=== PATIENT | male | born 1945 | race Caucasian/White ===

== ENCOUNTER 2016-04-16 10:46 | Inpatient (IN) | payer MEDICARE, MEDICAID ==
[2016-04-16] MEDS ORDERED: IPRATROPIUM/ALBUTEROL 0.5-2.5 MG/3 ML AMPUL NEB ONE (11:20)
[2016-04-16] MEDS ORDERED: METHYLPREDNISOLONE INJ 125 MG/2 ML SDV IV ONE (11:20)
[2016-04-16 12:01] LABS: VENOUS BLOOD BASE EXCESS 2.3 mmol/L; VENOUS BLOOD HCO3 30.1 mmol/L (20-32); VENOUS BLOOD PCO2 59.3 mmHg (35-63); VENOUS BLOOD PH 7.32 (7.30-7.42)
[2016-04-16 12:10] LABS: PROTHROMBIN TIME 14.5 SEC (11.4-15.4)
[2016-04-16 12:51] LABS: ABSOLUTE BASOPHILS # (AUTO) 0.1 10^3/uL (0.0-0.2); ABSOLUTE MONOCYTES (AUTO) 0.7 10^3/uL (0.1-1.4); BASOPHILS % (AUTO) 0.9 % (0-2); EOSINOPHILS % (AUTO) 0.2 % (0-6); HEMATOCRIT 46.3 % (37.9-51.0); HEMOGLOBIN 15.4 g/dL (13.5-17.0); HGB HCT DIFFERENCE -0.1; LYMPHOCYTES % (AUTO) 9.9 % (13-45); MEAN CORPUSCULAR HEMOGLOBIN 29.3 pg (27.0-33.4); MEAN CORPUSCULAR HGB CONC 33.3 g/dL (32.0-36.0); MEAN CORPUSCULAR VOLUME 88 fl (80-97); MONOCYTES % (AUTO) 7.3 % (3-13); RED BLOOD COUNT 5.25 10^6/uL (4.35-5.55); RED CELL DISTRIBUTION WIDTH 14.2 % (11.5-14.0); SEGMENTED NEUTROPHILS % (AUTO) 81.7 % (42-78); WHITE BLOOD COUNT 9.8 10^3/uL (4.0-10.5)
[2016-04-16 13:11] LABS: ALANINE AMINOTRANSFERASE 35 U/L (21-72); ALBUMIN 3.7 g/dL (3.5-5.0); ALKALINE PHOSPHATASE 169 U/L (38-126); ANION GAP 16 (5-19); ASPARTATE AMINO TRANSFERASE 23 U/L (17-59); BILIRUBIN,TOTAL 1.1 mg/dL (0.2-1.3); BLOOD UREA NITROGEN 29 mg/dL (7-20); CALCIUM 9.3 mg/dL (8.4-10.2); CARBON DIOXIDE 27 mmol/L (22-30); CHLORIDE 104 mmol/L (98-107); GLUCOSE 112 mg/dL (75-110); POTASSIUM 4.5 mmol/L (3.6-5.0); TOTAL PROTEIN 6.9 g/dL (6.3-8.2)
--- NOTE | 2016-04-16 13:16 | EKG REPORT ---
SEVERITY:- ABNORMAL ECG - AFIB/FLUT AND V-PACED COMPLEXES : Confirmed by: Jeannie Carter 16-Apr-2016 13:15:27
[2016-04-16 13:25] LABS: CREATINE KINASE MB 1.93 ng/mL (<4.55); TROPONIN I 0.066 ng/mL
[2016-04-16] MEDS ORDERED: FUROSEMIDE INJ/PF 40 MG/4 ML SDV IV ONE (14:08)
--- NOTE | 2016-04-16 14:12 | ER Document Report ---
ED Respiratory Problem - General Chief Complaint: Breathing Difficulty Stated Complaint: DIFFICULTY BREATHING Mode of Arrival: Ambulatory Information source: Patient Notes: 71-year-old male presents to the emergency department complaining of progressively worsening cough and shortness of breath over the last 3 days. Patient reports history of COPD, CHF, HTN, CVA, high cholesterol, pacemaker. Reports productive cough with whitish sputum and dyspnea worse with exertion. Denies fever, n/v, chest pain, or hemoptysis. TRAVEL OUTSIDE OF THE [place] IN LAST 30 DAYS: No - HPI Patient complains to provider of: CHF, COPD, Cough, Short of breath Duration: Worse/persistent Severity: Moderate Context: Hx CHF, Hx COPD, Smoker Short of Breath: Moderate Cough: Productive Sputum amount: Small Sputum color: White Sputum consistency: Thin At home treatment: Bronchodilators Similar symptoms previously: Yes Recently seen / treated by doctor: No - Related Data Allergies/Adverse Reactions: No Known Allergies Allergy (Verified 01/08/15 07:35) Home Medications: Current Home Medications Albuterol Sulfate [Proair HFA] 2 puff IH Q3HP PRN 04/16/16 [History] Albuterol Sulfate [Ventolin 0.042% Neb 1.25 mg/3 mL Ampul] 1.25 mg IH RTQ4 04/16 [History] Albuterol Sulfate [Ventolin 0.083% Neb 2.5 mg/3 mL Ampul] 2.5 mg IH RTQ3HP PRN 04/16/16 [History] Atorvastatin Calcium [Lipitor 20 mg Tablet] 20 mg PO DAILY 04/16/16 [History] Lisinopril 10 mg PO DAILY 04/16/16 [History] Past Medical History - General Information source: Patient, Relative, Emergency Med Personnel - Social History Smoking Status: Current Every Day Smoker Frequency of alcohol use: None Drug Abuse: None Lives with: Family Family History: CAD - Past Medical History Cardiac Medical History: Reports: Hx Coronary Artery Disease, Hx Heart Attack - x1, Hx Hypercholesterolemia, Hx Hypertension, Hx Heart Murmur Pulmonary Medical History: Reports: Hx COPD, Hx Pneumonia Denies: Hx Tuberculosis Musculoskeltal Medical History: Reports Hx Arthritis Psychiatric Medical History: Reports: Hx Depression Past Surgical History: Reports: Hx Cardiac Surgery - cabg x2, Hx Coronary Artery Bypass Graft, Hx Orthopedic Surgery - neck fusion, right and left hand surgery, Hx Pacemaker - Immunizations Hx Diphtheria, Pertussis, Tetanus Vaccination: Yes Review of Systems - Review of Systems Constitutional: No symptoms reported EENT: No symptoms reported Cardiovascular: No symptoms reported Respiratory: See HPI Gastrointestinal: No symptoms reported Genitourinary: No symptoms reported Male Genitourinary: No symptoms reported Musculoskeletal: No symptoms reported Skin: No symptoms reported Hematologic/Lymphatic: No symptoms reported Neurological/Psychological: No symptoms reported -: Yes All other systems reviewed and negative Physical Exam - Vital signs Vitals: Temp Pulse Resp BP Pulse Ox 97.4 F 71 24 H 187/97 H 99 04/16/16 10:50 04/16/16 10:50 04/16/16 10:50 04/16/16 10:50 04/16/16 10:50 Interpretation: Normal - General General appearance: Alert In distress: Mild - HEENT Head: Normocephalic, Atraumatic Eyes: Normal Pupils: PERRL - Respiratory Respiratory status: No respiratory distress, Labored - mild Chest status: Nontender Breath sounds: Productive cough, Rhonchi - Scattered bilaterally, Wheezing - Mild expiratory Chest palpation: Normal - Cardiovascular Rhythm: Regular Heart sounds: Normal auscultation Murmur: No Pulses: Normal: Radial Normal capillary refill: Yes - Abdominal Inspection: Normal Distension: No distension Bowel sounds: Normal Tenderness: Nontender Organomegaly: No organomegaly - Back Back: Normal, Nontender - Extremities General upper extremity: Normal inspection, Nontender, Normal color, Normal ROM , Normal temperature General lower extremity: Normal inspection, Nontender, Normal color, Normal ROM , Normal temperature, Normal weight bearing. No: Panfilo's sign - Neurological Neuro grossly intact: Yes Cognition: Normal Orientation: AAOx4 [place] Coma Scale Eye Opening: Spontaneous [place] Coma Scale Verbal: Oriented [place] Coma Scale Motor: Obeys Commands [place] Coma Scale Total: 15 Speech: Normal Motor strength normal: LUE, RUE, LLE, RLE Sensory: Normal - Psychological Associated symptoms: Normal affect, Normal mood - Skin Skin Temperature: Warm Skin Moisture: Dry Skin Color: Normal Course - Re-evaluation Re-evalutation: 04/16/16 14:15 Patient hemodynamically stable, in no distress, afebrile. Patient dyspnea significantly improved after single DuoNeb and intravenous Solu-Medrol and he states feels much better. Physical exam, labs, and chest x-ray findings suggest COPD/CHF exacerbation. Patient presentation and findings with hospitalist Yumiko Benjamin SOLUTION ADVISOR who agrees to assume care, evaluated in the emergency department, and admit to inpatient telemetry unit. Complain discussed with patient who verbalized understanding and agrees with plan. ED physician Dr. Sánhcez was consulted during ED evaluation and treatment. - Vital Signs Vital signs: Temp Pulse Resp BP Pulse Ox 97.5 F 71 14 173/89 H 97 04/16/16 15:01 04/16/16 10:50 04/16/16 15:01 04/16/16 15:01 04/16/16 15:01 - Laboratory Result Diagrams: 04/16/16 12:25 04/16/16 12:25 Laboratory results interpreted by me: 04/16/16 04/16/16 04/16/16 12:25 12:25 12:25 RDW 14.2 H Seg Neutrophils % 81.7 H Lymphocytes % 9.9 L Sodium 147.0 H BUN 29 H Glucose 112 H Alkaline Phosphatase 169 H NT-Pro-B Natriuret Pep 66457 H - Diagnostic Test Radiology reviewed: Image reviewed, Reports reviewed - EKG Interpretation by Me Rate: Normal Rhythm: A.Fib, A.Flutter, Other - ventricular paced When compared to previous EKG there are: Changes noted Discharge - Discharge Clinical Impression: SOB (shortness of breath) Condition: Stable Disposition: ADMITTED INPATIENT Admitting Provider: Joe Walter Admitted: Telemetry
[2016-04-16] MEDS ORDERED: ACETAMINOPHEN 325 MG TABLET PO PRN (14:40)
[2016-04-16] MEDS ORDERED: MAGNESIUM HYDROXIDE SUSP 30 ML UDCUP PO PRN (14:40)
[2016-04-16] MEDS ORDERED: IPRATROPIUM/ALBUTEROL 0.5-2.5 MG/3 ML AMPUL NEB PRN (15:22)
[2016-04-16 15:26] LABS: PROTHROMBIN TIME 14.2 SEC (11.4-15.4)
[2016-04-16] MEDS ORDERED: METOPROLOL TARTRATE PF/INJ 5 MG/5 ML SDV IV ONE (15:30)
[2016-04-16 16:08] LABS: APPEARANCE,URINE SLIGHTLY-CLOUDY; BILIRUBIN,URINE NEGATIVE (NEGATIVE); GLUCOSE, URINE NEGATIVE (NEGATIVE); KETONES,URINE NEGATIVE (NEGATIVE); LEUKOCYTE ESTERASE,URINE NEGATIVE (NEGATIVE); NITRITE,URINE NEGATIVE (NEGATIVE); PROTEIN,URINE 100 mg/dL (NEGATIVE); URINE SPECIFIC GRAVITY 1.016
[2016-04-16] MEDS: LANSOPRAZOLE 30 MG TAB.RAP.DR PO SCH (16:10)
--- NOTE | 2016-04-16 16:43 | PDOC H&P ---
History of Present Illness Admission Date/PCP: 04/16/16 14:40 KAREN LAU PA-C Patient complains of: Shortness of breath History of Present Illness: TORSTEN MANZO JR is a 71 year old male who presents to [facility]'s ED this morning complaining of increasing shortness of breath and dyspnea over the last 2 days. He has a history of chronic systolic heart failure with an EF of 30% on last echocardiogram and COPD and continues to smoke a pack per day of cigarettes. He does not wear home oxygen. He describes a productive cough over the last 2 days of white sputum. He denies any fevers, chills or recent upper respiratory infection. He states he has had to sleep sitting up in a chair for the last 2 nights. He denies any chest pain. He denies any swelling of his ankles or weight gain that he is aware of. He states he does not follow any special diet or weigh himself normally. He has a history of two vessel CABG with AVR in 2014 and permanent pacemaker during the same hospitalization. He does not follow with a electrical and instrument technician and he has not had his pacemaker interrogated since it was put in. He denies any knowledge of arrhythmias. His ecg shows atrial flutter. He has been given IV Lasix and nebulizer treatment since coming into the ED and reports breathing is much easier. Past Medical History Cardiac Medical History: Reports: Congestive Heart Failure, Coronary Artery Disease, Myocardial Infarction - x1, Hyperlipidema, Hypertension, Heart Murmur Pulmonary Medical History: Reports: Chronic Obstructive Pulmonary Disease (COPD) , Pneumonia Denies: Tuberculosis EENT Medical History: Reports: None Neurological Medical History: Reports: Ischemic CVA - with no residual Endocrine Medical History: Reports: None Renal/ Medical History: Reports: None Malignancy Medical History: Reports: None Musculoskeltal Medical History: Reports: Arthritis Skin Medical History: Reports: None Psychiatric Medical History: Reports: Depression Traumatic Medical History: Reports: None Hematology: Reports: None Infectious Medical History: Reports: None Past Surgical History Past Surgical History: Reports: Coronary Artery Bypass Graft, Orthopedic Surgery - neck fusion, right and left hand surgery, Pacemaker Social History Information Source: Patient Lives with: Spouse/Significant other Smoking Status: Current Every Day Smoker Cigarettes Packs Per Day: 1 Number of Years Smokin Frequency of Alcohol Use: Occasional Hx Recreational Drug Use: No Hx Prescription Drug Abuse: No - Advance Directive Resuscitation Status: Full Code - He does not have a formal MPOA, no living family lives with significant other Susan Barksdale and she knows his wishes Family History Family History: CAD, COPD, Hypertension Parental Family History Reviewed: Yes Children Family History Reviewed: NA Sibling(s) Family History Reviewed.: Yes Medication/Allergy Home Medications: Albuterol Sulfate [Proair HFA] 2 puff IH Q3HP PRN 04/16/16 Albuterol Sulfate [Ventolin 0.042% Neb 1.25 mg/3 mL Ampul] 1.25 mg IH RTQ4 04/16 Albuterol Sulfate [Ventolin 0.083% Neb 2.5 mg/3 mL Ampul] 2.5 mg IH RTQ3HP PRN 04/16/16 Atorvastatin Calcium [Lipitor 20 mg Tablet] 20 mg PO DAILY 04/16/16 Lisinopril 10 mg PO DAILY 04/16/16 Allergies/Adverse Reactions: No Known Allergies Allergy (Verified 01/08/15 07:35) Review of Systems Constitutional: ABSENT: chills, fever(s), headache(s), weight gain, weight loss Eyes: ABSENT: visual disturbances Ears: ABSENT: hearing changes Cardiovascular: PRESENT: dyspnea on exertion - productive white phlegm, orthropnea. ABSENT: chest pain, edema, palpitations Respiratory: PRESENT: cough, dyspnea Gastrointestinal: ABSENT: abdominal pain, constipation, diarrhea, hematemesis, hematochezia, nausea, vomiting Genitourinary: ABSENT: dysuria, hematuria Musculoskeletal: ABSENT: joint swelling Integumentary: ABSENT: rash, wounds Neurological: ABSENT: abnormal gait, abnormal speech, confusion, dizziness, focal weakness, syncope Psychiatric: ABSENT: anxiety, depression, homidical ideation, suicidal ideation Endocrine: ABSENT: cold intolerance, heat intolerance, polydipsia, polyuria Hematologic/Lymphatic: ABSENT: easy bleeding, easy bruising Physical Exam Vital Signs: Temp Pulse Resp BP Pulse Ox 97.5 F 71 14 173/89 H 97 04/16/16 15:01 04/16/16 10:50 04/16/16 15:01 04/16/16 15:01 04/16/16 15:01 General appearance: PRESENT: no acute distress, cooperative, disheveled, thin, well-developed Head exam: PRESENT: atraumatic, normocephalic Eye exam: PRESENT: conjunctiva pink, EOMI, PERRLA. ABSENT: scleral icterus Ear exam: PRESENT: normal external ear exam Mouth exam: PRESENT: moist, neck supple, tongue midline Teeth exam: PRESENT: edentulous Neck exam: PRESENT: JVD. ABSENT: carotid bruit, lymphadenopathy, thyromegaly Respiratory exam: PRESENT: crackles, symmetrical, wheezes Cardiovascular exam: PRESENT: irregular rhythm, +S1, +S2 Pulses: PRESENT: normal carotid pulses, normal radial pulses Vascular exam: PRESENT: normal capillary refill GI/Abdominal exam: PRESENT: normal bowel sounds, soft. ABSENT: distended, guarding, mass, organolmegaly, rebound, tenderness Rectal exam: PRESENT: deferred Extremities exam: PRESENT: full ROM. ABSENT: calf tenderness, clubbing, pedal edema Neurological exam: PRESENT: alert, awake, oriented to person, oriented to place , oriented to time, oriented to situation, CN II-XII grossly intact. ABSENT: motor sensory deficit Psychiatric exam: PRESENT: appropriate affect, normal mood. ABSENT: homicidal ideation, suicidal ideation Skin exam: PRESENT: dry, intact, warm. ABSENT: cyanosis, rash Results Impressions: Chest X-Ray 04/16/16 10:53 IMPRESSION: Probably chronic changes along the right lateral and posterior costophrenic sulcus and right lung base Superimposed pulmonary vascular prominence and few Demetrice lines worrisome for fluid overload or congestive failure Old sternotomy with aortic valve replacement and CABG Assessment & Plan - Diagnosis (1) Acute exacerbation of CHF (congestive heart failure) Qualifiers: Congestive heart failure type: systolic Qualified Code(s): I50.23 - Acute on chronic systolic (congestive) heart failure Is this a current diagnosis for this admission?: YesPlan: Diurese. Improve blood pressure control. Consult cardiology for new onset of atrial flutter (2) Atrial flutter Qualifiers: Atrial flutter type: typical Qualified Code(s): I48.3 - Typical atrial flutter Is this a current diagnosis for this admission?: YesPlan: No prior documentation of history of atrial flutter. Will place on therapeutic lovenox. Consult cardiology (3) COPD exacerbation Is this a current diagnosis for this admission?: YesPlan: Nebulizer treatments and IV steroid (4) Coronary artery disease Qualifiers: Coronary Disease-Associated Artery/Lesion type: [place] artery [place] vs. transplanted heart: [place] heart Associated angina: without angina Qualified Code(s): I25.10 - Atherosclerotic heart disease of [place] coronary artery without angina pectoris Is this a current diagnosis for this admission?: YesPlan: Patient on statin. No aspirin therapy (5) Hypertensive urgency Is this a current diagnosis for this admission?: YesPlan: Patient given Lopressor 5 mg IV x 1.Placed on po metoprolol and increased dose of lisinopril to 20 mg (6) Tobacco abuse Is this a current diagnosis for this admission?: YesPlan: Patient with a 50 pack year history of tobacco use. He states he has been cutting back - Time Time Spent: 50 to 70 Minutes Critical Time spent with patient: 35 or more minutes Smoking Cessation Education: 3 to 10 minutes Medications reviewed and adjusted accordingly: Yes Anticipated discharge: Home with Homehealth
[2016-04-16] MEDS ORDERED: INFLUENZA ADLT QUAD (36MOS+) 2016-17 VAC 0.5 ML SYR IM PRN (18:20)
[2016-04-16] MEDS: IPRATROPIUM/ALBUTEROL 0.5-2.5 MG/3 ML AMPUL NEB SCH (21:13)
[2016-04-16] MEDS ORDERED: HEPARIN SOD (PORCINE) 5,000 UNIT/ML 1 ML SYRINGE SUBCUT SCH (22:00)
[2016-04-16] MEDS: METOPROLOL TARTRATE 50 MG TABLET PO SCH (22:45)
[2016-04-16] MEDS: METHYLPREDNISOLONE INJ 125 MG/2 ML SDV IV SCH (22:46)
[2016-04-16] MEDS: ENOXAPARIN SODIUM INJ 80 MG/0.8 ML DISP.SYRIN SUBCUT SCH (22:46)
[2016-04-17 04:20] LABS: HEMATOCRIT 49.7 % (37.9-51.0); HEMOGLOBIN 16.4 g/dL (13.5-17.0); HGB HCT DIFFERENCE -0.5; MEAN CORPUSCULAR HEMOGLOBIN 29.1 pg (27.0-33.4); MEAN CORPUSCULAR HGB CONC 32.9 g/dL (32.0-36.0); MEAN CORPUSCULAR VOLUME 89 fl (80-97); RED BLOOD COUNT 5.62 10^6/uL (4.35-5.55); RED CELL DISTRIBUTION WIDTH 14.7 % (11.5-14.0); WHITE BLOOD COUNT 6.7 10^3/uL (4.0-10.5)
[2016-04-17 04:28] LABS: CHOLESTEROL 151.94 mg/dL (0-200); Direct HDL 41 mg/dL (>40); MAGNESIUM 2.1 mg/dL (1.6-2.3); TRIGLYCERIDES 66 mg/dL (<150)
[2016-04-17 04:35] LABS: TROPONIN I 0.069 ng/mL
[2016-04-17 04:39] LABS: DIRECT LDL 100 mg/dL (<100)
[2016-04-17 04:41] LABS: FREE T3 2.06 pg/mL (2.77-5.27)
[2016-04-17 04:55] LABS: THYROID STIMULATING HORMONE 1.78 uIU/mL (0.47-4.68)
[2016-04-17] MEDS: METHYLPREDNISOLONE INJ 125 MG/2 ML SDV IV SCH ×3 (05:20→21:55)
[2016-04-17] MEDS: LANSOPRAZOLE 30 MG TAB.RAP.DR PO SCH ×2 (05:20→16:07)
[2016-04-17] MEDS: IPRATROPIUM/ALBUTEROL 0.5-2.5 MG/3 ML AMPUL NEB SCH ×3 (08:31→19:58)
[2016-04-17] MEDS: NICOTINE 21 MG/24 HR PATCH.TD24 TD SCH (09:31)
[2016-04-17] MEDS: ENOXAPARIN SODIUM INJ 80 MG/0.8 ML DISP.SYRIN SUBCUT SCH ×2 (09:32→21:55)
[2016-04-17] MEDS: ASPIRIN 81 MG TABLET, ENT COATED PO SCH (09:32)
[2016-04-17] MEDS: METOPROLOL TARTRATE 50 MG TABLET PO SCH ×2 (09:32→21:52)
[2016-04-17] MEDS: DOCUSATE SODIUM 100 MG CAPSULE PO SCH (09:32)
[2016-04-17] MEDS ORDERED: LISINOPRIL 10 MG TABLET PO SCH ×2 (10:00)
[2016-04-17 10:04] LABS: ANION GAP 14 (5-19); BLOOD UREA NITROGEN 45 mg/dL (7-20); CALCIUM 9.2 mg/dL (8.4-10.2); CARBON DIOXIDE 27 mmol/L (22-30); CHLORIDE 103 mmol/L (98-107); CREATININE RESULT 1.36 mg/dL (0.52-1.25); GLUCOSE 259 mg/dL (75-110); POTASSIUM 4.4 mmol/L (3.6-5.0); SODIUM 144.2 mmol/L (137-145)
[2016-04-17] MEDS ORDERED: FUROSEMIDE INJ/PF 20 MG/2 ML SDV IV ONE (12:01)
[2016-04-17 12:20] LABS: APPEARANCE,URINE SLIGHTLY-CLOUDY; BILIRUBIN,URINE NEGATIVE (NEGATIVE); GLUCOSE, URINE 50 mg/dL (NEGATIVE); KETONES,URINE NEGATIVE (NEGATIVE); LEUKOCYTE ESTERASE,URINE NEGATIVE (NEGATIVE); NITRITE,URINE NEGATIVE (NEGATIVE); PROTEIN,URINE 100 mg/dL (NEGATIVE); URINE SPECIFIC GRAVITY 1.026
--- NOTE | 2016-04-17 14:23 | PDOC PROGRESS REPORT ---
Subjective Progress Note for:: 04/17/16 Subjective:: Patient seen on morning rounds. He is sitting on the side of the bed eating his breakfast. He states his breathing is improved from yesterday. He denies any chest pain or palpitations. He does have a productive cough raising thick white sputum. He denies any abdominal pain, diarrhea or vomiting. He denies any myalgias or back pain. Physical Exam Vital Signs: Temp Pulse Resp BP Pulse Ox 97.6 F 62 24 H 133/68 H 96 04/17/16 12:13 04/17/16 13:59 04/17/16 12:13 04/17/16 12:13 04/17/16 12:13 Intake & Output 04/16/16 04/17/16 04/18/16 06:59 06:59 06:59 Intake Total 54 600 Output Total 100 Balance 54 500 Weight 57.8 kg General appearance: PRESENT: no acute distress, thin, well-developed, well- nourished Head exam: PRESENT: atraumatic, normocephalic Eye exam: PRESENT: conjunctiva pink, EOMI, PERRLA. ABSENT: scleral icterus Ear exam: PRESENT: normal external ear exam Mouth exam: PRESENT: moist, tongue midline Neck exam: ABSENT: carotid bruit, JVD, lymphadenopathy, thyromegaly Respiratory exam: PRESENT: crackles, decreased breath sounds - bilateral bases, symmetrical, unlabored Cardiovascular exam: PRESENT: irregular rhythm, +S1, +S2, systolic murmur - 2/6 Pulses: PRESENT: normal carotid pulses, normal radial pulses Vascular exam: PRESENT: normal capillary refill GI/Abdominal exam: PRESENT: normal bowel sounds, soft. ABSENT: distended, guarding, mass, organolmegaly, rebound, tenderness Rectal exam: PRESENT: deferred Extremities exam: PRESENT: full ROM. ABSENT: calf tenderness, clubbing, pedal edema Musculoskeletal exam: PRESENT: ambulatory Neurological exam: PRESENT: alert, oriented to person, oriented to place, oriented to time, CN II-XII grossly intact, normal gait Psychiatric exam: PRESENT: appropriate affect, normal mood. ABSENT: homicidal ideation, suicidal ideation Skin exam: PRESENT: dry, intact, warm. ABSENT: cyanosis, rash Results Laboratory Results: 04/17/16 03:34 04/17/16 09:25 04/16/16 04/17/16 04/17/16 15:14 03:34 03:34 WBC 6.7 RBC 5.62 H Hgb 16.4 Hct 49.7 MCV 89 MCH 29.1 MCHC 32.9 RDW 14.7 H Plt Count 226 Sodium Potassium Chloride Carbon Dioxide Anion Gap BUN Creatinine Est GFR ( Amer) Est GFR (Non-Af Amer) Glucose Calcium Magnesium 2.1 Triglycerides 66 Cholesterol 151.94 LDL Cholesterol Direct 100 VLDL Cholesterol 13.0 HDL Cholesterol 41 TSH Free T4 Free T3 pg/mL Urine Color YELLOW Urine Appearance SLIGHTLY-CLOUDY Urine pH 5.0 Ur Specific [place] 1.016 Urine Protein 100 H Urine Glucose (UA) NEGATIVE Urine Ketones NEGATIVE Urine Blood NEGATIVE Urine Nitrite NEGATIVE Ur Leukocyte Esterase NEGATIVE Urine WBC (Auto) 1 Urine RBC (Auto) 1 04/17/16 04/17/16 04/17/16 03:34 09:25 11:55 WBC RBC Hgb Hct MCV MCH MCHC RDW Plt Count Sodium 144.2 Potassium 4.4 Chloride 103 Carbon Dioxide 27 Anion Gap 14 BUN 45 H Creatinine 1.36 H Est GFR ( Amer) > 60 Est GFR (Non-Af Amer) 51 L Glucose 259 H Calcium 9.2 Magnesium Triglycerides Cholesterol LDL Cholesterol Direct VLDL Cholesterol HDL Cholesterol TSH 1.78 Free T4 1.33 Free T3 pg/mL 2.06 L Urine Color YELLOW Urine Appearance SLIGHTLY-CLOUDY Urine pH 5.0 Ur Specific [place] 1.026 Urine Protein 100 H Urine Glucose (UA) 50 H Urine Ketones NEGATIVE Urine Blood NEGATIVE Urine Nitrite NEGATIVE Ur Leukocyte Esterase NEGATIVE Urine WBC (Auto) 1 Urine RBC (Auto) 1 04/16/16 04/16/16 04/17/16 15:07 20:54 03:34 Troponin I 0.077 0.078 0.069 NT-Pro-B Natriuret Pep 78168 H Impressions: Chest X-Ray 04/16/16 10:53 IMPRESSION: Probably chronic changes along the right lateral and posterior costophrenic sulcus and right lung base Superimposed pulmonary vascular prominence and few Demetrice lines worrisome for fluid overload or congestive failure Old sternotomy with aortic valve replacement and CABG Assessment & Plan - Diagnosis (1) Acute exacerbation of CHF (congestive heart failure) Qualifiers: Congestive heart failure type: systolic Qualified Code(s): I50.23 - Acute on chronic systolic (congestive) heart failure Is this a current diagnosis for this admission?: YesPlan: Diverae. Improve blood pressure control.Lovenox bridge, start warfarin. Consult cardiology for new onset of atrial flutter (2) Atrial flutter Qualifiers: Atrial flutter type: typical Qualified Code(s): I48.3 - Typical atrial flutter Is this a current diagnosis for this admission?: YesPlan: No prior documentation of history of atrial flutter. Will place on therapeutic lovenox for bridge start warfarin. Consult cardiology, will eventually need ablation (3) COPD exacerbation Is this a current diagnosis for this admission?: YesPlan: Nebulizer treatments and IV steroid. Coughing up yellow sputum today, will place on broad spectrum antibiotic therapy (4) Coronary artery disease Qualifiers: Coronary Disease-Associated Artery/Lesion type: [place] artery [place] vs. transplanted heart: [place] heart Associated angina: without angina Qualified Code(s): I25.10 - Atherosclerotic heart disease of [place] coronary artery without angina pectoris Is this a current diagnosis for this admission?: YesPlan: Patient on statin. No aspirin therapy (5) Hypertensive urgency Is this a current diagnosis for this admission?: YesPlan: Patient given Lopressor 5 mg IV x 1.Placed on po metoprolol and increased dose of lisinopril to 20 mg bid (6) Tobacco abuse Is this a current diagnosis for this admission?: YesPlan: Patient with a 50 pack year history of tobacco use. He states he has been cutting back - Time Time Spent with patient: 25-34 minutes Critical Time spent with patient: 25-34 minutes Smoking Cessation Education: 3 to 10 minutes Medications reviewed and adjusted accordingly: Yes
[2016-04-17] MEDS ORDERED: LEVOFLOXACIN 500 MG/D5W RTU 500 MG/100 ML RTUPB IV ONE (14:30)
--- NOTE | 2016-04-17 15:58 | CONSULTATION REPORT E ---
Consultation Report NAME: TORSTEN MANZO : 1945 AGE: 71Y DATE: 04/17/2016 304 B TO: ALICE CURTIS M.D. FROM: Requesting Physician REASON FOR CONSULTATION: Shortness of breath and heart failure. HISTORY OF PRESENT ILLNESS: The patient is a 71-year male with known history of coronary artery disease, history of non-ST elevation OK in 2000, status post coronary artery bypass graft surgery with saphenous vein graft to the distal right coronary artery, a saphenous vein graft to the ramus intermedius, and history of pericardial tissue aortic valve replacement for severe aortic stenosis, history of permanent pacemaker, biventricular resynchronization pacemaker for complete heart block with decreased LV ejection fraction. Also, patient with known history of COPD but continues to smoke. He states since the past 2-3 days, he has been having progressively increasing shortness of breath with wheezing and cough productive of yellowish sputum. He also has been having intermittent wheezing without any palpitations and no leg edema and no chest pain. He has been having PND and orthopnea. Since his coronary artery bypass graft surgery and the aortic valve replacement and pacemaker placement has not seen a mill beam fitter. He has missed several appointments with me in the office. He has not had his pacemaker checked in a long time. He denies any fever, chills, or rigors. He denies any palpitations or syncope. There is no leg edema. PAST MEDICAL HISTORY: Positive for hypertension. He also has a history of non-ST elevation OK in 2010 at which time he had a cardiac catheterization which showed significant 2-vessel disease and aortic stenosis. The patient had a saphenous vein graft to the distal right coronary artery and a saphenous vein graft to the ramus intermedius and also had a pericardial tissue valve replacement of his stenosed aortic valve. He also at that time had complete heart block and had a biventricular resynchronization permanent pacemaker placed with an atrial lead and a lead in the left coronary sinus system to pace the left ventricle and also a lead in the right ventricle. His EKG shows atrial flutter and the patient states he has not had atrial flutter in the past. He has a history of COPD. He continues to smoke. He has recent symptoms suggestive of acute exacerbation of COPD. He has history of TIA. He has had a history of CVA in the past but has fully recovered. He has a history of depression. He also has a history of arthritis. The patient has no history of chronic kidney disease but his renal function is mildly reduced now most likely due to his heart failure and dehydration and sepsis due to the patient's acute exacerbation of COPD. PAST SURGICAL HISTORY: Positive for history of coronary artery bypass graft surgery, permanent pacemaker placement, and aortic valve replacement with pericardial tissue valve. He has also had right and left hand surgery and also he has neck fusion done due to cervical spine arthritis. SOCIAL HISTORY: The patient continues to smoke. There is no history of ETOH abuse. The patient is a FULL CODE. He states that, Susan, his significant other living with him is his surrogate healthcare decision maker. REVIEW OF SYSTEMS: CONSTITUTIONAL: Denies any fever, chills, or rigors. Complains of generalized fatigue and weakness. Denies any headache or dizziness. There is no head injury. HEENT: Eyes: No history of amblyopia or diplopia, no history of amaurosis fugax. Mouth: No history of altered taste sensation, no ulcers in the mouth, no bleeding from the gums. Ears: No history of loss, no history of tinnitus, no history of vertigo, no history of recurrent ear infection. Nose: No history of hay fever, no history of nosebleeds, no history of nasal polyps. Throat: There is no odynophagia or dysphagia. No history of recurrent sore throats. SKIN: No history of pruritus. No history of psoriasis. No history of skin cancer. No history of yellowish discoloration of the skin. NECK: No swelling in the neck and no goiter. LUNGS: History of COPD. At present, there is acute exacerbation of COPD along with congestive heart failure. He has no history of sleep apnea. No history of pulmonary embolism. No history of hemoptysis. No history of pleuritic chest pain. CARDIAC: History of coronary artery disease. History of coronary artery bypass graft surgery as mentioned, about 2 vein grafts each, one to the distal RCA and to the ramus intermedius. History of tissue pericardial valve replacement for severe aortic stenosis. He also had cardiomyopathy with the last ejection fraction in 2014 showing LV ejection fraction of 30%. He has no syncope. The patient admitted with [id number] systolic heart failure. The patient has no palpitations or syncope. There is no leg edema. There is PND and orthopnea present. ENDOCRINE: No history of diabetes mellitus. No history of thyroid disease. No history of heat or cold intolerance. No history of polydipsia or polyuria. RENAL: There is no history of chronic kidney disease but at present, his GFR is reduced to 51, most likely acute renal insufficiency secondary to congestive heart failure and acute exacerbation of COPD possibly with sepsis. No history of hematuria, pyuria, or dysuria. MUSCULOSKELETAL: History of arthritis present. No history of collagen vascular disease. GASTROINTESTINAL: No history of GERD. No history of peptic ulcer disease. No history of GI bleed. No history of fatty food intolerance. No altered bowel movements. CENTRAL NERVOUS SYSTEM: Past history of CVA from which he has fully recovered. No history of sleep apnea. No history of headaches, migraines, or seizures. PSYCHIATRIC: History of depression at present. No history of suicidal ideation. VASCULAR: No history of calf or buttock claudication. He has history of peripheral arterial disease although he has no symptoms of claudication because he does not walk much. In 2000, an angiogram performed showed that there was 100% occlusion in the right common iliac with 80% occlusion of the left common iliac. There is no history of DVT. HEMATOLOGICAL: No history of bleeding diathesis. No history of clotting disorders. The rest of the review of systems is positive for atrial and biventricular leads for cardiac resynchronization therapy. He has not had his pacemaker checked for a long time. He also has peripheral arterial disease and it is not known if he followed up with vascular as he was supposed to. For metabolic, he has a history of hyperlipidemia. No history of gout. PHYSICAL EXAMINATION: GENERAL: The patient appears to be chronically ill and frail and appears to be ill nourished. VITAL SIGNS: He is afebrile with a temperature of 97.6 degrees Fahrenheit, pulse is 59 beats per minute, blood pressure 133/68, respirations are 24 per minute, 02 saturations are 96% on 2 L nasal cannula. HEENT: Head is atraumatic, normocephalic. Eyes: Pupils are equal, round, regular and reactive to light and accommodation. Extraocular movements are normal. There is no conjunctival pallor. There is no scleral icterus. Ears: Tympanic membranes are intact. External auditory canals are clear. Nose: There is no deviated nasal septum. There is no inflammation of the nasal mucous membranes. Mouth: Mucous membranes of the mouth are moist. Tongue is moist. There are no ulcers. There is no bleeding from the gums. Throat: There is no redness of the oropharynx. There are no exudates. SKIN: There are no skin rashes. There is no petechia or ecchymosis. There are no skin lesions. NECK: Supple. There is mild JVD present. Carotids are equal. There is no bruit. There is no goiter. There is lymphadenopathy. Trachea is central. LUNGS: Show diminished air entry, prolonged expiration with scattered rhonchi and a few wheezing. There is also a few bibasilar rales of CHF. HEART: S1, S2 are heard. S1 is of variable intensity. There is no S3 gallop. There is no S4 gallop. There is a systolic murmur in the left sternal border and apex. There is no rub. ABDOMEN: Soft, nontender. There is no hepatosplenomegaly. Bowel sounds are well heard. EXTREMITIES: Femorals are diminished. There are no femoral bruits. Leg pulses are difficult to palpate. There is no pedal edema. There is no pedal edema. There is no DVT or cellulitis. There is no calf tenderness. CENTRAL NERVOUS SYSTEM: The patient is conscious, awake, and alert, oriented x3 with no focal deficits. PSYCHIATRIC: The patient does not appear to be agitated or depressed. His judgment and insight are intact. His affect is normal. DIAGNOSTICS: The patient's chest x-ray shows mild congestive heart failure. He has a pacemaker lead in the right atrium, the right ventricle, and in the coronary sinus. There are no infiltrates suggestive of pneumonia. The patient's EKG shows atrial flutter with ventricular paced rhythm. EKG strips were typical type I flutter. The patient's white count is 6900, hemoglobin 16.4, hematocrit 49.7, platelet count is 226,000. The patient's sodium is 147, potassium 4.5, chloride 104, CO2 is 27. The patient's BUN is 29, creatinine is 1.10, GFR is greater than 60. The patient's liver function tests were normal with an increased alk phos of 169. His calcium was 9.3 yesterday. His NT-proBNP is 12,400. The patient's troponin I is 0.066, 0.077, and 0.078. The patient's triglycerides are 66, total cholesterol is 151.94, LDL is 100, HDL is 41. The patient's TSH is 2.23. The patient's troponin I today has been 0.069 and his NT-proBNP is 17,500. His TSH is normal at 1.78. The patient's sodium is 144.2, potassium 4.4, chloride 103, CO2 is 27. The patient's BUN is 45, creatinine is 1.36. GFR is reduced at 51 mL. His glucose is 259. ALLERGIES: No known allergies. MEDICATIONS: 1. Acetaminophen 650 mg p.o. q.4 hours p.r.n. 2. Aspirin 81 mg p.o. daily. 3. Atorvastatin 20 mg p.o. at bedtime. 4. Colace 100 mg p.o. daily. 5. He is on enoxaparin, that is Lovenox *------* mg subcutaneous q.12 hours. 6. He is to get the flu vaccine 0.5 mL on the day of discharge. 7. He is on Lasix 40 mg IV push times 1 and 40 mg IV daily. 8. He is on ipratropium/albuterol nebulizer 3 mL nebulizer treatment q.3 hours p.r.n. and 3 mL nebulizer treatment q.6 hours while awake. 9. He is on Prevacid 30 mg p.o. b.i.d. 10. He is on lisinopril 20 mg p.o. daily. 11. He is on magnesium hydroxide 30 mL p.o. at bedtime p.r.n. 12. He is on methylprednisolone 60 mg IV q.8 hours. 13. He is on metoprolol 5 mg IV times 1 and 50 mg p.o. q.12 hours. 14. He is on Nicoderm patch 21 mg/24 hours once daily to the skin. 15. He is on spironolactone 25 mg p.o. daily. 16. He is also on Coumadin at 5 mg p.o. at bedtime. 17. He is on metoprolol 50 mg p.o. q.12 hours. IMPRESSION: 1. Shortness of breath, PND, orthopnea secondary to acute exacerbation of COPD and nrqis-gq-aoxsieu systolic and diastolic heart failure. 2. Syzdd-up-drplqaz systolic heart failure and diastolic heart failure. 3. COPD acute exacerbation. 4. Atrial flutter, ? onset, ? duration. 5. CAD, history of non-ST elevation OK, history of coronary artery bypass graft surgery x2. 6. Aortic valve replacement with a tissue pericardial valve. 7. History of biventricular permanent pacemaker placement with a lead in the RA, the RV, and in the left coronary sinus. His pacemaker has not been checked for a long time. 8. Tobacco abuse. 9. Depression. 10. Arthritis. 11. Acute renal failure. 12. Peripheral vascular disease. RECOMMENDATIONS: Would continue the patient on respiratory treatments. Would recommend adding an antibiotic for possible acute bronchitis. Continue lisinopril. Continue metoprolol and continue aspirin. Continue atorvastatin. Note, 45 minutes spent on the patient with more than 50% of the time spent in direct patient care and also review of his medications, adjustments made to his medications. This was discussed with the patient and with the hospitalist taking care of the patient. We will discuss with them regarding starting of the antibiotics. Hopefully with the infection being currently controlled and acute exacerbation of COPD resolved and with the atrial flutter, continue the patient on full dose Lovenox subcutaneously until PT/INR is therapeutic with Coumadin. The patient later will be *------* hospital after a stress test here for possible ablate of the permanent pacemaker to an AICD and also recommend that the patient have an outpatient Lexiscan Cardiolite stress once the COPD goes back to baseline. Will follow with you. Thanking you. DICTATING PHYSICIAN: ALICE CURTIS M.D. [id number] PHY#: [id number] ID: [id number] JOB#: [id number] ACCT: [id number] cc:ALICE CURTSI M.D. >
[2016-04-17] MEDS ORDERED: ZOLPIDEM TARTRATE 5 MG TABLET PO PRN (19:49)
[2016-04-17] MEDS: LISINOPRIL 10 MG TABLET PO SCH (21:53)
[2016-04-17] MEDS: FUROSEMIDE INJ/PF 40 MG/4 ML SDV IV SCH (21:55)
[2016-04-17] MEDS ORDERED: ATORVASTATIN CALCIUM 20 MG TABLET PO SCH (22:00)
[2016-04-17] MEDS ORDERED: WARFARIN SODIUM 5 MG TABLET PO SCH (22:00)
[2016-04-18 04:53] LABS: PROTHROMBIN TIME 14.4 SEC (11.4-15.4)
[2016-04-18 05:09] LABS: ANION GAP 13 (5-19); BLOOD UREA NITROGEN 54 mg/dL (7-20); CALCIUM 9.3 mg/dL (8.4-10.2); CARBON DIOXIDE 30 mmol/L (22-30); CHLORIDE 100 mmol/L (98-107); GLUCOSE 165 mg/dL (75-110); SODIUM 142.8 mmol/L (137-145)
[2016-04-18] MEDS: LANSOPRAZOLE 30 MG TAB.RAP.DR PO SCH (05:11)
[2016-04-18] MEDS: METHYLPREDNISOLONE INJ 125 MG/2 ML SDV IV SCH (05:11)
[2016-04-18 05:24] LABS: HEMATOCRIT 40.4 % (37.9-51.0); HGB HCT DIFFERENCE -0.2; MEAN CORPUSCULAR HEMOGLOBIN 29.2 pg (27.0-33.4); MEAN CORPUSCULAR HGB CONC 33.1 g/dL (32.0-36.0); MEAN CORPUSCULAR VOLUME 88 fl (80-97); RED BLOOD COUNT 4.58 10^6/uL (4.35-5.55); RED CELL DISTRIBUTION WIDTH 14.3 % (11.5-14.0)
[2016-04-18 05:28] LABS: BASOPHILS % (MANUAL) 0 % (0-2); EOSINOPHILS % (MANUAL) 0 % (0-6); LYMPHOCYTES % (MANUAL) 5 % (13-45); TOTAL CELLS COUNTED 100
[2016-04-18 05:29] LABS: ANISOCYTOSIS SLIGHT; BURR CELLS SLIGHT; OVALOCYTES SLIGHT; POIKILOCYTOSIS SLIGHT; TOXIC GRANULATION SLIGHT; TOXIC VACUOLATION PRESENT
[2016-04-18 05:31] LABS: HEMOGLOBIN 13.4 g/dL (13.5-17.0); WHITE BLOOD COUNT 18.5 10^3/uL (4.0-10.5)
[2016-04-18 08:31] VITALS: BP 144/67
[2016-04-18] MEDS: IPRATROPIUM/ALBUTEROL 0.5-2.5 MG/3 ML AMPUL NEB SCH (08:36)
[2016-04-18] MEDS: LISINOPRIL 10 MG TABLET PO SCH (09:43)
[2016-04-18] MEDS: ASPIRIN 81 MG TABLET, ENT COATED PO SCH (09:44)
[2016-04-18] MEDS: METOPROLOL TARTRATE 50 MG TABLET PO SCH (09:44)
[2016-04-18] MEDS: ENOXAPARIN SODIUM INJ 80 MG/0.8 ML DISP.SYRIN SUBCUT SCH (09:44)
[2016-04-18] MEDS: FUROSEMIDE INJ/PF 40 MG/4 ML SDV IV SCH (09:46)
[2016-04-18] MEDS: NICOTINE 21 MG/24 HR PATCH.TD24 TD SCH (09:46)
[2016-04-18] MEDS: DOCUSATE SODIUM 100 MG CAPSULE PO SCH (09:46)
[2016-04-18] MEDS ORDERED: SPIRONOLACTONE 25 MG TABLET PO SCH (10:00)
[2016-04-18] MEDS ORDERED: LEVOFLOXACIN 250 MG/D5W RTU 250 MG/50 ML RTUPB IV SCH (10:00)
[2016-04-18] MEDS ORDERED: FUROSEMIDE INJ/PF 40 MG/4 ML SDV IV SCH (10:00)
--- NOTE | 2016-04-18 10:50 | PDOC DISCHARGE SUMMARY ---
General - Admit/Disc Date/PCP Admission Date/Primary Care Provider: 04/16/16 14:40 KAREN LAU PA-C Discharge Date: 04/18/16 - Against Medical Advice - Discharge Diagnosis (1) Acute exacerbation of CHF (congestive heart failure) Is this a current diagnosis for this admission?: Yes (2) Atrial flutter Is this a current diagnosis for this admission?: Yes (3) COPD exacerbation Is this a current diagnosis for this admission?: Yes (4) Coronary artery disease Is this a current diagnosis for this admission?: Yes (5) Hypertensive urgency Is this a current diagnosis for this admission?: Yes (6) Tobacco abuse Is this a current diagnosis for this admission?: Yes - Additional Information Resuscitation Status: Full Code Discharge Activity: Activity As Tolerated, Balance Activity w/Rest, Energy Conservation, Weigh Daily Home Medications: Albuterol Sulfate [Proair HFA] 2 puff IH Q3HP PRN 04/16/16 Albuterol Sulfate [Ventolin 0.042% Neb 1.25 mg/3 mL Ampul] 1.25 mg IH RTQ4 04/16 Albuterol Sulfate [Ventolin 0.083% Neb 2.5 mg/3 mL Ampul] 2.5 mg IH RTQ3HP PRN 04/16/16 Atorvastatin Calcium [Lipitor 20 mg Tablet] 20 mg PO DAILY 04/16/16 Lisinopril 10 mg PO DAILY 04/16/16 History of Present Illness Patient complains of: Shortness of breath and dyspnea History of Present Illness: TORSTEN MANZO JR is a 71 year old male who presents to [facility]'s ED this morning complaining of increasing shortness of breath and dyspnea over the last 2 days. He has a history of chronic systolic heart failure with an EF of 30% on last echocardiogram and COPD and continues to smoke a pack per day of cigarettes. He does not wear home oxygen. He describes a productive cough over the last 2 days of white sputum. He denies any fevers, chills or recent upper respiratory infection. He states he has had to sleep sitting up in a chair for the last 2 nights. He denies any chest pain. He denies any swelling of his ankles or weight gain that he is aware of. He states he does not follow any special diet or weigh himself normally. He has a history of two vessel CABG with AVR in 2013 and permanent pacemaker during the same hospitalization. 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 He denies any knowledge of arrhythmias. His ecg shows atrial flutter. He has been given IV Lasix and nebulizer treatment since coming into the ED and reports breathing is much easier. Hospital Course Hospital Course: Patient was admitted to the [facility] on telemetry. He was diuresed. He was given IV broad spectrum antibiotics and nebulizer treatments. He was placed on a beta adele and had his veronica inhibitor increased for blood pressure control. He was found to be in atrial flutter. He was started on therapeutic dose of lovenox and Coumadin. Dr Yanes saw the patient in consult for cardiology. He made adjustments in his medications and feels patient will need to be sent for EPS and ablation once he has been therapeutic on Coumadin for a period of time. The patient has not been compliant with medical therapy in the past according to his significant other. He has never routine for cardiology follow up after his CABG/AVR and permanent pacemaker insertion. This morning he became beligerent with the nursing staff about going home. I talked to him and advised him it would not be in his good interest if he left the hospital today. Despite our attempts the patient maria de jesus AMA forms and left. Physical Exam Vital Signs: Temp Pulse Resp BP Pulse Ox 97.5 F 65 16 144/67 H 97 04/18/16 08:26 04/18/16 08:36 04/18/16 08:36 04/18/16 08:26 04/18/16 08:26 Intake & Output 04/17/16 04/18/16 04/19/16 06:59 06:59 06:59 Intake Total 54 2183 Output Total 900 Balance 54 1283 Weight 57.8 kg 58 kg General appearance: PRESENT: no acute distress, disheveled, hard of hearing, thin, well-developed Head exam: PRESENT: atraumatic, normocephalic Eye exam: PRESENT: conjunctiva pink, EOMI, PERRLA. ABSENT: scleral icterus Ear exam: PRESENT: bleeding Mouth exam: PRESENT: moist, tongue midline Teeth exam: PRESENT: edentulous Neck exam: ABSENT: carotid bruit, JVD, lymphadenopathy, thyromegaly Respiratory exam: PRESENT: crackles, decreased breath sounds - bilaterally, symmetrical, wheezes Cardiovascular exam: PRESENT: RRR. ABSENT: diastolic murmur, rubs, systolic murmur Pulses: PRESENT: normal dorsalis pedis pul Vascular exam: PRESENT: normal capillary refill GI/Abdominal exam: PRESENT: normal bowel sounds, soft. ABSENT: distended, guarding, mass, organolmegaly, rebound, tenderness Rectal exam: PRESENT: deferred Extremities exam: PRESENT: full ROM. ABSENT: calf tenderness, clubbing, pedal edema Neurological exam: PRESENT: alert, awake, oriented to person, oriented to place , oriented to time, oriented to situation, CN II-XII grossly intact. ABSENT: motor sensory deficit Psychiatric exam: PRESENT: anxious Skin exam: PRESENT: dry, intact, warm. ABSENT: cyanosis, rash Results Laboratory Results: 04/18/16 04:15 04/18/16 04:15 04/17/16 04/17/16 04/18/16 11:55 14:40 04:15 WBC RBC Hgb Hct MCV MCH MCHC RDW Plt Count Seg Neutrophils % Lymphocytes % Monocytes % Eosinophils % Basophils % Absolute Neutrophils Absolute Lymphocytes Absolute Monocytes Absolute Eosinophils Absolute Basophils Sodium 142.8 Potassium 4.0 Chloride 100 Carbon Dioxide 30 Anion Gap 13 BUN 54 H Creatinine 1.50 H Est GFR ( Amer) 56 L Est GFR (Non-Af Amer) 46 L Glucose 165 H Calcium 9.3 Magnesium 2.0 Urine Color YELLOW Urine Appearance SLIGHTLY-CLOUDY Urine pH 5.0 Ur Specific [place] 1.026 Urine Protein 100 H Urine Glucose (UA) 50 H Urine Ketones NEGATIVE Urine Blood NEGATIVE Urine Nitrite NEGATIVE Ur Leukocyte Esterase NEGATIVE Urine WBC (Auto) 1 Urine RBC (Auto) 1 Stool Occult Blood NEGATIVE 04/18/16 04:15 WBC 18.5 H D RBC 4.58 Hgb 13.4 L D Hct 40.4 MCV 88 MCH 29.2 MCHC 33.1 RDW 14.3 H Plt Count 222 Seg Neutrophils % Not Reportable Lymphocytes % Not Reportable Monocytes % Not Reportable Eosinophils % Not Reportable Basophils % Not Reportable Absolute Neutrophils Not Reportable Absolute Lymphocytes Not Reportable Absolute Monocytes Not Reportable Absolute Eosinophils Not Reportable Absolute Basophils Not Reportable Sodium Potassium Chloride Carbon Dioxide Anion Gap BUN Creatinine Est GFR ( Amer) Est GFR (Non-Af Amer) Glucose Calcium Magnesium Urine Color Urine Appearance Urine pH Ur Specific [place] Urine Protein Urine Glucose (UA) Urine Ketones Urine Blood Urine Nitrite Ur Leukocyte Esterase Urine WBC (Auto) Urine RBC (Auto) Stool Occult Blood 04/16/16 15:14 Clean Catch Midstream Urine Culture - Final NO GROWTH 2 DAYS 04/16/16 04/16/16 04/17/16 15:07 20:54 03:34 Troponin I 0.077 0.078 0.069 NT-Pro-B Natriuret Pep 75176 H Impressions: Chest X-Ray 04/16/16 10:53 IMPRESSION: Probably chronic changes along the right lateral and posterior costophrenic sulcus and right lung base Superimposed pulmonary vascular prominence and few Demetrice lines worrisome for fluid overload or congestive failure Old sternotomy with aortic valve replacement and CABG Qualifiers PATEINT BEING DISCHARGED WITH ANY OF THE FOLLOWING DIAGNOSIS?: Heart Failure HF Pt being discharged on ACEI for LVEF less than 40%?: Yes HF Pt being discharged on ARBS for LVEF less than 40%?: Yes HF Pt with Afib discharged with Warfarin?: No Reason(s) for not prescribing Warfarin:: Drug declined by patient HF Pt discharged on evidence-based Beta Adele?: No Reason(s) for not prescribing evidence-based Beta Adele:: Drug declined by patient Plan Discharge Plan: Patient left the hospital against medical advice Time Spent: Less than 30 Minutes
[2016-04-18] MEDS ORDERED: WARFARIN SODIUM 5 MG TABLET PO SCH (22:00)
== END 2016-04-18 10:27 | disposition left against medical advice (07) | DRG 292 ==
LOC: ER 10:46 → UNDOADMIN 14:35 → EH 14:35 → 3N 17:56
PROVIDERS: ADMIT Emergency Medicine; ATTEND Emergency Medicine
DX: I11.0 Hypertensive heart disease with heart failure (principal); I48.92 Unspecified atrial flutter; J44.1 Chronic obstructive pulmonary disease with (acute) exacerbation; N17.9 Acute kidney failure, unspecified; I16.0 Hypertensive urgency; I50.23 Acute on chronic systolic (congestive) heart failure; I25.10 Atherosclerotic heart disease of native coronary artery without angina pectoris; F17.210 Nicotine dependence, cigarettes, uncomplicated; I25.2 Old myocardial infarction; Z86.73 Personal history of transient ischemic attack (TIA), and cerebral infarction without residual deficits; Z95.0 Presence of cardiac pacemaker; Z95.1 Presence of aortocoronary bypass graft; Z95.4 Presence of other heart-valve replacement; Z79.01 Long term (current) use of anticoagulants; Z79.82 Long term (current) use of aspirin
CPT/HCPCS: 36415; 71020; 80048; 80053; 80061; 81001; 82272; 82553; 82803; 82962; 83605; 83735; 83880; 84439; 84443; 84481; 84484; 85025; 85027; 85610; 87040; 87086; 93005; 93010; 94640; 96374; 96375; 99285; J1650; J1940; J1956; J2930; J3490; J7620

== ENCOUNTER 2016-06-12 08:43 | Emergency (ER) | payer MEDICARE, MEDICAID ==
[2016-06-12] MEDS ORDERED: IPRATROPIUM/ALBUTEROL 0.5-2.5 MG/3 ML AMPUL NEB ONE (10:23)
[2016-06-12] MEDS ORDERED: METHYLPREDNISOLONE INJ 125 MG/2 ML SDV IV ONE (10:24)
--- NOTE | 2016-06-12 10:29 | ER Document Report ---
ED Respiratory Problem - General Time seen by provider: 10:15 Mode of Arrival: Ambulatory Information source: Patient TRAVEL OUTSIDE OF THE [place] IN LAST 30 DAYS: No - HPI Patient complains to provider of: COPD, Short of breath Onset: Other - see HPI note Context: Hx CHF, Hx COPD, Smoker Associated symptoms: Cough, Difficulty breathing, Wheezing <CINDY DE SANTIAGO - Last Filed: 06/12/16 10:46> <DAVID COLLINS - Last Filed: 06/12/16 17:49> - General Chief Complaint: Shortness Of Breath Stated Complaint: DIFFICULTY BREATHING Notes: Patient is a 71-year-old male presenting to the emergency department for difficulty breathing. Patient states he had done a difficult time breathing and getting enough air. Patient has nebulizer treatments and inhalers at home and states that he has been using them a lot. Patient is 97% on 2 L of oxygen; patient is not on oxygen at home. On 04/16/16 patient was admitted to the hospital for CHF and A. fib; patient declined Coumadin and left AMA 2 days after. Patient has history of COPD, heart murmur, A. fib, hypertension, hypercholesterolemia, TIA, CHF, pacemaker, CAD, heavy cigarette/tobacco use, [place] x1, and bypass surgery. Patient has no known allergies. (CINDY DE SANTIAGO) This 71-year-old male patient comes emergency room complaining of shortness of breath for the past 2 days. He reports it is getting worse. He reports he feels better on oxygen by EMS, he does not have oxygen at home. He does have albuterol nebulizer and inhaler medication at home. He continues to smoke one pack per day. He has chronic systolic congestive heart failure with an ejection fraction of about 30%. He also has hypertension which appears to not be well-controlled. He was admitted here on 04/16/2016 with acute on chronic congestive heart failure and 2 days later left AMA. On that visit he was found to be an atrial flutter, since he has a pacemaker that was probably not a new finding, but he did refuse anticoagulation. When he was going to be discharged AMA, the plan was to discharge him on losartan, but he pulled off his monitors and walked out of the hospital for the hospitalist could get back to him to give him the prescriptions. (DAVID COLLINS ) - Related Data Allergies/Adverse Reactions: No Known Allergies Allergy (Verified 01/08/15 07:35) Past Medical History - General Information source: Patient - Social History Smoking Status: Current Every Day Smoker Cigarette use (# per day): Yes - 1/2 ppd Chew tobacco use (# tins/day): No Frequency of alcohol use: Social Drug Abuse: None Family History: CAD, COPD, Hypertension - Past Medical History Cardiac Medical History: Reports: Hx Congestive Heart Failure, Hx Coronary Artery Disease, Hx Heart Attack - x1, Hx Hypercholesterolemia, Hx Hypertension, Hx Heart Murmur Pulmonary Medical History: Reports: Hx COPD, Hx Pneumonia Musculoskeltal Medical History: Reports Hx Arthritis Psychiatric Medical History: Reports: Hx Depression Past Surgical History: Reports: Hx Cardiac Surgery - cabg x2, Hx Coronary Artery Bypass Graft, Hx Orthopedic Surgery - neck fusion, right and left hand surgery, Hx Pacemaker - Immunizations Hx Diphtheria, Pertussis, Tetanus Vaccination: Yes <CINDY DE SANTIAGO - Last Filed: 06/12/16 10:46> Review of Systems - Review of Systems Constitutional: No symptoms reported EENT: No symptoms reported Cardiovascular: No symptoms reported Respiratory: See HPI, Cough, Short of breath, Wheezing Gastrointestinal: No symptoms reported Genitourinary: No symptoms reported Male Genitourinary: No symptoms reported Musculoskeletal: No symptoms reported Skin: No symptoms reported Hematologic/Lymphatic: No symptoms reported Neurological/Psychological: No symptoms reported -: Yes All other systems reviewed and negative <CINDY DE SANTIAGO - Last Filed: 06/12/16 10:46> Physical Exam - Vital signs Interpretation: Hypertensive - 199/106 at time of exam, Tachypneic, Other - 97% O2 saturation on 2L O2 - General General appearance: Appears well, Alert, Other - strong tobacco odor In distress: Mild - HEENT Head: Normocephalic, Atraumatic Eyes: Normal Pupils: PERRL Mucous membranes: Dry - Respiratory Respiratory status: Tachypnea Chest status: Nontender Breath sounds: Wheezing - faintly, Other - distant breath sounds Chest palpation: Normal - Cardiovascular Rhythm: Regular Heart sounds: Normal auscultation Murmur: Yes - Abdominal Inspection: Normal Distension: No distension Bowel sounds: Normal Tenderness: Nontender Organomegaly: No organomegaly - Back Back: Normal, Nontender - Extremities General upper extremity: Normal inspection, Normal ROM, Normal strength General lower extremity: Normal inspection, Normal ROM, Normal strength. No: Edema - Neurological Neuro grossly intact: Yes Cognition: Normal Orientation: AAOx4 Germaine Coma Scale Eye Opening: Spontaneous Herrick Coma Scale Verbal: Oriented Herrick Coma Scale Motor: Obeys Commands Germaine Coma Scale Total: 15 Speech: Normal - Psychological Associated symptoms: Normal affect, Normal mood - Skin Skin Temperature: Warm Skin Moisture: Dry <CINDY DE SANTIAGO - Last Filed: 06/12/16 10:46> <DENNISDAVID - Last Filed: 06/12/16 17:49> - Vital signs Vitals: Resp Pulse Ox 35 H 99 06/12/16 08:54 06/12/16 08:54 Course - Laboratory Result Diagrams: 06/12/16 09:00 06/12/16 09:00 <MARGARITA DE SANTIAGOINE - Last Filed: 06/12/16 10:46> - Laboratory Result Diagrams: 06/12/16 09:00 06/12/16 09:00 - Diagnostic Test Radiology reviewed: Image reviewed, Reports reviewed - Chest x-ray shows pulmonary vascular congestion with the chronic right pleural effusion. This pulmonary vessel congestion is somewhat improved compared to his previous chest x-ray when he was admitted and left AMA in early April of this year. - EKG Interpretation by Me EKG shows normal: Benton, Intervals, QRS Complexes, ST-T Waves Rate: Normal - 60 Rhythm: A.Flutter, Other - Ventricular paced rhythm <DENNISDAVID Allen - Last Filed: 06/12/16 17:49> - Re-evaluation Re-evalutation: 06/12/16 14:30 The patient refused to allow the nurse to give him Lasix. When I discussed that with him he stated because it would make him Pedialyte and he does not want to. Him that he appears to be having congestive heart failure again is the primary cause of his shortness of breath. He refuses admission to the hospital when it is offered to him. He is more concerned about smoking. He states all he needs his albuterol and oxygen. I told him that he will not be discharged from the emergency room with oxygen for a problem that should be treated with medication. He would have to see his primary care if he wanted to be managed appropriately. He was also informed that he will be asked to sign an AMA form releasing us of responsibility and liability for any deterioration in his health related to his decision to leave the hospital. 06/12/16 15:18 The patient has been complaining that no one gives him refills and he can't afford to go back and see a doctor, he can afford to buy his medicine. He is quite upset when I mentioned the money spindle cigarettes would easily by his medication. I discussed this case with the hospitalist who did his discharge most recently, and she tells me that she was planning to put him on losartan so he will get a prescription for losartan along with his AMA papers, unless he leaves before I can complete these tasks. The nurse just told me several times the patient is threatening to leave and giving ultimatums about leaving if we don't hurry up and accommodate him. His blood pressure did come down to about 180 systolic after the initial hydralazine dose, it is now back up over 200 so he will be given additional hydralazine prior to being discharged (DAVID COLLINS) - Vital Signs Vital signs: Temp Pulse Resp BP Pulse Ox 98.2 F 35 H 138/114 H 94 06/12/16 09:00 06/12/16 15:29 06/12/16 15:29 06/12/16 15:29 - Laboratory Laboratory results interpreted by me: 06/12/16 06/12/16 06/12/16 09:00 09:00 09:00 MCHC 31.9 L RDW 16.0 H Sodium 145.1 H Carbon Dioxide 34 H BUN 21 H Alkaline Phosphatase 129 H Creatine Kinase 43 L NT-Pro-B Natriuret Pep 5400 H Urine Protein Urine Ketones Urine Bilirubin Urine Urobilinogen 06/12/16 10:30 MCHC RDW Sodium Carbon Dioxide BUN Alkaline Phosphatase Creatine Kinase NT-Pro-B Natriuret Pep Urine Protein 100 H Urine Ketones TRACE H Urine Bilirubin SMALL H Urine Urobilinogen 2.0 H Critical Care Note - Critical Care Note Total time excluding time spent on procedures (mins): 40 <DAVID COLLINS - Last Filed: 06/12/16 17:49> Discharge <CINDY DE SANTIAGO - Last Filed: 06/12/16 10:46> <DAVID COLLINS - Last Filed: 06/12/16 17:49> - Discharge Clinical Impression: Uncontrolled hypertension, Pleural effusion, right, Tobacco abuse Dyspnea Qualifiers: Dyspnea type: unspecified Qualified Code(s): R06.00 - Dyspnea, unspecified Congestive heart failure Qualifiers: Congestive heart failure type: systolic Congestive heart failure chronicity: acute on chronic Qualified Code(s): I50.23 - Acute on chronic systolic ( congestive) heart failure Atrial flutter Qualifiers: Atrial flutter type: unspecified Qualified Code(s): I48.92 - Unspecified atrial flutter Condition: Stable Disposition: AGAINST MEDICAL ADVICE Additional Instructions: Shortness of breath is mostly due to the fluid buildup in your lungs along with your COPD. You have refused to take diuretic medication. You have refused to stop smoking. You have refused to be admitted to the hospital to medically manage your current problems. You were asked to sign a form stating that you are leaving AGAINST MEDICAL ADVICE, releasing us from responsibility and liability for any deterioration in your health. You have indicated that you have medication for your nebulizer and you have inhalers at home. You will be given a prescription for losartan, that is the medication the hospitalist wanted to put you on before you walked out of the hospital in April. You should get that prescription filled and start taking it today. You should follow-up with your primary care provider today or tomorrow to discuss your outpatient treatment options. RETURN TO THE EMERGENCY ROOM IF ANY NEW OR WORSENING SYMPTOMS. Prescriptions: Losartan Potassium 50 mg PO DAILY #30 tablet Scribe Attestation: 06/12/16 15:23 I personally performed the services described in the documentation, reviewed and edited the documentation which was dictated to the scribe in my presence, and it accurately records my words and actions. (DAVID COLLINS) Scribe Documentation - Scribe Written by Rosana:: Cindy De Santiago 06/12/16 10:45 acting as scribe for :: Dennis <CINDY DE SANTIAGO - Last Filed: 06/12/16 10:46>
[2016-06-12 10:40] LABS: ABSOLUTE BASOPHILS # (AUTO) 0.1 10^3/uL (0.0-0.2); ABSOLUTE EOSINOPHILS # (AUTO) 0.2 10^3/uL (0.0-0.6); ABSOLUTE MONOCYTES (AUTO) 0.6 10^3/uL (0.1-1.4); ABSOLUTE NEUT (AUTO) 5.4 10^3/uL (1.7-8.2); BASOPHILS % (AUTO) 1.3 % (0-2); EOSINOPHILS % (AUTO) 2.8 % (0-6); HEMATOCRIT 44.5 % (37.9-51.0); HEMOGLOBIN 14.2 g/dL (13.5-17.0); HGB HCT DIFFERENCE -1.9; LYMPHOCYTES % (AUTO) 13.5 % (13-45); MEAN CORPUSCULAR HEMOGLOBIN 28.5 pg (27.0-33.4); MEAN CORPUSCULAR HGB CONC 31.9 g/dL (32.0-36.0); MEAN CORPUSCULAR VOLUME 89 fl (80-97); MONOCYTES % (AUTO) 7.9 % (3-13); RED BLOOD COUNT 4.99 10^6/uL (4.35-5.55); SEGMENTED NEUTROPHILS % (AUTO) 74.5 % (42-78); WHITE BLOOD COUNT 7.3 10^3/uL (4.0-10.5)
[2016-06-12 10:45] LABS: PROTHROMBIN TIME 13.2 SEC (11.4-15.4)
[2016-06-12 10:56] LABS: ALANINE AMINOTRANSFERASE 21 U/L (21-72); ALBUMIN 3.8 g/dL (3.5-5.0); ALKALINE PHOSPHATASE 129 U/L (38-126); ANION GAP 8 (5-19); ASPARTATE AMINO TRANSFERASE 36 U/L (17-59); BILIRUBIN,TOTAL 0.9 mg/dL (0.2-1.3); BLOOD UREA NITROGEN 21 mg/dL (7-20); CALCIUM 9.4 mg/dL (8.4-10.2); CARBON DIOXIDE 34 mmol/L (22-30); CHLORIDE 103 mmol/L (98-107); CREATINE KINASE 43 U/L (55-170); CREATININE RESULT 1.12 mg/dL (0.52-1.25); GLUCOSE 98 mg/dL (75-110); MAGNESIUM 2.1 mg/dL (1.6-2.3); POTASSIUM 4.1 mmol/L (3.6-5.0); SODIUM 145.1 mmol/L (137-145)
[2016-06-12 11:07] LABS: CREATINE KINASE MB 2.42 ng/mL (<4.55); TROPONIN I 0.031 ng/mL
[2016-06-12 11:09] LABS: APPEARANCE,URINE SLIGHTLY-CLOUDY; BILIRUBIN,URINE SMALL (NEGATIVE); GLUCOSE, URINE NEGATIVE (NEGATIVE); KETONES,URINE TRACE mg/dL (NEGATIVE); LEUKOCYTE ESTERASE,URINE NEGATIVE (NEGATIVE); NITRITE,URINE NEGATIVE (NEGATIVE); PROTEIN,URINE 100 mg/dL (NEGATIVE); URINE SPECIFIC GRAVITY 1.032
[2016-06-12] MEDS ORDERED: ALBUTEROL SULFATE 0.083% NEB 2.5 MG/3 ML AMPUL NEB ONE (11:27)
[2016-06-12] MEDS ORDERED: HYDRALAZINE HCL INJ/PF 20 MG/1 ML SDV IV ONE ×2 (11:29→14:49)
[2016-06-12] MEDS ORDERED: FUROSEMIDE INJ/PF 40 MG/4 ML SDV IV ONE (12:24)
[2016-06-12 15:31] VITALS: BP 138/114
--- NOTE | 2016-06-12 20:34 | EKG REPORT ---
SEVERITY:- ABNORMAL ECG - AFIB/FLUTTER AND VENTRICULAR-PACED RHYTHM : Confirmed by: Milton Wang MD 12-Jun-2016 20:33:21
== END 2016-06-12 15:34 | disposition left against medical advice (07) ==
LOC: ER 08:43
DX: I48.92 Unspecified atrial flutter (principal); I50.23 Acute on chronic systolic (congestive) heart failure; R06.00 Dyspnea, unspecified; I11.0 Hypertensive heart disease with heart failure; J90 Pleural effusion, not elsewhere classified; F17.210 Nicotine dependence, cigarettes, uncomplicated; E78.00 Pure hypercholesterolemia, unspecified; J44.9 Chronic obstructive pulmonary disease, unspecified; I25.2 Old myocardial infarction; Z95.1 Presence of aortocoronary bypass graft; Z98.1 Arthrodesis status; Z95.0 Presence of cardiac pacemaker
CPT/HCPCS: 93005; 96376; 94640 ×2; 99291; 96374; 96375; 36415; 87040; 82553; 82550; 83735; 85025; 85610; 87077; 80053; 81001; 84484; 83880; 71010; 93010; J0360; J2930; A9270 ×2; J7620

== ENCOUNTER 2016-06-29 09:45 | Inpatient (IN) | payer MEDICARE, MEDICAID ==
[2016-06-29] MEDS ORDERED: HYDRALAZINE HCL INJ/PF 20 MG/1 ML SDV IV ONE (10:33)
[2016-06-29] MEDS ORDERED: IPRATROPIUM/ALBUTEROL 0.5-2.5 MG/3 ML AMPUL NEB ONE ×2 (10:33→13:29)
--- NOTE | 2016-06-29 10:36 | ER Document Report ---
ED General - General Chief Complaint: Shortness Of Breath Stated Complaint: SHORTNESS OF BREATH Mode of Arrival: Medic Information source: Patient, [facility] Records Notes: This is a 71-year-old male who is poorly compliant with medications and medical treatment who has multiple medical medical problems to include COPD, A. fib, hypertension, hyperlipidemia, CHF, and coronary artery disease who presents for evaluation of worsening shortness of breath. Of note, he was seen on June 12 for similar symptoms however he left AMA from the emergency department. Also he was admitted to this facility on April 16 for CHF and atrial fibrillation and again the left AMA prior to completion of his treatment. Patient continues to smoke. He has declined anticoagulation in the past. He states that his shortness of breath became worse this morning. He is out of his nebulizer medication at home. In route from EMS he received 1 neb treatment as well as Solu-Medrol IV. Patient denies any chest pain or palpitations. No recent fevers or chills. TRAVEL OUTSIDE OF THE [place] IN LAST 30 DAYS: No - Related Data Allergies/Adverse Reactions: No Known Allergies Allergy (Verified 01/08/15 07:35) Past Medical History - General Information source: Patient - Social History Smoking Status: Current Every Day Smoker Family History: CAD, COPD, Hypertension - Past Medical History Cardiac Medical History: Reports: Hx Congestive Heart Failure, Hx Coronary Artery Disease, Hx Heart Attack - x1, Hx Hypercholesterolemia, Hx Hypertension, Hx Heart Murmur Pulmonary Medical History: Reports: Hx COPD, Hx Pneumonia Denies: Hx Tuberculosis Musculoskeltal Medical History: Reports Hx Arthritis Psychiatric Medical History: Reports: Hx Depression Past Surgical History: Reports: Hx Cardiac Surgery - cabg x2, Hx Coronary Artery Bypass Graft, Hx Orthopedic Surgery - neck fusion, right and left hand surgery, Hx Pacemaker - Immunizations Hx Diphtheria, Pertussis, Tetanus Vaccination: Yes Review of Systems - Review of Systems Notes: REVIEW OF SYSTEMS: CONSTITUTIONAL : Denies fever, chills, or sweats. Denies recent illness. EENT: Denies eye, ear, throat, or mouth pain or symptoms. Denies nasal or sinus congestion. CARDIOVASCULAR: Denies chest pain. RESPIRATORY: As per history of present illness GASTROINTESTINAL: Denies abdominal pain. Denies nausea, vomiting, or diarrhea. GENITOURINARY: Denies difficulty urinating, painful urination, burning, frequency, or blood in urine. MUSCULOSKELETAL: Denies neck or back pain or joint pain or swelling. SKIN: Denies rash or skin lesions. HEMATOLOGIC : Denies easy bruising or bleeding. LYMPHATIC: Denies swollen, enlarged glands. NEUROLOGICAL: Denies altered mental status or loss of consciousness. Denies headache. PSYCHIATRIC: No complaints ALL OTHER SYSTEMS REVIEWED AND NEGATIVE. Physical Exam - Vital signs Vitals: Temp Resp 98.1 F 36 H 06/29/16 09:56 06/29/16 09:56 - Notes Notes: PHYSICAL EXAMINATION: GENERAL: Thin elderly male who appears older than stated age. Pleasant and conversant with conversational dyspnea and somewhat ill-appearing. HEAD: Atraumatic, normocephalic. EYES: Pupils equal round and reactive to light, extraocular movements intact, sclera anicteric, conjunctiva are normal. ENT: nares patent, oropharynx clear without exudates. Moist mucous membranes. NECK: Normal range of motion, supple without lymphadenopathy LUNGS: Scattered expiratory respiratory which wheezes bilaterally. Decreased breath sounds with crackles in the bilateral bases. Mild respiratory distress and conversational dyspnea HEART: Regular rate and rhythm without murmurs ABDOMEN: Soft, nontender, normoactive bowel sounds. No guarding, no rebound. No masses appreciated. EXTREMITIES: Normal range of motion, no pitting or edema. No cyanosis. NEUROLOGICAL: Cranial nerves grossly intact.Motor strength +5/5 bilateral upper and lower extremities. No sensory deficits appreciated. PSYCH: Normal mood, somewhat anxious affect. SKIN: Warm, Dry, normal turgor, no rashes or lesions noted. Course - Re-evaluation Re-evalutation: Patient was reevaluated after initial DuoNeb and noted to have increased work of breathing and increased accessory muscle use. At this point BiPAP was initiated. Patient tolerated BiPAP well and tachypnea improved. Given history of A. fib/ flutter will treat with therapeutic Lovenox, although clinically I suspect a mixed picture of CHF and COPD exacerbation.. Patient has also been given IV Lasix and Levaquin in the ER. Discussed with livestock feeder Dr. Carter who also reviewed the EKG and will consult. Patient to be admitted to the hospitalist service Dr. King to the [facility]. His questions were answered and he is comfortable with this plan. - Vital Signs Vital signs: Temp Pulse Resp BP Pulse Ox 98.1 F 21 H 163/81 H 95 03/18/17 09:56 06/29/16 14:01 06/29/16 14:00 06/29/16 14:01 - Laboratory Result Diagrams: 06/29/16 12:29 06/29/16 11:02 Laboratory results interpreted by me: 06/29/16 06/29/16 06/29/16 11:02 11:02 11:30 RDW Seg Neuts % (Manual) Lymphocytes % (Manual) Monocytes % (Manual) Abs Neuts (Manual) Abs Lymphs (Manual) Abs Monocytes (Manual) ABG pO2 77.4 L ABG HCO3 26.6 H ABG Total CO2 27.8 H BUN 22 H Glucose 115 H Alkaline Phosphatase 162 H NT-Pro-B Natriuret Pep 9460 H 06/29/16 12:29 RDW 16.6 H Seg Neuts % (Manual) 96 H Lymphocytes % (Manual) 3 L Monocytes % (Manual) 0 L Abs Neuts (Manual) 10.0 H Abs Lymphs (Manual) 0.3 L Abs Monocytes (Manual) 0.0 L ABG pO2 ABG HCO3 ABG Total CO2 BUN Glucose Alkaline Phosphatase NT-Pro-B Natriuret Pep - Diagnostic Test Radiology reviewed: Reports reviewed - EKG Interpretation by Me Additional EKG results interpreted by me: 06/29/16 14:17 ventricular paced complexes with underlying aflutter Critical Care Note - Critical Care Note Total time excluding time spent on procedures (mins): 60 - minutes of critical care time spent in direct contact evaluating and reevaluating the patient, treating symptoms, reviewing labs and studies and speaking with family and consultants excluding any procedures Discharge - Discharge Clinical Impression: Malignant hypertension CHF (congestive heart failure) Qualifiers: Congestive heart failure type: unspecified congestive heart failure type Congestive heart failure chronicity: acute on chronic Qualified Code(s): I50.9 - Heart failure, unspecified COPD (chronic obstructive pulmonary disease) Qualifiers: COPD type: unspecified COPD Qualified Code(s): J44.9 - Chronic obstructive pulmonary disease, unspecified Atrial flutter Qualifiers: Atrial flutter type: unspecified Qualified Code(s): I48.92 - Unspecified atrial flutter Condition: Fair Disposition: ADMITTED INPATIENT Admitting Provider: Hospitalist - Dr. King Unit Admitted: [facility]
[2016-06-29] MEDS ORDERED: FUROSEMIDE INJ/PF 40 MG/4 ML SDV IV ONE (11:26)
[2016-06-29 11:37] LABS: ALANINE AMINOTRANSFERASE 25 U/L (21-72); ALBUMIN 4.1 g/dL (3.5-5.0); ALKALINE PHOSPHATASE 162 U/L (38-126); ANION GAP 17 (5-19); ASPARTATE AMINO TRANSFERASE 39 U/L (17-59); BILIRUBIN,TOTAL 1.3 mg/dL (0.2-1.3); BLOOD UREA NITROGEN 22 mg/dL (7-20); CALCIUM 9.6 mg/dL (8.4-10.2); CARBON DIOXIDE 26 mmol/L (22-30); CHLORIDE 101 mmol/L (98-107); CREATINE KINASE 57 U/L (55-170); CREATININE RESULT 0.95 mg/dL (0.52-1.25); GLUCOSE 115 mg/dL (75-110); POTASSIUM 4.4 mmol/L (3.6-5.0); SODIUM 144.2 mmol/L (137-145); TOTAL PROTEIN 7.8 g/dL (6.3-8.2)
[2016-06-29 11:49] LABS: ARTERIAL BLOOD BASE EXCESS 2.6 mmol/L
[2016-06-29 11:51] LABS: CREATINE KINASE MB 3.58 ng/mL (<4.55)
[2016-06-29 11:55] LABS: TROPONIN I 0.034 ng/mL
[2016-06-29] MEDS ORDERED: LEVOFLOXACIN 750 MG/D5W RTU 150 ML IV ONE (12:07)
[2016-06-29] MEDS ORDERED: ENOXAPARIN SODIUM INJ 60 MG/0.6 ML DISP.SYRIN SUBCUT SCH (12:15)
[2016-06-29 12:49] LABS: HEMATOCRIT 47.6 % (37.9-51.0); HEMOGLOBIN 15.5 g/dL (13.5-17.0); HGB HCT DIFFERENCE -1.1; MEAN CORPUSCULAR HGB CONC 32.5 g/dL (32.0-36.0); MEAN CORPUSCULAR VOLUME 89 fl (80-97); RED BLOOD COUNT 5.34 10^6/uL (4.35-5.55); RED CELL DISTRIBUTION WIDTH 16.6 % (11.5-14.0); WHITE BLOOD COUNT 10.4 10^3/uL (4.0-10.5)
[2016-06-29 13:01] LABS: PROTHROMBIN TIME 13.9 SEC (11.4-15.4)
[2016-06-29 13:02] LABS: PARTIAL THROMBOPLASTIN TIME 28.1 SEC (23.5-35.8)
[2016-06-29 13:05] LABS: BASOPHILS % (MANUAL) 1 % (0-2); EOSINOPHILS % (MANUAL) 0 % (0-6); LYMPHOCYTES % (MANUAL) 3 % (13-45); TOTAL CELLS COUNTED 100
[2016-06-29] MEDS ORDERED: LORAZEPAM INJ 2 MG/1 ML VIAL IV ONE (13:05)
[2016-06-29 13:06] LABS: ANISOCYTOSIS SLIGHT; OVALOCYTES SLIGHT; PLATELET CLUMPS PRESENT; POIKILOCYTOSIS SLIGHT
[2016-06-29] MEDS ORDERED: MAGNESIUM HYDROXIDE SUSP 30 ML UDCUP PO PRN (14:35)
[2016-06-29] MEDS ORDERED: MAG HYDROX/AL HYDROX/SIMETH SUSP 30 ML UDCUP PO PRN (14:35)
[2016-06-29] MEDS ORDERED: ACETAMINOPHEN 325 MG TABLET PO PRN (14:35)
[2016-06-29] MEDS ORDERED: ONDANSETRON HCL INJ/PF 4 MG/2 ML SDV IV PRN (14:35)
[2016-06-29] MEDS ORDERED: LEVALBUTEROL HCL NEB 1.25 MG/3 ML AMPUL NEB PRN (14:54)
[2016-06-29] MEDS ORDERED: LORAZEPAM INJ 2 MG/1 ML VIAL IV PRN (14:55)
[2016-06-29] MEDS ORDERED: NITROGLYCERIN 2% OINTMENT 1 GM PACKET ONE (15:26)
[2016-06-29] MEDS ORDERED: ASPIRIN 325 MG TABLET, ENT COATED PO ONE (15:45)
[2016-06-29] MEDS ORDERED: THIAMINE HCL 100 MG TABLET PO ONE (15:45)
[2016-06-29] MEDS ORDERED: NITROGLYCERIN 2% OINTMENT 1 GM PACKET TP ONE (15:45)
[2016-06-29] MEDS ORDERED: DIAZEPAM 5 MG TABLET PO ONE (15:45)
--- NOTE | 2016-06-29 16:10 | EKG REPORT ---
SEVERITY:- ABNORMAL ECG - AFIB/FLUT AND V-PACED COMPLEXES NONSPECIFIC INTRAVENTRICULAR CONDUCTION DELAY NONSPECIFIC ST DEPRESSION, ANTERIOR LEADS : Confirmed by: Tammy Garay MD 29-Jun-2016 16:08:55
--- NOTE | 2016-06-29 16:22 | PDOC H&P ---
History of Present Illness Admission Date/PCP: 06/29/16 13:48 KAREN LAU PA-C History of Present Illness: TORSTEN MANZO JR is a 71 year old male known history of myocardial infarction status post CABG and pacemaker placement, CVA, broken neck status post fusion, COPD, a flutter, TIA, chronic systolic congestive heart failure, medical noncompliance who presents to the emergency department with shortness of breath. He was admitted here on 04/16/2016 with acute on chronic congestive heart failure and 2 days later left AMA. Patient also presented to the emergency department here on 06/12/2016 and also left AGAINST MEDICAL ADVICE at that time. Patient reports that he's been short of breath since that time. Patient was having difficult breathing on BiPAP, and was taken out for short period time but had worsening of his shortness of breath including tripoding and now moving air. Patient was referred to the hospitalist service for combined COPD/CHF exacerbation. Past Medical History Cardiac Medical History: Reports: Congestive Heart Failure, Coronary Artery Disease, Myocardial Infarction - x1, Hyperlipidema, Hypertension, Heart Murmur Pulmonary Medical History: Reports: Chronic Obstructive Pulmonary Disease (COPD) , Pneumonia Denies: Tuberculosis Musculoskeltal Medical History: Reports: Arthritis Psychiatric Medical History: Reports: Depression Past Surgical History Past Surgical History: Reports: Coronary Artery Bypass Graft, Orthopedic Surgery - neck fusion, right and left hand surgery, Pacemaker Social History Smoking Status: Current Every Day Smoker Frequency of Alcohol Use: Heavy Hx Recreational Drug Use: No Hx Prescription Drug Abuse: No - Advance Directive Resuscitation Status: Full Code Surrogate healthcare decision maker:: Is unable to name 1 Family History Family History: CAD, COPD, Hypertension Parental Family History Reviewed: Yes Children Family History Reviewed: Yes Sibling(s) Family History Reviewed.: Yes Medication/Allergy Home Medications: Albuterol Sulfate [Proair HFA] 2 puff IH Q3 06/29/16 Lisinopril [Prinivil 10 mg Tablet] 10 mg PO DAILY 06/29/16 Losartan Potassium [Cozaar 50 mg Tablet] 50 mg PO DAILY 06/29/16 Allergies/Adverse Reactions: No Known Allergies Allergy (Verified 01/08/15 07:35) Review of Systems ROS unobtainable: Other - Respiratory distress Physical Exam Vital Signs: Temp Pulse Resp BP Pulse Ox 98.1 F 21 H 152/75 H 100 06/29/16 09:56 06/29/16 14:01 06/29/16 14:30 06/29/16 14:30 General appearance: PRESENT: disheveled, severe distress - Acutely ill-appearing , tripoding, mottled, thin, well-developed Head exam: PRESENT: atraumatic, normocephalic Eye exam: PRESENT: conjunctiva pink, EOMI, PERRLA. ABSENT: conjunctival injection, scleral icterus Ear exam: PRESENT: normal external ear exam Mouth exam: PRESENT: moist, tongue midline Neck exam: PRESENT: JVD, lymphadenopathy. ABSENT: thyromegaly, tracheal deviation Respiratory exam: PRESENT: accessory muscle use, decreased breath sounds, prolonged expiratory phas, retraction, symmetrical, tachypnea, other - Severe respiratory distress, tripoding. ABSENT: rales, rhonchi, stridor, unlabored, wheezes Cardiovascular exam: PRESENT: irregular rhythm, RRR, +S1, +S2. ABSENT: diastolic murmur, gallop, rubs, systolic murmur Pulses: PRESENT: normal radial pulses Vascular exam: PRESENT: normal capillary refill GI/Abdominal exam: PRESENT: diminished bowel sounds, normal bowel sounds, soft. ABSENT: distended, firm, guarding, mass, Whiting's sign, rebound, rigid, tenderness Rectal exam: PRESENT: deferred Extremities exam: PRESENT: clubbing. ABSENT: calf tenderness, full ROM, pedal edema Neurological exam: PRESENT: alert, awake, oriented to person, oriented to situation, CN II-XII grossly intact. ABSENT: oriented to place, oriented to time, motor sensory deficit Psychiatric exam: PRESENT: anxious, appropriate affect. ABSENT: homicidal ideation, suicidal ideation Skin exam: PRESENT: dry, intact, skin tears, warm. ABSENT: cyanosis, rash Results Impressions: Chest X-Ray 06/29/16 10:34 IMPRESSION: Chronic findings at the right lung base. Upper lobes are hyperlucent from obstructive disease Demetrice lines at the left base worrisome for mild interstitial edema or fluid overload Assessment & Plan - Diagnosis (1) Acute hypoxemic respiratory failure Is this a current diagnosis for this admission?: YesPlan: Patient currently on BiPAP and when taken off was in extremis. Will replace patient on BiPAP and obtain ABG. His ABG significant feeling worsen, will consider intubation. Patient reports that he would like me to try everything at this point cause he's going to do it right this time. (2) Accelerated hypertension Is this a current diagnosis for this admission?: YesPlan: We'll place patient on topical nitroglycerin, Cozaar, and Coreg. Patient will also be started on IV Lasix. Goal to reduce by 20% in the next 24 hours. (3) Atrial flutter Qualifiers: Atrial flutter type: unspecified Qualified Code(s): I48.92 - Unspecified atrial flutter Is this a current diagnosis for this admission?: YesPlan: Patient is currently in A. fib/flutter. He has a pacemaker. Patient has previously refused Coumadin and other blood thinners. Started on Coreg (4) COPD (chronic obstructive pulmonary disease) Qualifiers: COPD type: COPD with acute exacerbation Qualified Code(s): J44.1 - Chronic obstructive pulmonary disease with (acute) exacerbation Is this a current diagnosis for this admission?: YesPlan: Place patient on insulin Medrol 125 IV every 6 scheduled nebulized treatments. Patient does continue to smoke despite admonitions to stop. (5) AA (alcohol abuse) Is this a current diagnosis for this admission?: YesPlan: Place patient on thiamine, folic acid, and scheduled Valium. He reports he is not drinking will check an alcohol level. Patient has previously reported the sudden but positive for alcohol. (6) Acute exacerbation of CHF (congestive heart failure) Qualifiers: Congestive heart failure type: systolic Qualified Code(s): I50.23 - Acute on chronic systolic (congestive) heart failure Is this a current diagnosis for this admission?: YesPlan: Patient has a last known EF of 30%. We'll place patient on Cozaar, nitroglycerin, Lasix, and Coreg. Patient has been advised to be on Lovenox or Coumadin in the past and has refused. (7) DVT prophylaxis Is this a current diagnosis for this admission?: YesPlan: Heparin (8) Tobacco abuse Is this a current diagnosis for this admission?: YesPlan: We'll give nicotine patch. (9) Pleural effusion Is this a current diagnosis for this admission?: YesPlan: Patient has a right-sided what appears to be loculated pleural effusion that appears beginning on chest x-rays as far back as 09/09/2014. Will obtain an ultrasound of his chest. Unable to do lateral decubitus films. (10) Medical non-compliance Is this a current diagnosis for this admission?: YesPlan: This patient has repeated encounters both in an inpatient setting and as well as to the emergency department where he leaves AGAINST MEDICAL ADVICE and is noncompliant with therapy. Although patient reports at this time that he would like to do this one right and once is to be aggressive for him I fear that patient's history of medical noncompliance will result in a poor outcome. - Time Time Spent: 50 to 70 Minutes Medications reviewed and adjusted accordingly: Yes - Inpatient Certification Based on my medical assessment, after consideration of the patient's comorbidities, presenting symptoms, or acuity I expect that the services needed warrant INPATIENT care.: Yes I certify that my determination is in accordance with my understanding of Medicare's requirements for reasonable and necessary INPATIENT services [42 CFR 412.3e].: Yes Medical Necessity: Need For Continuous Telemetry Monitoring, Need for Nebulizer Therapy and Monitoring of Response, Need for IV Antibiotics Post Hospital Care: D/C [employer] Documentation
[2016-06-29 16:36] LABS: APPEARANCE,URINE CLEAR; BILIRUBIN,URINE NEGATIVE (NEGATIVE); GLUCOSE, URINE NEGATIVE (NEGATIVE); KETONES,URINE NEGATIVE (NEGATIVE); LEUKOCYTE ESTERASE,URINE NEGATIVE (NEGATIVE); NITRITE,URINE NEGATIVE (NEGATIVE); PROTEIN,URINE NEGATIVE (NEGATIVE); URINE SPECIFIC GRAVITY 1.006; UROBILINOGEN,URINE NEGATIVE mg/dL (<2.0)
[2016-06-29 16:40] LABS: URINE BARBITURATES SCREEN NEGATIVE; URINE METHADONE SCREEN NEGATIVE; URINE PHENCYCLIDINE SCREEN NEGATIVE
[2016-06-29 16:47] LABS: URINE OPIATES LOW NEGATIVE
[2016-06-29 17:02] LABS: CREATINE KINASE MB 3.11 ng/mL (<4.55); TROPONIN I 0.036 ng/mL
--- NOTE | 2016-06-29 17:07 | PDOC CONSULTATION ---
Consultation Consult Date: 06/29/16 Attending physician:: NADYA KELLEY Consult reason:: Congestive heart failure History of Present Illness Admission Date/PCP: 06/29/16 14:35 KAREN LAU PA-C Patient complains of: Shortness of breath History of Present Illness: TORSTEN MANZO JR is a 71 year old male known history of myocardial infarction status post CABG and pacemaker placement, CVA, broken neck status post fusion, COPD, a flutter, TIA, chronic systolic congestive heart failure, medical noncompliance who presents to the emergency department with shortness of breath. He was admitted here on 04/16/2016 with acute on chronic congestive heart failure and 2 days later left AMA. Patient also presented to the emergency department here on 06/12/2016 and also left AGAINST MEDICAL ADVICE at that time. Patient reports that he's been short of breath since that time. Patient was having difficult breathing on BiPAP, and was taken out for short period time but had worsening of his shortness of breath including tripoding and now moving air. Patient was referred to the hospitalist service for combined COPD/CHF exacerbation. Patient is a poor historian but basically confirms this history. On repeated questioning he denied any chest pain. Patient denied feeling any palpitations, syncope, near syncope. Patient admits noncompliance to medications. Past Medical History Cardiac Medical History: Reports: Congestive Heart Failure, Coronary Artery Disease, Myocardial Infarction - x1, Hyperlipidema, Hypertension, Heart Murmur Pulmonary Medical History: Reports: Chronic Obstructive Pulmonary Disease (COPD) , Pneumonia Denies: Tuberculosis Musculoskeltal Medical History: Reports: Arthritis Psychiatric Medical History: Reports: Depression Past Surgical History Past Surgical History: Reports: Coronary Artery Bypass Graft, Orthopedic Surgery - neck fusion, right and left hand surgery, Pacemaker - Biventricular pacemaker noted Social History Information Source: Patient Smoking Status: Current Every Day Smoker Frequency of Alcohol Use: Heavy Hx Recreational Drug Use: No Hx Prescription Drug Abuse: No - Advance Directive Resuscitation Status: Full Code Family History Family History: CAD, COPD, Hypertension Parental Family History Reviewed: Yes Children Family History Reviewed: No Sibling(s) Family History Reviewed.: No Medication/Allergy Home Medications: Albuterol Sulfate [Proair HFA] 2 puff IH Q3 06/29/16 Lisinopril [Prinivil 10 mg Tablet] 10 mg PO DAILY 06/29/16 Losartan Potassium [Cozaar 50 mg Tablet] 50 mg PO DAILY 06/29/16 Allergies/Adverse Reactions: No Known Allergies Allergy (Verified 01/08/15 07:35) Review of Systems Review of Systems: Please see history of present illness and past medical history as wall. Constitutional: No fever or chills reported. Head : No recent chronic headaches, recent head injury. Eyes: No recent eye pain, diplopia, redness, discharge, acute visual changes. Ears: No recent chronic ear pain, acute hearing loss, ear discharge. Oral cavity: No recent ulcerations, bleeding, oral cavity discomfort. Neck: No recent acute neck pain reported. Hematologic: No recent easy bruising or bleeding or hematologic malignancy reported. Lymphatic: No recent lymphatic malignancy, chronic lymphadenopathy reported yet Cardiovascular system review: See history of present illness. Respiratory system review: No recent chronic cough, hemoptysis, blood clots in the lungs reported. Marked Shortness of breath on exertion. Currently short of breath at rest. Describes history of intermittent wheezing. Gastrointestinal system review: Negative for any recent acute or chronic abdominal pain, hematemesis, melena, recent change in bowel habits. Genitourinary system review: No recent acute or chronic hematuria, flank pain, UTI etc. reported. Skin system review: Negative for any recent abnormal bruising, no rash, no pruritus reported. Neurologic: Positive prior history of strokes, mini strokes, but no seizure disorder. Psychologic: No history of major psychosis or major depression reported. Musculoskeletal: Minor aches and pains reported. No acute joint swelling reported. Endocrine: No recent polyuria, polydipsia, recent heat or cold intolerance. Physical Exam Vital Signs: Temp Pulse Resp BP Pulse Ox 98.1 F 27 H 146/74 H 98 06/29/16 09:56 06/29/16 16:31 06/29/16 16:31 06/29/16 16:31 Exam: GENERAL: well-nourished and in no acute distress. Alert and oriented 2, not oriented to time. Noted to be intermittently confused. HEAD: Atraumatic, normocephalic. EYES: Pupils equal round and reactive to light, extraocular movements intact, sclera anicteric, conjunctiva are normal. ENT: TMs normal, nares patent, oropharynx clear without exudates. Moist mucous membranes. No oral ulcerations or bleeding gums noted NECK: supple without lymphadenopathy. Trachea is central. No cervical or axillary lymphadenopathy noted. Carotids are 2+, JVD 12 CM LUNGS: Respiration seems mildly labored with respiratory accessory muscle action noted. Bilateral wheezes rales or rhonchi noted. Right basilar crackles noted. Right basal dullness noted on percussion. CHEST: Palpation of the chest wall shows no significant chest wall tenderness. No other significant abnormalities noted. Pacemaker noted on the left side. HEART: [place] [employer] GR[employer]ER, No PSH, 1/6 HELEN aortic area, 1/6 meraz systolic murmur mitral area, no rubs, positive S3 gallops. ABDOMEN: Soft, no significant tenderness appreciated, normoactive bowel sounds. No guarding, no rebound. No rigidity noted . No masses appreciated. EXTREMITIES: Pedal pulses are 1-2+, no calf tenderness noted. No clubbing or cyanosis.1-2+ pedal edema noted. Pedal pulses are diminished. NEUROLOGICAL: Focused neurological exam showed no significant neurologic deficit. Normal speech, no focal weakness appreciated. PSYCH: Normal mood, normal affect. Judgment and insight within normal limits. SKIN: No significant ecchymosis, ulcerations or signs of pruritus noted. MUSCULOSKELETAL EXAM: No significant joint swelling noted. Results Laboratory Results: 06/29/16 16:13 Carbonic Acid Cancelled HCO3/H2CO3 Ratio Cancelled ABG pH Cancelled ABG pCO2 Cancelled ABG pO2 Cancelled ABG HCO3 Cancelled ABG O2 Saturation Cancelled ABG Base Excess Cancelled FiO2 Cancelled 06/29/16 16:13 Creatine Kinase 48 L EKG Comments: Shows typical atrial flutter with underlying ventricular paced beats. Impressions: Chest X-Ray 06/29/16 10:34 IMPRESSION: Chronic findings at the right lung base. Upper lobes are hyperlucent from obstructive disease Demetrice lines at the left base worrisome for mild interstitial edema or fluid overload Status: Image reviewed by [facility] - Chest x-ray showed right pleural effusion, biventricular pacemaker on the left side and evidence of CABG Assessment & Plan - Diagnosis (1) Hypertensive emergency Is this a current diagnosis for this admission?: Yes (2) CHF (congestive heart failure) Qualifiers: Congestive heart failure type: combined Congestive heart failure chronicity: acute on chronic Qualified Code(s): I50.43 - Acute on chronic combined systolic (congestive) and diastolic (congestive) heart failure Is this a current diagnosis for this admission?: Yes (3) Atrial flutter Qualifiers: Atrial flutter type: typical Qualified Code(s): I48.3 - Typical atrial flutter Is this a current diagnosis for this admission?: Yes (4) COPD (chronic obstructive pulmonary disease) Qualifiers: COPD type: COPD with acute exacerbation Qualified Code(s): J44.1 - Chronic obstructive pulmonary disease with (acute) exacerbation Is this a current diagnosis for this admission?: Yes (5) Pleural effusion Is this a current diagnosis for this admission?: Yes (6) Tobacco abuse Is this a current diagnosis for this admission?: Yes (7) AA (alcohol abuse) Is this a current diagnosis for this admission?: Yes (8) Coronary artery disease Qualifiers: Coronary Disease-Associated Artery/Lesion type: unspecified vessel or lesion type [place] vs. transplanted heart: [place] heart Associated angina: without angina Qualified Code(s): I25.10 - Atherosclerotic heart disease of [place] coronary artery without angina pectoris Is this a current diagnosis for this admission?: Yes - Notes Notes: Hypertensive emergency: Patient on presentation had severe hypertension. Will optimize antihypertensive therapy. CHF: Patient noted to have right pleural effusion. Based on records reviewed, patient seems to have acute on chronic systolic plus diastolic heart failure. Continue diuretic therapy. Atrial flutter: Chronic. At this point will recommend rate control. Patient noncompliant therefore may not be a good candidate for chronic anticoagulation but may need to be addressed at a later date. COPD exacerbation: Patient would benefit from tobacco cessation. Continue therapy with bronchodilators and steroids as necessary. Right pleural effusion: Patient seems to have underlying infiltrate. Once more stable and able to lay flat we will obtain a CT chest. Tobacco abuse: Patient advised to quit smoking. Alcohol abuse: Serum alcohol level is less than 10. Need to be observed for any withdrawal. Coronary artery disease: Patient denying any chest pain. Continue beta helena , Fidel/ARB, statins. Also recommend aspirin therapy. - Time Time Spent: 30 to 50 Minutes - CODE STATUS was discussed, patient remains full code. Surrogate decision-maker identified by the patient. Multiple medical problems were addressed.More than 50% of the time spent coordinating care, discussing management plans with involved caregivers. Management plans discussed with involved personnels. Medical decision making was of moderate complexity.
[2016-06-29] MEDS ORDERED: INFLUENZA ADLT QUAD (36MOS+) 2016-17 VAC 0.5 ML SYR IM PRN (17:13)
[2016-06-29 17:40] LABS: ARTERIAL BLOOD BASE EXCESS 5.3 mmol/L; ARTERIAL BLOOD O2 SATURATION 96.9 % (94-98)
[2016-06-29] MEDS ORDERED: FUROSEMIDE INJ/PF 20 MG/2 ML SDV IV SCH (18:00)
[2016-06-29] MEDS: METHYLPREDNISOLONE INJ 125 MG/2 ML SDV IV SCH (18:45)
[2016-06-29] MEDS: IPRATROPIUM/ALBUTEROL 0.5-2.5 MG/3 ML AMPUL NEB SCH (20:21)
[2016-06-29] MEDS: CARVEDILOL 6.25 MG TABLET PO SCH (21:11)
[2016-06-29] MEDS: ATORVASTATIN CALCIUM 40 MG TABLET PO SCH (21:12)
[2016-06-29] MEDS: NITROGLYCERIN 2% OINTMENT 1 GM PACKET TP SCH (21:13)
[2016-06-29] MEDS: LOSARTAN POTASSIUM 25 MG TABLET PO SCH (21:13)
[2016-06-29] MEDS: HEPARIN SOD (PORCINE) 5,000 UNIT/ML 1 ML SYRINGE SUBCUT SCH (21:23)
[2016-06-29] MEDS ORDERED: DIAZEPAM 5 MG TABLET PO SCH (22:00)
[2016-06-29] MEDS ORDERED: METHYLPREDNISOLONE INJ 125 MG/2 ML SDV IV SCH (22:00)
[2016-06-29] MEDS ORDERED: POTASSIUM CHLORIDE 10 MEQ TABLET.SA PO SCH (22:00)
[2016-06-29 23:21] LABS: CREATINE KINASE MB 2.89 ng/mL (<4.55); TROPONIN I 0.041 ng/mL
[2016-06-30] MEDS: METHYLPREDNISOLONE INJ 125 MG/2 ML SDV IV SCH ×4 (00:42→21:06)
[2016-06-30] MEDS: FUROSEMIDE INJ/PF 20 MG/2 ML SDV IV SCH ×5 (00:42→23:08)
[2016-06-30] MEDS: NITROGLYCERIN 2% OINTMENT 1 GM PACKET TP SCH ×4 (02:20→21:05)
[2016-06-30] MEDS: LANSOPRAZOLE 30 MG TAB.RAP.DR PO SCH (05:22)
[2016-06-30 05:23] LABS: ABSOLUTE LYMPHOCYTES (AUTO) 0.3 10^3/uL (0.5-4.7); ABSOLUTE MONOCYTES (AUTO) 0.1 10^3/uL (0.1-1.4); ABSOLUTE NEUT (AUTO) 4.2 10^3/uL (1.7-8.2); BASOPHILS % (AUTO) 0.3 % (0-2); EOSINOPHILS % (AUTO) 0.1 % (0-6); HEMATOCRIT 44.7 % (37.9-51.0); HEMOGLOBIN 14.6 g/dL (13.5-17.0); HGB HCT DIFFERENCE -0.9; LYMPHOCYTES % (AUTO) 7.2 % (13-45); MEAN CORPUSCULAR HEMOGLOBIN 28.7 pg (27.0-33.4); MEAN CORPUSCULAR HGB CONC 32.8 g/dL (32.0-36.0); MEAN CORPUSCULAR VOLUME 88 fl (80-97); MONOCYTES % (AUTO) 1.1 % (3-13); RED BLOOD COUNT 5.11 10^6/uL (4.35-5.55); RED CELL DISTRIBUTION WIDTH 16.4 % (11.5-14.0); SEGMENTED NEUTROPHILS % (AUTO) 91.3 % (42-78); WHITE BLOOD COUNT 4.6 10^3/uL (4.0-10.5)
[2016-06-30] MEDS: HEPARIN SOD (PORCINE) 5,000 UNIT/ML 1 ML SYRINGE SUBCUT SCH ×2 (05:23→15:00)
[2016-06-30 05:38] LABS: ALANINE AMINOTRANSFERASE 30 U/L (21-72); ALBUMIN 3.5 g/dL (3.5-5.0); ALKALINE PHOSPHATASE 124 U/L (38-126); ANION GAP 14 (5-19); ASPARTATE AMINO TRANSFERASE 25 U/L (17-59); BILIRUBIN,TOTAL 0.9 mg/dL (0.2-1.3); BLOOD UREA NITROGEN 30 mg/dL (7-20); CALCIUM 9.3 mg/dL (8.4-10.2); CARBON DIOXIDE 30 mmol/L (22-30); CHLORIDE 98 mmol/L (98-107); CHOLESTEROL 183.05 mg/dL (0-200); CREATINE KINASE 68 U/L (55-170); CREATININE RESULT 1.24 mg/dL (0.52-1.25); Direct HDL 41 mg/dL (>40); GLUCOSE 124 mg/dL (75-110); MAGNESIUM 1.8 mg/dL (1.6-2.3); PARTIAL THROMBOPLASTIN TIME 28.1 SEC (23.5-35.8); POTASSIUM 5.1 mmol/L (3.6-5.0); PROTHROMBIN TIME 13.9 SEC (11.4-15.4); TOTAL PROTEIN 6.4 g/dL (6.3-8.2); TRIGLYCERIDES 75 mg/dL (<150)
[2016-06-30 05:49] LABS: CREATINE KINASE MB 4.13 ng/mL (<4.55); DIRECT LDL 125 mg/dL (<100); TROPONIN I 0.049 ng/mL
[2016-06-30] MEDS: IPRATROPIUM/ALBUTEROL 0.5-2.5 MG/3 ML AMPUL NEB SCH ×3 (08:40→20:23)
[2016-06-30] MEDS ORDERED: ASPIRIN 325 MG TABLET, ENT COATED PO SCH (10:00)
[2016-06-30] MEDS: THIAMINE HCL 100 MG TABLET PO SCH (10:04)
[2016-06-30] MEDS: CARVEDILOL 6.25 MG TABLET PO SCH ×2 (10:05→21:05)
[2016-06-30] MEDS: FOLIC ACID 1 MG TABLET PO SCH (10:05)
[2016-06-30] MEDS: NICOTINE 21 MG/24 HR PATCH.TD24 TD SCH (10:05)
[2016-06-30] MEDS: LOSARTAN POTASSIUM 25 MG TABLET PO SCH ×2 (10:05→21:05)
--- NOTE | 2016-06-30 16:30 | PDOC PROGRESS REPORT ---
Subjective Progress Note for:: 06/30/16 Subjective:: Patient reports that his roommate Alpa has been suicidal lately. He expresses concern about her. Patient reports he is breathing significantly better. Patient denies chest pain, abdominal pain, nausea, vomiting, fevers, chills, diarrhea, constipation, headache, new onset weakness. Physical Exam Vital Signs: Temp Pulse Resp BP Pulse Ox 97.1 F 59 L 22 H 132/72 H 99 06/30/16 04:07 06/30/16 04:07 06/30/16 04:20 06/30/16 04:07 06/30/16 04:20 Pulse Oximeter Continuous Start: 06/29/16 14: 37 Freq: RTQ4 Status: Active Document 06/30/16 04:20 JS (Rec: 06/30/16 05:51 JS [email or web address]) Pulse Oximetry Assessment Oxygen Saturation (92-100) 99 Oxygen Delivery Method Bi-pap Fraction of Inspired Oxygen (FIO2) 30 Equipment Usage Equipment in Use Continuous SpO2 Machine # 13 Intake & Output 06/29/16 06/30/16 07/01/16 06:59 06:59 06:59 Intake Total 210 Output Total 1300 Balance -1090 Weight 59.4 kg Exam: General: Awake alert and oriented x3, mild respiratory distress HEENT: AT/NC, PERRL, EOMI, oropharynx is moist, pink, no scleral icterus, no conjunctival injection Neck: +JVD, trachea midline Chest: Absent breath sounds on right lower lobe, prolonged expiratory phase, mild tachypnea, coarse bilaterally CV: Regular rate and rhythm, normal S1 and S2, no murmur, rub, or gallop Abdomen: Soft, nontender to palpation, nondistended, active bowel sounds; no rebound, rigidity, or guarding Extremities: No cyanosis, +clubbing, 1+edema Neuro: Cranial nerves II through XII are grossly intact without focal deficits; awake alert and oriented x3 Psych: Unusual mood and affect Results Laboratory Results: 06/30/16 04:54 06/30/16 04:54 06/29/16 06/29/16 06/29/16 16:13 16:13 17:17 WBC RBC Hgb Hct MCV MCH MCHC RDW Plt Count Seg Neutrophils % Lymphocytes % Monocytes % Eosinophils % Basophils % Absolute Neutrophils Absolute Lymphocytes Absolute Monocytes Absolute Eosinophils Absolute Basophils Carbonic Acid Cancelled 1.39 H HCO3/H2CO3 Ratio Cancelled 21:1 ABG pH Cancelled 7.44 ABG pCO2 Cancelled 46.1 H ABG pO2 Cancelled 88.0 ABG HCO3 Cancelled 30.4 H ABG O2 Saturation Cancelled 96.9 ABG Base Excess Cancelled 5.3 FiO2 Cancelled 30% Sodium Potassium Chloride Carbon Dioxide Anion Gap BUN Creatinine Est GFR ( Amer) Est GFR (Non-Af Amer) Glucose Calcium Magnesium Total Bilirubin AST ALT Alkaline Phosphatase Total Protein Albumin Triglycerides Cholesterol LDL Cholesterol Direct VLDL Cholesterol HDL Cholesterol TSH 1.39 06/30/16 06/30/16 04:54 04:54 WBC 4.6 RBC 5.11 Hgb 14.6 Hct 44.7 MCV 88 MCH 28.7 MCHC 32.8 RDW 16.4 H Plt Count 213 Seg Neutrophils % 91.3 H Lymphocytes % 7.2 L Monocytes % 1.1 L Eosinophils % 0.1 Basophils % 0.3 Absolute Neutrophils 4.2 Absolute Lymphocytes 0.3 L Absolute Monocytes 0.1 Absolute Eosinophils 0.0 Absolute Basophils 0.0 Carbonic Acid HCO3/H2CO3 Ratio ABG pH ABG pCO2 ABG pO2 ABG HCO3 ABG O2 Saturation ABG Base Excess FiO2 Sodium 142.0 Potassium 5.1 H Chloride 98 Carbon Dioxide 30 Anion Gap 14 BUN 30 H Creatinine 1.24 Est GFR ( Amer) > 60 Est GFR (Non-Af Amer) 57 L Glucose 124 H Calcium 9.3 Magnesium 1.8 Total Bilirubin 0.9 AST 25 ALT 30 Alkaline Phosphatase 124 Total Protein 6.4 Albumin 3.5 Triglycerides 75 Cholesterol 183.05 LDL Cholesterol Direct 125 H VLDL Cholesterol 15.0 HDL Cholesterol 41 TSH 06/29/16 06/29/16 06/29/16 16:13 16:13 22:20 Creatine Kinase 48 L 36 L CK-MB (CK-2) 3.11 Troponin I 0.036 06/29/16 06/30/16 06/30/16 22:20 04:54 04:54 Creatine Kinase 68 CK-MB (CK-2) 2.89 4.13 Troponin I 0.041 0.049 Impressions: Chest Ultrasound 06/29/16 00:00 IMPRESSION: Bilateral pleural effusions. Chest X-Ray 06/29/16 10:34 IMPRESSION: Chronic findings at the right lung base. Upper lobes are hyperlucent from obstructive disease Demetrice lines at the left base worrisome for mild interstitial edema or fluid overload Assessment & Plan - Diagnosis (1) Acute exacerbation of CHF (congestive heart failure) Qualifiers: Congestive heart failure type: systolic Qualified Code(s): I50.23 - Acute on chronic systolic (congestive) heart failure Is this a current diagnosis for this admission?: YesPlan: Patient has a last known EF of 30%. We'll place patient on Cozaar, nitroglycerin, Lasix, and Coreg. Patient has been advised to be on Lovenox or Coumadin in the past and has refused. (2) Acute hypoxemic respiratory failure Is this a current diagnosis for this admission?: YesPlan: Continue oxygen to maintain saturation greater than 90%. BiPAP as needed. (3) Accelerated hypertension Is this a current diagnosis for this admission?: YesPlan: Improved. Currently on Coreg, Cozaar, Lasix, Aldactone, and will use hydralazine when necessary (4) Atrial flutter Qualifiers: Atrial flutter type: typical Qualified Code(s): I48.3 - Typical atrial flutter Is this a current diagnosis for this admission?: YesPlan: Patient is currently in A. fib/flutter. He has a pacemaker. Patient has previously refused Coumadin and other blood thinners. Started on Coreg. Is unsure if he would like to take anticoagulation at this time. (5) COPD (chronic obstructive pulmonary disease) Qualifiers: COPD type: COPD with acute exacerbation Qualified Code(s): J44.1 - Chronic obstructive pulmonary disease with (acute) exacerbation Is this a current diagnosis for this admission?: YesPlan: Decrease Solu-Medrol 60 IV every 6 scheduled nebulized treatments. Patient does continue to smoke despite admonitions to stop. Patient has been advised to stop smoking (6) AA (alcohol abuse) Is this a current diagnosis for this admission?: YesPlan: Place patient on thiamine, folic acid. He reports he is not drinking will and has negative alcohol. Patient has previously reported the same but positive for alcohol. (7) DVT prophylaxis Is this a current diagnosis for this admission?: Yes (8) Tobacco abuse Is this a current diagnosis for this admission?: YesPlan: We'll give nicotine patch. (9) Pleural effusion Is this a current diagnosis for this admission?: YesPlan: Patient has a right-sided what appears to be loculated pleural effusion that appears beginning on chest x-rays as far back as 09/09/2014. Will check chest x-ray in the morning for documentation of improvement of effusion. Feel this is likely chronic secondary to his underlying congestive heart failure. (10) Medical non-compliance Is this a current diagnosis for this admission?: Yes - Time Time Spent with patient: 25-34 minutes Medications reviewed and adjusted accordingly: Yes
--- NOTE | 2016-06-30 17:26 | PDOC PROGRESS REPORT ---
Subjective Progress Note for:: 06/30/16 Subjective:: Patient seems to be doing better with gradual improvement. Pt is denying any chest arm or neck discomfort. Patient denying any PND, orthopnea. Patient denied any sustained palpitations, dizziness, syncope, near syncope. Patient denying any fever chills. Patient denying any other significant discomfort. Patient is maintaining atrial flutter with ventricular paced rhythm. Patient claims to be significantly improved since yesterday. He wants to be noncompliant with medications. Review of systems: Rest review of systems negative. Medications: Medications have been reviewed. Physical Exam Vital Signs: Temp Pulse Resp BP Pulse Ox 97.1 F 60 16 132/72 H 98 06/30/16 04:07 06/30/16 14:17 06/30/16 14:17 06/30/16 04:07 06/30/16 16:00 Pulse Oximeter Continuous Start: 06/29/16 14: 37 Freq: RTQ4 Status: Active Document 06/30/16 16:00 [facility] (Rec: 06/30/16 16:35 [facility] [email or web address]) Pulse Oximetry Assessment Oxygen Saturation (92-100) 98 Oxygen Flow Rate (L/min) 2 Oxygen Delivery Method Nasal Cannula Equipment Usage Equipment in Use Continuous SpO2 Machine # 13 Intake & Output 06/29/16 06/30/16 07/01/16 06:59 06:59 06:59 Intake Total 210 24 Output Total 1300 Balance -1090 24 Weight 59.4 kg Exam: GENERAL: well-nourished and in no acute distress. Alert and oriented x3 HEAD: Atraumatic, normocephalic. EYES: Pupils equal round and reactive to light, extraocular movements intact, sclera anicteric, conjunctiva are normal. ENT: TMs normal, nares patent, oropharynx clear without exudates. Moist mucous membranes. No oral ulcerations or bleeding gums noted NECK: supple without lymphadenopathy. Trachea is central. No cervical or axillary lymphadenopathy noted. Carotids are 2+, JVD 8 CM LUNGS: Respiration seems nonlabored, no significant accessory muscle action noted. Breath sounds clear to auscultation bilaterally and equal noted. No wheezes rales or rhonchi noted. No significant dullness noted on percussion. CHEST: Palpation of the chest wall shows no significant chest wall tenderness. No other significant abnormalities noted. Left-sided pacemaker noted. Right basal dullness noted. HEART: [place] [employer], No PSH, 1/6 HELEN aortic area, 1/6 meraz systolic murmur mitral area, no rubs, no gallops. ABDOMEN: Soft, no significant tenderness appreciated, normoactive bowel sounds. No guarding, no rebound. No rigidity noted . No masses appreciated. EXTREMITIES: Pedal pulses are 1-2+, no calf tenderness noted. No clubbing or cyanosis.1+ pedal edema noted NEUROLOGICAL: Focused neurological exam showed no significant neurologic deficit. Normal speech, no focal weakness appreciated. PSYCH: Normal mood, normal affect. Judgment and insight within normal limits. SKIN: No significant ecchymosis, rash, ulcerations or signs of pruritus noted. MUSCULOSKELETAL EXAM: No significant joint swelling noted. Results Laboratory Results: 06/30/16 04:54 06/30/16 04:54 06/29/16 06/29/16 06/30/16 16:13 17:17 04:54 WBC 4.6 RBC 5.11 Hgb 14.6 Hct 44.7 MCV 88 MCH 28.7 MCHC 32.8 RDW 16.4 H Plt Count 213 Seg Neutrophils % 91.3 H Lymphocytes % 7.2 L Monocytes % 1.1 L Eosinophils % 0.1 Basophils % 0.3 Absolute Neutrophils 4.2 Absolute Lymphocytes 0.3 L Absolute Monocytes 0.1 Absolute Eosinophils 0.0 Absolute Basophils 0.0 Carbonic Acid 1.39 H HCO3/H2CO3 Ratio 21:1 ABG pH 7.44 ABG pCO2 46.1 H ABG pO2 88.0 ABG HCO3 30.4 H ABG O2 Saturation 96.9 ABG Base Excess 5.3 FiO2 30% Sodium Potassium Chloride Carbon Dioxide Anion Gap BUN Creatinine Est GFR ( Amer) Est GFR (Non-Af Amer) Glucose Calcium Magnesium Total Bilirubin AST ALT Alkaline Phosphatase Total Protein Albumin Triglycerides Cholesterol LDL Cholesterol Direct VLDL Cholesterol HDL Cholesterol TSH 1.39 06/30/16 04:54 WBC RBC Hgb Hct MCV MCH MCHC RDW Plt Count Seg Neutrophils % Lymphocytes % Monocytes % Eosinophils % Basophils % Absolute Neutrophils Absolute Lymphocytes Absolute Monocytes Absolute Eosinophils Absolute Basophils Carbonic Acid HCO3/H2CO3 Ratio ABG pH ABG pCO2 ABG pO2 ABG HCO3 ABG O2 Saturation ABG Base Excess FiO2 Sodium 142.0 Potassium 5.1 H Chloride 98 Carbon Dioxide 30 Anion Gap 14 BUN 30 H Creatinine 1.24 Est GFR ( Amer) > 60 Est GFR (Non-Af Amer) 57 L Glucose 124 H Calcium 9.3 Magnesium 1.8 Total Bilirubin 0.9 AST 25 ALT 30 Alkaline Phosphatase 124 Total Protein 6.4 Albumin 3.5 Triglycerides 75 Cholesterol 183.05 LDL Cholesterol Direct 125 H VLDL Cholesterol 15.0 HDL Cholesterol 41 TSH 06/29/16 06/29/16 06/29/16 16:13 16:13 22:20 Creatine Kinase 48 L 36 L CK-MB (CK-2) 3.11 Troponin I 0.036 06/29/16 06/30/16 06/30/16 22:20 04:54 04:54 Creatine Kinase 68 CK-MB (CK-2) 2.89 4.13 Troponin I 0.041 0.049 Impressions: Chest Ultrasound 06/29/16 00:00 IMPRESSION: Bilateral pleural effusions. Chest X-Ray 06/30/16 00:00 IMPRESSION: No significant interval change. Findings as noted above Assessment & Plan - Diagnosis (1) Hypertensive emergency Is this a current diagnosis for this admission?: Yes (2) CHF (congestive heart failure) Qualifiers: Congestive heart failure type: combined Congestive heart failure chronicity: acute on chronic Qualified Code(s): I50.43 - Acute on chronic combined systolic (congestive) and diastolic (congestive) heart failure Is this a current diagnosis for this admission?: Yes (3) Atrial flutter Qualifiers: Atrial flutter type: typical Qualified Code(s): I48.3 - Typical atrial flutter Is this a current diagnosis for this admission?: Yes (4) COPD (chronic obstructive pulmonary disease) Qualifiers: COPD type: COPD with acute exacerbation Qualified Code(s): J44.1 - Chronic obstructive pulmonary disease with (acute) exacerbation Is this a current diagnosis for this admission?: Yes (5) Pleural effusion Is this a current diagnosis for this admission?: Yes (6) Tobacco abuse Is this a current diagnosis for this admission?: Yes (7) AA (alcohol abuse) Is this a current diagnosis for this admission?: Yes (8) Coronary artery disease Qualifiers: Coronary Disease-Associated Artery/Lesion type: unspecified vessel or lesion type [place] vs. transplanted heart: [place] heart Associated angina: without angina Qualified Code(s): I25.10 - Atherosclerotic heart disease of [place] coronary artery without angina pectoris Is this a current diagnosis for this admission?: Yes - Notes Notes: Hypertensive emergency: Blood pressure now under better control. Was most likely related to noncompliance. Congestive heart failure: Acute on chronic LV systolic plus diastolic dysfunction precipitated by severe hypertension and volume overload. Currently improved. Atrial flutter: Hope to be chronic. Patient would be a good candidate for ablation therapy but he does need to demonstrate compliance. Have gone ahead and started patient on ELIQUIS 5 mg by mouth twice a day. Patient will benefit from close follow-up to ensure compliance. COPD: Patient advised to quit smoking. Pleural effusion: Most likely related to CHF. Need close follow-up. History of alcohol abuse: Alcohol level is nondetectable. Needs to be followed closely for any withdrawal. Coronary artery disease: Cardiac enzymes are negative. Patient to report any chest pain. Patient seems to be a satisfactory regimen. - Time Time with patient: Greater than 35 minutes - Multiple medication changes were performed.CODE STATUS was discussed, patient remains full code. Surrogate decision-maker unchanged. Multiple medical problems were addressed.More than 50 % of the time spent coordinating care, discussing management plans with involved caregivers. Management plans discussed with involved personnels. Medical decision making was of moderate complexity. Medications reviewed and adjusted accordingly: Yes
[2016-06-30] MEDS: APIXABAN 5 MG TABLET PO SCH (21:04)
[2016-06-30] MEDS: ATORVASTATIN CALCIUM 40 MG TABLET PO SCH (21:05)
[2016-07-01] MEDS: NITROGLYCERIN 2% OINTMENT 1 GM PACKET TP SCH ×2 (03:29→09:11)
[2016-07-01] MEDS: METHYLPREDNISOLONE INJ 125 MG/2 ML SDV IV SCH ×2 (03:32→09:11)
[2016-07-01] MEDS: FUROSEMIDE INJ/PF 20 MG/2 ML SDV IV SCH (05:17)
[2016-07-01] MEDS: LANSOPRAZOLE 30 MG TAB.RAP.DR PO SCH (05:18)
[2016-07-01 06:13] LABS: HEMATOCRIT 41.6 % (37.9-51.0); HEMOGLOBIN 13.4 g/dL (13.5-17.0); HGB HCT DIFFERENCE -1.4; MEAN CORPUSCULAR HGB CONC 32.1 g/dL (32.0-36.0); MEAN CORPUSCULAR VOLUME 87 fl (80-97); RED BLOOD COUNT 4.79 10^6/uL (4.35-5.55); RED CELL DISTRIBUTION WIDTH 16.2 % (11.5-14.0)
[2016-07-01 06:17] LABS: ANION GAP 14 (5-19); BLOOD UREA NITROGEN 57 mg/dL (7-20); CALCIUM 9.2 mg/dL (8.4-10.2); CARBON DIOXIDE 34 mmol/L (22-30); CHLORIDE 93 mmol/L (98-107); CREATININE RESULT 1.75 mg/dL (0.52-1.25); GLUCOSE 140 mg/dL (75-110); MAGNESIUM 1.9 mg/dL (1.6-2.3); POTASSIUM 4.8 mmol/L (3.6-5.0); SODIUM 140.6 mmol/L (137-145)
[2016-07-01 06:48] LABS: BAND NEUTROPHILS % (MANUAL) 4 % (3-5); BASOPHILS % (MANUAL) 0 % (0-2); EOSINOPHILS % (MANUAL) 0 % (0-6); LYMPHOCYTES % (MANUAL) 1 % (13-45); TOTAL CELLS COUNTED 100
[2016-07-01 06:50] LABS: ANISOCYTOSIS 1+; HYPOCHROMASIA SLIGHT; OVALOCYTES SLIGHT; POIKILOCYTOSIS SLIGHT; POLYCHROMASIA SLIGHT
[2016-07-01 06:56] LABS: WHITE BLOOD COUNT 14.7 10^3/uL (4.0-10.5)
[2016-07-01] MEDS: IPRATROPIUM/ALBUTEROL 0.5-2.5 MG/3 ML AMPUL NEB SCH ×2 (08:43→13:19)
[2016-07-01] MEDS: NICOTINE 21 MG/24 HR PATCH.TD24 TD SCH (09:12)
[2016-07-01] MEDS: CARVEDILOL 6.25 MG TABLET PO SCH (09:12)
[2016-07-01] MEDS: FOLIC ACID 1 MG TABLET PO SCH (09:12)
[2016-07-01] MEDS: LOSARTAN POTASSIUM 25 MG TABLET PO SCH (09:12)
[2016-07-01] MEDS: APIXABAN 5 MG TABLET PO SCH (09:13)
[2016-07-01] MEDS: THIAMINE HCL 100 MG TABLET PO SCH (09:13)
[2016-07-01] MEDS ORDERED: NORMAL SALINE 1000 ML 500 ML IV PRN (09:30)
[2016-07-01] MEDS ORDERED: FUROSEMIDE 40 MG TABLET PO SCH (10:00)
[2016-07-01] MEDS ORDERED: ASPIRIN 81 MG TABLET, ENT COATED PO SCH (10:00)
[2016-07-01 12:04] VITALS: BP 145/72
--- NOTE | 2016-07-01 14:12 | PDOC DISCHARGE SUMMARY ---
General - Admit/Disc Date/PCP Admission Date/Primary Care Provider: 06/29/16 14:35 KAREN LAU PA-C Discharge Date: 07/01/16 - AMA - Discharge Diagnosis (1) Left against medical advice Is this a current diagnosis for this admission?: Yes (2) Acute exacerbation of CHF (congestive heart failure) Is this a current diagnosis for this admission?: Yes (3) Acute hypoxemic respiratory failure Is this a current diagnosis for this admission?: Yes (4) Accelerated hypertension Is this a current diagnosis for this admission?: Yes (5) Atrial flutter Is this a current diagnosis for this admission?: Yes (6) COPD (chronic obstructive pulmonary disease) Is this a current diagnosis for this admission?: Yes (7) AA (alcohol abuse) Is this a current diagnosis for this admission?: Yes (8) Tobacco abuse Is this a current diagnosis for this admission?: Yes (9) Pleural effusion Is this a current diagnosis for this admission?: Yes (10) Medical non-compliance Is this a current diagnosis for this admission?: Yes - Additional Information Resuscitation Status: Full Code Discharge Activity: Activity As Tolerated, Balance Activity w/Rest, Weigh Daily Home Medications: Albuterol Sulfate [Proair HFA] 2 puff IH Q3 06/29/16 Lisinopril [Prinivil 10 mg Tablet] 10 mg PO DAILY 06/29/16 Losartan Potassium [Cozaar 50 mg Tablet] 50 mg PO DAILY 06/29/16 History of Present Illness History of Present Illness: TORSTEN MANZO JR is a 71 year old male known history of myocardial infarction status post CABG and pacemaker placement, CVA, broken neck status post fusion, COPD, a flutter, TIA, chronic systolic congestive heart failure, medical noncompliance who presents to the emergency department with shortness of breath. He was admitted here on 04/16/2016 with acute on chronic congestive heart failure and 2 days later left AMA. Patient also presented to the emergency department here on 06/12/2016 and also left AGAINST MEDICAL ADVICE at that time. Patient reports that he's been short of breath since that time. Patient was having difficult breathing on BiPAP, and was taken out for short period time but had worsening of his shortness of breath including tripoding and now moving air. Patient was referred to the hospitalist service for combined COPD/CHF exacerbation. Hospital Course Hospital Course: Patient was initially kept on BiPAP and easily transitioned off of this. He still required some intermittent use. Patient was aggressively diuresed with great improvement. He was started on IV antibiotics for his pneumonia and steroids for his COPD exacerbation. Today patient reported that he didn't like the way that he's been treated for the last several days and has decided to leave despite our admonitions. Patient is awake alert and oriented 3 and is able to tell me the implications of leaving. Patient has left AGAINST MEDICAL ADVICE on his last 3 hospital encounters including emergency department and admissions. Patient left without formal physical exam and without medications. Physical Exam Vital Signs: Temp Pulse Resp BP Pulse Ox 97.3 F 61 29 H 145/72 H 97 07/01/16 11:27 07/01/16 11:27 07/01/16 11:29 07/01/16 11:27 07/01/16 11:29 Pulse Oximeter Continuous Start: 06/29/16 14: 37 Freq: RTQ4 Status: Cancelled Document 07/01/16 11:29 [facility] (Rec: 07/01/16 11:30 [facility] [email or web address]) Pulse Oximetry Assessment Oxygen Saturation (92-100) 97 Oxygen Delivery Method Bi-pap Fraction of Inspired Oxygen (FIO2) 30 Equipment Usage Equipment in Use Continuous SpO2 Machine # 13 Intake & Output 06/30/16 07/01/16 07/02/16 06:59 06:59 06:59 Intake Total 210 1207 459 Output Total 1300 1300 600 Balance -1090 -93 -141 Weight 59.4 kg 59.7 kg Results Laboratory Results: 07/01/16 05:26 07/01/16 05:26 07/01/16 07/01/16 05:26 05:26 WBC 14.7 H D RBC 4.79 Hgb 13.4 L Hct 41.6 MCV 87 MCH 28.0 MCHC 32.1 RDW 16.2 H Plt Count 240 Seg Neutrophils % Not Reportable Lymphocytes % Not Reportable Monocytes % Not Reportable Eosinophils % Not Reportable Basophils % Not Reportable Absolute Neutrophils Not Reportable Absolute Lymphocytes Not Reportable Absolute Monocytes Not Reportable Absolute Eosinophils Not Reportable Absolute Basophils Not Reportable Sodium 140.6 Potassium 4.8 Chloride 93 L Carbon Dioxide 34 H Anion Gap 14 BUN 57 H Creatinine 1.75 H Est GFR ( Amer) 46 L Est GFR (Non-Af Amer) 38 L Glucose 140 H Calcium 9.2 Magnesium 1.9 06/29/16 06/29/16 06/29/16 16:13 16:13 22:20 Creatine Kinase 48 L 36 L CK-MB (CK-2) 3.11 Troponin I 0.036 NT-Pro-B Natriuret Pep 06/29/16 06/30/16 06/30/16 22:20 04:54 04:54 Creatine Kinase 68 CK-MB (CK-2) 2.89 4.13 Troponin I 0.041 0.049 NT-Pro-B Natriuret Pep 07/01/16 05:26 Creatine Kinase CK-MB (CK-2) Troponin I NT-Pro-B Natriuret Pep 4830 H Impressions: Chest Ultrasound 06/29/16 00:00 IMPRESSION: Bilateral pleural effusions. Chest X-Ray 07/01/16 06:00 IMPRESSION: Stable appearance. Continued pleural and parenchymal change right lung base. Qualifiers PATEINT BEING DISCHARGED WITH ANY OF THE FOLLOWING DIAGNOSIS?: Heart Failure HF Pt being discharged on ARBS for LVEF less than 40%?: No Reason(s) for not prescribing ARBS:: Drug declined by patient - AMA HF Pt with Afib discharged with Warfarin?: No Reason(s) for not prescribing Warfarin:: Drug declined by patient - ama HF Pt discharged on evidence-based Beta Adele?: No Reason(s) for not prescribing evidence-based Beta Adele:: Drug declined by patient - ama Plan Time Spent: Less than 30 Minutes
--- NOTE | 2016-07-01 16:27 | XCELERA REPORT ---
[address] [address] Transthoracic Echocardiogram Report Name: TORSTEN MANZO JR Age: 71 yrs Gender: Male : 1945 Patient Status: Inpatient Patient Location: [id number]\S\328\S\A Study Date: 07/01/2016 10:20 AM Height: 68 in Weight: 140 lb BSA: 1.8 m2 Procedure: A complete two-dimensional transthoracic echocardiogram was performed (2D, M-mode, spectral and color flow Doppler). The study was technically adequate with some images being suboptimal in quality. Reason For Study: chf Ordering Physician: NADYA KELLEY Performed By: Tara Meza Interpretation Summary The Ejection Fraction estimate is 35-40% Left ventricular systolic function is moderately reduced. There is mild concentric left ventricular hypertrophy. The left ventricle is grossly normal size. There is moderate global hypokinesis of the left ventricle. Regional wall motion abnormalities cannot be excluded due to limited visualization. The right ventricular systolic function is normal. The right atrium is normal in size The left atrium is mildly dilated. There is a mild amount of mitral regurgitation There is no mitral valve stenosis. No aortic regurgitation is present. There is no aortic valve stenosis There is a trace to mild amount of tricuspid regurgitation There is mild pulmonary hypertension by echo Right ventricular systolic pressure is estimated to be elevated at 30- 40mmHg. Minimal pericardial effusion. MMode/2D Measurements \T\ Calculations RVDd: 2.5 cm LVIDd: 4.0 cmFS: 12.5 % Ao root diam: 3.6 cm IVSd: 1.3 cm LVIDs: 3.5 cmEDV(Teich): 70.6 ml LVPWd: 1.3 cmESV(Teich): 51.3 ml Ao root area: 10.2 cm2 EF(Teich): 27.3 % LA dimension: 4.1 cm LVOT diam: 2.2 cm LVOT area: 3.9 cm2 Doppler Measurements \T\ Calculations MV E max mikal: MV P1/2t max mikal: Ao V2 max: LV V1 max P.9 cm/sec 99.5 cm/sec 151.4 cm/sec 8.0 mmHg MV A max mikal: MV P1/2t: 48.4 msec Ao max PG: LV V1 max: 61.3 cm/sec MVA(P1/2t): 4.5 cm2 9.2 mmHg 141.2 cm/sec MV E/A: 1.6 MV dec slope: ANDREW(V,D): 3.7 cm2 602.3 cm/sec2 PA V2 max: TR max mikal: 69.2 cm/sec 270.5 cm/sec PA max PG: TR max P.3 mmHg 1.9 mmHg Left Ventricle The left ventricle is grossly normal size. There is mild concentric left ventricular hypertrophy. Left ventricular systolic function is moderately reduced. The Ejection Fraction estimate is 35-40%. Doppler measurements suggest pseudonormalized left ventricular relaxation, which is associated with grade II/IV or mild to moderate diastolic dysfunction. There is moderate global hypokinesis of the left ventricle. Regional wall motion abnormalities cannot be excluded due to limited visualization. Right Ventricle The right ventricle is grossly normal size. There is normal right ventricular wall thickness. The right ventricular systolic function is normal. Atria The right atrium is normal in size. The left atrium is mildly dilated. Interarterial septum not well visualized and not well dopplered. Cannot comment on ASD/PFO presence. Mitral Valve The mitral valve is grossly normal. There is no mitral valve stenosis. There is a mild amount of mitral regurgitation. Aortic Valve The aortic valve is not well visualized secondary to technical limitations. There is no aortic valve stenosis. No aortic regurgitation is present. Tricuspid Valve The tricuspid valve is not well visualized secondary to technical limitations. There is no tricuspid stenosis. There is a trace to mild amount of tricuspid regurgitation. There is mild pulmonary hypertension by echo. Right ventricular systolic pressure is estimated to be elevated at 30-40mmHg. Pulmonic Valve The pulmonic valve is not well visualized. Great Vessels The aortic root is not well visualized but is probably normal size. The inferior vena cava appeared normal and decreased > 50% with respiration (RAP 5-10 mmHg). Effusions Minimal pericardial effusion. Incidental Findings Pacemaker wire noted. : NADYA KELLEY > Jeannie Carter
--- NOTE | 2016-07-01 19:33 | PDOC PROGRESS REPORT ---
Subjective Progress Note for:: 07/01/16 Subjective:: Patient was seen prior to signing out. Patient seems to be doing better with significant improvement. Pt is denying any chest arm or neck discomfort. Patient denying any PND, orthopnea. Patient denied any sustained palpitations, dizziness, syncope, near syncope. Patient denying any fever chills. Patient denying any other significant discomfort. Patient is maintaining atrial flutter with ventricular paced rhythm. Patient tolerated ELIQUIS without any bleeding problems Review of systems: Rest review of systems negative. Medications: Medications have been reviewed. Physical Exam Vital Signs: Temp Pulse Resp BP Pulse Ox 97.3 F 61 29 H 145/72 H 97 07/01/16 11:27 07/01/16 11:27 07/01/16 11:29 07/01/16 11:27 07/01/16 11:29 Pulse Oximeter Continuous Start: 06/29/16 14: 37 Freq: RTQ4 Status: Cancelled Document 07/01/16 11:29 [facility] (Rec: 07/01/16 11:30 [facility] [email or web address]) Pulse Oximetry Assessment Oxygen Saturation (92-100) 97 Oxygen Delivery Method Bi-pap Fraction of Inspired Oxygen (FIO2) 30 Equipment Usage Equipment in Use Continuous SpO2 Machine # 13 Intake & Output 06/30/16 07/01/16 07/02/16 06:59 06:59 06:59 Intake Total 210 1207 459 Output Total 1300 1300 600 Balance -1090 -93 -141 Weight 59.4 kg 59.7 kg Exam: GENERAL: well-nourished and in no acute distress. Alert and oriented x3 HEAD: Atraumatic, normocephalic. EYES: Pupils equal round and reactive to light, extraocular movements intact, sclera anicteric, conjunctiva are normal. ENT: TMs normal, nares patent, oropharynx clear without exudates. Moist mucous membranes. No oral ulcerations or bleeding gums noted NECK: supple without lymphadenopathy. Trachea is central. No cervical or axillary lymphadenopathy noted. Carotids are 2+, JVD WNL LUNGS: Respiration seems nonlabored, no significant accessory muscle action noted. Bibasal fine crackles are noted. Mild tenderness noted right base CHEST: Palpation of the chest wall shows no significant chest wall tenderness. No other significant abnormalities noted. Pacemaker defibrillator noted left side chest. 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 ABDOMEN: Soft, no significant tenderness appreciated, normoactive bowel sounds. No guarding, no rebound. No rigidity noted . No masses appreciated. EXTREMITIES: Pedal pulses are 1-2+, no calf tenderness noted. No clubbing or cyanosis.trace to 1+ pedal edema noted NEUROLOGICAL: Focused neurological exam showed no significant neurologic deficit. Normal speech, no focal weakness appreciated. PSYCH: Normal mood, normal affect. Judgment and insight within normal limits. SKIN: No significant ecchymosis, rash, ulcerations or signs of pruritus noted. MUSCULOSKELETAL EXAM: No significant joint swelling noted. Results Laboratory Results: 07/01/16 05:26 07/01/16 05:26 07/01/16 07/01/16 05:26 05:26 WBC 14.7 H D RBC 4.79 Hgb 13.4 L Hct 41.6 MCV 87 MCH 28.0 MCHC 32.1 RDW 16.2 H Plt Count 240 Seg Neutrophils % Not Reportable Lymphocytes % Not Reportable Monocytes % Not Reportable Eosinophils % Not Reportable Basophils % Not Reportable Absolute Neutrophils Not Reportable Absolute Lymphocytes Not Reportable Absolute Monocytes Not Reportable Absolute Eosinophils Not Reportable Absolute Basophils Not Reportable Sodium 140.6 Potassium 4.8 Chloride 93 L Carbon Dioxide 34 H Anion Gap 14 BUN 57 H Creatinine 1.75 H Est GFR ( Amer) 46 L Est GFR (Non-Af Amer) 38 L Glucose 140 H Calcium 9.2 Magnesium 1.9 06/29/16 06/29/16 06/29/16 16:13 16:13 22:20 Creatine Kinase 48 L 36 L CK-MB (CK-2) 3.11 Troponin I 0.036 NT-Pro-B Natriuret Pep 06/29/16 06/30/16 06/30/16 22:20 04:54 04:54 Creatine Kinase 68 CK-MB (CK-2) 2.89 4.13 Troponin I 0.041 0.049 NT-Pro-B Natriuret Pep 07/01/16 05:26 Creatine Kinase CK-MB (CK-2) Troponin I NT-Pro-B Natriuret Pep 4830 H Impressions: Chest Ultrasound 06/29/16 00:00 IMPRESSION: Bilateral pleural effusions. Chest X-Ray 07/01/16 06:00 IMPRESSION: Stable appearance. Continued pleural and parenchymal change right lung base. Assessment & Plan - Diagnosis (1) Hypertensive emergency Is this a current diagnosis for this admission?: Yes (2) CHF (congestive heart failure) Qualifiers: Congestive heart failure type: combined Congestive heart failure chronicity: acute on chronic Qualified Code(s): I50.43 - Acute on chronic combined systolic (congestive) and diastolic (congestive) heart failure Is this a current diagnosis for this admission?: Yes (3) Atrial flutter Qualifiers: Atrial flutter type: typical Qualified Code(s): I48.3 - Typical atrial flutter Is this a current diagnosis for this admission?: Yes (4) COPD (chronic obstructive pulmonary disease) Qualifiers: COPD type: COPD with acute exacerbation Qualified Code(s): J44.1 - Chronic obstructive pulmonary disease with (acute) exacerbation Is this a current diagnosis for this admission?: Yes (5) Pleural effusion Is this a current diagnosis for this admission?: Yes (6) Tobacco abuse Is this a current diagnosis for this admission?: Yes (7) AA (alcohol abuse) Is this a current diagnosis for this admission?: Yes (8) Coronary artery disease Qualifiers: Coronary Disease-Associated Artery/Lesion type: unspecified vessel or lesion type [place] vs. transplanted heart: [place] heart Associated angina: without angina Qualified Code(s): I25.10 - Atherosclerotic heart disease of [place] coronary artery without angina pectoris Is this a current diagnosis for this admission?: Yes - Notes Notes: Hypertensive emergency: Resolved. Blood pressure under normal range. Patient advised to compliance with medications. Patient offered follow-up with me. CHF: This seems compensated on clinical exam. Continue baseline diuretic therapy. Patient should be educated in CHF pathway. This should include salt and fluid restriction, daily weighing, adjustment of diuretic therapy based on weight gain et cetera. Patient to be educated that if there is gain of more than 2 pounds in a day or more than 5 pounds in a week, this indicates fluid retention and patient may need to adjust the diuretic therapy. Symptoms associated with CHF exacerbation to be discussed with the patient. This could include rapid weight gain, abdominal bloating, increased shortness of breath, fatigue, tiredness, cardiac arrhythmias et cetera. 2-D echo results discussed. It showed LV systolic plus diastolic dysfunction. Atrial flutter: Increased risk of stroke discussed with the patient. Also discussed increased bleeding risk with therapy but patient also informed that overall benefit to be gained by chronic anticoagulation. Rate is well controlled. COPD: Currently stable. Patient advised to quit smoking. Pleural effusion: Clinically seems improved. Lungs noted to be clear today. Alcohol abuse: Patient advised to stay quits with the drinking. Coronary artery disease: symptomatically stable. Cardiac enzymes has been negative. EKG shows paced rhythm. - Time Time with patient: Greater than 35 minutes - CODE STATUS was discussed, patient remains full code. Surrogate decision-maker unchanged. Multiple medical problems were addressed.More than 50% of the time spent coordinating care, discussing management plans with involved caregivers. Management plans discussed with involved personnels. Medical decision making was of moderate to severe complexity. Medications reviewed and adjusted accordingly: Yes
== END 2016-07-01 14:26 | disposition left against medical advice (07) | DRG 291 ==
LOC: ER 09:45 → UNDOADMIN 13:48 → EH 13:48 → 3S 17:30
PROVIDERS: ADMIT Family Medicine; ATTEND Family Medicine
DX: I11.0 Hypertensive heart disease with heart failure (principal); J96.01 Acute respiratory failure with hypoxia; I48.92 Unspecified atrial flutter; J44.1 Chronic obstructive pulmonary disease with (acute) exacerbation; I16.1 Hypertensive emergency; J90 Pleural effusion, not elsewhere classified; I50.23 Acute on chronic systolic (congestive) heart failure; I48.2 Chronic atrial fibrillation; F10.10 Alcohol abuse, uncomplicated; E78.5 Hyperlipidemia, unspecified; F17.210 Nicotine dependence, cigarettes, uncomplicated; Y90.9 Presence of alcohol in blood, level not specified; I25.2 Old myocardial infarction; Z91.19 Patient's noncompliance with other medical treatment and regimen; Z95.1 Presence of aortocoronary bypass graft; Z95.0 Presence of cardiac pacemaker; Z53.21 Procedure and treatment not carried out due to patient leaving prior to being seen by health care provider
CPT/HCPCS: 36415; 36600; 71010; 71020; 76604; 80048; 80053; 80061; 80076; 80307; 81001; 82550; 82553; 82803; 83036; 83735; 83880; 84443; 84484; 85025; 85610; 85730; 87040; 93005; 93010; 93306; 94640; 94660; 94762; 96365; 96375; 99291; J0360; J1644; J1940; J1956; J2060; J2930; J3490; J7030; J7620

== ENCOUNTER 2016-07-16 11:49 | Emergency (ER) | payer MEDICARE, MEDICAID ==
[2016-07-16] MEDS ORDERED: LABETALOL HCL INJ 20 MG/4 ML DISP.SYRIN IV ONE (12:55)
[2016-07-16 13:00] LABS: ABSOLUTE BASOPHILS # (AUTO) 0.1 10^3/uL (0.0-0.2); ABSOLUTE EOSINOPHILS # (AUTO) 0.1 10^3/uL (0.0-0.6); ABSOLUTE LYMPHOCYTES (AUTO) 0.9 10^3/uL (0.5-4.7); ABSOLUTE MONOCYTES (AUTO) 0.5 10^3/uL (0.1-1.4); ABSOLUTE NEUT (AUTO) 7.7 10^3/uL (1.7-8.2); BASOPHILS % (AUTO) 0.8 % (0-2); EOSINOPHILS % (AUTO) 1.5 % (0-6); HEMOGLOBIN 13.6 g/dL (13.5-17.0); HGB HCT DIFFERENCE -1.2; LYMPHOCYTES % (AUTO) 9.8 % (13-45); MEAN CORPUSCULAR HEMOGLOBIN 28.1 pg (27.0-33.4); MEAN CORPUSCULAR HGB CONC 32.3 g/dL (32.0-36.0); MEAN CORPUSCULAR VOLUME 87 fl (80-97); MONOCYTES % (AUTO) 5.8 % (3-13); RED BLOOD COUNT 4.82 10^6/uL (4.35-5.55); RED CELL DISTRIBUTION WIDTH 15.9 % (11.5-14.0); SEGMENTED NEUTROPHILS % (AUTO) 82.1 % (42-78); WHITE BLOOD COUNT 9.4 10^3/uL (4.0-10.5)
[2016-07-16] MEDS ORDERED: METHYLPREDNISOLONE INJ 125 MG/2 ML SDV IV ONE (13:12)
[2016-07-16 13:13] LABS: ARTERIAL BLOOD BASE EXCESS 6.8 mmol/L; ARTERIAL BLOOD O2 SATURATION 96.1 % (94-98)
[2016-07-16] MEDS ORDERED: ALBUTEROL SULFATE 0.083% NEB 2.5 MG/3 ML AMPUL NEB ONE (13:13)
--- NOTE | 2016-07-16 13:13 | EKG REPORT ---
SEVERITY:- ABNORMAL ECG - ATRIA FLUTTER AND VENTRICULAR-PACED RHYTHM : Confirmed by: Tammy Garay MD 16-Jul-2016 13:12:02
[2016-07-16] MEDS ORDERED: IPRATROPIUM BROMIDE 0.02% NEB 0.5 MG/2.5 ML AMPUL NEB PRN (13:14)
[2016-07-16 13:15] LABS: ALANINE AMINOTRANSFERASE 26 U/L (21-72); ALBUMIN 3.4 g/dL (3.5-5.0); ALKALINE PHOSPHATASE 147 U/L (38-126); ANION GAP 15 (5-19); ASPARTATE AMINO TRANSFERASE 32 U/L (17-59); BILIRUBIN,DIRECT 0.5 mg/dL (0.0-0.4); BILIRUBIN,TOTAL 0.8 mg/dL (0.2-1.3); BLOOD UREA NITROGEN 15 mg/dL (7-20); CALCIUM 9.1 mg/dL (8.4-10.2); CARBON DIOXIDE 27 mmol/L (22-30); CHLORIDE 102 mmol/L (98-107); GLUCOSE 103 mg/dL (75-110); POTASSIUM 4.2 mmol/L (3.6-5.0); SODIUM 144.4 mmol/L (137-145); TOTAL PROTEIN 6.4 g/dL (6.3-8.2)
[2016-07-16 13:16] LABS: ALCOHOL < 10 mg/dL (NONE DETECTED)
[2016-07-16 13:26] LABS: CREATINE KINASE MB 3.11 ng/mL (<4.55); TROPONIN I 0.025 ng/mL
--- NOTE | 2016-07-16 13:33 | ER Document Report ---
ED Respiratory Problem - General Mode of Arrival: Medic Information source: Patient, [facility] Records TRAVEL OUTSIDE OF THE [place] IN LAST 30 DAYS: No - HPI Patient complains to provider of: Short of breath Duration: Continuous Context: Hx CHF, Hx COPD, Smoker - Quit 3 days ago Associated symptoms: Difficulty breathing <PASHA CUNHASSICA - Last Filed: 07/16/16 13:11> <ALYSEFARIDA - Last Filed: 07/16/16 21:27> - General Chief Complaint: Shortness Of Breath Stated Complaint: SHORTNESS OF BREATH Notes: Patient is a 71-year-old male presenting to the emergency department via EMS concerned of difficulty breathing. When asked how long this has been going on, patient states "too damn long". Patient states that he does not use oxygen at home. Patient has a history of COPD, hypertension, CHF, heart attack. Patient is noncompliant with his medications and will not make follow-up appointments with his primary care physician because he cannot afford to go. Patient is very frustrated that we will not put refills on his medications. (NICOLETTE CUNHA) - Related Data Allergies/Adverse Reactions: No Known Allergies Allergy (Verified 01/08/15 07:35) Past Medical History - General Information source: Patient, [facility] Records - Social History Smoking Status: Former Smoker - States that he quit 3 days ago Frequency of alcohol use: None - Quit drinking 3 years ago Family History: Reviewed & Not Pertinent, CAD, COPD, Hypertension - Past Medical History Cardiac Medical History: Reports: Hx Congestive Heart Failure, Hx Coronary Artery Disease, Hx Heart Attack - x1, Hx Hypercholesterolemia, Hx Hypertension, Hx Heart Murmur Pulmonary Medical History: Reports: Hx COPD, Hx Pneumonia Denies: Hx Tuberculosis Musculoskeltal Medical History: Reports Hx Arthritis Psychiatric Medical History: Reports: Hx Depression Past Surgical History: Reports: Hx Cardiac Surgery - cabg x2, Hx Coronary Artery Bypass Graft, Hx Orthopedic Surgery - neck fusion, right and left hand surgery, Hx Pacemaker - Biventricular pacemaker noted - Immunizations Hx Diphtheria, Pertussis, Tetanus Vaccination: Yes <NICOLETTE CUNHA - Last Filed: 07/16/16 13:11> Review of Systems - Review of Systems Constitutional: No symptoms reported EENT: No symptoms reported Cardiovascular: No symptoms reported Respiratory: See HPI, Short of breath Gastrointestinal: No symptoms reported Genitourinary: No symptoms reported Male Genitourinary: No symptoms reported Musculoskeletal: No symptoms reported Skin: No symptoms reported Hematologic/Lymphatic: No symptoms reported Neurological/Psychological: No symptoms reported <NICOLETTE CUNHA - Last Filed: 07/16/16 13:11> Physical Exam - General General appearance: Appears well, Alert - HEENT Head: Normocephalic, Atraumatic Eyes: Normal Pupils: PERRL - Respiratory Respiratory status: No respiratory distress Chest status: Nontender Breath sounds: Rhonchi Chest palpation: Normal - Cardiovascular Rhythm: Regular Heart sounds: Normal auscultation Murmur: No - Abdominal Inspection: Normal Distension: No distension Bowel sounds: Normal Tenderness: Nontender Organomegaly: No organomegaly - Back Back: Normal, Nontender - Extremities General upper extremity: Normal inspection, Nontender General lower extremity: Normal inspection, Nontender - Neurological Neuro grossly intact: Yes Cognition: Normal Orientation: AAOx4 [place] Coma Scale Eye Opening: Spontaneous [place] Coma Scale Verbal: Oriented [place] Coma Scale Motor: Obeys Commands [place] Coma Scale Total: 15 Speech: Other - Slurred - Psychological Associated symptoms: Normal affect, Agitated - Skin Skin Temperature: Warm Skin Moisture: Dry Skin Color: Normal <NICOLETTE CUNHA - Last Filed: 07/16/16 13:11> Course - Laboratory Result Diagrams: 07/16/16 12:10 07/16/16 12:10 <NICOLETTE CUNHA - Last Filed: 07/16/16 13:11> - Laboratory Result Diagrams: 07/16/16 12:10 07/16/16 12:10 <FARIDA CULLEN - Last Filed: 07/16/16 21:27> - Re-evaluation Re-evalutation: 07/16/16 15:02 I personally performed the services described in the documentation, reviewed and edited the documentation which was dictated to my scribe in my presence, and it accurately records my words and actions. Patient presents emergency department with a chief complaint of difficulty breathing. Patient is a chronic smoker with a history of CHF COPD alcohol abuse CO CABG CVA pacemaker and elevated blood pressure. He is an ongoing smoker the last 2 admissions to the hospital he signed out AGAINST MEDICAL ADVICE. Sclerae angry with us because we only give her a few day supply of his medications with no refills and he cannot follow-up with the family doctor and refuses to see one. On examination his blood pressure is elevated is 98% on 2 L nasal cannula in no acute respiratory distress with bibasilar rhonchi. He has a paced rhythm on EKG chest x-ray shows a stable pleural effusion with no acute exacerbation of findings no white count elevation which 7.42 with PCO2 of 51 PO2 of 81 and a bicarbonate 32 BNP is elevated but no acute congestive heart failure on chest x- ray or peripheral edema did give him a dose of Lasix he is not taking his medication at home because it says it makes him P2 much. Patient does not warrant inpatient admission at this point, but continues to be noncompliant with outpatient follow-up and for this reason his chronic medical conditions will become a problem. Have the case mgr seen and evaluated him to help make arrangements for him to see his primary care physician on a regular basis so he doesn't sometimes have his medications and sometimes go without them. At this point he verbalizes an understanding but refuses bilaterally due to follow- up with the primary care physician. Discussed reasons for ED return sooner and told to stop smoking. (FARIDA CULLEN) - Vital Signs Vital signs: Temp Pulse Resp BP Pulse Ox 98.1 F 25 H 189/89 H 98 07/16/16 11:55 07/16/16 15:01 07/16/16 15:01 07/16/16 14:01 - Laboratory Laboratory results interpreted by me: 07/16/16 07/16/16 07/16/16 12:10 12:10 12:10 RDW 15.9 H Seg Neutrophils % 82.1 H Lymphocytes % 9.8 L Carbonic Acid ABG pCO2 ABG HCO3 ABG Total CO2 Direct Bilirubin 0.5 H Alkaline Phosphatase 147 H NT-Pro-B Natriuret Pep 62217 H Albumin 3.4 L Acetaminophen < 10 L 07/16/16 12:55 RDW Seg Neutrophils % Lymphocytes % Carbonic Acid 1.54 H ABG pCO2 51.0 H ABG HCO3 32.6 H ABG Total CO2 34.2 H Direct Bilirubin Alkaline Phosphatase NT-Pro-B Natriuret Pep Albumin Acetaminophen Discharge <NICOLETTE CUNHA - Last Filed: 07/16/16 13:11> <FARIDA CULLEN - Last Filed: 07/16/16 21:27> - Discharge Clinical Impression: stable pleural effusion, Tobacco abuse, elevated blood pressure COPD (chronic obstructive pulmonary disease) Qualifiers: COPD type: unspecified COPD Qualified Code(s): J44.9 - Chronic obstructive pulmonary disease, unspecified Condition: Stable Disposition: HOME, SELF-CARE Additional Instructions: Chronic Obstructive Lung Disease You have chronic obstructive lung disease (COPD). The symptoms come from emphysema (damage to small airways, with trapping of air in large sacks in the lung) and chronic bronchitis (repeated infection and damage to larger airways). The cause is almost always cigarette smoking, although dust exposure, asthma, and infections contribute. You should avoid fumes, dust, and smoke (especially tobacco smoke). Your condition will flare from time to time. There is no cure, but the symptoms can be treated. Bronchodilators (asthma medicine) are often helpful. Antibiotics help when infection is present. When shortness of breath is severe, we may prescribe cortisone medication. If medicine doesn't help enough, we can arrange for you to have an oxygen tank at home. Notify your doctor at once if sputum becomes thick, foul, or bloody, if you develop a fever or chest pain, or if your shortness of breath worsens. Stop Smoking You should stop smoking. The tar and chemicals in cigarette smoke are harmful. Smoking has been shown to cause: Emphysema and chronic bronchitis Lung cancer Cancer of the mouth, larynx, stomach, and pancreas Heart disease and stroke Stillbirths and miscarriage Premature aging In addition, smoking increases the chances of respiratory infections and ear infections in children of smokers, and increases the risk of cancer in persons exposed to second-hand smoke. Classes are available to help you stop smoking. If you are serious about wanting to quit, we can help arrange this therapy for you, or you can contact the local lung or cancer association. Prescriptions: Prednisone 20 mg PO DAILY #6 tablet Forms: Elevated Blood Pressure Referrals: KAREN LAU PA-C [Primary Care Provider] - Follow up tomorrow (Return for increasing worsening or new symptoms) Scribe Documentation - Scribe Written by Rosana:: Nicolette Cunha 07/16/2016 1449 acting as scribe for :: Dr. Cullen <NICOLETTE CUNHA - Last Filed: 07/16/16 13:11>
[2016-07-16] MEDS ORDERED: FUROSEMIDE 80 MG TABLET PO ONE (15:02)
[2016-07-16 20:27] VITALS: BP 189/89
== END 2016-07-16 15:45 | disposition home or self-care (01) ==
LOC: ER 11:49
DX: J44.9 Chronic obstructive pulmonary disease, unspecified (principal); J90 Pleural effusion, not elsewhere classified; R03.0 Elevated blood-pressure reading, without diagnosis of hypertension; R06.02 Shortness of breath; I10 Essential (primary) hypertension; I50.9 Heart failure, unspecified; I25.2 Old myocardial infarction; Z87.891 Personal history of nicotine dependence; F17.200 Nicotine dependence, unspecified, uncomplicated
CPT/HCPCS: 93005; 94640 ×2; 99285; 96374; 96375; 36415; 82553; 80307 ×2; 82803; 85025; 80053; 84484; 83880; 71010; 93010; A9270 ×2; J3490 ×2; J2930

== ENCOUNTER 2016-07-28 08:05 | Emergency (ER) | payer MEDICARE, MEDICAID ==
[2016-07-28] MEDS ORDERED: HYDRALAZINE HCL INJ/PF 20 MG/1 ML SDV IV ONE (08:24)
[2016-07-28] MEDS ORDERED: METHYLPREDNISOLONE INJ 125 MG/2 ML SDV IV ONE (08:26)
[2016-07-28] MEDS ORDERED: IPRATROPIUM/ALBUTEROL 0.5-2.5 MG/3 ML AMPUL NEB ONE ×2 (08:26→13:41)
--- NOTE | 2016-07-28 08:37 | ER Document Report ---
ED Respiratory Problem - General Mode of Arrival: Medic Information source: Patient, Emergency Med Personnel TRAVEL OUTSIDE OF THE [place] IN LAST 30 DAYS: No - HPI Patient complains to provider of: Short of breath Context: Hx CHF, Hx COPD, Smoker Short of Breath: Severe At home treatment: Inhaled steroids EMS treatments: CPAP Associated symptoms: Short of breath, Wheezing <NICOLETTE CUNHA - Last Filed: 07/28/16 08:31> <DAVID COLLINS - Last Filed: 07/28/16 16:36> <MARYAM MURDOCK - Last Filed: 07/28/16 19:30> - General Chief Complaint: Respiratory Distress Stated Complaint: RESPIRATORY DISTRESS Notes: Patient is a 71-year-old male presenting to the emergency department via EMS concerned of difficulty breathing. Patient had 2 nebulizer treatments at home, and was put on CPAP en route. Patient was also given 1 nitroglycerin en route. Patient is difficult to understand, but states "I think I'm having a heart attack." Patient has been out of his medications for quite some time secondary to not being able to afford them. Patient states that he shares the nebulizer with his "lady friend". Patient has extensive past medical history including CHF, COPD, hypertension, hyperlipidemia, pneumonia, and heart attack. (NICOLETTE CUNHA) This 71-year-old male patient with COPD and chronic A. fib flutter comes emergency room with shortness of breath. He has run out of all of his medications. He states he cannot afford to buy any of his medicines due to the size of his monthly government check. He did do 2 breathing treatments prior to EMS arrival using his "lady friend's" albuterol. He was seen here on 07/16/2016 with similar presentation and never managed to get his medications. He has been here many times, including recent admissions where he would leave either the emergency room or the floor AMA and not wait around to nut picker prescriptions. The patient arrives quite dyspneic and was put on BiPAP. After being on BiPAP for a while and getting breathing treatments, his breathing improved to the point that he was on nasal cannula. Eventually the nasal cannula was taken off and he is able to maintain stain oxygen saturation saturations in the 93-94% with out complaining of being very dyspneic. His blood pressure was also quite high and was medicated for this. The nurses and lab had a very difficult time getting blood from him although they were able to start [address] Sánchez assisted me in getting a femoral stick using the ultrasound to find the vein as the artery could not be palpated. In looking in the right groin there appeared to be a noncompressible vein anterior to the femoral artery , suspicious for blood clot. A venous Doppler of the right lower extremity was ordered. (DAVID COLLINS) - Related Data Allergies/Adverse Reactions: No Known Allergies Allergy (Verified 01/08/15 07:35) Past Medical History - General Information source: Patient, Emergency Med Personnel, [facility] Records - Social History Smoking Status: Current Every Day Smoker Lives with: Alone Family History: Reviewed & Not Pertinent, CAD, COPD, Hypertension - Past Medical History Cardiac Medical History: Reports: Hx Congestive Heart Failure, Hx Coronary Artery Disease, Hx Heart Attack - x1, Hx Hypercholesterolemia, Hx Hypertension, Hx Heart Murmur Pulmonary Medical History: Reports: Hx COPD, Hx Pneumonia Denies: Hx Tuberculosis Musculoskeltal Medical History: Reports Hx Arthritis Psychiatric Medical History: Reports: Hx Depression Past Surgical History: Reports: Hx Cardiac Surgery - cabg x2, Hx Coronary Artery Bypass Graft, Hx Orthopedic Surgery - neck fusion, right and left hand surgery, Hx Pacemaker - Biventricular pacemaker noted - Immunizations Hx Diphtheria, Pertussis, Tetanus Vaccination: Yes <NICOLETTE CUNHA - Last Filed: 07/28/16 08:31> Review of Systems - Review of Systems Constitutional: No symptoms reported EENT: No symptoms reported Cardiovascular: No symptoms reported, Other - "I think I'm having a heart attack " Respiratory: See HPI, Short of breath Gastrointestinal: No symptoms reported Genitourinary: No symptoms reported Male Genitourinary: No symptoms reported Musculoskeletal: No symptoms reported Skin: No symptoms reported Hematologic/Lymphatic: No symptoms reported Neurological/Psychological: No symptoms reported -: Yes All other systems reviewed and negative <NICOLETTE CUNHA - Last Filed: 07/28/16 08:31> Physical Exam - Vital signs Interpretation: Hypertensive - Out of meds - General General appearance: Alert - Cachectic - HEENT Head: Normocephalic, Atraumatic Eyes: Normal Pupils: PERRL - Respiratory Respiratory status: Retractions, Other - Speaking in 2-3 word sentences Breath sounds: Rhonchi, Wheezing - Cardiovascular Rhythm: Regular Heart sounds: Normal auscultation Murmur: No - Abdominal Inspection: Normal Distension: No distension Bowel sounds: Normal Tenderness: Nontender - Back Back: Normal, Nontender - Extremities General upper extremity: Normal inspection, Nontender General lower extremity: Normal inspection, Nontender - Neurological Neuro grossly intact: Yes Cognition: Normal Orientation: AAOx4 Germaine Coma Scale Eye Opening: Spontaneous Germaine Coma Scale Verbal: Oriented Germaine Coma Scale Motor: Obeys Commands Germaine Coma Scale Total: 15 - Psychological Associated symptoms: Normal affect, Normal mood - Skin Skin Temperature: Warm Skin Moisture: Dry Skin Color: Normal <NICOLETTE CUNHA - Last Filed: 07/28/16 08:31> <DAVID COLLINS - Last Filed: 07/28/16 16:36> <MARYAM MURDOCK - Last Filed: 07/28/16 19:30> - Vital signs Vitals: Resp Pulse Ox 37 H 100 07/28/16 08:05 07/28/16 08:05 Course <NICOLETTE CUNHA - Last Filed: 07/28/16 08:31> - Laboratory Result Diagrams: 07/28/16 10:49 07/28/16 13:22 - Diagnostic Test Radiology reviewed: Image reviewed, Reports reviewed - Stable right pleural effusion with dorsal collapse/consolidation of the right lower lobe and right middle lobes. These appear unchanged from previous chest x-rays. - EKG Interpretation by Sd EKG shows normal: [place], Intervals, QRS Complexes, ST-T Waves Rate: Normal - 71 Rhythm: A.Flutter, Other - Ventricular paced rhythm - Transfer of Care Care transferred to following provider: Dr. Murdock <DAVID COLLINS - Last Filed: 07/28/16 16:36> - Laboratory Result Diagrams: 07/28/16 10:49 07/28/16 13:22 <MARYAM MURDOCK - Last Filed: 07/28/16 19:30> - Vital Signs Vital signs: Temp Pulse Resp BP Pulse Ox 97.7 F 59 L 25 H 181/99 H 94 07/28/16 19:02 07/28/16 19:02 07/28/16 19:01 07/28/16 19:01 07/28/16 19:01 - Laboratory Laboratory results interpreted by me: 07/28/16 07/28/16 07/28/16 10:49 10:56 13:22 WBC 13.3 H RDW 16.6 H Plt Count 121 L Seg Neuts % (Manual) 92 H Lymphocytes % (Manual) 5 L Monocytes % (Manual) 1 L Abs Neuts (Manual) 12.2 H ABG pH 7.47 H ABG pO2 77.6 L ABG HCO3 30.7 H ABG Total CO2 32.0 H Carbon Dioxide 33 H BUN 22 H Glucose 118 H Alkaline Phosphatase 151 H Creatine Kinase 31 L Urine Protein 07/28/16 13:42 WBC RDW Plt Count Seg Neuts % (Manual) Lymphocytes % (Manual) Monocytes % (Manual) Abs Neuts (Manual) ABG pH ABG pO2 ABG HCO3 ABG Total CO2 Carbon Dioxide BUN Glucose Alkaline Phosphatase Creatine Kinase Urine Protein 100 H - Transfer of Care Notes: 07/28/16 16:10 Patient is pending. This Doppler of the right lower extremity, and waiting on consultation by the social sciences chair in the emergency room. At this time, discharge home without a way for him to get his medications does not seem like a good idea. (DAVID COLLINS) Discharge <NICOLETTE CUNHA - Last Filed: 07/28/16 08:31> <DAVID COLLINS - Last Filed: 07/28/16 16:36> <MARYAM MURDOCK - Last Filed: 07/28/16 19:30> - Discharge Clinical Impression: Acute exacerbation of chronic obstructive pulmonary disease (COPD), Hypoxemia, Has run out of medications, Dehydration High blood pressure Qualifiers: Hypertension type: essential hypertension Qualified Code(s): I10 - Essential ( primary) hypertension Condition: Stable Disposition: HOME, SELF-CARE Additional Instructions: FOLLOW UP WITH YOUR PRIMARY CARE PROVIDER. RETURN TO E.R IF YOU GET WORSE, ANY TIME. Prescriptions: Albuterol Sulfate [Albuterol Sulfate 2.5mg/3 mL] 1 vial IH Q4 PRN #30 vial PRN Reason: For Wheezing Prednisone [Deltasone 10 mg Tablet] 10 mg PO ASDIR PRN #21 tablet PRN Reason: Scribe Documentation - Scribe Written by Scribe:: Nicolette Cunha 07/28/2016 0831 acting as scribe for :: John <NICOLETTE CUNHA - Last Filed: 07/28/16 08:31>
[2016-07-28 11:03] LABS: HEMATOCRIT 48.3 % (37.9-51.0); HEMOGLOBIN 15.8 g/dL (13.5-17.0); HGB HCT DIFFERENCE -0.9; MEAN CORPUSCULAR HEMOGLOBIN 28.6 pg (27.0-33.4); MEAN CORPUSCULAR HGB CONC 32.6 g/dL (32.0-36.0); MEAN CORPUSCULAR VOLUME 88 fl (80-97); RED BLOOD COUNT 5.51 10^6/uL (4.35-5.55); RED CELL DISTRIBUTION WIDTH 16.6 % (11.5-14.0); WHITE BLOOD COUNT 13.3 10^3/uL (4.0-10.5)
[2016-07-28 11:20] LABS: BASOPHILS % (MANUAL) 0 % (0-2); EOSINOPHILS % (MANUAL) 2 % (0-6); LYMPHOCYTES % (MANUAL) 5 % (13-45); TOTAL CELLS COUNTED 100
[2016-07-28 11:22] LABS: ANISOCYTOSIS 1+; HELMET CELLS SLIGHT; HYPOCHROMASIA SLIGHT; OVALOCYTES SLIGHT; PLATELET CLUMPS PRESENT; POIKILOCYTOSIS SLIGHT
[2016-07-28 11:23] LABS: ARTERIAL BLOOD BASE EXCESS 6.4 mmol/L; ARTERIAL BLOOD O2 SATURATION 96.1 % (94-98)
[2016-07-28] MEDS ORDERED: NORMAL SALINE 1000 ML 1,000 ML IV ONE (13:21)
[2016-07-28 13:50] LABS: ALANINE AMINOTRANSFERASE 36 U/L (21-72); ALBUMIN 3.6 g/dL (3.5-5.0); ALKALINE PHOSPHATASE 151 U/L (38-126); ANION GAP 11 (5-19); ASPARTATE AMINO TRANSFERASE 28 U/L (17-59); BILIRUBIN,DIRECT 0.4 mg/dL (0.0-0.4); BILIRUBIN,TOTAL 0.8 mg/dL (0.2-1.3); BLOOD UREA NITROGEN 22 mg/dL (7-20); CALCIUM 9.4 mg/dL (8.4-10.2); CARBON DIOXIDE 33 mmol/L (22-30); CHLORIDE 101 mmol/L (98-107); CREATINE KINASE 31 U/L (55-170); CREATININE RESULT 0.99 mg/dL (0.52-1.25); GLUCOSE 118 mg/dL (75-110); MAGNESIUM 2.2 mg/dL (1.6-2.3); POTASSIUM 4.4 mmol/L (3.6-5.0); SODIUM 144.9 mmol/L (137-145); TOTAL PROTEIN 6.7 g/dL (6.3-8.2)
[2016-07-28 13:59] LABS: AMORPHOUS SEDIMENT,URINE TRACE /HPF; APPEARANCE,URINE CLOUDY; BILIRUBIN,URINE NEGATIVE (NEGATIVE); GLUCOSE, URINE NEGATIVE (NEGATIVE); KETONES,URINE NEGATIVE (NEGATIVE); LEUKOCYTE ESTERASE,URINE NEGATIVE (NEGATIVE); NITRITE,URINE NEGATIVE (NEGATIVE); PROTEIN,URINE 100 mg/dL (NEGATIVE); URINE SPECIFIC GRAVITY 1.015; UROBILINOGEN,URINE NEGATIVE mg/dL (<2.0)
[2016-07-28 14:03] LABS: CREATINE KINASE MB 2.89 ng/mL (<4.55)
[2016-07-28 14:09] LABS: TROPONIN I 0.043 ng/mL
[2016-07-28] MEDS ORDERED: LOSARTAN POTASSIUM 25 MG TABLET PO ONE ×2 (14:28→20:28)
--- NOTE | 2016-07-28 17:52 | EKG REPORT ---
SEVERITY:- ABNORMAL ECG - AFIB/FLUTTER AND VENTRICULAR-PACED RHYTHM : Confirmed by: Milton Wang MD 28-Jul-2016 17:52:16
[2016-07-28] MEDS ORDERED: LISINOPRIL 10 MG TABLET PO ONE (20:25)
[2016-07-29 00:02] LABS: CREATINE KINASE MB 3.39 ng/mL (<4.55); TROPONIN I 0.04 ng/mL
[2016-07-29] MEDS ORDERED: LOSARTAN POTASSIUM 50 MG TABLET PO ONE (10:52)
[2016-07-29] MEDS ORDERED: PREDNISONE 20 MG TABLET PO ONE (10:53)
[2016-07-29] MEDS ORDERED: IPRATROPIUM/ALBUTEROL 0.5-2.5 MG/3 ML AMPUL NEB ONE (10:53)
[2016-07-29 12:24] VITALS: BP 104/72
== END 2016-07-29 12:25 | disposition home or self-care (01) ==
LOC: ER 08:05
DX: J44.1 Chronic obstructive pulmonary disease with (acute) exacerbation (principal); J90 Pleural effusion, not elsewhere classified; R09.02 Hypoxemia; R06.02 Shortness of breath; E86.0 Dehydration; I48.2 Chronic atrial fibrillation; I48.92 Unspecified atrial flutter; I25.10 Atherosclerotic heart disease of native coronary artery without angina pectoris; I25.2 Old myocardial infarction; I10 Essential (primary) hypertension; F17.200 Nicotine dependence, unspecified, uncomplicated; Z91.14 Patient's other noncompliance with medication regimen; Z59.9 Problem related to housing and economic circumstances, unspecified; Z86.79 Personal history of other diseases of the circulatory system; Z87.01 Personal history of pneumonia (recurrent); Z95.1 Presence of aortocoronary bypass graft; Z95.0 Presence of cardiac pacemaker
CPT/HCPCS: 93005; 94640 ×2; 99285; 96361; 96374; 96375; 36415; 87040; 82553; 82803; 82550; 83735; 85025; 87077; 80053; 81001; 84484; 87186; 93971; 71010; 93010; 36600; 94660; A9270 ×5; J0360; J2930; J7030; J7512; J7620

== ENCOUNTER 2016-08-02 15:03 | Emergency (ER) | payer MEDICARE, MEDICAID ==
[2016-08-02] MEDS ORDERED: IPRATROPIUM/ALBUTEROL 0.5-2.5 MG/3 ML AMPUL NEB ONE ×2 (15:29→15:45)
[2016-08-02] MEDS ORDERED: METHYLPREDNISOLONE INJ 125 MG/2 ML SDV IV ONE (15:36)
--- NOTE | 2016-08-02 15:39 | ER Document Report ---
ED General - General Chief Complaint: Breathing Difficulty Stated Complaint: DIFFICULTY BREATHING Mode of Arrival: Medic Information source: Patient, H Records Notes: This is a 71-year-old male with multiple medical problems to include coronary artery disease status, [place], pacemaker placement, COPD, pneumonia, CHF hypertension and medical noncompliance who presents for evaluation of shortness of breath. He has had multiple visits and admissions and multiple incidents of leaving AGAINST MEDICAL ADVICE. Assuming he was admitted on June 29 of this year in respiratory distress requiring BiPAP but decided to leave AMA on July 01 without his medications. His last visit to the ER with 5 days ago. He states that he did get his prescribed prednisone and has been using his nebulizers but his shortness of breath worsened today. He was noted to be outside smoking upon EMS arrival today. He denies fevers. He has been coughing up thick yellow sputum. He does continue to smoke. TRAVEL OUTSIDE OF THE [place] IN LAST 30 DAYS: No - Related Data Allergies/Adverse Reactions: No Known Allergies Allergy (Verified 01/08/15 07:35) Past Medical History - Social History Smoking Status: Current Every Day Smoker Family History: Reviewed & Not Pertinent, CAD, COPD, Hypertension - Past Medical History Cardiac Medical History: Reports: Hx Congestive Heart Failure, Hx Coronary Artery Disease, Hx Heart Attack - x1, Hx Hypercholesterolemia, Hx Hypertension, Hx Heart Murmur Pulmonary Medical History: Reports: Hx COPD, Hx Pneumonia Denies: Hx Tuberculosis Musculoskeltal Medical History: Reports Hx Arthritis Psychiatric Medical History: Reports: Hx Depression Past Surgical History: Reports: Hx Cardiac Surgery - cabg x2, Hx Coronary Artery Bypass Graft, Hx Orthopedic Surgery - neck fusion, right and left hand surgery, Hx Pacemaker - Biventricular pacemaker noted - Immunizations Hx Diphtheria, Pertussis, Tetanus Vaccination: Yes Review of Systems - Review of Systems Constitutional: No symptoms reported. denies: Chills, Fever EENT: No symptoms reported Cardiovascular: No symptoms reported. denies: Chest pain Respiratory: See HPI, Cough, Short of breath, Sputum Gastrointestinal: No symptoms reported. denies: Abdominal pain, Diarrhea, Vomiting Genitourinary: No symptoms reported Musculoskeletal: No symptoms reported. denies: Leg swelling Skin: No symptoms reported Hematologic/Lymphatic: No symptoms reported Neurological/Psychological: No symptoms reported Physical Exam - Vital signs Vitals: Pulse Ox 100 08/02/16 15:11 - Notes Notes: PHYSICAL EXAMINATION: GENERAL: Chronically ill-appearing elderly male, alert and conversant, no acute distress HEAD: Atraumatic, normocephalic. EYES: Pupils equal round and reactive to light, extraocular movements intact, sclera anicteric, conjunctiva are normal. ENT: nares patent, oropharynx clear without exudates. Moist mucous membranes. NECK: Normal range of motion, supple without lymphadenopathy LUNGS: occassional scattered inspiratory and expiratory wheezes bilaterally with good air movment, no retractions, mild bibasilar crackles HEART: Regular rate and rhythm without murmurs ABDOMEN: Soft, nontender, normoactive bowel sounds. No guarding, no rebound. No masses appreciated. EXTREMITIES: Normal range of motion, no edema, no cyanosis NEUROLOGICAL: Cranial nerves grossly intact. No gross focal motor or sensory deficits appreciated PSYCH: Normal mood, normal affect. SKIN: Warm, Dry, normal turgor, no rashes or lesions noted. Course - Re-evaluation Re-evalutation: 08/02/16 21:33 Patient states he is breathing better. He is noted to have eaten a meal here in the emergency department without difficulty. His troponin, which is frequently borderline, has not changed. He is not having chest pain. At this point patient is noted to be sleeping comfortably in the room tells me that he is finally getting some rest. He is not in respiratory distress and his respiratory status is actually improved. He is appropriate for continued outpatient management at this time. Again discussed smoking cessation and medication compliance. 08/02/16 21:39 Patient will be discharged on prednisone and Levaquin. He is encouraged to stop smoking. He is encouraged to follow up with his primary care physician. We did discuss strict return precautions and he is comfortable with this plan. - Vital Signs Vital signs: Temp Pulse Resp BP Pulse Ox 98.4 F 66 18 187/70 H 96 08/02/16 16:30 08/02/16 15:29 08/02/16 22:01 08/02/16 22:01 08/02/16 22:01 - Laboratory Result Diagrams: 08/02/16 17:13 08/02/16 17:13 Laboratory results interpreted by me: 08/02/16 08/02/16 08/02/16 16:10 17:13 17:13 RDW 16.8 H Seg Neutrophils % 89.0 H Lymphocytes % 7.3 L Carbonic Acid 1.58 H ABG pCO2 52.6 H ABG HCO3 33.6 H ABG Total CO2 35.2 H Carbon Dioxide 32 H BUN 27 H Glucose 220 H Creatine Kinase 25 L NT-Pro-B Natriuret Pep 08/02/16 17:13 RDW Seg Neutrophils % Lymphocytes % Carbonic Acid ABG pCO2 ABG HCO3 ABG Total CO2 Carbon Dioxide BUN Glucose Creatine Kinase NT-Pro-B Natriuret Pep 9880 H - Diagnostic Test Radiology reviewed: Reports reviewed - EKG Interpretation by Me Additional EKG results interpreted by me: 08/02/16 21:44 EKG at 1936 demonstrates A. fib/flutter with ventricular pacer, with PVCs. Discharge - Discharge Clinical Impression: COPD exacerbation, Hypertension, Noncompliance, Tobacco abuse Condition: Stable Disposition: HOME, SELF-CARE Additional Instructions: High Blood Pressure Sometimes, stress or illness causes a temporary elevation of your blood pressure. We suggest that you get your blood pressure measured three more times during the next few days to see if this is more than a temporary abnormality. If your blood pressure is greater than 150/90 on each occasion, you must have treatment. Some simple things you can do to help are: If you have blood pressure medicine but aren't using it regularly, start taking it again. Get some aerobic exercise for at least 20 minutes on a daily basis. (See your doctor before beginning a new exercise program.) Eat a low-fat diet. Lose excess weight. Avoid salty foods and avoid adding salt to any of the foods you eat. Avoid diet pills, decongestants, "energizing" herbs, and other medicines that elevate blood pressure. If left untreated, hypertension greatly enhances your risk for developing heart disease and strokes. Please don't ignore this problem. Chronic Obstructive Lung Disease You have chronic obstructive lung disease (COPD). The symptoms come from emphysema (damage to small airways, with trapping of air in large sacks in the lung) and chronic bronchitis (repeated infection and damage to larger airways). The cause is almost always cigarette smoking, although dust exposure, asthma, and infections contribute. You should avoid fumes, dust, and smoke (especially tobacco smoke). Your condition will flare from time to time. There is no cure, but the symptoms can be treated. Bronchodilators (asthma medicine) are often helpful. Antibiotics help when infection is present. When shortness of breath is severe, we may prescribe cortisone medication. If medicine doesn't help enough, we can arrange for you to have an oxygen tank at home. Notify your doctor at once if sputum becomes thick, foul, or bloody, if you develop a fever or chest pain, or if your shortness of breath worsens. You should stop smoking. Please take your medications as prescribed. Return to the ER for chest pain, increased breathing difficulty, fever, or any worsening symptoms or concerns. Prescriptions: Doxycycline Hyclate 100 mg PO BID #14 capsule Prednisone [Deltasone 20 mg Tablet] 3 tab PO DAILY 5 Days Forms: Elevated Blood Pressure, Smoking Cessation Education
[2016-08-02] MEDS ORDERED: NITROGLYCERIN 2% OINTMENT 1 GM PACKET TP ONE (15:42)
[2016-08-02] MEDS ORDERED: ALBUTEROL SULFATE 0.083% NEB 2.5 MG/3 ML AMPUL NEB ONE (15:45)
[2016-08-02 16:24] LABS: ARTERIAL BLOOD BASE EXCESS 7.6 mmol/L; ARTERIAL BLOOD O2 SATURATION 96.8 % (94-98)
[2016-08-02 17:37] LABS: ABSOLUTE LYMPHOCYTES (AUTO) 0.5 10^3/uL (0.5-4.7); ABSOLUTE MONOCYTES (AUTO) 0.3 10^3/uL (0.1-1.4); ABSOLUTE NEUT (AUTO) 6.5 10^3/uL (1.7-8.2); BASOPHILS % (AUTO) 0.1 % (0-2); HEMOGLOBIN 13.8 g/dL (13.5-17.0); HGB HCT DIFFERENCE -1.6; LYMPHOCYTES % (AUTO) 7.3 % (13-45); MEAN CORPUSCULAR HEMOGLOBIN 28.1 pg (27.0-33.4); MEAN CORPUSCULAR HGB CONC 32.1 g/dL (32.0-36.0); MEAN CORPUSCULAR VOLUME 88 fl (80-97); MONOCYTES % (AUTO) 3.6 % (3-13); RED BLOOD COUNT 4.91 10^6/uL (4.35-5.55); RED CELL DISTRIBUTION WIDTH 16.8 % (11.5-14.0); WHITE BLOOD COUNT 7.3 10^3/uL (4.0-10.5)
[2016-08-02 17:48] LABS: PARTIAL THROMBOPLASTIN TIME 26.4 SEC (23.5-35.8)
[2016-08-02 17:56] LABS: ALANINE AMINOTRANSFERASE 41 U/L (21-72); ALBUMIN 3.7 g/dL (3.5-5.0); ALKALINE PHOSPHATASE 117 U/L (38-126); ANION GAP 13 (5-19); ASPARTATE AMINO TRANSFERASE 25 U/L (17-59); BILIRUBIN,DIRECT 0.4 mg/dL (0.0-0.4); BILIRUBIN,TOTAL 0.8 mg/dL (0.2-1.3); BLOOD UREA NITROGEN 27 mg/dL (7-20); CALCIUM 9.2 mg/dL (8.4-10.2); CARBON DIOXIDE 32 mmol/L (22-30); CHLORIDE 100 mmol/L (98-107); CREATINE KINASE 25 U/L (55-170); CREATININE RESULT 1.04 mg/dL (0.52-1.25); GLUCOSE 220 mg/dL (75-110); POTASSIUM 4.6 mmol/L (3.6-5.0); SODIUM 144.8 mmol/L (137-145); TOTAL PROTEIN 6.6 g/dL (6.3-8.2)
[2016-08-02 18:08] LABS: CREATINE KINASE MB 2.99 ng/mL (<4.55)
[2016-08-02 18:11] LABS: TROPONIN I 0.049 ng/mL
[2016-08-02] MEDS ORDERED: FUROSEMIDE INJ/PF 20 MG/2 ML SDV IV ONE (19:26)
--- NOTE | 2016-08-02 21:53 | EKG REPORT ---
SEVERITY:- ABNORMAL ECG - AFIB/FLUT AND V-PACED COMPLEXES IVCD, CONSIDER ATYPICAL RBBB LEFT VENTRICULAR HYPERTROPHY : Confirmed by: Tammy Garay MD 02-Aug-2016 21:52:50
[2016-08-02 22:04] VITALS: BP 187/70
== END 2016-08-02 22:20 | disposition home or self-care (01) ==
LOC: ER 15:03
DX: J44.1 Chronic obstructive pulmonary disease with (acute) exacerbation (principal); F17.200 Nicotine dependence, unspecified, uncomplicated; I25.10 Atherosclerotic heart disease of native coronary artery without angina pectoris; I10 Essential (primary) hypertension; Z95.0 Presence of cardiac pacemaker; Z95.1 Presence of aortocoronary bypass graft; Z91.19 Patient's noncompliance with other medical treatment and regimen; I25.2 Old myocardial infarction
CPT/HCPCS: 93005; 94640 ×2; 99285; 96374; 96375; 36415; 87040; 82553; 82803; 82550; 85025; 85610; 85730; 87077; 80053; 84484; 83880; 71010; 93010; 36600; A9270 ×3; J1940; J2930; J7620

== ENCOUNTER 2016-08-21 15:18 | Emergency (ER) | payer MEDICARE, MEDICAID ==
--- NOTE | 2016-08-21 15:36 | ER Document Report ---
ED General - General Mode of Arrival: Medic Information source: Patient TRAVEL OUTSIDE OF THE [place] IN LAST 30 DAYS: No - HPI Patient complains to provider of: Shortness of Breath Associated symptoms: Other - see notes above <ALMAS DESOUZA - Last Filed: 08/21/16 16:01> <DAVID COLLINS - Last Filed: 08/21/16 19:15> - General Chief Complaint: Shortness Of Breath Stated Complaint: WEAKNESS Time Seen by Provider: 08/21/16 15:29 Notes: 71 year old male with history of COPD, hyperlipidemia, hypertension, CHF, CAD, and atrial fibrillation flutter presents to the ED via EMS complaining of shortness of breath. Patient was picked up from a walk-in clinic in [place], [place] with congested lung sounds and saturating at 89%. Patient is non-compliant with medication and reports that he is unable to afford his medications due to the size of his monthly government check. Patient was seen here on 07/28/2016 for similar complaints. Patient has been here many times and will often leave the ED AMA without picking up prescriptions. Patient is asking for a meal tray. (ALMAS DESOUZA) - Related Data Allergies/Adverse Reactions: No Known Allergies Allergy (Verified 01/08/15 07:35) Past Medical History - General Information source: Patient - Social History Smoking Status: Current Every Day Smoker Family History: CAD, COPD, Hypertension - Past Medical History Cardiac Medical History: Reports: Hx Congestive Heart Failure, Hx Coronary Artery Disease, Hx Heart Attack - x1, Hx Hypercholesterolemia, Hx Hypertension, Hx Heart Murmur Pulmonary Medical History: Reports: Hx COPD, Hx Pneumonia Denies: Hx Tuberculosis Musculoskeltal Medical History: Reports Hx Arthritis Psychiatric Medical History: Reports: Hx Depression Past Surgical History: Reports: Hx Cardiac Surgery - cabg x2, Hx Coronary Artery Bypass Graft, Hx Orthopedic Surgery - neck fusion, right and left hand surgery, Hx Pacemaker - Biventricular pacemaker noted - Immunizations Hx Diphtheria, Pertussis, Tetanus Vaccination: Yes <ALMAS DESOUZA - Last Filed: 08/21/16 16:01> Review of Systems - Review of Systems Constitutional: No symptoms reported EENT: No symptoms reported Cardiovascular: No symptoms reported Respiratory: See HPI, Short of breath Gastrointestinal: No symptoms reported Genitourinary: No symptoms reported Male Genitourinary: No symptoms reported Musculoskeletal: No symptoms reported Skin: No symptoms reported Hematologic/Lymphatic: No symptoms reported Neurological/Psychological: No symptoms reported -: Yes All other systems reviewed and negative <ALMAS DESOUZA - Last Filed: 08/21/16 16:01> Physical Exam - General General appearance: Alert In distress: None - HEENT Head: Normocephalic, Atraumatic Eyes: Normal Extraocular movements intact: Yes Pupils: PERRL - Respiratory Respiratory status: Tachypnea Breath sounds: Rhonchi, Wheezing. No: Normal - Cardiovascular Rhythm: Regular Heart sounds: Normal auscultation - Abdominal Inspection: Normal Distension: No distension Tenderness: Nontender - Back Back: Normal - Extremities General upper extremity: Normal inspection, Normal ROM General lower extremity: Normal inspection, Normal ROM - Neurological Neuro grossly intact: Yes - Psychological Associated symptoms: Normal affect, Normal mood - Skin Skin Temperature: Warm Skin Moisture: Dry Skin Color: Normal <ALMAS DESOUZA - Last Filed: 08/21/16 16:01> Course <ALMAS DESOUZA - Last Filed: 08/21/16 16:01> - Laboratory Result Diagrams: 08/21/16 16:15 08/21/16 16:15 - Diagnostic Test Radiology reviewed: Image reviewed, Reports reviewed - Persistent loculated right pleural effusion, COPD, no significant change - EKG Interpretation by Nh EKG shows normal: [place], Intervals, QRS Complexes, ST-T Waves Rate: Normal - 62 Rhythm: A.Fib, A.Flutter, Other - Ventricular paced rhythm When compared to previous EKG there are: No significant change <DAVID COLLINS - Last Filed: 08/21/16 19:15> - Re-evaluation Re-evalutation: 08/21/16 19:14 Patient is sleeping. Room air pulse ox is 92%. He will be discharged this time. (DAVID COLLINS) - Vital Signs Vital signs: Temp Pulse Resp BP Pulse Ox 26 H 178/102 H 92 08/21/16 17:01 08/21/16 16:01 08/21/16 18:00 - Laboratory Laboratory results interpreted by me: 08/21/16 08/21/16 16:15 16:15 MCHC 31.8 L RDW 17.0 H Lymphocytes % 9.3 L Basophils % 2.9 H Carbon Dioxide 31 H BUN 22 H Direct Bilirubin 0.6 H Creatine Kinase 31 L Albumin 3.3 L Discharge <ALMAS DESOUZA - Last Filed: 08/21/16 16:01> <DAVID COLLINS - Last Filed: 08/21/16 19:15> - Discharge Clinical Impression: COPD exacerbation, Tobacco abuse, Noncompliance w/medication treatment due to intermit use of medication Condition: Stable Additional Instructions: Add the prednisone as prescribed to your regular medications. Usually nebulizer as needed for wheezing. Follow-up with her doctor this week for recheck if not improving. RETURN TO THE EMERGENCY ROOM IF ANY NEW OR WORSENING SYMPTOMS. Prescriptions: Prednisone [Deltasone 10 mg Tablet] 10 mg PO ASDIR PRN #21 tablet PRN Reason: Scribe Attestation: 08/21/16 19:15 I personally performed the services described in the documentation, reviewed and edited the documentation which was dictated to the scribe in my presence, and it accurately records my words and actions. (DAVID COLLINS) Scribe Documentation - Scribe Written by Rosana:: Rosana Austin, 08/21/2016 1556 acting as scribe for :: John <ALMAS DESOUZA - Last Filed: 08/21/16 16:01>
[2016-08-21] MEDS ORDERED: IPRATROPIUM/ALBUTEROL 0.5-2.5 MG/3 ML AMPUL NEB ONE (15:38)
[2016-08-21 16:24] LABS: ABSOLUTE BASOPHILS # (AUTO) 0.2 10^3/uL (0.0-0.2); ABSOLUTE EOSINOPHILS # (AUTO) 0.3 10^3/uL (0.0-0.6); ABSOLUTE LYMPHOCYTES (AUTO) 0.8 10^3/uL (0.5-4.7); ABSOLUTE MONOCYTES (AUTO) 0.5 10^3/uL (0.1-1.4); ABSOLUTE NEUT (AUTO) 6.4 10^3/uL (1.7-8.2); BASOPHILS % (AUTO) 2.9 % (0-2); EOSINOPHILS % (AUTO) 3.5 % (0-6); HEMATOCRIT 43.4 % (37.9-51.0); HEMOGLOBIN 13.8 g/dL (13.5-17.0); LYMPHOCYTES % (AUTO) 9.3 % (13-45); MEAN CORPUSCULAR HEMOGLOBIN 28.3 pg (27.0-33.4); MEAN CORPUSCULAR HGB CONC 31.8 g/dL (32.0-36.0); MEAN CORPUSCULAR VOLUME 89 fl (80-97); MONOCYTES % (AUTO) 6.3 % (3-13); RED BLOOD COUNT 4.89 10^6/uL (4.35-5.55); WHITE BLOOD COUNT 8.2 10^3/uL (4.0-10.5)
[2016-08-21 16:46] LABS: ALANINE AMINOTRANSFERASE 37 U/L (21-72); ALBUMIN 3.3 g/dL (3.5-5.0); ALKALINE PHOSPHATASE 125 U/L (38-126); ANION GAP 10 (5-19); ASPARTATE AMINO TRANSFERASE 32 U/L (17-59); BILIRUBIN,DIRECT 0.6 mg/dL (0.0-0.4); BILIRUBIN,TOTAL 0.8 mg/dL (0.2-1.3); BLOOD UREA NITROGEN 22 mg/dL (7-20); CALCIUM 8.9 mg/dL (8.4-10.2); CARBON DIOXIDE 31 mmol/L (22-30); CHLORIDE 102 mmol/L (98-107); CREATINE KINASE 31 U/L (55-170); GLUCOSE 91 mg/dL (75-110); POTASSIUM 4.2 mmol/L (3.6-5.0); SODIUM 143.4 mmol/L (137-145); TOTAL PROTEIN 6.3 g/dL (6.3-8.2)
[2016-08-21 16:56] LABS: CREATINE KINASE MB 2.89 ng/mL (<4.55)
[2016-08-21 16:59] LABS: TROPONIN I 0.054 ng/mL
[2016-08-21] MEDS ORDERED: ALBUTEROL SULFATE 0.083% NEB 2.5 MG/3 ML AMPUL NEB ONE (17:12)
[2016-08-21] MEDS ORDERED: PREDNISONE 20 MG TABLET PO ONE (17:12)
[2016-08-21 19:18] VITALS: BP 179/74
--- NOTE | 2016-08-21 23:37 | EKG REPORT ---
SEVERITY:- ABNORMAL ECG - AFIB/FLUTTER AND VENTRICULAR-PACED RHYTHM : Confirmed by: Jeannie Carter 21-Aug-2016 23:36:56
== END 2016-08-21 19:24 | disposition home or self-care (01) ==
LOC: ER 15:18
DX: J44.1 Chronic obstructive pulmonary disease with (acute) exacerbation (principal); T50.906A Underdosing of unspecified drugs, medicaments and biological substances, initial encounter; Z91.14 Patient's other noncompliance with medication regimen; Z59.9 Problem related to housing and economic circumstances, unspecified; J90 Pleural effusion, not elsewhere classified; F17.200 Nicotine dependence, unspecified, uncomplicated; R06.02 Shortness of breath; I48.91 Unspecified atrial fibrillation; I48.92 Unspecified atrial flutter; I10 Essential (primary) hypertension; I25.10 Atherosclerotic heart disease of native coronary artery without angina pectoris; I25.2 Old myocardial infarction; Z95.1 Presence of aortocoronary bypass graft; Z95.0 Presence of cardiac pacemaker
CPT/HCPCS: 93005; 94640 ×2; 99285; 36415; 82553; 82550; 85025; 80053; 84484; 71010; 93010; A9270 ×3; J7512; J7620

== ENCOUNTER 2016-11-09 19:59 | Inpatient (IN) | payer MEDICARE, MEDICAID ==
[2016-11-09] MEDS ORDERED: ASPIRIN 81 MG TABLET, CHEWABLE PO ONE (20:17)
--- NOTE | 2016-11-09 20:17 | ER Document Report ---
ED General - General Stated Complaint: DIFFICULTY BREATHING Time Seen by Provider: 11/09/16 20:09 Cannot obtain history due to: Uncooperative Notes: Patient is a 71-year-old male with a past medical history of CHF, coronary artery disease, hypertension, COPD with active smoking and alcohol abuse who presents by EMS with concerns of shortness of breath. Patient is an extremely poor historian, does not provide any meaningful history whatsoever. EMS states the reports that for the past 1 week the patient has had progressive worsening shortness of breath and has been using her albuterol inhaler. He does continue to smoke. He is completely noncompliant with all medications and does not follow with primary care doctor. Patient himself states that he continues to feel somewhat short of breath and but is unable to clarify what improves or worsens her symptoms. He denies any chest pain. No cough or sputum production. States he has had similar symptoms many times in the past. TRAVEL OUTSIDE OF THE [place] IN LAST 30 DAYS: No - Related Data Allergies/Adverse Reactions: No Known Allergies Allergy (Verified 08/21/16 19:15) Past Medical History - General Information source: Patient, Emergency Med Personnel Cannot obtain history due to: Uncooperative - Social History Smoking Status: Current Every Day Smoker Frequency of alcohol use: None Drug Abuse: None Lives with: Spouse/Significant other Family History: CAD, COPD, Hypertension - Past Medical History Cardiac Medical History: Reports: Hx Congestive Heart Failure, Hx Coronary Artery Disease, Hx Heart Attack - x1, Hx Hypercholesterolemia, Hx Hypertension, Hx Heart Murmur Pulmonary Medical History: Reports: Hx COPD, Hx Pneumonia Denies: Hx Tuberculosis Renal/ Medical History: Denies: Hx Peritoneal Dialysis Musculoskeltal Medical History: Reports Hx Arthritis Psychiatric Medical History: Reports: Hx Depression Past Surgical History: Reports: Hx Cardiac Surgery - cabg x2, Hx Coronary Artery Bypass Graft, Hx Orthopedic Surgery - neck fusion, right and left hand surgery, Hx Pacemaker - Biventricular pacemaker noted - Immunizations Hx Diphtheria, Pertussis, Tetanus Vaccination: Yes Review of Systems - Review of Systems Notes: Constitutional: Negative for fever. HENT: Negative for sore throat. Eyes: Negative for visual changes. Cardiovascular: Negative for chest pain. Respiratory: Positive for shortness of breath. Gastrointestinal: Negative for abdominal pain, vomiting or diarrhea. Genitourinary: Negative for dysuria. Musculoskeletal: Negative for back pain. Skin: Negative for rash. Neurological: Negative for headaches, weakness or numbness. 10 point ROS negative except as marked above and in HPI. Physical Exam - Vital signs Vitals: Resp Pulse Ox 18 93 11/09/16 20:02 11/09/16 20:02 Interpretation: Hypertensive, Tachycardic, Tachypneic Notes: PHYSICAL EXAMINATION: GENERAL: Appears to be moderately short of breath, cachectic, chronically ill in appearance HEAD: Atraumatic, normocephalic. EYES: Pupils equal round and reactive to light, extraocular movements intact, sclera anicteric, conjunctiva are normal. ENT: nares patent, oropharynx clear without exudates. Dry mucous membranes. NECK: Normal range of motion, supple without lymphadenopathy LUNGS: Scattered rales in the lung hampton. Moderately tachypneic with intercostal retractions HEART: Regular tachycardia without murmurs ABDOMEN: Soft, nontender, normoactive bowel sounds. No guarding, no rebound. No masses appreciated. EXTREMITIES: Normal range of motion, no pitting or edema. No cyanosis. NEUROLOGICAL: No focal neurological deficits. Moves all extremities spontaneously and on command. PSYCH: Seems disinterested in being part of his care., Does not answer questions appropriately SKIN: Warm, Dry, normal turgor, no rashes or lesions noted. Course - Re-evaluation Re-evalutation: 11/09/16 20:15 Patient presents with complaints of shortness of breath, only mildly tachypneic at time of evaluation. Apparently when EMS first got to the patient he was with severe shortness of breath initially respiratory rate of 36 with 93% on room air. He was also be severely hypertensive at the time initial systolics at 210. Patient is completely noncompliant with all medical management. He was given 3 sublingual nitroglycerin and nitro paste was applied with complete resolution of his shortness of breath as well as improvement of his hypertension. He arrives the nitro placed in place and that will remain on his chest at this time. Patient is a very poor historian, unable to provide me with meaningful history as to when he became worse simply stating "it is always like this". Exam does show diffuse rales in all lung hampton consistent with likely pulmonary edema in the setting of CHF and noncompliance. Patient is also emaciated, very cachectic and has had an apparent 5 kg weight loss since April of this year. Patient presents as somebody who is chronically ill and having a relatively rapid overall decline in his health. Will proceed with labs , chest x-ray, continue on patient monitor, continue Nitropaste, and reassess. 11/09/16 20:49 Patient's blood pressure has continued to increase and patient is now beginning to have increased shortness of breath. Will discontinue the Nitropaste and begin a nitroglycerin infusion. Chest x-ray does show a right-sided pleural effusion which patient has had in the past otherwise no overt pulmonary edema. Awaiting labs. Patient continues to deny chest pain. 11/09/16 21:46 Patient's laboratories do show an elevation of his patient's proBNP above his baseline currently at 11,900. His troponin is also well above baseline at 0.066. Patient continues to deny any chest pain although continues to have tachypnea with periods of respiratory distress. I therefore placed the patient on BiPAP to assist with his work of breathing. He has been given a dose of 20 mg of IV furosemide. Aspirin has been administered. Will discuss with Dr. Moore for admission. - Vital Signs Vital signs: Temp Pulse Resp BP Pulse Ox 97.7 F 61 25 H 179/94 H 100 11/10/16 01:19 11/10/16 01:19 11/10/16 02:01 11/10/16 02:00 11/10/16 02:01 - Laboratory Result Diagrams: 11/09/16 20:20 11/09/16 20:20 Laboratory results interpreted by me: 11/09/16 11/09/16 11/09/16 20:20 20:20 20:20 MCHC 31.6 L RDW 16.2 H Eosinophils % 6.2 H VBG pCO2 VBG HCO3 Sodium 146.1 H Carbon Dioxide 33 H BUN 26 H Est GFR (Non-Af Amer) 57 L Direct Bilirubin 0.5 H Alkaline Phosphatase 133 H NT-Pro-B Natriuret Pep 65564 H Prealbumin 14.8 L Urine Protein 11/09/16 11/09/16 20:20 23:09 MCHC RDW Eosinophils % VBG pCO2 69.5 H* VBG HCO3 34.7 H Sodium Carbon Dioxide BUN Est GFR (Non-Af Amer) Direct Bilirubin Alkaline Phosphatase NT-Pro-B Natriuret Pep Prealbumin Urine Protein 30 H - Diagnostic Test Radiology reviewed: Image reviewed, Reports reviewed Radiology results interpreted by me: 11/10/16 03:52 Chest x-ray: Right pleural effusion unchanged from prior - EKG Interpretation by Me Additional EKG results interpreted by me: 11/10/16 03:52 Ventricularly paced rhythm rate is 60 Critical Care Note - Critical Care Note Total time excluding time spent on procedures (mins): 37 Comments: Critical care time spent obtaining history from patient or surrogate, discussions with consultants, development of treatment plan with patient or surrogate, evaluation of patient's response to treatment, examination of patient , ordering and performing treatments and interventions, ordering and review of laboratory studies, re-evaluation of patient's condition, ordering and review of radiographic studies and review of old charts Discharge - Discharge Clinical Impression: SOB (shortness of breath), Hypertensive emergency, Tobacco abuse, General patient noncompliance Acute exacerbation of congestive heart failure Qualifiers: Congestive heart failure type: unspecified congestive heart failure type Qualified Code(s): I50.9 - Heart failure, unspecified Condition: Fair Disposition: ADMITTED INPATIENT Admitting Provider: Hospitalist - [facility] Unit Admitted: [facility]
[2016-11-09 20:48] LABS: ABSOLUTE BASOPHILS # (AUTO) 0.1 10^3/uL (0.0-0.2); ABSOLUTE EOSINOPHILS # (AUTO) 0.4 10^3/uL (0.0-0.6); ABSOLUTE LYMPHOCYTES (AUTO) 1.2 10^3/uL (0.5-4.7); ABSOLUTE MONOCYTES (AUTO) 0.7 10^3/uL (0.1-1.4); ABSOLUTE NEUT (AUTO) 4.7 10^3/uL (1.7-8.2); BASOPHILS % (AUTO) 1.1 % (0-2); EOSINOPHILS % (AUTO) 6.2 % (0-6); HEMATOCRIT 43.3 % (37.9-51.0); HEMOGLOBIN 13.7 g/dL (13.5-17.0); HGB HCT DIFFERENCE -2.2; LYMPHOCYTES % (AUTO) 17.3 % (13-45); MEAN CORPUSCULAR HEMOGLOBIN 28.3 pg (27.0-33.4); MEAN CORPUSCULAR HGB CONC 31.6 g/dL (32.0-36.0); MEAN CORPUSCULAR VOLUME 90 fl (80-97); MONOCYTES % (AUTO) 9.3 % (3-13); RED BLOOD COUNT 4.84 10^6/uL (4.35-5.55); RED CELL DISTRIBUTION WIDTH 16.2 % (11.5-14.0); SEGMENTED NEUTROPHILS % (AUTO) 66.1 % (42-78); WHITE BLOOD COUNT 7.1 10^3/uL (4.0-10.5)
[2016-11-09] MEDS ORDERED: NITROGLYCERIN 0.4 MG/TAB 25 TAB/BOTTLE SL PRN (20:49)
--- NOTE | 2016-11-09 20:49 | RADIOLOGY REPORT (SQ) ---
EXAM DESCRIPTION: CHEST SINGLE VIEW COMPLETED DATE/TIME: 11/09/2016 8:30 pm REASON FOR STUDY: sob COMPARISON: 08/21/2016 EXAM PARAMETERS: NUMBER OF VIEWS: One view. TECHNIQUE: Single frontal radiographic view of the chest acquired. RADIATION DOSE: NA LIMITATIONS: None. FINDINGS: LUNGS AND PLEURA: Stable, persistent loculated pleural effusion, right. Superimposed righ t lung base atelectasis. Background of chronic emphysematous change. MEDIASTINUM AND HILAR STRUCTURES: No masses. Contour normal. HEART AND VASCULAR STRUCTURES: Heart normal in size. Normal vasculature. BONES: No acute findings. HARDWARE: Left anterior chest wall cardiac pacer and mediastinal surgical changes are stable in appea yvon. OTHER: No other significant finding. IMPRESSION: Stable radiographic appearance of the chest. TECHNICAL DOCUMENTATION: JOB ID: [id number]
[2016-11-09] MEDS ORDERED: NITROGLYCERIN/D5W 250 ML IV PRN ×2 (20:59→23:41)
[2016-11-09 21:09] LABS: ALANINE AMINOTRANSFERASE 21 U/L (21-72); ALBUMIN 4.1 g/dL (3.5-5.0); ALKALINE PHOSPHATASE 133 U/L (38-126); ANION GAP 11 (5-19); ASPARTATE AMINO TRANSFERASE 35 U/L (17-59); BILIRUBIN,DIRECT 0.5 mg/dL (0.0-0.4); BILIRUBIN,TOTAL 0.6 mg/dL (0.2-1.3); BLOOD UREA NITROGEN 26 mg/dL (7-20); CALCIUM 9.1 mg/dL (8.4-10.2); CARBON DIOXIDE 33 mmol/L (22-30); CHLORIDE 102 mmol/L (98-107); CREATININE RESULT 1.24 mg/dL (0.52-1.25); GLUCOSE 82 mg/dL (75-110); POTASSIUM 4.3 mmol/L (3.6-5.0); SODIUM 146.1 mmol/L (137-145); TOTAL PROTEIN 7.7 g/dL (6.3-8.2)
[2016-11-09 21:17] LABS: PREALBUMIN 14.8 mg/dL (17.6-36.0)
[2016-11-09 21:27] LABS: TROPONIN I 0.066 ng/mL
[2016-11-09] MEDS ORDERED: FUROSEMIDE INJ/PF 20 MG/2 ML SDV IV ONE (21:40)
[2016-11-09] MEDS ORDERED: IPRATROPIUM/ALBUTEROL 0.5-2.5 MG/3 ML AMPUL NEB ONE (21:48)
[2016-11-09 21:58] LABS: ADD ON TESTING BLD IN LAB ACKNOWLEDGE
[2016-11-09 22:01] LABS: VENOUS BLOOD HCO3 34.7 mmol/L (20-32); VENOUS BLOOD PH 7.32 (7.30-7.42)
[2016-11-09 22:04] LABS: VENOUS BLOOD PCO2 69.5 mmHg (35-63)
[2016-11-09 22:12] LABS: MAGNESIUM 2.3 mg/dL (1.6-2.3)
[2016-11-09 22:13] LABS: ALCOHOL < 10 mg/dL (NONE DETECTED)
[2016-11-09] MEDS ORDERED: 1/2 NORMAL SALINE 1,000 ML IV PRN (23:39)
[2016-11-09] MEDS ORDERED: NICOTINE 14 MG/24 HR PATCH.TD24 TD PRN (23:42)
[2016-11-09] MEDS ORDERED: PROMETHAZINE HCL 25 MG TABLET PO PRN (23:43)
[2016-11-09] MEDS ORDERED: ACETAMINOPHEN 325 MG TABLET PO PRN (23:43)
[2016-11-09] MEDS ORDERED: GUAIFENESIN SYRP 200 MG/10 ML UDC PO PRN (23:59)
[2016-11-09] MEDS ORDERED: ALBUTEROL SULFATE 0.083% NEB 2.5 MG/3 ML AMPUL NEB PRN (23:59)
[2016-11-10] MEDS ORDERED: 1/2 NORMAL SALINE 1,000 ML IV PRN (00:07)
[2016-11-10] MEDS ORDERED: PREDNISONE 20 MG TABLET PO ONE (00:30)
--- NOTE | 2016-11-10 00:38 | PDOC H&P ---
History of Present Illness Admission Date/PCP: 11/09/16 23:47 Primary care provider uncertain Patient complains of: Difficulty breathing History of Present Illness: TORSTEN MANZO JR is a 71 year old male with known combined systolic and diastolic congestive heart failure, non-home O2 dependent COPD, chronic anxiety , arthritis, chronic noncompliance with both medications and physician follow-up , and with a history of leaving AGAINST MEDICAL ADVICE from both inpatient and emergency room care, who presents to the emergency room in severe respiratory distress. Patient has been discussed with emergency room physician who evaluated the patient. Patient is a quite poor historian, is easily distracted and easily agitated and frequently begins arguing about topics other than those being discussed by MD. He is able to provide little history in terms of acute events that led to his coming to the emergency room via EMS. No friends or family are present. Old inpatient records are reviewed. According to the emergency room physician, highest blood pressure recorded by EMS was 230 systolic. Was given sublingual nitroglycerin and then nitro paste by EMS which did temporarily lower his blood pressure slightly. However, shortly after arrival, nitroglycerin drip was started along with patient being placed on BiPAP. He is breathing much more comfortably, now on nasal cannula. Blood pressure remains elevated however, 162/114 with nitroglycerin drip at 55 mics per minute. Denies pain. As best I can determine, his chronic shortness of breath worsened considerably over the last 18-24 hours. no nausea vomiting, fever or chills. No diarrhea or dysuria. No chest pain. Of note, patient is easily agitated at times. When I told him I was having a little bit of difficulty understanding him with his BiPAP mask on, he quickly ripped off the mask. Patient is also noted to have a bit of a speech impediment, which he states is been present for approximately a month, without recent change. No prior seizure , stroke, TIA, or mini stroke. Hospitalized on our service June 29 - July 01, 2016 with final diagnoses including acute exacerbation of congestive heart failure and acute hypoxemic respiratory failure. Left AGAINST MEDICAL ADVICE. History and physical and discharge summary reviewed. Dictation via voice recognition software. Laboratory results are listed in [facility] and are reviewed. X-ray summary results are listed below, with full report(s) reviewed. . EKG reviewed and compared to prior tracing from August 21 of this year. 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 No children. Retired. One half pack of cigarettes per day. No alcohol use for at least 8 years. Denies illicit drug use. Allergies/adverse reactions are listed in [facility] and are reviewed. Home medications initially autopopulated into [employer] may not accurately reflect patient's true medications, dosages, and/or frequencies. 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 Unfortunately, patient not certain of all medications/dosages/frequencies. He can only state that he takes an aspirin every day, along with as needed albuterol. Otherwise, takes no medications on a regular basis. REVIEW OF SYSTEMS: Constitutional: No fever or chills. Eyes: Wears glasses. ENT: No swallowing problems or complaints. Partial hearing loss. Pulmonary: See history and present illness. Cardiovascular: No current complaints, including chest pain. Gastrointestinal: No current complaints, including nausea or vomiting. Skin: No current complaints, including rashes. Hematologic: Easy bruising. Neurologic: No current complaints, including numbness or tingling. Musculoskeletal: Mild joint pain from arthritis. Psychiatric: Anxiety. Endocrine: No current complaints, including polyuria. Genitourinary: No current complaints, including dysuria. PHYSICAL EXAMINATION: 5 feet 8 inches tall. 56.9 kg. BMI 19.1 kg/m. Blood pressure 162/114. Pulse 101 and regular. Respirations are 24 and unlabored. 97% saturation on room air. Thin chronically ill-appearing male who appears a fair number of years older than his stated age. Awake alert and cooperative. As noted above, he is easily agitated at times. Skin is warm and dry. No grossly obvious evidence of rash in areas of skin examined. No subcutaneous nodules palpated. ENT: Mildly hard of hearing to normal conversation. Tongue midline on protrusion pink and slightly tacky. Eyes: No scleral icterus. Pupils equal and reactive to light at 4 mm. [place] conjunctivae. Neck is supple and nontender to gentle active range of motion and palpation. Midline trachea. No palpable thyroid nodule mass enlargement or tenderness. Lymphatic: No palpable cervical or clavicular nodes. Neck and lymphatic exams limited by patient body habitus. Psychiatric: At best poor insight into acute and chronic medical issues. Lungs: Auscultation reveals equal breath sounds bilaterally. No use of accessory respiratory muscles. Mild inspiratory and expiratory wheezing diffusely bilaterally. Cardiovascular: Heart regular rate and rhythm, without gallop murmur or rub. No carotid or abdominal aortic bruits. No ankle or pedal edema. Faintly palpable dorsalis pedis pulses. Abdomen:soft slightly distended nontender with positive bowel sounds. Unable to adequately evaluate abdomen for masses or organomegaly due to distention. Extremities: Hands and feet are warm and dry. No calf tenderness to compression. No grossly obvious visual evidence of calf swelling. Gentle manipulation of upper and lower extremities fails to reveal any obvious evidence of injury or instability to involved major joints. Neurologic: Cranial Nerves II through XII are grossly intact. Light touch intact at face, upper and lower extremities. Motor function of major muscle groups upper and lower extremities 5 over 5 and symmetric. Patellar reflexes absent. Absent Babinski. No nystagmus. Mild dysarthria; almost seems like a speech impediment versus slurring of the speech per se. Past Medical History Cardiac Medical History: Reports: Atrial Fibrillation - Reported history of atrial flutter, Congestive Heart Failure - Combined systolic and diastolic, Coronary Artery Disease, Myocardial Infarction - x1, Hypertension, Heart Murmur Denies: DVT, Hyperlipidema, Pulmonary Embolism Pulmonary Medical History: Reports: Chronic Obstructive Pulmonary Disease (COPD) , Pneumonia Denies: Sleep Apnea, Tuberculosis EENT Medical History: Reports: Eyes - Glasses, Ears - Partial hearing loss Denies: Throat Neurological Medical History: Denies: Hemorrhagic CVA, Ischemic CVA, Seizures Endocrine Medical History: Denies: Diabetes Mellitus Type 1, Diabetes Mellitus Type 2, Hyperthyroidism, Hypothyroidism Renal/ Medical History: Reports: None GI Medical History: Denies: Cirrhosis, Gastroesophageal Reflux Disease, Hepatitis, Peptic Ulcer Disease Musculoskeltal Medical History: Reports: Arthritis Skin Medical History: Reports: None Psychiatric Medical History: Reports: General Anxiety Disorder, Tobacco Dependency Denies: Alcohol Dependency, Depression, Substance Abuse Hematology: Reports: Other - Easy bruising Infectious Medical History: Denies: Hepatitis B, Hepatitis C Past Surgical History Past Surgical History: Reports: Coronary Artery Bypass Graft, Orthopedic Surgery - neck fusion, right and left hand surgery, Pacemaker - Biventricular pacemaker noted Social History Information Source: Patient, Emergency Med Personnel, [facility] Records Lives with: Friend Smoking Status: Current Every Day Smoker Frequency of Alcohol Use: None Hx Recreational Drug Use: No Drugs: None Hx Prescription Drug Abuse: No - Advance Directive Resuscitation Status: Full Code Surrogate healthcare decision maker:: Uncertain at this point in time Family History Family History: CAD, COPD, Hypertension Parental Family History Reviewed: Yes - Uncertain cause of mother's . Father "wore out." Children Family History Reviewed: NA Sibling(s) Family History Reviewed.: Yes - Brother with history of polio Medication/Allergy Home Medications: Amlodipine Besylate [Norvasc 10 mg Tablet] 10 mg PO DAILY #30 tablet 11/11/16 Aspirin [Aspirin 81 mg Chewable Tablet] 81 mg PO DAILY #30 tab.chew 11/11/16 Furosemide [Lasix 20 mg Tablet] 20 mg PO DAILY #30 tablet 11/11/16 Isosorb Dinit/Hydralazine HCl [Bidil 20-37.5 mg Tablet] 1 tab PO Q8 #90 tablet 11/11/16 Losartan Potassium [Cozaar 50 mg Tablet] 50 mg PO Q12 #60 tablet 11/11/16 Prednisone [Deltasone 10 mg Tablet] 10 mg PO ASDIR PRN #21 tablet 11/11/16 Allergies/Adverse Reactions: No Known Allergies Allergy (Verified 08/21/16 19:15) Physical Exam Vital Signs: Temp Pulse Resp BP Pulse Ox 21 H 177/86 H 100 11/09/16 23:46 11/09/16 23:46 11/09/16 23:46 Results Impressions: Chest X-Ray 11/09/16 20:14 IMPRESSION: Stable radiographic appearance of the chest. Assessment & Plan - Diagnosis (1) Acute on chronic combined systolic (congestive) and diastolic (congestive) heart failure Is this a current diagnosis for this admission?: YesPlan: Likely due at least in part to his quite elevated blood pressure, which is gradually being brought under control by treatment so far, including nitroglycerin drip. Vital sign parameters in chart. I have strongly encouraged patient not to get out of bed without notifying staff , to avoid a fall with injury. Knee high SCDs for DVT prophylaxis, along with subcutaneous heparin. Impression and plans were discussed with patient who concurs. Time spent in evaluation and management of patient: 85 critical-care minutes. (2) Acute respiratory failure Qualifiers: Respiratory failure complication: unspecified whether with hypoxia or hypercapnia Qualified Code(s): J96.00 - Acute respiratory failure, unspecified whether with hypoxia or hypercapnia Is this a current diagnosis for this admission?: YesPlan: Likely secondary to his congestive heart failure. Has responded nicely to treatment so far. (3) COPD exacerbation Is this a current diagnosis for this admission?: YesPlan: Patient will be admitted under COPD exacerbation protocol. Incentive spirometry twice a day. Scheduled DuoNeb's. As needed albuterol nebs. Prednisone. Prevacid for gastritis prophylaxis. Antibiotics will consist of Rocephin and intravenous Zithromax.. Patient is a full code. (4) Elevated troponin Is this a current diagnosis for this admission?: YesPlan: Likely secondary to his underlying congestive heart failure. Denies chest pain. Serial troponins. (5) Hypertensive emergency Is this a current diagnosis for this admission?: YesPlan: Due to the level of nitroglycerin drip required, will admit to intensive care unit. Vital sign parameters in chart; gradual reduction of blood pressure.. (6) Anxiety Is this a current diagnosis for this admission?: Yes (7) Dysarthria Is this a current diagnosis for this admission?: YesPlan: Patient states has been present for a month, but will proceed with CT scan of brain without contrast. (8) Noncompliance Is this a current diagnosis for this admission?: Yes (9) Tobacco dependency Is this a current diagnosis for this admission?: YesPlan: As needed nicotine patch. - Time Critical Time spent with patient: 35 or more minutes Anticipated discharge: Home Within: within 72 hours - Inpatient Certification Based on my medical assessment, after consideration of the patient's comorbidities, presenting symptoms, or acuity I expect that the services needed warrant INPATIENT care.: Yes I certify that my determination is in accordance with my understanding of Medicare's requirements for reasonable and necessary INPATIENT services [42 CFR 412.3e].: Yes Medical Necessity: Need Close Monitoring Due to Risk of Patient Decompensation, Need For Continuous Telemetry Monitoring, Need for Nebulizer Therapy and Monitoring of Response, Need for IV Antibiotics, Risk of Diagnosis Which Will Require Inpatient Eval/Care/Monitoring Post Hospital Care: D/C or Transfer Summary
[2016-11-10 00:55] LABS: VENOUS BLOOD BASE EXCESS 5.4 mmol/L; VENOUS BLOOD HCO3 33.6 mmol/L (20-32); VENOUS BLOOD PH 7.33 (7.30-7.42)
[2016-11-10 00:57] LABS: VENOUS BLOOD PCO2 65.5 mmHg (35-63)
[2016-11-10] MEDS ORDERED: CEFTRIAXONE 1 GM/D5W RTU 1 GM/50 ML RTUPB IV ONE (01:00)
[2016-11-10 01:23] LABS: APPEARANCE,URINE CLEAR; BILIRUBIN,URINE NEGATIVE (NEGATIVE); CALCIUM OXALATE CRYSTALS,URINE RARE /HPF; GLUCOSE, URINE NEGATIVE (NEGATIVE); KETONES,URINE NEGATIVE (NEGATIVE); LEUKOCYTE ESTERASE,URINE NEGATIVE (NEGATIVE); NITRITE,URINE NEGATIVE (NEGATIVE); PROTEIN,URINE 30 mg/dL (NEGATIVE); URINE SPECIFIC GRAVITY 1.016; UROBILINOGEN,URINE NEGATIVE mg/dL (<2.0)
--- NOTE | 2016-11-10 01:54 | RADIOLOGY REPORT (SQ) ---
EXAM DESCRIPTION: CT HEAD WITHOUT COMPLETED DATE/TIME: 11/10/2016 1:06 am REASON FOR STUDY: dysarthria COMPARISON: 07/22/2015 of TECHNIQUE: Axial images acquired through the brain without intravenous contrast. Images reviewed wi th bone, brain and subdural windows. Images stored on PACS. All CT scanners at this facility use dose modulation, iterative reconstruction, and/or weight based d osing when appropriate to reduce radiation dose to as low as reasonably achievable (ALARA). [facility]: Dose Right [facility]: CareDose [facility]: Dose Right [facility]: Teradose 4D [facility]: [employer] RADIATION DOSE: Up-to-date CT equipment and radiation dose reduction techniques were employed. CTDIv ol: 64.6 mGy. DLP: 1163 mGy-cm. mGy. LIMITATIONS: None. FINDINGS: VENTRICLES: Normal size and contour. CEREBRUM: Encephalomalacia of the mid right parietal and temporal lobes consistent with old right mid MCA infarct. Chronic encephalomalacia of the left frontal lobe consistent with the left ZOILA/ MCA wa tershed territory infarct Mild cerebral volume loss. Moderate white matter microangiopathy pattern. Lacunar infarct of the right basal ganglia. No significant interval change CEREBELLUM: No masses. No hemorrhage. No alteration of density. No evidence for acute infarction. EXTRAAXIAL SPACES: No fluid collections. No masses. Atherosclerosis. ORBITS AND GLOBE: No intra- or extraconal masses. Normal contour of globe without masses. CALVARIUM: No fracture. PARANASAL SINUSES: No fluid or mucosal thickening. SOFT TISSUES: No mass or hematoma. OTHER: No other significant finding. IMPRESSION: No acute findings. 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 TECHNICAL DOCUMENTATION: JOB ID: [id number] Quality ID # [id number]: Final reports with documentation of one or more dose reduction techniques (e.g., Au tomated exposure control, adjustment of the mA and/or kV according to patient size, use of iterative reconstruction technique) 2010 [employer]- All Rights Reserved
[2016-11-10 02:05] LABS: URINE BARBITURATES SCREEN NEGATIVE; URINE METHADONE SCREEN NEGATIVE; URINE OPIATES LOW NEGATIVE; URINE PHENCYCLIDINE SCREEN NEGATIVE
[2016-11-10] MEDS: LANSOPRAZOLE 30 MG TAB.RAP.DR PO SCH (06:06)
[2016-11-10 06:54] LABS: ABSOLUTE EOSINOPHILS # (AUTO) 0.4 10^3/uL (0.0-0.6); ABSOLUTE MONOCYTES (AUTO) 0.5 10^3/uL (0.1-1.4); ABSOLUTE NEUT (AUTO) 3.9 10^3/uL (1.7-8.2); BASOPHILS % (AUTO) 0.3 % (0-2); EOSINOPHILS % (AUTO) 6.9 % (0-6); HEMATOCRIT 39.4 % (37.9-51.0); HEMOGLOBIN 12.8 g/dL (13.5-17.0); LYMPHOCYTES % (AUTO) 17.3 % (13-45); MEAN CORPUSCULAR HGB CONC 32.6 g/dL (32.0-36.0); MEAN CORPUSCULAR VOLUME 89 fl (80-97); RED BLOOD COUNT 4.42 10^6/uL (4.35-5.55); RED CELL DISTRIBUTION WIDTH 16.5 % (11.5-14.0); SEGMENTED NEUTROPHILS % (AUTO) 66.5 % (42-78); WHITE BLOOD COUNT 5.8 10^3/uL (4.0-10.5)
[2016-11-10 07:01] LABS: VENOUS BLOOD BASE EXCESS 5.6 mmol/L; VENOUS BLOOD HCO3 33.9 mmol/L (20-32); VENOUS BLOOD PH 7.32 (7.30-7.42)
[2016-11-10 07:02] LABS: VENOUS BLOOD PCO2 67.5 mmHg (35-63)
[2016-11-10 07:14] LABS: ALANINE AMINOTRANSFERASE 27 U/L (21-72); ALBUMIN 3.3 g/dL (3.5-5.0); ALKALINE PHOSPHATASE 115 U/L (38-126); ANION GAP 9 (5-19); ASPARTATE AMINO TRANSFERASE 25 U/L (17-59); BILIRUBIN,DIRECT 0.4 mg/dL (0.0-0.4); BILIRUBIN,TOTAL 0.7 mg/dL (0.2-1.3); BLOOD UREA NITROGEN 23 mg/dL (7-20); CALCIUM 8.7 mg/dL (8.4-10.2); CARBON DIOXIDE 31 mmol/L (22-30); CHLORIDE 102 mmol/L (98-107); CREATININE RESULT 1.13 mg/dL (0.52-1.25); GLUCOSE 86 mg/dL (75-110); POTASSIUM 4.1 mmol/L (3.6-5.0); SODIUM 141.5 mmol/L (137-145); TOTAL PROTEIN 6.3 g/dL (6.3-8.2)
[2016-11-10] MEDS ORDERED: IPRATROPIUM/ALBUTEROL 0.5-2.5 MG/3 ML AMPUL NEB SCH (08:00)
[2016-11-10] MEDS ORDERED: LOSARTAN POTASSIUM 50 MG TABLET PO ONE (09:00)
[2016-11-10] MEDS ORDERED: FUROSEMIDE INJ/PF 40 MG/4 ML SDV IV ONE (09:00)
--- NOTE | 2016-11-10 09:34 | PROGRESS NOTE E ---
Progress Note NAME: TORSTEN MANZO : 1945 AGE: 71Y DATE: 11/10/2016 ROOM: 603 SUBJECTIVE: The patient is currently lying in bed. The patient is currently at a MAP of 115, maxed out on nitroglycerin drip. The patient himself is awake, alert, can be defiant at times. I had a lengthy discussion with the patient in regard to goals of care and the patient made it clear that he did not want to be resuscitated. However, if he needed the breathing machine, he would take the breathing machine. The patient denies any nausea or vomiting. No chest pain, heart palpitations. The patient denies any sputum production or fever or chills. The patient does not voice any other concerns at this time. REVIEW OF SYSTEMS: Rest of review of systems negative. MEDICATIONS: Medications have been reviewed. OBJECTIVE: GENERAL: The patient is a 71-year-old male, who is awake, alert and oriented to person, place, time and situation. He is verbal, speech is garbled, does not appear to be in distress. VITAL SIGNS: As follows: Temperature is 97.7, pulse 62, respirations 24, blood pressure 184/94, oxygen saturation 100% on 2 L nasal cannula. SKIN: Warm and dry. No rash. Not diaphoretic. HEENT: Pupils are equal, round and reactive to light and accommodation. Conjunctivae are pink. There is no JVD. CARDIOVASCULAR SYSTEM: Heart is regular, paced. There is no rub. CHEST: The patient does have fine bilateral basal crackles, quite diminished, coarse lung sounds. ABDOMEN: Soft, nontender, nondistended. BACK: No CVA tenderness or sacral edema. EXTREMITIES: No clubbing, cyanosis, edema. Warm extremities noted with +1 pedal pulses. PSYCHIATRIC: Easily agitated. DIAGNOSTICS: Laboratory values are as follows: 1. Hematology obtained on 11/10/2016: WBC 5.8, hemoglobin 12.8, hematocrit 39.4, platelet count 250,000. 2. Chemistry obtained on 11/10/2016: Sodium 141, potassium 4.1, chloride 102, carbon dioxide 31, BUN 23, creatinine 1.13, glucose 86, calcium 8.7, bilirubin 0.7, AST 25, ALT 27, alkaline phosphatase 115, total protein 6.3, albumin 3.3. IMPRESSION AND PLAN: 1. ACUTE ON CHRONIC SYSTOLIC AND DIASTOLIC CONGESTIVE HEART FAILURE. The patient's last echo shows an EF around 30%. The patient does not appear to have ASCD. The patient does not wish to be resuscitated either. We will diurese the patient with IV Lasix as well start the patient on an ARB. It looks like the patient has not been taking medications in years. Therefore, will defer beta helena given this acute exacerbation. 2. HYPERTENSIVE EMERGENCY. The patient is currently maxed out on nitroglycerin. We will add an ARB and see if this has of any benefit. I do appreciate Cardiology guidance with this. 3. CHRONIC OBSTRUCTIVE PULMONARY DISEASE/EMPHYSEMA. Will maintain saturations between 88 and 92%. 4. ACUTE ON CHRONIC HYPERCAPNIC RESPIRATORY FAILURE: The patient has refused BiPAP. Will monitor. The patient is alert and cognitively appropriate. 5. PLEURAL EFFUSION. The patient was just tapped in July. Will obtain imaging for further evaluation and possible thoracentesis if needed. 6. ATRIAL FLUTTER. The patient is not chronically anticoagulated most likely given his noncompliance. 7. ALCOHOL DEPENDENCY. We will continue to supplement B vitamins. 8. TOBACCO DEPENDENCY. We will continue p.r.n. nicotine patch. 9. DEEP VENOUS THROMBOSIS PROPHYLAXIS. We will continue subcutaneous heparin. DISPOSITION: The patient is an intubation only. Pending the patient's symptomatology and diagnostic findings, we will re-evaluate as needed. TIME SPENT: Time spent on this critical care visit including assessment, plan, physical examination, patient education and speciality collaboration was 40 minutes. DICTATING PHYSICIAN: CHUYITA FENG NP [id number] Y#: [id number] ID: [id number] JOB#: [id number] ACCT: [id number] cc: >
[2016-11-10] MEDS ORDERED: NICARDIPINE HCL RTU, ISO-OS 20 MG/200 ML RTUINJ IV PRN (09:57)
[2016-11-10] MEDS ORDERED: PREDNISONE 20 MG TABLET PO SCH (10:00)
[2016-11-10] MEDS ORDERED: CEFTRIAXONE 1 GM/D5W RTU 1 GM/50 ML RTUPB IV SCH (10:00)
[2016-11-10] MEDS ORDERED: AZITHROMYCIN 500 MG in DEXTROSE 5%-WATER 250 ML IV SCH (10:00)
[2016-11-10] MEDS ORDERED: FUROSEMIDE 20 MG TABLET PO SCH (10:00)
[2016-11-10] MEDS ORDERED: NICARDIPINE HCL RTU, ISO-OS 20 MG/200 ML RTUINJ IV ONE (10:01)
[2016-11-10] MEDS: MULTIVITAMIN TABLET PO SCH (10:23)
[2016-11-10] MEDS: FOLIC ACID 1 MG TABLET PO SCH (10:23)
[2016-11-10] MEDS: HEPARIN SOD (PORCINE) 5,000 UNIT/ML 1 ML SYRINGE SUBCUT SCH ×2 (10:24→22:30)
[2016-11-10] MEDS: ASPIRIN 81 MG TABLET, CHEWABLE PO SCH (10:24)
[2016-11-10] MEDS: PREDNISONE 20 MG TABLET PO SCH (10:24)
[2016-11-10] MEDS: THIAMINE HCL 100 MG TABLET PO SCH (10:27)
--- NOTE | 2016-11-10 11:14 | EKG REPORT ---
SEVERITY:- ABNORMAL ECG - AFIB/FLUTTER AND VENTRICULAR-PACED RHYTHM : Confirmed by: Tammy Garay MD 10-Nov-2016 11:13:33
[2016-11-10] MEDS: AMLODIPINE BESYLATE 10 MG TABLET PO SCH (11:58)
[2016-11-10] MEDS ORDERED: HYDRALAZINE HCL INJ/PF 20 MG/1 ML SDV IV PRN (12:30)
[2016-11-10] MEDS: ISOSORB DINIT/HYDRALAZINE HCL 20-37.5 MG TABLET PO SCH ×2 (14:20→22:30)
[2016-11-10] MEDS: LEVALBUTEROL HCL NEB 1.25 MG/3 ML AMPUL NEB PRN (17:36)
--- NOTE | 2016-11-10 18:42 | PDOC CONSULTATION ---
Consultation Consult Date: 11/10/16 Attending physician:: CHUYITA FENG Consult reason:: htn emergency History of Present Illness Admission Date/PCP: 11/09/16 23:47 Patient complains of: Shortness of breath History of Present Illness: TORSTEN MANZO JR is a 71 year old male with known combined systolic and diastolic congestive heart failure, COPD, chronic anxiety, arthritis, chronic noncompliance with both medications and physician follow-up, and with a history of leaving AGAINST MEDICAL ADVICE from both inpatient and emergency room care, who presents to the emergency room in severe respiratory distress. Patient is a quite poor historian, is easily distracted and easily agitated and frequently begins arguing about topics other than his health. He is able to provide little history in terms of acute events that led to his coming to the emergency room via EMS. No friends or family are present. Old inpatient records are reviewed. Patient presented with respiratory distress and severely elevated blood pressure with highest blood pressure recorded by EMS was 230 systolic. Was given sublingual nitroglycerin and then nitro paste by EMS which did temporarily lower his blood pressure slightly. However, shortly after arrival, nitroglycerin drip was started along with patient being placed on BiPAP. He is breathing much more comfortably, now on nasal cannula. Blood pressure remains elevated, in spite of nitroglycerin drip therefore I was called this morning. I ordered for patient to be started on nicardipine drip subsequently his blood pressure improved. I also ordered other blood pressure medication and currently his blood pressure seems well controlled. Patient also describes desires to be a DNR and this order was instituted. Patient shortness of breath worsened considerably over the last 18-24 hours. There is been no nausea vomiting, fever or chills. No diarrhea or dysuria. No chest pain. Previous records were reviewed.Hospitalized on our service June 29 - July 01, 2016 with final diagnoses including acute exacerbation of congestive heart failure and acute hypoxemic respiratory failure. Left AGAINST MEDICAL ADVICE. History and physical and discharge summary reviewed. For this history patient was interviewed and also history was supplemented, reviewed and confirmed. Past Medical History Cardiac Medical History: Reports: Atrial Fibrillation - Reported history of atrial flutter, Congestive Heart Failure, Coronary Artery Disease, Myocardial Infarction - x1, Hyperlipidema, Hypertension, Heart Murmur Denies: DVT, Pulmonary Embolism Pulmonary Medical History: Reports: Chronic Obstructive Pulmonary Disease (COPD) , Pneumonia Denies: Sleep Apnea, Tuberculosis EENT Medical History: Reports: Eyes - Glasses, Ears - Partial hearing loss, Other - Easy bruising Denies: Throat Neurological Medical History: Denies: Hemorrhagic CVA, Ischemic CVA, Seizures Endocrine Medical History: Denies: Diabetes Mellitus Type 1, Diabetes Mellitus Type 2, Hyperthyroidism, Hypothyroidism Renal/ Medical History: Reports: None GI Medical History: Denies: Cirrhosis, Gastroesophageal Reflux Disease, Hepatitis, Peptic Ulcer Disease Musculoskeltal Medical History: Reports: Arthritis Skin Medical History: Reports: None Psychiatric Medical History: Reports: Depression, General Anxiety Disorder, Tobacco Dependency Denies: Alcohol Dependency, Substance Abuse Hematology: Reports: Other - Easy bruising Infectious Medical History: Denies: Hepatitis B, Hepatitis C Past Surgical History Past Surgical History: Reports: Coronary Artery Bypass Graft, Orthopedic Surgery - neck fusion, right and left hand surgery, Pacemaker - Biventricular pacemaker noted Social History Information Source: Patient Lives with: Spouse/Significant other Smoking Status: Current Every Day Smoker Cigarettes Packs Per Day: 1 Number of Years Smokin Last Time Smoked: today Frequency of Alcohol Use: None Hx Recreational Drug Use: No Drugs: None Hx Prescription Drug Abuse: No - denies - Advance Directive Resuscitation Status: Do Not Resuscitate Surrogate healthcare decision maker:: Patient did not identify a surrogate decision-maker and tells me that he makes his medical decision himself. Family History Family History: CAD, COPD, Hypertension Parental Family History Reviewed: Yes Children Family History Reviewed: Yes Sibling(s) Family History Reviewed.: Yes Medication/Allergy Home Medications: No Home Medications 11/10/16 Allergies/Adverse Reactions: No Known Allergies Allergy (Verified 08/21/16 19:15) Review of Systems Review of Systems: Please see history of present illness and past medical history as wall. Constitutional: No fever or chills reported. Head : No recent chronic headaches, recent head injury. Eyes: No recent eye pain, diplopia, redness, discharge, acute visual changes. Ears: No recent chronic ear pain, acute hearing loss, ear discharge. Oral cavity: No recent ulcerations, bleeding, oral cavity discomfort. Neck: No recent acute neck pain reported. Hematologic: No recent easy bruising or bleeding or hematologic malignancy reported. Lymphatic: No recent lymphatic malignancy, chronic lymphadenopathy reported yet Cardiovascular system review: See history of present illness. Respiratory system review: No recent chronic cough, hemoptysis, blood clots in the lungs reported. Shortness of breath on exertion Gastrointestinal system review: Negative for any recent acute or chronic abdominal pain, hematemesis, melena, recent change in bowel habits. Genitourinary system review: No recent acute or chronic hematuria, flank pain, UTI etc. reported. Skin system review: Negative for any recent abnormal bruising, no rash, no pruritus reported. Neurologic: No prior history of strokes, mini strokes, seizure disorder. Psychologic: No history of major psychosis or major depression reported. Musculoskeletal: Minor aches and pains reported. No acute joint swelling reported. Endocrine: No recent polyuria, polydipsia, recent heat or cold intolerance. Physical Exam Vital Signs: Temp Pulse Resp BP Pulse Ox 97.7 F 60 33 H 129/65 H 93 11/10/16 01:19 11/10/16 09:07 11/10/16 10:46 11/10/16 10:46 11/10/16 10:46 Intake & Output 11/09/16 11/10/16 11/11/16 06:59 06:59 06:59 Intake Total 462 400 Output Total 320 350 Balance 142 50 Weight 56.5 kg Exam: GENERAL: well-nourished and in no acute distress. Alert and oriented x3 HEAD: Atraumatic, normocephalic. EYES: Pupils equal round and reactive to light, extraocular movements intact, sclera anicteric, conjunctiva are normal. ENT: TMs normal, nares patent, oropharynx clear without exudates. Moist mucous membranes. No oral ulcerations or bleeding gums noted NECK: supple without lymphadenopathy. Trachea is central. No cervical or axillary lymphadenopathy noted. Carotids are 2+, JVD 10 cm LUNGS: Respiration seems nonlabored, no significant accessory muscle action noted. Bibasilar fine crackles are noted. Right basal dullness noted. Mild bilateral wheezing noted. CHEST: Palpation of the chest wall shows no significant chest wall tenderness. No other significant abnormalities noted. Pacemaker noted on the left side. HEART: [place] SKEIN WINDER, No PSH, 1/6 HELEN aortic area, 1/6 meraz systolic murmur mitral area, no rubs, no gallops. ABDOMEN: Soft, no significant tenderness appreciated, normoactive bowel sounds. No guarding, no rebound. No rigidity noted . No masses appreciated. EXTREMITIES: Pedal pulses are 1-2+, no calf tenderness noted. No clubbing or cyanosis.1+ pedal edema noted NEUROLOGICAL: Focused neurological exam showed no significant neurologic deficit. Normal speech, no focal weakness appreciated. PSYCH: Normal mood, normal affect. Judgment and insight within normal limits. SKIN: No significant ecchymosis, rash, ulcerations or signs of pruritus noted. MUSCULOSKELETAL EXAM: No significant joint swelling noted. Results Laboratory Results: 11/10/16 06:45 11/10/16 06:45 11/10/16 11/10/16 11/10/16 00:32 06:45 06:45 WBC 5.8 RBC 4.42 Hgb 12.8 L Hct 39.4 MCV 89 MCH 29.0 MCHC 32.6 RDW 16.5 H Plt Count 250 Seg Neutrophils % 66.5 Lymphocytes % 17.3 Monocytes % 9.0 Eosinophils % 6.9 H Basophils % 0.3 Absolute Neutrophils 3.9 Absolute Lymphocytes 1.0 Absolute Monocytes 0.5 Absolute Eosinophils 0.4 Absolute Basophils 0.0 VBG pH 7.33 VBG pCO2 65.5 H* VBG HCO3 33.6 H VBG Base Excess 5.4 Sodium 141.5 Potassium 4.1 Chloride 102 Carbon Dioxide 31 H Anion Gap 9 BUN 23 H Creatinine 1.13 Est GFR ( Amer) > 60 Est GFR (Non-Af Amer) > 60 Glucose 86 Calcium 8.7 Total Bilirubin 0.7 AST 25 ALT 27 Alkaline Phosphatase 115 Total Protein 6.3 Albumin 3.3 L 11/10/16 06:45 WBC RBC Hgb Hct MCV MCH MCHC RDW Plt Count Seg Neutrophils % Lymphocytes % Monocytes % Eosinophils % Basophils % Absolute Neutrophils Absolute Lymphocytes Absolute Monocytes Absolute Eosinophils Absolute Basophils VBG pH 7.32 VBG pCO2 67.5 H* VBG HCO3 33.9 H VBG Base Excess 5.6 Sodium Potassium Chloride Carbon Dioxide Anion Gap BUN Creatinine Est GFR ( Amer) Est GFR (Non-Af Amer) Glucose Calcium Total Bilirubin AST ALT Alkaline Phosphatase Total Protein Albumin 11/10/16 11/10/16 00:32 06:45 Troponin I 0.060 0.061 EKG Comments: Ventricular paced beat. Underlying atrial fibrillation noted. Impressions: Chest X-Ray 11/09/16 20:14 IMPRESSION: Stable radiographic appearance of the chest. Head CT 11/10/16 00:00 IMPRESSION: No acute findings. 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 Status: Image reviewed by me - Chest x-ray reviewed by me. Showed right pleural effusion, pulmonary venous congestion, pacemaker dual-chamber, cannot rule out underlying right basilar pneumonia. Assessment & Plan - Diagnosis (1) Acute on chronic combined systolic (congestive) and diastolic (congestive) heart failure Is this a current diagnosis for this admission?: Yes (2) Hypertensive emergency Is this a current diagnosis for this admission?: Yes (3) Acute respiratory failure Qualifiers: Respiratory failure complication: unspecified whether with hypoxia or hypercapnia Qualified Code(s): J96.00 - Acute respiratory failure, unspecified whether with hypoxia or hypercapnia Is this a current diagnosis for this admission?: Yes (4) COPD exacerbation Is this a current diagnosis for this admission?: Yes (5) Coronary artery disease Qualifiers: Coronary Disease-Associated Artery/Lesion type: unspecified vessel or lesion type [place] vs. transplanted heart: [place] heart Associated angina: without angina Qualified Code(s): I25.10 - Atherosclerotic heart disease of [place] coronary artery without angina pectoris Is this a current diagnosis for this admission?: Yes - Notes Notes: Acute on chronic systolic and diastolic heart failure: Most likely precipitated with severe hypertension and noncompliance to medication. Continue IV diuretic therapy, recommend good control of blood pressure. Hypertensive emergency: Patient was initially started on nicardipine drip and also nitroglycerin drip. Subsequently patient blood pressure came down and the strips were discontinued. Patient started on BiDil. Will also gradually escalate the blood pressure medication. Blood pressure goal should be 135/85 or less. Acute respiratory failure: Patient responded to bilevel therapy currently on oxygen supplementation. Patient has been advised to quit smoking. Acute respiratory failure related to severe hypertension, LV systolic and diastolic heart failure and also COPD exacerbation. COPD exacerbation: Continue bronchodilator therapy and oxygen supplementation. Continue antibiotic therapy. Coronary artery disease: Patient does have significant CAD. Patient is status post bypass surgery. Recommend statin, beta-helena, KASSI inhibitor/ARB/ entresto therapy. Tobacco abuse: Patient has been advised to quit smoking. - Time Time Spent: 50 to 70 Minutes - CODE STATUS : was discussed, patient remains DO NOT RESUSCITATE. Surrogate decision-maker unchanged. Multiple medical problems were addressed. More than 50% of the time spent coordinating care, discussing management plans with involved caregivers. Management plans discussed with involved personnels. Medical decision making was of high complexity, patient's has multiple comorbidities. Medications reviewed and adjusted accordingly: Yes
[2016-11-11 04:50] LABS: HEMOGLOBIN 13.2 g/dL (13.5-17.0); HGB HCT DIFFERENCE -0.4; MEAN CORPUSCULAR HEMOGLOBIN 28.8 pg (27.0-33.4); MEAN CORPUSCULAR HGB CONC 32.9 g/dL (32.0-36.0); MEAN CORPUSCULAR VOLUME 88 fl (80-97); RED BLOOD COUNT 4.57 10^6/uL (4.35-5.55); RED CELL DISTRIBUTION WIDTH 16.1 % (11.5-14.0); WHITE BLOOD COUNT 7.1 10^3/uL (4.0-10.5)
[2016-11-11] MEDS: ISOSORB DINIT/HYDRALAZINE HCL 20-37.5 MG TABLET PO SCH ×2 (05:01→14:59)
[2016-11-11] MEDS: LANSOPRAZOLE 30 MG TAB.RAP.DR PO SCH (05:01)
[2016-11-11 05:15] LABS: ANION GAP 11 (5-19); BLOOD UREA NITROGEN 26 mg/dL (7-20); CALCIUM 9.1 mg/dL (8.4-10.2); CARBON DIOXIDE 27 mmol/L (22-30); CHLORIDE 96 mmol/L (98-107); CREATININE RESULT 1.03 mg/dL (0.52-1.25); GLUCOSE 176 mg/dL (75-110); POTASSIUM 4.5 mmol/L (3.6-5.0)
[2016-11-11] MEDS: LEVALBUTEROL HCL NEB 1.25 MG/3 ML AMPUL NEB PRN ×2 (08:17→14:03)
[2016-11-11] MEDS ORDERED: LOSARTAN POTASSIUM 50 MG TABLET PO SCH (10:00)
--- NOTE | 2016-11-11 10:16 | RADIOLOGY REPORT (SQ) ---
EXAM DESCRIPTION: CT CHEST WITHOUT COMPLETED DATE/TIME: 11/11/2016 8:04 am REASON FOR STUDY: FU effusions, dyspnea COMPARISON: Radiographs from recently. Ultrasound abdomen from 09/09/2014. TECHNIQUE: CT scan performed of the chest without intravenous contrast. Images reviewed with lung, soft tissue and bone windows. Reconstructed coronal and sagittal MPR images reviewed. All images st ored on PACS. All CT scanners at this facility use dose modulation, iterative reconstruction, and/or weight based d osing when appropriate to reduce radiation dose to as low as reasonably achievable (ALARA). [facility]: Dose Right [facility]: CareDose [facility]: Dose Right [facility]: Teradose 4D [facility]: Smart [place] RADIATION DOSE: Up-to-date CT equipment and radiation dose reduction techniques were employed. CTDIv ol: 4.2 mGy. DLP: 182 mGy-cm. mGy. LIMITATIONS: No technical limitations. FINDINGS: LUNGS AND PLEURA: Emphysema, bullous changes in the right upper lobe. Focal probable roun ded atelectasis posteriorly in the right upper lobe. Linear atelectasis or scar peripherally in the right middle lobe. Relatively small right pleural effusion with enhancement and mild thickening myriam g the pleural surface. Consolidation and partial collapse in the right lower lobe. Mild generalized bronchial wall thickening in the right lung. Trace left pleural fluid. Left lung otherwise looks r elatively clear. HILAR AND MEDIASTINAL STRUCTURES: Limited assessment without contrast. Calcified aorta without focal aneurysm. Generalized ectasia. Previous apparent aortic valve replacement and CABG. Cardiac enlar gement without pericardial effusion. No overt adenopathy suggested. HEART AND VASCULAR STRUCTURES: As above. UPPER ABDOMEN: Infrarenal aortic aneurysm is incompletely assessed, measures at least 5.8 cm. THYROID AND OTHER SOFT TISSUES: No masses. No adenopathy. BONES: No significant finding. HARDWARE: Pacer in place. OTHER: No other significant findings. IMPRESSION: 1. Relatively small right pleural effusion but with associated lung changes as above. This includes areas of atelectasis. Consolidation and partial collapse right lower lobe. Trace left pleural fluid. Emphysema. 2. Infrarenal abdominal aortic aneurysm is incompletely assessed. This measures close to 5.8 cm (ultrasound from 2014 describes a 4.7 cm aneurysm, likely increasing). Fur ther dedicated abdominal evaluation should be considered ; ultrasound would be most expeditious. TECHNICAL DOCUMENTATION: JOB ID: [id number] Quality ID # [id number]: Final reports with documentation of one or more dose reduction techniques (e.g., Au tomated exposure control, adjustment of the mA and/or kV according to patient size, use of iterative reconstruction technique) 2010 [employer]- All Rights Reserved
[2016-11-11] MEDS: PREDNISONE 20 MG TABLET PO SCH (11:09)
[2016-11-11] MEDS: THIAMINE HCL 100 MG TABLET PO SCH (11:10)
[2016-11-11] MEDS: AMLODIPINE BESYLATE 10 MG TABLET PO SCH (11:10)
[2016-11-11] MEDS: ASPIRIN 81 MG TABLET, CHEWABLE PO SCH (11:11)
[2016-11-11] MEDS: MULTIVITAMIN TABLET PO SCH (11:11)
[2016-11-11] MEDS: FOLIC ACID 1 MG TABLET PO SCH (11:11)
[2016-11-11] MEDS: HEPARIN SOD (PORCINE) 5,000 UNIT/ML 1 ML SYRINGE SUBCUT SCH (11:12)
[2016-11-11] MEDS ORDERED: CEFUROXIME 500 MG TABLET PO ONE (11:30)
[2016-11-11] MEDS ORDERED: AZITHROMYCIN 250 MG TABLET PO ONE (11:30)
[2016-11-11] MEDS ORDERED: FUROSEMIDE INJ/PF 40 MG/4 ML SDV IV ONE (11:30)
--- NOTE | 2016-11-11 14:04 | PROGRESS NOTE E ---
Progress Note NAME: TORSTEN MANZO : 1945 AGE: 71Y DATE: 11/11/2016 ROOM: 603 SUBJECTIVE: The patient is sitting up on the side of the bed. The patient has been very difficult today. At numerous times he has stated that he was going to leave against medical advice; however, he has been unable to contact his ride and therefore will not sign AMA but has constantly kept Nursing at bedside. Had a lengthy discussion with the patient, approximately 25 minutes discussing his goals of care and expectations for this visit which was not efficacious in producing any resolution to this issue. The patient is highly argumentative and agitated; however, he is alert and oriented to person, place, time, and situation and is capable of making his own decisions. REVIEW OF SYSTEMS: Rest of the review of systems negative. MEDICATIONS: Have been reviewed. OBJECTIVE: GENERAL: The patient is a 71-year-old male who is awake and alert. He is oriented to person, place, time, and situation. He does not appear to be in any acute distress. VITAL SIGNS: Temperature 97.8, pulse 72, respirations 22, blood pressure 155/69, oxygen saturation is 100% on 2 L nasal cannula. SKIN: Warm and dry. No rash. Not diaphoretic. HEENT: Pupils are equal, round, reactive to light and accommodation. Conjunctivae are pink. There is no JVP. CARDIOVASCULAR: Heart is paced. There is no rub. CHEST: The patient does have bilateral basal crackles. ABDOMEN: Soft, nontender, nondistended. BACK: No CVA tenderness or sacral edema. EXTREMITIES: No clubbing, cyanosis, or edema. DIAGNOSTICS: Lab values are as follows: Hematology obtained on 11/11/2016: WBCs are 7.1, hemoglobin is 13.2, hematocrit is 40.0, platelet count is 263,000. Chemistry obtained on 11/11/2016: Sodium is 134, potassium 4.5, chloride is 96, carbon dioxide 27, BUN 26, creatinine is 1.03, glucose 176, calcium is 9.1, magnesium is 2.0. IMPRESSION AND PLAN: 1. [id number] SYSTOLIC AND DIASTOLIC CONGESTIVE HEART FAILURE. It appears that the patient's last echo shows an EF of around 25-30%. The patient also expresses desire for DNR/DNI. Continue to diurese the patient with IV Lasix. It appears that the patient has not taken any heart failure medication in at least 2 years according to pharmacy records. The patient states that the medications do not help him. 2. HYPERTENSIVE EMERGENCY. The patient is currently off the Cardene drip and blood pressures are improved with current medications. Will continue. Do appreciate Cardiology input with this. 3. CHRONIC OBSTRUCTIVE PULMONARY DISEASE WITH EMPHYSEMA. The goal to maintain oxygen saturation between 88 and 92%. 4. [id number] HYPERCAPNIC RESPIRATORY FAILURE. The patient absolutely refuses the BiPAP. He is a chronic retainer. Will continue to monitor. 5. PLEURAL EFFUSION. This was tapped in July but appears mild today on CT. 6. ATRIAL FLUTTER. The patient is not chronically anticoagulated given his noncompliance. 7. ALCOHOL DEPENDENCY. Will continue to supplement B vitamins. 8. TOBACCO DEPENDENCY. Will continue p.r.n. nicotine patch. 9. DVT PROPHYLAXIS. Continue subcutaneous heparin. 10. ABDOMINAL AORTIC ANEURYSM. The patient is aware of this and has elected not to have this repaired. DISPOSITION: The patient is a DNR/DNI. Pending patient's symptomatology and diagnostic findings, will reevaluate as needed. The patient has been downgraded to an [facility] bed. Time spent on this followup including assessment, plan, physical examination, patient education, and resource alignment is 35 minutes. DICTATING PHYSICIAN: CHUYITA FENG NP [id number] PHY#: [id number] ID: [id number] JOB#: [id number] ACCT: [id number] cc: >
[2016-11-11 14:08] VITALS: BP 130/104
[2016-11-11] MEDS ORDERED: GUAIFENESIN 600 MG TABLET.SA PO SCH (22:00)
[2016-11-11] MEDS ORDERED: DOXYCYCLINE HYCLATE 100 MG TABLET PO SCH (22:00)
[2016-11-11] MEDS ORDERED: CEFUROXIME 500 MG TABLET PO SCH (22:00)
[2016-11-12] MEDS ORDERED: AZITHROMYCIN 250 MG TABLET PO SCH (10:00)
--- NOTE | 2016-11-12 13:33 | DISCHARGE SUMMARY E ---
AMA Summary NAME: TORSTEN MANZO : 1945 AGE: 71Y ADMITTED: 11/09/2016 DATE PATIENT LEFT AMA: 11/11/2016 CODE STATUS AT THE TIME PATIENT LEFT AMA: DO NOT RESUSCITATE/DO NOT INTUBATE. WORKING DIAGNOSES AT TIME PATIENT LEFT AMA INCLUDES: 1. Acute on chronic systolic and diastolic congestive heart failure with an EF of 25%. 2. Hypertensive emergency. 3. Chronic obstructive pulmonary disease with emphysema. 4. Acute on chronic hypercapnic respiratory failure. 5. Atrial flutter. 6. Abdominal aortic aneurysm. 7. Pleural effusion. 8. Alcohol dependency. 9. Tobacco dependency. HISTORY OF PRESENT ILLNESS: The patient is a 71-year-old male with a past medical history of combined systolic and diastolic congestive heart failure with a long history of noncompliance. The patient presented to the emergency department with a chief complaint of shortness of breath. The patient has a long history of both not following up with the primary or taking medications for at least 2 years. The patient also habitually leaves against medical advice for both inpatient and emergency room stays. The patient was admitted to our service due to hypertensive emergency. The patient's blood pressure systolically was found to be 230. The patient had significant evidence of volume overload. The patient was diuresed and Cardiology was consulted. The patient was started on a Cardene drip and his blood pressure did slowly improve. The patient was transitioned over to oral medications; however, the patient stated he had had improvement in his symptoms but did not want to stay in the hospital. On review of previous progress note from today, the patient was adamant that he no longer needed care and of sound mind signed out against medical advice. Time spent on this AMA summary is 4 minutes. DICTATING PHYSICIAN: CHUYITA FENG NP [id number] PHY#: [id number] ID: [id number] JOB#: [id number] ACCT: [id number] cc:ADRIA WATTS M.D. CHUYITA FENG NP >
--- NOTE | 2016-11-12 19:39 | PDOC PROGRESS REPORT ---
Subjective Progress Note for:: 11/11/16 Subjective:: Patient was seen yesterday on morning rounds 11/11/2016 but somehow the note either inadvertently deleted and did not save. Patient was seen in the unit before being transferred to the floor from the intensive care unit. He was taken off nitroglycerin drip as well as nicardipine drip shortly after admission to the unit. His blood pressure remained stable. Patient noted to be doing significantly better. Pt is denying any chest arm or neck discomfort. Patient denying any PND, orthopnea. Patient denied any sustained palpitations , dizziness, syncope, near syncope. Patient denying any fever chills. Patient denying any other significant discomfort. Patient is maintaining sinus rhythm. Review of systems: Rest review of systems negative. Medications: Medications have been reviewed. Physical Exam Vital Signs: Temp Pulse Resp BP Pulse Ox 97.8 F 60 16 130/104 H 98 11/11/16 16:15 11/11/16 16:48 11/11/16 16:15 11/11/16 16:15 11/11/16 16:15 Intake & Output 11/11/16 11/12/16 11/13/16 06:59 06:59 06:59 Intake Total 2223 440 Output Total 1350 Balance 873 440 Weight 58.2 kg Exam: GENERAL: well-nourished and in no acute distress. Alert and oriented x3 HEAD: Atraumatic, normocephalic. EYES: Pupils equal round and reactive to light, extraocular movements intact, sclera anicteric, conjunctiva are normal. ENT: TMs normal, nares patent, oropharynx clear without exudates. Moist mucous membranes. No oral ulcerations or bleeding gums noted NECK: supple without lymphadenopathy. Trachea is central. No cervical or axillary lymphadenopathy noted. Carotids are 2+, JVD 8 cm LUNGS: Respiration seems nonlabored, no significant accessory muscle action noted. Few bibasilar wheezes rales or rhonchi noted. Mild right basal dullness noted on percussion. CHEST: Palpation of the chest wall shows no significant chest wall tenderness. No other significant abnormalities noted. HEART: [place] [employer], No PSH, 1/6 HELEN aortic area, 1/6 meraz systolic murmur mitral area, no rubs, no gallops. ABDOMEN: Soft, no significant tenderness appreciated, normoactive bowel sounds. No guarding, no rebound. No rigidity noted . No masses appreciated. EXTREMITIES: Pedal pulses are 1-2+, no calf tenderness noted. No clubbing or cyanosis.trace to 1+ pedal edema noted NEUROLOGICAL: Focused neurological exam showed no significant neurologic deficit. Normal speech, no focal weakness appreciated. PSYCH: Normal mood, normal affect. Judgment and insight within normal limits. SKIN: No significant ecchymosis, rash, ulcerations or signs of pruritus noted. MUSCULOSKELETAL EXAM: No significant joint swelling noted. Results Laboratory Results: 11/11/16 04:00 11/11/16 04:00 11/10/16 11/10/16 00:32 06:45 Troponin I 0.060 0.061 EKG Comments: Telemetry strip shows ventricular paced rhythm with underlying atrial fibrillation. Impressions: Chest X-Ray 11/09/16 20:14 IMPRESSION: Stable radiographic appearance of the chest. Head CT 11/10/16 00:00 IMPRESSION: No acute findings. 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 Chest CT 11/11/16 07:00 IMPRESSION: 1. Relatively small right pleural effusion but with associated lung changes as above. This includes areas of atelectasis. Consolidation and partial collapse right lower lobe. Trace left pleural fluid. Emphysema. 2. Infrarenal abdominal aortic aneurysm is incompletely assessed. This measures close to 5.8 cm (ultrasound from 2015 describes a 4.7 cm aneurysm, likely increasing). Further dedicated abdominal evaluation should be considered ; ultrasound would be most expeditious. Assessment & Plan - Diagnosis (1) Acute on chronic combined systolic (congestive) and diastolic (congestive) heart failure Is this a current diagnosis for this admission?: Yes (2) Hypertensive emergency Is this a current diagnosis for this admission?: Yes (3) Acute respiratory failure Qualifiers: Respiratory failure complication: unspecified whether with hypoxia or hypercapnia Qualified Code(s): J96.00 - Acute respiratory failure, unspecified whether with hypoxia or hypercapnia Is this a current diagnosis for this admission?: Yes (4) COPD exacerbation Is this a current diagnosis for this admission?: Yes (5) Coronary artery disease Qualifiers: Coronary Disease-Associated Artery/Lesion type: unspecified vessel or lesion type [place] vs. transplanted heart: [place] heart Associated angina: without angina Qualified Code(s): I25.10 - Atherosclerotic heart disease of [place] coronary artery without angina pectoris Is this a current diagnosis for this admission?: Yes - Notes Notes: Acute on chronic systolic and diastolic heart failure: Most likely precipitated with severe hypertension and noncompliance to medication. Continue IV diuretic therapy, recommend good control of blood pressure. Hypertensive emergency: Patient was initially started on nicardipine drip and also nitroglycerin drip. Subsequently patient blood pressure came down and the drips were discontinued. Patient started on BiDil yesterday. Will also gradually escalate the blood pressure medication. Blood pressure goal should be 135/85 or less. Multiple blood pressure medication changes have happened. Acute respiratory failure: currently on oxygen supplementation. Patient has been advised to quit smoking. Acute respiratory failure related to severe hypertension, LV systolic and diastolic heart failure and also COPD exacerbation. COPD exacerbation: Continue bronchodilator therapy and oxygen supplementation. Continue antibiotic therapy. Coronary artery disease: Patient does have significant CAD. Patient is status post bypass surgery. Recommend statin, beta-helena, KASSI inhibitor/ARB/ entresto therapy. Tobacco abuse: Patient has been advised to quit smoking. Once patient stabilized will consider ischemia workup. Patient will also benefit from a 2D echo was ordered but not performed. A previous echocardiogram from June was reviewed, which showed significant LV systolic dysfunction. - Time Time with patient: Greater than 35 minutes - CODE STATUS was discussed, patient remains DNR. Surrogate decision-maker patient unwilling to identify. Multiple medical problems were addressed. More than 50% of the time spent coordinating care, discussing management plans with involved caregivers. Management plans discussed with involved personnels. Medical decision making was of high complexity, patient's has multiple comorbidities. Medications reviewed and adjusted accordingly: Yes
== END 2016-11-11 19:23 | disposition left against medical advice (07) | DRG 304 ==
LOC: ER 19:59 → UNDOADMIN 22:12 → EH 22:12 → ICU 11-10 01:15 → 3W 11-11 16:25
PROVIDERS: ADMIT Family Medicine; ATTEND Family Medicine
PROC: 5A09357 Assistance with Respiratory Ventilation, Less than 24 Consecutive Hours, Continuous Positive Airway Pressure (ICD-10-PCS; principal; 2016-11-09)
DX: I16.1 Hypertensive emergency (principal); I50.43 Acute on chronic combined systolic (congestive) and diastolic (congestive) heart failure; J96.00 Acute respiratory failure, unspecified whether with hypoxia or hypercapnia; J44.1 Chronic obstructive pulmonary disease with (acute) exacerbation; I48.92 Unspecified atrial flutter; I11.0 Hypertensive heart disease with heart failure; M19.90 Unspecified osteoarthritis, unspecified site; I25.10 Atherosclerotic heart disease of native coronary artery without angina pectoris; I71.4 Abdominal aortic aneurysm, without rupture; F17.210 Nicotine dependence, cigarettes, uncomplicated; F41.1 Generalized anxiety disorder; R74.8 Abnormal levels of other serum enzymes; Z66 Do not resuscitate; R47.1 Dysarthria and anarthria; I25.2 Old myocardial infarction; Z91.14 Patient's other noncompliance with medication regimen; Z95.1 Presence of aortocoronary bypass graft; Z82.49 Family history of ischemic heart disease and other diseases of the circulatory system
CPT/HCPCS: 36415; 70450; 71010; 71250; 80048; 80053; 80307; 81001; 82803; 83735; 83880; 84134; 84443; 84484; 85025; 85027; 93005; 93010; 94640; 94660; 96365; 96375; 99291; G8999-GN; G9186-GN; J0360; J0456; J0696; J1644; J1940; J3490; J7060; J7512; J7620

== ENCOUNTER 2016-12-10 12:45 | Inpatient (IN) | payer MEDICARE, MEDICAID ==
[2016-12-10] MEDS ORDERED: FUROSEMIDE INJ/PF 40 MG/4 ML SDV IV ONE (12:56)
[2016-12-10] MEDS ORDERED: AMLODIPINE BESYLATE 10 MG TABLET PO ONE (12:56)
[2016-12-10 13:23] LABS: ABSOLUTE BASOPHILS # (AUTO) 0.1 10^3/uL (0.0-0.2); ABSOLUTE EOSINOPHILS # (AUTO) 0.2 10^3/uL (0.0-0.6); ABSOLUTE LYMPHOCYTES (AUTO) 0.8 10^3/uL (0.5-4.7); ABSOLUTE MONOCYTES (AUTO) 0.5 10^3/uL (0.1-1.4); ABSOLUTE NEUT (AUTO) 4.3 10^3/uL (1.7-8.2); BASOPHILS % (AUTO) 1.2 % (0-2); EOSINOPHILS % (AUTO) 3.6 % (0-6); LYMPHOCYTES % (AUTO) 14.3 % (13-45); MEAN CORPUSCULAR HGB CONC 32.6 g/dL (32.0-36.0); MEAN CORPUSCULAR VOLUME 89 fl (80-97); MONOCYTES % (AUTO) 8.9 % (3-13); RED BLOOD COUNT 5.18 10^6/uL (4.35-5.55); RED CELL DISTRIBUTION WIDTH 16.7 % (11.5-14.0); WHITE BLOOD COUNT 5.9 10^3/uL (4.0-10.5)
[2016-12-10 13:41] LABS: VENOUS BLOOD BASE EXCESS 4.9 mmol/L; VENOUS BLOOD HCO3 34.9 mmol/L (20-32); VENOUS BLOOD PH 7.28 (7.30-7.42)
[2016-12-10 13:46] LABS: VENOUS BLOOD PCO2 75.7 mmHg (35-63)
[2016-12-10 13:47] LABS: PROTHROMBIN TIME 13.5 SEC (11.4-15.4)
[2016-12-10] MEDS ORDERED: LOSARTAN POTASSIUM 50 MG TABLET PO ONE (13:55)
[2016-12-10] MEDS ORDERED: LABETALOL HCL INJ 20 MG/4 ML DISP.SYRIN IV ONE (13:56)
--- NOTE | 2016-12-10 14:13 | RADIOLOGY REPORT (SQ) ---
EXAM DESCRIPTION: CHEST SINGLE VIEW COMPLETED DATE/TIME: 12/10/2016 1:59 pm REASON FOR STUDY: sob COMPARISON: 11/09/2016 CT 11/11/2016 EXAM PARAMETERS: NUMBER OF VIEWS: One view. TECHNIQUE: Single frontal radiographic view of the chest acquired. RADIATION DOSE: NA LIMITATIONS: None. FINDINGS: LUNGS AND PLEURA: The chest is hyperexpanded with flattening of the diaphragms. There is what appears to be prominent loculated right pleural effusion with atelectatic changes in the right l ower lobe. These findings appear slightly more prominent than on earlier study. Fluid can be seen l narendra lateral wall of the chest on the right. MEDIASTINUM AND HILAR STRUCTURES: No masses. Contour normal. HEART AND VASCULAR STRUCTURES: Cardiomegaly without CHF. BONES: No acute findings. HARDWARE: Pacemaker, sternotomy wires, graft markers OTHER: No other significant finding. IMPRESSION: 1. Cardiomegaly CHF. 2. Loculated right pleural effusion with atelectatic changes right lower lobe. The findings appear slightly increased compared to the earlier study. 3. Chronic lung changes. TECHNICAL DOCUMENTATION: JOB ID: [id number]
[2016-12-10 14:19] LABS: ALANINE AMINOTRANSFERASE 31 U/L (21-72); ALKALINE PHOSPHATASE 142 U/L (38-126); ANION GAP 12 (5-19); ASPARTATE AMINO TRANSFERASE 32 U/L (17-59); BILIRUBIN,DIRECT 0.5 mg/dL (0.0-0.4); BILIRUBIN,TOTAL 0.8 mg/dL (0.2-1.3); BLOOD UREA NITROGEN 27 mg/dL (7-20); CALCIUM 9.5 mg/dL (8.4-10.2); CARBON DIOXIDE 33 mmol/L (22-30); CHLORIDE 100 mmol/L (98-107); CREATININE RESULT 1.15 mg/dL (0.52-1.25); GLUCOSE 86 mg/dL (75-110); MAGNESIUM 2.2 mg/dL (1.6-2.3); POTASSIUM 4.4 mmol/L (3.6-5.0); SODIUM 144.9 mmol/L (137-145); TOTAL PROTEIN 7.2 g/dL (6.3-8.2)
[2016-12-10 14:21] LABS: ALCOHOL < 10 mg/dL (NONE DETECTED)
[2016-12-10] MEDS ORDERED: NICARDIPINE HCL RTU, ISO-OS 20 MG/200 ML RTUINJ IV PRN (14:30)
[2016-12-10] MEDS ORDERED: LEVOFLOXACIN 500 MG/D5W RTU 500 MG/100 ML RTUPB IV ONE (14:30)
[2016-12-10] MEDS ORDERED: CEFEPIME 1 GM/D5W RTU 1 GM/50 ML RTUPB IV ONE (14:31)
[2016-12-10 14:37] LABS: APPEARANCE,URINE CLEAR; BILIRUBIN,URINE NEGATIVE (NEGATIVE); GLUCOSE, URINE NEGATIVE (NEGATIVE); KETONES,URINE NEGATIVE (NEGATIVE); LEUKOCYTE ESTERASE,URINE NEGATIVE (NEGATIVE); NITRITE,URINE NEGATIVE (NEGATIVE); PROTEIN,URINE 30 mg/dL (NEGATIVE); URINE SPECIFIC GRAVITY 1.009; UROBILINOGEN,URINE NEGATIVE mg/dL (<2.0)
[2016-12-10] MEDS ORDERED: LORAZEPAM INJ 2 MG/1 ML VIAL IV ONE (14:40)
[2016-12-10] MEDS ORDERED: ACETAMINOPHEN 325 MG TABLET PO PRN (15:13)
--- NOTE | 2016-12-10 15:36 | ER Document Report ---
ED General - General Chief Complaint: Respiratory Distress Stated Complaint: CHEST PAIN Time Seen by Provider: 12/10/16 12:52 TRAVEL OUTSIDE OF THE [place] IN LAST 30 DAYS: No - HPI Patient complains to provider of: Elevated blood pressure difficulty breathing Notes: Patient's multiple visit here to the ER for respiratory failure in the past has a history of signing out AGAINST MEDICAL ADVICE after his ER visit or after admission. Patient states short of breath acutely today was found to be hypoxic by our EMS staff therefore was placed on CPAP. Patient was also tachypneic at the time. Blood pressure was severely elevated therefore patient was given 1 sublingual nitro and nitro paste placed on the patient's chest. Patient was complaining of chest pain at that time. Upon evaluation patient is aggravated with the CPAP machine however denies any chest pain states productive sputum over the last few weeks. Patient does currently smoke and according to EMS staff smoking prior to their arrival. Patient denies any other drugs states that he does drink alcohol unknown amounts. Patient denies any fevers chills denies any nausea vomiting diarrhea denies any abdominal pain. - Related Data Allergies/Adverse Reactions: No Known Allergies Allergy (Verified 08/21/16 19:15) Past Medical History - Social History Smoking Status: Current Every Day Smoker Chew tobacco use (# tins/day): No Frequency of alcohol use: None Family History: CAD, COPD, Hypertension - Past Medical History Cardiac Medical History: Reports: Hx Atrial Fibrillation - Reported history of atrial flutter, 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, Hx Coronary Artery Disease, Hx Heart Attack - x1, Hx Hypertension, Hx Heart Murmur Denies: Hx DVT, Hx Hypercholesterolemia, Hx Pulmonary Embolism Pulmonary Medical History: Reports: Hx COPD, Hx Pneumonia Denies: Hx Sleep Apnea, Hx Tuberculosis Neurological Medical History: Denies: Hx Seizures Endocrine Medical History: Denies: Hx Diabetes Mellitus Type 1, Hx Diabetes Mellitus Type 2, Hx Hyperthyroidism, Hx Hypothyroidism Renal/ Medical History: Denies: Hx Peritoneal Dialysis GI Medical History: Denies: Hx Cirrhosis, Hx Gastroesophageal Reflux Disease, Hx Hepatitis Musculoskeltal Medical History: Reports Hx Arthritis Psychiatric Medical History: Denies: Hx Depression Infectious Medical History: Denies: Hx Hepatitis Past Surgical History: Reports: Hx Cardiac Surgery - cabg x2, Hx Coronary Artery Bypass Graft, Hx Orthopedic Surgery - neck fusion, right and left hand surgery, Hx Pacemaker - Biventricular pacemaker noted - Immunizations Hx Diphtheria, Pertussis, Tetanus Vaccination: Yes Review of Systems - Review of Systems Constitutional: No symptoms reported EENT: No symptoms reported Cardiovascular: Chest pain Respiratory: Short of breath, Wheezing Gastrointestinal: No symptoms reported Genitourinary: No symptoms reported Male Genitourinary: No symptoms reported Musculoskeletal: No symptoms reported Skin: No symptoms reported Hematologic/Lymphatic: No symptoms reported Neurological/Psychological: No symptoms reported -: Yes All other systems reviewed and negative Physical Exam - Vital signs Vitals: Resp Pulse Ox 39 H 100 12/10/16 13:11 12/10/16 13:11 Interpretation: Hypertensive, Tachypneic - General General appearance: Appears well, Alert - HEENT Head: Normocephalic, Atraumatic Eyes: Normal Pupils: PERRL - Respiratory Respiratory status: Respiratory distress, Other - Sternotomy scar well-healed pacemaker left upper chest Chest status: Nontender Breath sounds: Rales, Rhonchi, Wheezing Chest palpation: Normal - Cardiovascular Rhythm: Regular Heart sounds: Normal auscultation Murmur: No - Abdominal Inspection: Normal Distension: No distension Bowel sounds: Normal Tenderness: Nontender Organomegaly: No organomegaly - Back Back: Normal, Nontender - Extremities General upper extremity: Normal inspection, Nontender, Normal color, Normal ROM , Normal temperature General lower extremity: Normal inspection, Nontender, Normal color, Normal ROM , Normal temperature, Normal weight bearing. No: Panfilo's sign - Neurological Neuro grossly intact: Yes Cognition: Normal Orientation: AAOx4 [place] Coma Scale Eye Opening: Spontaneous [place] Coma Scale Verbal: Oriented [place] Coma Scale Motor: Obeys Commands [place] Coma Scale Total: 15 Speech: Normal Motor strength normal: LUE, RUE, LLE, RLE Sensory: Normal - Psychological Associated symptoms: Normal affect, Normal mood - Skin Skin Temperature: Warm Skin Moisture: Dry Skin Color: Normal Course - Re-evaluation Re-evalutation: 12/10/16 15:35 Patient's workup shows hypercapnia with hypoxia slight acidosis and his VBG. Patient's chest x-ray shows again a right-sided consolidation similar to patient 's previous evaluation. Initial evaluation rales and rhonchi throughout patient history of noncompliance with medication therefore was given Lasix just upon his arrival. Patient was also given his oral antihypertensives. Patient' s case was discussed with hospitalist will admit for further evaluation. Patient does state he wishes to be again a DNR at his last admissions. - Vital Signs Vital signs: Temp Pulse Resp BP Pulse Ox 39 H 100 12/10/16 13:11 12/10/16 13:11 - Laboratory Result Diagrams: 12/10/16 13:00 12/10/16 13:22 Laboratory results interpreted by me: 12/10/16 12/10/16 12/10/16 13:00 13:22 13:22 RDW 16.7 H VBG pH 7.28 L VBG pCO2 75.7 H* VBG HCO3 34.9 H Carbon Dioxide 33 H BUN 27 H Direct Bilirubin 0.5 H Alkaline Phosphatase 142 H Urine Protein 12/10/16 14:25 RDW VBG pH VBG pCO2 VBG HCO3 Carbon Dioxide BUN Direct Bilirubin Alkaline Phosphatase Urine Protein 30 H Critical Care Note - Critical Care Note Total time excluding time spent on procedures (mins): 35 Comments: Multiple evaluations for hypertensive emergency managing BiPAP due to respiratory distress. Discharge - Discharge Clinical Impression: Lung consolidation, Do not resuscitate, COPD exacerbation, Noncompliance, Acute hypoxemic respiratory failure COPD (chronic obstructive pulmonary disease) Qualifiers: COPD type: unspecified COPD Qualified Code(s): J44.9 - Chronic obstructive pulmonary disease, unspecified CHF (congestive heart failure) Qualifiers: Congestive heart failure type: unspecified congestive heart failure type Congestive heart failure chronicity: acute Qualified Code(s): I50.9 - Heart failure, unspecified Condition: Good Disposition: ADMITTED INPATIENT Admitting Provider: Hospitalist - [place] [facility] Admitted: [facility]
--- NOTE | 2016-12-10 16:07 | PDOC H&P ---
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, Coronary Artery Disease, Myocardial Infarction - x1, Hypertension, Heart Murmur Denies: DVT, Hyperlipidema, Pulmonary Embolism Pulmonary Medical History: Reports: Chronic Obstructive Pulmonary Disease (COPD) , Pneumonia Denies: Sleep Apnea, Tuberculosis Neurological Medical History: Reports: Ischemic CVA Denies: Seizures Endocrine Medical History: Denies: Diabetes Mellitus Type 1, Diabetes Mellitus Type 2, Hyperthyroidism, Hypothyroidism GI Medical History: Denies: Cirrhosis, Gastroesophageal Reflux Disease, Hepatitis Musculoskeltal Medical History: Reports: Arthritis Psychiatric Medical History: Reports: Alcohol Dependency, Depression, Substance Abuse, Tobacco Dependency Past Surgical History Past Surgical History: Reports: Coronary Artery Bypass Graft, Orthopedic Surgery - neck fusion, right and left hand surgery, Pacemaker - Biventricular pacemaker noted Social History Smoking Status: Current Every Day Smoker Cigarettes Packs Per Day: 2 Number of Years Smokin Frequency of Alcohol Use: Occasional Amount of Alcoholic Beverages Per Day: Previously was drinking a sixpack per week or 2 beers per day Hx Recreational Drug Use: No Drugs: None Hx Prescription Drug Abuse: No - Advance Directive Resuscitation Status: Do Not Resuscitate Surrogate healthcare decision maker:: Roommate, but declines to give name Family History Family History: CAD, COPD, Hypertension Parental Family History Reviewed: No - Declines to participate taken from history Children Family History Reviewed: No Sibling(s) Family History Reviewed.: No Medication/Allergy Home Medications: Amlodipine Besylate [Norvasc 10 mg Tablet] 10 mg PO DAILY #30 tablet 11/11/16 Aspirin [Aspirin 81 mg Chewable Tablet] 81 mg PO DAILY #30 tab.chew 11/11/16 Furosemide [Lasix 20 mg Tablet] 20 mg PO DAILY #30 tablet 11/11/16 Isosorb Dinit/Hydralazine HCl [Bidil 20-37.5 mg Tablet] 1 tab PO Q8 #90 tablet 11/11/16 Losartan Potassium [Cozaar 50 mg Tablet] 50 mg PO Q12 #60 tablet 11/11/16 Prednisone [Deltasone 10 mg Tablet] 10 mg PO ASDIR PRN #21 tablet 11/11/16 Allergies/Adverse Reactions: No Known Allergies Allergy (Verified 05/10/17 19:15) Review of Systems ROS unobtainable: Due to mental status Physical Exam Vital Signs: Temp Pulse Resp BP Pulse Ox 39 H 100 12/10/16 13:11 12/10/16 13:11 General appearance: PRESENT: disheveled, hard of hearing, severe distress - On BiPAP, tachypnea, thin, well-developed. ABSENT: well-nourished Head exam: PRESENT: atraumatic, normocephalic Eye exam: PRESENT: EOMI, periorbital swelling - Mild, PERRLA, other - Conjunctival exudates. ABSENT: scleral icterus Ear exam: PRESENT: normal external ear exam Mouth exam: PRESENT: dry mucosa, tongue midline Neck exam: PRESENT: JVD. ABSENT: lymphadenopathy, thyromegaly, tracheal deviation Respiratory exam: PRESENT: accessory muscle use, decreased breath sounds - RLL, prolonged expiratory phas, tachypnea, wheezes. ABSENT: rales, rhonchi, unlabored - 5 word dyspnea Cardiovascular exam: PRESENT: irregular rhythm, systolic murmur. ABSENT: diastolic murmur, gallop, rubs Pulses: PRESENT: normal dorsalis pedis pul Vascular exam: PRESENT: normal capillary refill GI/Abdominal exam: PRESENT: normal bowel sounds, soft. ABSENT: distended, guarding, mass, Whiting's sign, organolmegaly, rebound, rigid, tenderness Rectal exam: PRESENT: deferred Extremities exam: PRESENT: clubbing, full ROM, other - Missing digits. ABSENT: calf tenderness, pedal edema Neurological exam: PRESENT: alert, awake, oriented to person, oriented to place , oriented to time, oriented to situation, CN II-XII grossly intact Psychiatric exam: PRESENT: agitated, homicidal ideation - Patient threatened to "shoot me in the head". ABSENT: suicidal ideation Focused psych exam: PRESENT: pressured speech, psychomotor agitation Skin exam: PRESENT: dry, intact, warm. ABSENT: cyanosis, rash Results Laboratory Results: 12/10/16 13:00 12/10/16 13:22 12/10/16 12/10/16 12/10/16 13:00 13:00 13:00 WBC 5.9 RBC 5.18 Hgb 15.0 Hct 46.0 MCV 89 MCH 29.0 MCHC 32.6 RDW 16.7 H Plt Count 230 Seg Neutrophils % 72.0 Lymphocytes % 14.3 Monocytes % 8.9 Eosinophils % 3.6 Basophils % 1.2 Absolute Neutrophils 4.3 Absolute Lymphocytes 0.8 Absolute Monocytes 0.5 Absolute Eosinophils 0.2 Absolute Basophils 0.1 VBG pH VBG pCO2 VBG HCO3 VBG Base Excess Sodium Cancelled Potassium Cancelled Chloride Cancelled Carbon Dioxide Cancelled Anion Gap Cancelled BUN Cancelled Creatinine Cancelled Est GFR ( Amer) Cancelled Est GFR (Non-Af Amer) Cancelled Glucose Cancelled Lactic Acid Cancelled Calcium Cancelled Magnesium Cancelled Total Bilirubin Cancelled AST Cancelled ALT Cancelled Alkaline Phosphatase Cancelled Total Protein Cancelled Albumin Cancelled Urine Color Urine Appearance Urine pH Ur Specific [place] Urine Protein Urine Glucose (UA) Urine Ketones Urine Blood Urine Nitrite Ur Leukocyte Esterase Urine WBC (Auto) Urine RBC (Auto) 12/10/16 12/10/16 12/10/16 13:22 13:22 13:22 WBC RBC Hgb Hct MCV MCH MCHC RDW Plt Count Seg Neutrophils % Lymphocytes % Monocytes % Eosinophils % Basophils % Absolute Neutrophils Absolute Lymphocytes Absolute Monocytes Absolute Eosinophils Absolute Basophils VBG pH 7.28 L VBG pCO2 75.7 H* VBG HCO3 34.9 H VBG Base Excess 4.9 Sodium 144.9 Potassium 4.4 Chloride 100 Carbon Dioxide 33 H Anion Gap 12 BUN 27 H Creatinine 1.15 Est GFR ( Amer) > 60 Est GFR (Non-Af Amer) > 60 Glucose 86 Lactic Acid 1.5 Calcium 9.5 Magnesium 2.2 Total Bilirubin 0.8 AST 32 ALT 31 Alkaline Phosphatase 142 H Total Protein 7.2 Albumin 4.0 Urine Color Urine Appearance Urine pH Ur Specific [place] Urine Protein Urine Glucose (UA) Urine Ketones Urine Blood Urine Nitrite Ur Leukocyte Esterase Urine WBC (Auto) Urine RBC (Auto) 12/10/16 14:25 WBC RBC Hgb Hct MCV MCH MCHC RDW Plt Count Seg Neutrophils % Lymphocytes % Monocytes % Eosinophils % Basophils % Absolute Neutrophils Absolute Lymphocytes Absolute Monocytes Absolute Eosinophils Absolute Basophils VBG pH VBG pCO2 VBG HCO3 VBG Base Excess Sodium Potassium Chloride Carbon Dioxide Anion Gap BUN Creatinine Est GFR ( Amer) Est GFR (Non-Af Amer) Glucose Lactic Acid Calcium Magnesium Total Bilirubin AST ALT Alkaline Phosphatase Total Protein Albumin Urine Color YELLOW Urine Appearance CLEAR Urine pH 7.0 Ur Specific [place] 1.009 Urine Protein 30 H Urine Glucose (UA) NEGATIVE Urine Ketones NEGATIVE Urine Blood NEGATIVE Urine Nitrite NEGATIVE Ur Leukocyte Esterase NEGATIVE Urine WBC (Auto) 0 Urine RBC (Auto) 0 12/10/16 12/10/16 13:00 13:22 Troponin I Cancelled 0.048 EKG Comments: EKG of Rich rosen is on the wrong patient. I have asked that this be corrected Patient's EKG reveals a flutter which is paced Impressions: Chest X-Ray 12/10/16 12:53 IMPRESSION: 1. Cardiomegaly CHF. 2. Loculated right pleural effusion with atelectatic changes right lower lobe. The findings appear slightly increased compared to the earlier study. 3. Chronic lung changes. Status: Imported from PACS Assessment & Plan - Diagnosis (1) Acute hypoxemic respiratory failure Is this a current diagnosis for this admission?: Yes Plan: BiPAP as needed and oxygen to maintain saturation between 88 and 92 (2) COPD exacerbation Is this a current diagnosis for this admission?: Yes Plan: Place patient on Solu-Medrol and scheduled nebulized treatments (3) Hypertensive emergency Is this a current diagnosis for this admission?: Yes Plan: Place patient on his normal medications which include Norvasc, BiDil, and Cozaar. Will consider labetalol for systolic greater than 180 although would like to initiate beta-blockers after patient is out of contact acute congestive heart failure. (4) Tobacco dependency Is this a current diagnosis for this admission?: Yes Plan: Patient reports he smoked 2 packs a day for the last 50 years. (5) AA (alcohol abuse) Is this a current diagnosis for this admission?: Yes Plan: Patient is a prior alcoholic and admitted recently to a couple of beers per day. Currently patient denies any alcohol use. He does respond well to Ativan however (6) AAA (abdominal aortic aneurysm) without rupture Is this a current diagnosis for this admission?: Yes Plan: We will place order for ultrasound of his abdominal aortic aneurysm. (7) Acute on chronic combined systolic (congestive) and diastolic (congestive) heart failure Is this a current diagnosis for this admission?: Yes Plan: Patient's last echocardiogram reveals an EF of 35-40%, diastolic dysfunction, mild pulmonary hypertension. Patient is taking no medications at home Begin patient on aspirin, BiDil, Cozaar, and Norvasc. Hold beta-blockers until he is out of acute congestive heart failure. Patient has already received Lasix. At this time feel this is likely worsened by patient's hypertensive emergency (8) Atrial flutter Qualifiers: Atrial flutter type: typical Qualified Code(s): I48.3 - Typical atrial flutter Is this a current diagnosis for this admission?: Yes Plan: Currently with pacemaker. (9) Coronary artery disease Qualifiers: Coronary Disease-Associated Artery/Lesion type: unspecified vessel or lesion type [place] vs. transplanted heart: [place] heart Associated angina: without angina Qualified Code(s): I25.10 - Atherosclerotic heart disease of [place] coronary artery without angina pectoris Is this a current diagnosis for this admission?: Yes Plan: Place patient on aspirin, Cozaar, BiDil, and metoprolol. Will hold beta- helena until patient is out of acute congestive heart failure. (10) Medical non-compliance Is this a current diagnosis for this admission?: Yes Plan: Patient has left AGAINST MEDICAL ADVICE on 11/11/2016, 07/01/2016, 04/18/2016. Patient has not been taking medication. (11) Pleural effusion Is this a current diagnosis for this admission?: Yes Plan: At this time, likely secondary to congestive heart failure, patient not stable for evaluation of this. (12) Cerebrovascular disease, arteriosclerotic, post-stroke Is this a current diagnosis for this admission?: Yes Plan: Review of patient's prior CT of the head reveals an old right MCA infarct, left ZOILA/MCA watershed infarcts, and right basal ganglia infarct (13) DVT prophylaxis Is this a current diagnosis for this admission?: Yes Plan: Lovenox (14) Do not resuscitate Is this a current diagnosis for this admission?: Yes Plan: Patient wishes to be a DO NOT RESUSCITATE Patient does not designate a surrogate decision-maker - Time Time Spent: 50 to 70 Minutes Medications reviewed and adjusted accordingly: Yes Anticipated discharge: Other Within: Other - Inpatient Certification Based on my medical assessment, after consideration of the patient's comorbidities, presenting symptoms, or acuity I expect that the services needed warrant INPATIENT care.: Yes I certify that my determination is in accordance with my understanding of Medicare's requirements for reasonable and necessary INPATIENT services [42 CFR 412.3e].: Yes Medical Necessity: Need For Continuous Telemetry Monitoring, Need for Nebulizer Therapy and Monitoring of Response, Need for IV Antibiotics, Risk of Complication if Not Cared For in Hospital Post Hospital Care: D/C Bi Analyst Documentation
--- NOTE | 2016-12-10 16:24 | EKG REPORT ---
SEVERITY:- ABNORMAL ECG - EXTREME TACHYCARDIA WITH WIDE COMPLEX, NO FURTHER RHYTHM ANALYSIS ATTEMPTED CANNOT EXCLUDE V-TACH.CORELATE CLINICALLY : Confirmed by: Tammy Garay MD 10-Dec-2016 16:22:55
[2016-12-10] MEDS ORDERED: ENOXAPARIN SODIUM INJ 40 MG/0.4 ML DISP.SYRIN SUBCUT ONE ×2 (17:00→21:00)
[2016-12-10 17:57] LABS: URINE BARBITURATES SCREEN NEGATIVE; URINE METHADONE SCREEN NEGATIVE; URINE OPIATES LOW NEGATIVE; URINE PHENCYCLIDINE SCREEN NEGATIVE
[2016-12-10] MEDS ORDERED: ASPIRIN 325 MG TABLET PO ONE (19:15)
[2016-12-10] MEDS: LANSOPRAZOLE 15 MG TAB.RAP.DR PO SCH (20:35)
[2016-12-10] MEDS: IPRATROPIUM/ALBUTEROL 0.5-2.5 MG/3 ML AMPUL NEB SCH (21:27)
[2016-12-10] MEDS ORDERED: METHYLPREDNISOLONE INJ 40 MG/1 ML SDV IV SCH (22:00)
[2016-12-10 22:04] LABS: CREATINE KINASE MB 2.73 ng/mL (<4.55); TROPONIN I 0.047 ng/mL
[2016-12-10] MEDS: GUAIFENESIN 600 MG TABLET.SA PO SCH (22:51)
[2016-12-10] MEDS: LOSARTAN POTASSIUM 50 MG TABLET PO SCH (22:52)
[2016-12-10] MEDS: ISOSORB DINIT/HYDRALAZINE HCL 20-37.5 MG TABLET PO SCH (22:53)
[2016-12-10] MEDS: METHYLPREDNISOLONE INJ 125 MG/2 ML SDV IV SCH (23:16)
[2016-12-10] MEDS: CEFEPIME 2 GM/D5W RTU 2 GM/50 ML RTUPB IV SCH (23:16)
[2016-12-11] MEDS: METHYLPREDNISOLONE INJ 125 MG/2 ML SDV IV SCH ×3 (06:03→21:52)
[2016-12-11] MEDS: ISOSORB DINIT/HYDRALAZINE HCL 20-37.5 MG TABLET PO SCH ×3 (06:05→22:33)
[2016-12-11] MEDS: LANSOPRAZOLE 15 MG TAB.RAP.DR PO SCH ×2 (06:05→14:53)
[2016-12-11 06:23] LABS: ANION GAP 12 (5-19); BLOOD UREA NITROGEN 30 mg/dL (7-20); CALCIUM 9.1 mg/dL (8.4-10.2); CARBON DIOXIDE 33 mmol/L (22-30); CHLORIDE 98 mmol/L (98-107); CREATININE RESULT 1.28 mg/dL (0.52-1.25); GLUCOSE 102 mg/dL (75-110); POTASSIUM 4.5 mmol/L (3.6-5.0); SODIUM 143.3 mmol/L (137-145)
[2016-12-11 06:47] LABS: ABSOLUTE LYMPHOCYTES (AUTO) 0.3 10^3/uL (0.5-4.7); ABSOLUTE MONOCYTES (AUTO) 0.1 10^3/uL (0.1-1.4); ABSOLUTE NEUT (AUTO) 4.9 10^3/uL (1.7-8.2); BASOPHILS % (AUTO) 0.9 % (0-2); EOSINOPHILS % (AUTO) 0.4 % (0-6); HEMATOCRIT 44.8 % (37.9-51.0); HEMOGLOBIN 14.4 g/dL (13.5-17.0); HGB HCT DIFFERENCE -1.6; LYMPHOCYTES % (AUTO) 5.6 % (13-45); MEAN CORPUSCULAR HEMOGLOBIN 28.5 pg (27.0-33.4); MEAN CORPUSCULAR HGB CONC 32.1 g/dL (32.0-36.0); MEAN CORPUSCULAR VOLUME 89 fl (80-97); MONOCYTES % (AUTO) 2.3 % (3-13); RED BLOOD COUNT 5.04 10^6/uL (4.35-5.55); RED CELL DISTRIBUTION WIDTH 16.2 % (11.5-14.0); SEGMENTED NEUTROPHILS % (AUTO) 90.8 % (42-78); WHITE BLOOD COUNT 5.4 10^3/uL (4.0-10.5)
--- NOTE | 2016-12-11 07:43 | RADIOLOGY REPORT (SQ) ---
EXAM DESCRIPTION: U/S RETROPERITON (RENAL/AORTA) COMPLETED DATE/TIME: 12/11/2016 6:18 am REASON FOR STUDY: known aaa COMPARISON: 09/09/2014. TECHNIQUE: Static and dynamic grayscale images acquired of the aorta and stored on PACs. Selected co sheila Doppler and spectral images recorded. LIMITATIONS: None. FINDINGS: AORTIC CALIBER MAXIMAL PROXIMAL: 2.4 cm. MID: 5.8 cm including an infrarenal abdominal aortic aneurysm measuring 5.8 x 5.7 cm in cross-section al diameters and 8.9 cm in length. There is interval increase compared with previous abdominal aorti c aneurysm measurement of 4.7 cm, 09/09/2014. DISTAL: 2.4 cm. ILIAC DIAMETER RIGHT: Not visualized. LEFT: Not visualized. OTHER: Dilated urinary bladder, nonspecific. IMPRESSION: Increased 5.8 cm abdominal aortic aneurysm. Consultation with Vascular Surgery recommen ded. COMMENT: This report was called to Nurse Kelsie Cervantes at07:33 on 12/11/2016. TECHNICAL DOCUMENTATION: JOB ID: [id number] [employer]- All Rights Reserved
[2016-12-11] MEDS: IPRATROPIUM/ALBUTEROL 0.5-2.5 MG/3 ML AMPUL NEB SCH ×4 (07:53→20:16)
[2016-12-11] MEDS ORDERED: LEVOFLOXACIN 750 MG/D5W RTU 750 MG/150 ML RTUPB IV SCH (10:00)
[2016-12-11] MEDS: ENOXAPARIN SODIUM INJ 40 MG/0.4 ML DISP.SYRIN SUBCUT SCH (10:43)
[2016-12-11] MEDS: CEFEPIME 2 GM/D5W RTU 2 GM/50 ML RTUPB IV SCH ×2 (10:44→21:52)
[2016-12-11] MEDS: FUROSEMIDE 20 MG TABLET PO SCH (10:44)
[2016-12-11] MEDS: ASPIRIN 81 MG TABLET, CHEWABLE PO SCH (10:44)
[2016-12-11] MEDS: GUAIFENESIN 600 MG TABLET.SA PO SCH ×2 (10:45→22:33)
--- NOTE | 2016-12-11 11:03 | PDOC PROGRESS REPORT ---
Subjective Progress Note for:: 12/11/16 Subjective:: Patient reports that his shortness of breath has improved. Physical Exam Vital Signs: Temp Pulse Resp BP Pulse Ox 97.8 F 60 28 H 91/46 L 95 12/11/16 07:52 12/11/16 08:26 12/11/16 07:57 12/11/16 07:52 12/11/16 07:57 Intake & Output 12/10/16 12/11/16 12/12/16 06:59 06:59 06:59 Intake Total 50 Output Total 330 Balance -280 Weight 55 kg General appearance: PRESENT: no acute distress Eye exam: PRESENT: conjunctiva pink. ABSENT: scleral icterus Mouth exam: PRESENT: moist, tongue midline Neck exam: ABSENT: JVD Respiratory exam: PRESENT: wheezes. ABSENT: rales, rhonchi Cardiovascular exam: PRESENT: irregular rhythm. ABSENT: diastolic murmur, rubs , systolic murmur GI/Abdominal exam: PRESENT: normal bowel sounds, soft. ABSENT: distended, guarding, mass, organolmegaly, rebound, tenderness Extremities exam: ABSENT: calf tenderness, clubbing, pedal edema Neurological exam: PRESENT: alert, awake, oriented to person, oriented to place , oriented to time, other - Patient has slightly garbled speech. ABSENT: oriented to situation Psychiatric exam: PRESENT: flat affect Skin exam: PRESENT: dry, intact, warm. ABSENT: cyanosis, rash Results Laboratory Results: 12/11/16 05:32 12/11/16 05:32 12/11/16 12/11/16 05:32 05:32 WBC 5.4 RBC 5.04 Hgb 14.4 Hct 44.8 MCV 89 MCH 28.5 MCHC 32.1 RDW 16.2 H Plt Count 223 Seg Neutrophils % 90.8 H Lymphocytes % 5.6 L Monocytes % 2.3 L Eosinophils % 0.4 Basophils % 0.9 Absolute Neutrophils 4.9 Absolute Lymphocytes 0.3 L Absolute Monocytes 0.1 Absolute Eosinophils 0.0 Absolute Basophils 0.0 Sodium 143.3 Potassium 4.5 Chloride 98 Carbon Dioxide 33 H Anion Gap 12 BUN 30 H Creatinine 1.28 H Est GFR ( Amer) > 60 Est GFR (Non-Af Amer) 55 L Glucose 102 Calcium 9.1 12/10/16 12/10/16 21:15 21:15 Creatine Kinase 32 L CK-MB (CK-2) 2.73 Troponin I 0.047 Impressions: Chest X-Ray 12/10/16 12:53 IMPRESSION: 1. Cardiomegaly CHF. 2. Loculated right pleural effusion with atelectatic changes right lower lobe. The findings appear slightly increased compared to the earlier study. 3. Chronic lung changes. Renal Ultrasound 12/11/16 00:00 IMPRESSION: Increased 5.8 cm abdominal aortic aneurysm. Consultation with Vascular Surgery recommended. Assessment & Plan - Diagnosis (1) Acute hypoxemic respiratory failure Is this a current diagnosis for this admission?: Yes Plan: Secondary to acute COPD exacerbation. He is doing well off of BiPAP. (2) COPD exacerbation Is this a current diagnosis for this admission?: Yes Plan: Continue with steroids, nebulizers, antibiotics. Patient has improved from yesterday. (3) Hypertensive emergency Is this a current diagnosis for this admission?: Yes Plan: Blood pressures have improved. (4) Tobacco dependency Is this a current diagnosis for this admission?: Yes Plan: He is encouraged to quit (5) AA (alcohol abuse) Is this a current diagnosis for this admission?: Yes Plan: No evidence for delirium tremens (6) AAA (abdominal aortic aneurysm) without rupture Is this a current diagnosis for this admission?: Yes Plan: We will refer to vascular surgery as an outpatient (7) Acute on chronic combined systolic (congestive) and diastolic (congestive) heart failure Is this a current diagnosis for this admission?: Yes Plan: Continue with Lasix. (8) Atrial flutter Qualifiers: Atrial flutter type: typical Qualified Code(s): I48.3 - Typical atrial flutter Is this a current diagnosis for this admission?: Yes (9) Coronary artery disease Qualifiers: Coronary Disease-Associated Artery/Lesion type: unspecified vessel or lesion type [place] vs. transplanted heart: [place] heart Associated angina: without angina Qualified Code(s): I25.10 - Atherosclerotic heart disease of [place] coronary artery without angina pectoris Is this a current diagnosis for this admission?: Yes Plan: He denies any chest pain. (10) Pleural effusion Is this a current diagnosis for this admission?: Yes Plan: Most likely is related to his congestive heart failure. (11) Cerebrovascular disease, arteriosclerotic, post-stroke Is this a current diagnosis for this admission?: Yes Plan: Patient does have some difficulty with speech. Will consult speech therapy. (12) Do not resuscitate Is this a current diagnosis for this admission?: Yes (13) DVT prophylaxis Is this a current diagnosis for this admission?: Yes Plan: Continue with Lovenox. - Time Time Spent with patient: 25-34 minutes - Inpatient Certification Medical Necessity: Need Close Monitoring Due to Risk of Patient Decompensation
[2016-12-11] MEDS: AMLODIPINE BESYLATE 10 MG TABLET PO SCH (12:32)
[2016-12-11] MEDS: LOSARTAN POTASSIUM 50 MG TABLET PO SCH ×2 (13:53→22:33)
[2016-12-11] MEDS ORDERED: LEVALBUTEROL HCL NEB 1.25 MG/3 ML AMPUL NEB ONE (14:26)
[2016-12-11] MEDS ORDERED: LEVALBUTEROL HCL NEB 1.25 MG/3 ML AMPUL NEB PRN (14:28)
[2016-12-12] MEDS: METHYLPREDNISOLONE INJ 125 MG/2 ML SDV IV SCH (05:11)
[2016-12-12] MEDS: ISOSORB DINIT/HYDRALAZINE HCL 20-37.5 MG TABLET PO SCH (05:14)
[2016-12-12] MEDS: LANSOPRAZOLE 15 MG TAB.RAP.DR PO SCH (05:14)
[2016-12-12 07:22] LABS: HEMATOCRIT 41.8 % (37.9-51.0); HEMOGLOBIN 13.7 g/dL (13.5-17.0); HGB HCT DIFFERENCE -0.7; MEAN CORPUSCULAR HEMOGLOBIN 28.8 pg (27.0-33.4); MEAN CORPUSCULAR HGB CONC 32.6 g/dL (32.0-36.0); MEAN CORPUSCULAR VOLUME 88 fl (80-97); RED BLOOD COUNT 4.75 10^6/uL (4.35-5.55); RED CELL DISTRIBUTION WIDTH 16.8 % (11.5-14.0)
[2016-12-12 07:29] LABS: WHITE BLOOD COUNT 11.5 10^3/uL (4.0-10.5)
[2016-12-12 07:42] LABS: BAND NEUTROPHILS % (MANUAL) 2 % (3-5); BASOPHILS % (MANUAL) 0 % (0-2); EOSINOPHILS % (MANUAL) 0 % (0-6); LYMPHOCYTES % (MANUAL) 3 % (13-45); TOTAL CELLS COUNTED 100
[2016-12-12 07:47] LABS: ANISOCYTOSIS 1+; OVALOCYTES SLIGHT; PLATELET CLUMPS PRESENT; POIKILOCYTOSIS SLIGHT; TARGET CELLS SLIGHT
[2016-12-12] MEDS: IPRATROPIUM/ALBUTEROL 0.5-2.5 MG/3 ML AMPUL NEB SCH (07:47)
[2016-12-12 08:20] LABS: ANION GAP 12 (5-19); BLOOD UREA NITROGEN 53 mg/dL (7-20); CALCIUM 9.2 mg/dL (8.4-10.2); CARBON DIOXIDE 33 mmol/L (22-30); CHLORIDE 98 mmol/L (98-107); CREATININE RESULT 1.63 mg/dL (0.52-1.25); GLUCOSE 155 mg/dL (75-110); POTASSIUM 4.1 mmol/L (3.6-5.0); SODIUM 143.2 mmol/L (137-145)
[2016-12-12 08:23] VITALS: BP 168/70
[2016-12-12] MEDS: ASPIRIN 81 MG TABLET, CHEWABLE PO SCH (09:31)
[2016-12-12] MEDS: LOSARTAN POTASSIUM 50 MG TABLET PO SCH (09:32)
[2016-12-12] MEDS: FUROSEMIDE 20 MG TABLET PO SCH (09:32)
[2016-12-12] MEDS: GUAIFENESIN 600 MG TABLET.SA PO SCH (09:32)
[2016-12-12] MEDS: AMLODIPINE BESYLATE 10 MG TABLET PO SCH (09:32)
[2016-12-12] MEDS: ENOXAPARIN SODIUM INJ 40 MG/0.4 ML DISP.SYRIN SUBCUT SCH (09:33)
[2016-12-12] MEDS: CEFEPIME 2 GM/D5W RTU 2 GM/50 ML RTUPB IV SCH (09:48)
[2016-12-12] MEDS ORDERED: TAMSULOSIN HCL 0.4 MG CAP.SR.24H PO ONE (10:00)
--- NOTE | 2016-12-12 10:06 | PDOC DISCHARGE SUMMARY ---
General - Admit/Disc Date/PCP Admission Date/Primary Care Provider: 12/10/16 15:13 Discharge Date: 12/12/16 - Discharge Diagnosis (1) Acute hypoxemic respiratory failure Is this a current diagnosis for this admission?: Yes Summary: Secondary to acute COPD exacerbation along with hypertensive emergency. (2) COPD exacerbation Is this a current diagnosis for this admission?: Yes (3) Hypertensive emergency Is this a current diagnosis for this admission?: Yes (4) Tobacco dependency Is this a current diagnosis for this admission?: Yes (5) AA (alcohol abuse) Is this a current diagnosis for this admission?: Yes (6) AAA (abdominal aortic aneurysm) without rupture Is this a current diagnosis for this admission?: Yes (7) Acute on chronic combined systolic (congestive) and diastolic (congestive) heart failure Is this a current diagnosis for this admission?: Yes (8) Atrial flutter Is this a current diagnosis for this admission?: Yes (9) Coronary artery disease Is this a current diagnosis for this admission?: Yes (10) Pleural effusion Is this a current diagnosis for this admission?: Yes (11) Cerebrovascular disease, arteriosclerotic, post-stroke Is this a current diagnosis for this admission?: Yes (12) Do not resuscitate Is this a current diagnosis for this admission?: Yes (13) DVT prophylaxis Is this a current diagnosis for this admission?: Yes (14) Urinary retention Is this a current diagnosis for this admission?: Yes Summary: The patient initially had a Cristina catheter placed but insisted that it be removed as he was leaving AGAINST MEDICAL ADVICE. (15) Left against medical advice Is this a current diagnosis for this admission?: Yes Summary: The patient had acute urinary retention and his Cristina catheter was removed at his insistence. He has been warned that he may develop continued urinary retention causing problems. - Additional Information Resuscitation Status: Do Not Resuscitate Discharge Diet: Cardiac Discharge Activity: Activity As Tolerated, Balance Activity w/Rest, Weigh Daily Home Medications: Unobtainable [Unobtainable] 12/11/16 History of Present Illness History of Present Illness: TORSTEN MANZO JR is a 71 year old male with a long history of medical noncompliance and signing out AGAINST MEDICAL ADVICE previously who presented to the ER with shortness of breath. Patient contacted EMS because of feeling short of breath and he was found to be hypoxic and placed on CPAP. Patient also was noted have a very elevated blood pressures and was treated with nitroglycerin paste. The patient is admitted for an acute COPD exacerbation and respiratory failure secondary to the COPD and his hypertensive emergency. Hospital Course Hospital Course: 71-year-old gentleman who was admitted with acute respiratory failure secondary to an acute COPD exacerbation along with hypertensive emergency. His blood pressure was lowered and he was treated with steroids and nebulizers and BiPAP with improvement in his respiratory status. The patient continued to improve however he did develop acute urinary retention requiring a Cristina catheter. On the day of discharge the patient was adamant that he would leave AGAINST MEDICAL ADVICE and his Cristina catheter was removed at his request and he left AGAINST MEDICAL ADVICE. Physical Exam Vital Signs: Temp Pulse Resp BP Pulse Ox 98.2 F 60 16 168/70 H 100 12/12/16 07:57 12/12/16 07:57 12/12/16 07:57 12/12/16 07:57 12/12/16 07:57 Intake & Output 12/11/16 12/12/16 12/13/16 06:59 06:59 06:59 Intake Total 50 767 Output Total 330 1050 Balance -280 -283 Weight 55 kg 55.7 kg General appearance: PRESENT: no acute distress Eye exam: PRESENT: conjunctiva pink. ABSENT: scleral icterus Mouth exam: PRESENT: moist, tongue midline Neck exam: ABSENT: JVD Respiratory exam: PRESENT: clear to auscultation mary jo. ABSENT: rales, rhonchi, wheezes Cardiovascular exam: PRESENT: RRR. ABSENT: diastolic murmur, rubs, systolic murmur GI/Abdominal exam: PRESENT: normal bowel sounds, soft. ABSENT: distended, guarding, mass, organolmegaly, rebound, tenderness Extremities exam: ABSENT: calf tenderness, clubbing, pedal edema Neurological exam: PRESENT: alert, awake, oriented to person, oriented to place , oriented to time, oriented to situation, motor sensory deficit Psychiatric exam: PRESENT: appropriate affect Skin exam: PRESENT: dry, intact, warm. ABSENT: cyanosis, rash Results Laboratory Results: 12/12/16 07:00 12/12/16 07:44 12/12/16 12/12/16 12/12/16 07:00 07:00 07:44 WBC 11.5 H D RBC 4.75 Hgb 13.7 Hct 41.8 MCV 88 MCH 28.8 MCHC 32.6 RDW 16.8 H Plt Count 213 Seg Neutrophils % Not Reportable Lymphocytes % Not Reportable Monocytes % Not Reportable Eosinophils % Not Reportable Basophils % Not Reportable Absolute Neutrophils Not Reportable Absolute Lymphocytes Not Reportable Absolute Monocytes Not Reportable Absolute Eosinophils Not Reportable Absolute Basophils Not Reportable Sodium Cancelled 143.2 Potassium Cancelled 4.1 Chloride Cancelled 98 Carbon Dioxide Cancelled 33 H Anion Gap Cancelled 12 BUN Cancelled 53 H Creatinine Cancelled 1.63 H Est GFR ( Amer) Cancelled 50 L Est GFR (Non-Af Amer) Cancelled 42 L Glucose Cancelled 155 H Calcium Cancelled 9.2 12/10/16 12/10/16 21:15 21:15 Creatine Kinase 32 L CK-MB (CK-2) 2.73 Troponin I 0.047 Impressions: Chest X-Ray 12/10/16 12:53 IMPRESSION: 1. Cardiomegaly CHF. 2. Loculated right pleural effusion with atelectatic changes right lower lobe. The findings appear slightly increased compared to the earlier study. 3. Chronic lung changes. Renal Ultrasound 12/11/16 00:00 IMPRESSION: Increased 5.8 cm abdominal aortic aneurysm. Consultation with Vascular Surgery recommended. Qualifiers PATEINT BEING DISCHARGED WITH ANY OF THE FOLLOWING DIAGNOSIS?: No Plan Discharge Plan: The patient left AGAINST MEDICAL ADVICE. He was given no new prescription and is to resume his home medications. His Cristina catheter was removed at his insistence. He will follow-up as needed with his primary care doctor. Time Spent: Greater than 30 Minutes
== END 2016-12-12 10:30 | disposition left against medical advice (07) | DRG 304 ==
LOC: ER 12:45 → EH 15:13 → UNDOADMIN 15:49 → EH 15:49 → 3S 18:53
PROVIDERS: ADMIT Family Medicine; ATTEND Family Medicine
PROC: 5A09457 Assistance with Respiratory Ventilation, 24-96 Consecutive Hours, Continuous Positive Airway Pressure (ICD-10-PCS; principal; 2016-12-10)
PROC: 3E0F73Z Introduction of Anti-inflammatory into Respiratory Tract, Via Natural or Artificial Opening (ICD-10-PCS; 2016-12-10)
DX: I16.1 Hypertensive emergency (principal); J18.9 Pneumonia, unspecified organism; J96.01 Acute respiratory failure with hypoxia; I50.43 Acute on chronic combined systolic (congestive) and diastolic (congestive) heart failure; J44.0 Chronic obstructive pulmonary disease with (acute) lower respiratory infection; J44.1 Chronic obstructive pulmonary disease with (acute) exacerbation; I48.3 Typical atrial flutter; I71.4 Abdominal aortic aneurysm, without rupture; F17.210 Nicotine dependence, cigarettes, uncomplicated; F10.10 Alcohol abuse, uncomplicated; I25.10 Atherosclerotic heart disease of native coronary artery without angina pectoris; I11.0 Hypertensive heart disease with heart failure; R33.9 Retention of urine, unspecified; M19.90 Unspecified osteoarthritis, unspecified site; I25.2 Old myocardial infarction; Z86.73 Personal history of transient ischemic attack (TIA), and cerebral infarction without residual deficits; Z79.899 Other long term (current) drug therapy; Z79.82 Long term (current) use of aspirin; Z66 Do not resuscitate; Z91.19 Patient's noncompliance with other medical treatment and regimen; Z79.1 Long term (current) use of non-steroidal anti-inflammatories (NSAID); Z95.0 Presence of cardiac pacemaker; Z83.6 Family history of other diseases of the respiratory system; Z82.49 Family history of ischemic heart disease and other diseases of the circulatory system
CPT/HCPCS: 36415; 71010; 76770; 80048; 80053; 80307; 81001; 82550; 82553; 82803; 83605; 83735; 84484; 85025; 85610; 87040; 87086; 93005; 93010; 94660; 96365; 96368; 96375; 99291; G8996-GN; G8997-GN; G8998-GN; J0692; J1650; J1940; J1956; J2060; J2930; J3490; J7620

== ENCOUNTER 2016-12-14 10:00 | Emergency (ER) | payer MEDICARE, MEDICAID ==
--- NOTE | 2016-12-14 10:09 | ER Document Report ---
ED General - General Stated Complaint: URINARY PROBLEM Time Seen by Provider: 12/14/16 10:08 Notes: Patient says he has been unable to urinate since awakening this morning. Only a small dribble of urine comes out. He has never had this before. Denies a history of prostate problems or any UTI symptoms. Denies any fever. Denies nausea, vomiting, or diarrhea. Denies any discomfort with urinating. Denies blood in urine. Patient was an inpatient at [facility] for COPD and hypoxia and discharged home 2 days ago. Spoke with Dr. King, who cared for him in the hospital, and she says that the patient signed out AMA, which he does almost every time he is in the hospital here. Review of his previous visits show about 1 visit a month here. Patient continues to smoke cigarettes. Says he is on albuterol nebulizer at home, but not on any oxygen. Very difficult to understand what the patient is saying because he does not have his dentures. TRAVEL OUTSIDE OF THE [place] 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, Hx Coronary Artery Disease, Hx Heart Attack - x1, Hx Hypertension, Hx Heart Murmur Pulmonary Medical History: Reports: Hx COPD, Hx Pneumonia Musculoskeltal Medical History: Reports Hx Arthritis Psychiatric Medical History: Reports: Hx Depression Past Surgical History: Reports: Hx Cardiac Surgery - cabg x2, Hx Coronary Artery Bypass Graft, Hx Orthopedic Surgery - neck fusion, right and left hand surgery, Hx Pacemaker - Biventricular pacemaker noted - Immunizations Hx Diphtheria, Pertussis, Tetanus Vaccination: Yes Review of Systems - Review of Systems Notes: Review of systems is difficult because of the patient speech is very hard to understand without his dentures. In addition, patient is very angry and upset and makes it very clear he does not like this hospital. REVIEW OF SYSTEMS: CONSTITUTIONAL : Denies fever. CARDIOVASCULAR: Denies chest pain. RESPIRATORY: Denies cough, chest congestion, or shortness of breath, even though he apparently has frequent episodes of difficulty breathing from reviewing his past visits to the emergency department and admissions to this hospital. GASTROINTESTINAL: Has lower, suprapubic abdominal pain. Denies nausea, vomiting , or diarrhea. GENITOURINARY: See HPI. Patient denies urinary frequency, blood in urine. MUSCULOSKELETAL: Denies back or neck pain. Denies joint pain or swelling. SKIN: Denies rash or skin lesions. NEUROLOGICAL: Denies LOC or altered mental status. Denies headache. Denies sensory loss or motor deficits. ALL OTHER SYSTEMS REVIEWED AND NEGATIVE. Physical Exam - Vital signs Vitals: Resp 23 H 12/14/16 10:06 Interpretation: Hypertensive - Hypertension. Initial blood pressure about 200/ 105. It is questionable whether the patient is taking his medications. - Notes Notes: PHYSICAL EXAMINATION: GENERAL: Well-appearing, in no acute distress. Hypertensive. Oxygen saturation level in the mid 90%s on 2 L O2. HEAD: Atraumatic, normocephalic. EYES: Pupils equal round and reactive to light, extraocular movements intact. ENT: oropharynx clear without exudates. Moist mucous membranes. NECK: Normal range of motion, supple. LUNGS: Breath sounds decreased but equal bilaterally. HEART: Regular rate and rhythm without murmurs. ABDOMEN: Soft, tender suprapubic region with apparent bladder enlargement noted. BACK: No tenderness throughout entire back. EXTREMITIES: Normal range of motion without pain. No pitting edema present. NEUROLOGICAL: Normal speech, normal gait. Normal sensory, motor, and reflex exams. Awake, alert, and oriented x3. Cranial nerves normal. PSYCH: Patient seems very hostile and very angry. SKIN: Warm, dry, no rashes. Course - Re-evaluation Re-evalutation: 12/14/16 15:33 Cristina catheter placed by PCT. Initially obtained 880 mL of clear appearing urine. Spoke with Dr. Holcomb, urology trucking contractor, and he advised to leave the Cristina catheter in place and see him in his office on Friday. Patient is going to be instructed to call there first thing Friday to get a time to see this urologist that day. Patient will be put into a leg bag and instructed on its use and care. Patient's oxygen was removed and he was observed to have an O2 sat between 87% and 89%. I think this is probably this patient's normal. He was advised strongly to stop smoking cigarettes. 12/14/16 15:37 I offered to have the patient admitted to the hospital and he said absolutely not. He said he would rather go to [facility] then be admitted to this hospital again. I pointed out that his oxygen level was low and he needs to stop smoking , but if he wanted to be admitted for oxygen, I would arrange that and he once again said he had no intention of being admitted to this hospital ever again. In my conversation with Dr. King, she said that he had signed out AMA 2 days ago when he left [facility] and that that is his usual custom to sign out against advice on his previous admissions. - Vital Signs Vital signs: Temp Pulse Resp BP Pulse Ox 98.2 F 73 29 H 184/73 H 89 L 12/14/16 10:09 12/14/16 10:09 12/14/16 15:01 12/14/16 15:00 12/14/16 15:01 - Laboratory Result Diagrams: 12/14/16 12:10 12/14/16 12:10 Laboratory results interpreted by me: 12/14/16 12/14/16 10:20 12:10 RDW 17.1 H Seg Neutrophils % 85.0 H Lymphocytes % 6.6 L Absolute Neutrophils 8.9 H Urine Protein 30 H Urine Blood MODERATE H Urine Ascorbic Acid 40 H - Diagnostic Test Radiology reviewed: Image reviewed, Reports reviewed - Chest x-ray shows some cardiomegaly, COPD, chronic right pleural effusion and atelectasis, unchanged from previous films. - EKG Interpretation by Me Additional EKG results interpreted by me: 12/14/16 15:46 EKG shows dual paced rhythm, and no further interpretation possible. Rate is 60 /min. Discharge - Discharge Clinical Impression: Urinary retention, COPD (chronic obstructive pulmonary disease), Left against medical advice, Acute urinary retention Condition: Fair Disposition: HOME, SELF-CARE Additional Instructions: Urinary Retention Urinary retention is inability to empty the bladder. It can result from a urine infection, or from mechanical problems such as an enlarged prostate gland or swelling of the urethra. Drugs or alcohol can also lead to urine retention. The condition is usually treated by passage of a catheter. If the physician thinks the problem will continue, the catheter may be left in place for a few days. Sometimes drugs are used to stimulate the bladder if the physician feels that inadequate bladder contraction is the cause. If the condition leading to the retention is a chronic one, such as an enlarged prostate, you will be referred to a specialist for further care. Call the physician or return if you develop fever, flank or back pain, pain on urination, or recurrent difficulty passing the urine. You have a catheter in your bladder they can be removed on Friday. I have given you the name and contact information of our local urologist, Dr. Holcomb. He said to call his office first thing Friday to schedule an appointment to be seen that day for him to remove the catheter. Chronic Obstructive Lung Disease You have chronic obstructive lung disease (COPD). The symptoms come from emphysema (damage to small airways, with trapping of air in large sacks in the lung) and chronic bronchitis (repeated infection and damage to larger airways). The cause is almost always cigarette smoking, although dust exposure, asthma, and infections contribute. You should avoid fumes, dust, and smoke (especially tobacco smoke). Your condition will flare from time to time. There is no cure, but the symptoms can be treated. Bronchodilators (asthma medicine) are often helpful. Antibiotics help when infection is present. When shortness of breath is severe, we may prescribe cortisone medication. If medicine doesn't help enough, we can arrange for you to have an oxygen tank at home. Notify your doctor at once if sputum becomes thick, foul, or bloody, if you develop a fever or chest pain, or if your shortness of breath worsens. Stop Smoking You should stop smoking. The tar and chemicals in cigarette smoke are harmful. Smoking has been shown to cause: Emphysema and chronic bronchitis Lung cancer Cancer of the mouth, larynx, stomach, and pancreas Heart disease and stroke Stillbirths and miscarriage Premature aging In addition, smoking increases the chances of respiratory infections and ear infections in children of smokers, and increases the risk of cancer in persons exposed to second-hand smoke. Classes are available to help you stop smoking. If you are serious about wanting to quit, we can help arrange this therapy for you, or you can contact the local lung or cancer association. FOLLOW-UP CARE: If you have been referred to a physician for follow-up care, call the physician s office for an appointment as you were instructed or within the next two days. If you experience worsening or a significant change in your symptoms, notify the physician immediately or return to the Emergency Department at any time for re-evaluation. If your difficulty breathing worsens at any time, you may return for reevaluation and possible admission. Keep your appointment to see Dr. Holcomb in his office Friday to have your tube removed. Referrals: MARYAM HOLCOMB II, MD [[facility]] - Follow up as needed [facility] [Provider Group] - Follow up as needed
--- NOTE | 2016-12-14 10:45 | RADIOLOGY REPORT (SQ) ---
EXAM DESCRIPTION: CHEST SINGLE VIEW COMPLETED DATE/TIME: 12/14/2016 10:33 am REASON FOR STUDY: Short of breath, COPD, smoker COMPARISON: 12/10/2016. EXAM PARAMETERS: NUMBER OF VIEWS: One view. TECHNIQUE: Single frontal radiographic view of the chest acquired. RADIATION DOSE: NA LIMITATIONS: None. FINDINGS: LUNGS AND PLEURA: Right pleural effusion and right lower lobe atelectasis unchanged. Left lung clear. MEDIASTINUM AND HILAR STRUCTURES: No masses. Contour normal. HEART AND VASCULAR STRUCTURES: Cardiomegaly unchanged. BONES: No acute findings. HARDWARE: Pacemaker, sternotomy wires, coronary bypass markers. OTHER: No other significant finding. IMPRESSION: NO CHANGE IN APPEARANCE OF THE CHEST. CARDIOMEGALY, RIGHT PLEURAL EFFUSION, AND RIGHT L OWER LOBE ATELECTASIS UNCHANGED. TECHNICAL DOCUMENTATION: JOB ID: [id number]
[2016-12-14] MEDS ORDERED: AMLODIPINE BESYLATE 10 MG TABLET PO ONE (10:59)
[2016-12-14] MEDS ORDERED: ALBUTEROL SULFATE 0.083% NEB 2.5 MG/3 ML AMPUL NEB ONE (11:22)
[2016-12-14 11:40] LABS: APPEARANCE,URINE CLEAR; BILIRUBIN,URINE NEGATIVE (NEGATIVE); GLUCOSE, URINE NEGATIVE (NEGATIVE); KETONES,URINE NEGATIVE (NEGATIVE); LEUKOCYTE ESTERASE,URINE NEGATIVE (NEGATIVE); NITRITE,URINE NEGATIVE (NEGATIVE); PROTEIN,URINE 30 mg/dL (NEGATIVE); URINE SPECIFIC GRAVITY 1.023; UROBILINOGEN,URINE NEGATIVE mg/dL (<2.0)
[2016-12-14 12:30] LABS: ABSOLUTE EOSINOPHILS # (AUTO) 0.1 10^3/uL (0.0-0.6); ABSOLUTE LYMPHOCYTES (AUTO) 0.7 10^3/uL (0.5-4.7); ABSOLUTE MONOCYTES (AUTO) 0.8 10^3/uL (0.1-1.4); ABSOLUTE NEUT (AUTO) 8.9 10^3/uL (1.7-8.2); BASOPHILS % (AUTO) 0.4 % (0-2); EOSINOPHILS % (AUTO) 0.7 % (0-6); HEMATOCRIT 46.8 % (37.9-51.0); HEMOGLOBIN 15.2 g/dL (13.5-17.0); HGB HCT DIFFERENCE -1.2; LYMPHOCYTES % (AUTO) 6.6 % (13-45); MEAN CORPUSCULAR HEMOGLOBIN 28.9 pg (27.0-33.4); MEAN CORPUSCULAR HGB CONC 32.4 g/dL (32.0-36.0); MEAN CORPUSCULAR VOLUME 89 fl (80-97); MONOCYTES % (AUTO) 7.3 % (3-13); RED BLOOD COUNT 5.26 10^6/uL (4.35-5.55); RED CELL DISTRIBUTION WIDTH 17.1 % (11.5-14.0); WHITE BLOOD COUNT 10.4 10^3/uL (4.0-10.5)
[2016-12-14 12:50] LABS: CREATINE KINASE MB 3.08 ng/mL (<4.55)
[2016-12-14 12:56] LABS: TROPONIN I 0.138 ng/mL
--- NOTE | 2016-12-14 14:01 | EKG REPORT ---
SEVERITY:- ABNORMAL ECG - A-V DUAL-PACED RHYTHM WITH SOME INHIBITION : Confirmed by: Jeannie Carter 14-Dec-2016 14:00:42
[2016-12-14] MEDS ORDERED: IPRATROPIUM/ALBUTEROL 0.5-2.5 MG/3 ML AMPUL NEB ONE (14:17)
[2016-12-14 16:44] VITALS: BP 152/67
== END 2016-12-14 16:58 | disposition left against medical advice (07) ==
LOC: ER 10:00
DX: R33.9 Retention of urine, unspecified (principal); J44.9 Chronic obstructive pulmonary disease, unspecified; F17.210 Nicotine dependence, cigarettes, uncomplicated; I48.91 Unspecified atrial fibrillation; I50.9 Heart failure, unspecified; I11.0 Hypertensive heart disease with heart failure; Z95.1 Presence of aortocoronary bypass graft; Z95.0 Presence of cardiac pacemaker
CPT/HCPCS: 93005; 94640 ×2; 99285; 51702; 36415; 87086; 82553; 85025; 81001; 84484; 71010; 93010; A9270 ×3; J7620

== ENCOUNTER 2016-12-23 14:52 | Emergency (ER) | payer MEDICARE, MEDICAID ==
--- NOTE | 2016-12-23 15:15 | ER Document Report ---
ED Medical Screen (RME) - General Chief Complaint: Problem with Urinary Catheter Stated Complaint: URINARY PROBLEMS Time Seen by Provider: 12/23/16 15:13 Mode of Arrival: Wheelchair Information source: Patient TRAVEL OUTSIDE OF THE [place] IN LAST 30 DAYS: No - HPI Patient complains to provider of: Requesting Cristina catheter removal Notes: 12/23/16 15:14 Patient is a 71-year-old male today requesting that Cristina catheter that was placed during previous visit be removed today, patient is quite short with his answers not willing to elaborate, and also appears to have advanced COPD as he frequently needs to stop speaking to catch his breath but denies any shortness of breath at present time, when I told him that we would find a room in the back for him so that we could remove the Cristina catheter and evaluate him more appropriately he asked "how long is that going to take, days?" - Related Data Allergies/Adverse Reactions: No Known Allergies Allergy (Verified 12/23/16 15:04) Past Medical History - Past Medical History Cardiac Medical History: Reports: Hx Atrial Fibrillation - Reported history of atrial flutter, 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, Hx Coronary Artery Disease, Hx Heart Attack - x1, Hx Hypertension, Hx Heart Murmur Denies: Hx DVT, Hx Hypercholesterolemia, Hx Pulmonary Embolism Pulmonary Medical History: Reports: Hx COPD, Hx Pneumonia Denies: Hx Sleep Apnea, Hx Tuberculosis Neurological Medical History: Denies: Hx Seizures Endocrine Medical History: Denies: Hx Diabetes Mellitus Type 1, Hx Diabetes Mellitus Type 2, Hx Hyperthyroidism, Hx Hypothyroidism Renal/ Medical History: Denies: Hx Peritoneal Dialysis GI Medical History: Denies: Hx Cirrhosis, Hx Gastroesophageal Reflux Disease, Hx Hepatitis Musculoskeltal Medical History: Reports Hx Arthritis Psychiatric Medical History: Reports: Hx Depression Infectious Medical History: Denies: Hx Hepatitis Past Surgical History: Reports: Hx Cardiac Surgery - cabg x2, pacer/AICD, Hx Coronary Artery Bypass Graft, Hx Orthopedic Surgery - neck fusion, right and left hand surgery, Hx Pacemaker - Biventricular pacemaker noted - Immunizations Hx Diphtheria, Pertussis, Tetanus Vaccination: Yes Physical Exam - Vital signs Vitals: Pulse Resp BP Pulse Ox 69 18 181/84 H 100 12/23/16 14:59 12/23/16 14:59 12/23/16 14:59 12/23/16 14:59 Course - Vital Signs Vital signs: Temp Pulse Resp BP Pulse Ox 69 18 181/84 H 100 12/23/16 14:59 12/23/16 14:59 12/23/16 14:59 12/23/16 14:59
[2016-12-23] MEDS ORDERED: PREDNISONE 20 MG TABLET PO ONE (15:51)
--- NOTE | 2016-12-23 15:59 | ER Document Report ---
ED Respiratory Problem - General Chief Complaint: Problem with Urinary Catheter Stated Complaint: URINARY PROBLEMS Time Seen by Provider: 12/23/16 15:13 Mode of Arrival: Wheelchair Notes: 71-year-old male presents to ED for removal of his Cristina catheter. He states he got the Cristina catheter last time because he came in any cutting. And then nobody came and saw him and then he finally urinated all over the bed and then they put the Cristina in. Patient is very short of breath wheezing. He states he wants the Cristina catheter out right now he states he also could use some albuterol for his breathing. He states he also wants a blanket. TRAVEL OUTSIDE OF THE [place] IN LAST 30 DAYS: No - HPI Patient complains to provider of: COPD, Cough, Short of breath Onset: Last week - Cristina was placed last week his COPD is long-term chronic. He is been admitted frequently but leaves AGAINST MEDICAL ADVICE every time he comes in. He states he cannot afford his medicine and does not take most of his medicines. Initiating Event: Other - Smokes Severity: None Pain Level: Denies Context: Hx asthma, Hx COPD, Smoker Short of Breath: Moderate Chest pain/discomfort: Worse with deep breaths Cough: Nonproductive - wheezing Sputum amount: Scant At home treatment: Bronchodilators Associated symptoms: Cough, PND, Runny nose, Wheezing Similar symptoms previously: Yes Recently seen / treated by doctor: Yes - Related Data Allergies/Adverse Reactions: No Known Allergies Allergy (Verified 12/23/16 15:04) Past Medical History - General Information source: Patient - Social History Smoking Status: Current Every Day Smoker Cigarette use (# per day): Yes - More than a pack a day Chew tobacco use (# tins/day): No Smoking Education Provided: Yes - Less than 2 minutes Frequency of alcohol use: None Drug Abuse: None Lives with: Friend Family History: CAD, COPD, Hypertension Patient has suicidal ideation: No Patient has homicidal ideation: No - Past Medical History Cardiac Medical History: Reports: Hx Atrial Fibrillation - Reported history of atrial flutter, 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, Hx Coronary Artery Disease, Hx Heart Attack - x1, Hx Hypertension, Hx Heart Murmur Pulmonary Medical History: Reports: Hx Asthma, Hx Bronchitis, Hx COPD, Hx Pneumonia EENT Medical History: Reports: None Neurological Medical History: Reports: None Endocrine Medical History: Reports: None Renal/ Medical History: Reports: None Malignancy Medical History: Reports None GI Medical History: Reports: None Musculoskeltal Medical History: Reports Hx Arthritis Skin Medical History: Reports None Psychiatric Medical History: Reports: Hx Depression Traumatic Medical History: Reports: None Infectious Medical History: Reports: None Past Surgical History: Reports: Hx Cardiac Surgery - cabg x2, pacer/AICD, Hx Coronary Artery Bypass Graft, Hx Orthopedic Surgery - neck fusion, right and left hand surgery, Hx Pacemaker - Biventricular pacemaker noted - Immunizations Hx Diphtheria, Pertussis, Tetanus Vaccination: Yes Review of Systems - Review of Systems Constitutional: No symptoms reported EENT: No symptoms reported Cardiovascular: No symptoms reported Respiratory: Cough, Short of breath, Wheezing Gastrointestinal: No symptoms reported Genitourinary: No symptoms reported Male Genitourinary: No symptoms reported Musculoskeletal: No symptoms reported Skin: No symptoms reported Hematologic/Lymphatic: No symptoms reported Neurological/Psychological: No symptoms reported -: Yes All other systems reviewed and negative Physical Exam - Vital signs Vitals: Pulse Resp BP Pulse Ox 69 18 181/84 H 100 12/23/16 14:59 12/23/16 14:59 12/23/16 14:59 12/23/16 14:59 Interpretation: Hypertensive - General General appearance: Appears well, Alert - HEENT Head: Normocephalic, Atraumatic Eyes: Normal Pupils: PERRL Ears: Normal External canal: Normal Tympanic membrane: Normal Sinus: Normal Nasal: Purulent discharge, Swelling Mouth/Lips: Normal Mucous membranes: Normal Pharynx: Post nasal drainage Neck: Normal - Respiratory Respiratory status: No respiratory distress Chest status: Nontender Breath sounds: Nonproductive cough, Rales, Rhonchi, Wheezing Chest palpation: Normal - Cardiovascular Rhythm: Regular Heart sounds: Normal auscultation Murmur: No - Abdominal Inspection: Normal Distension: No distension Bowel sounds: Normal Tenderness: Nontender Organomegaly: No organomegaly - Back Back: Normal, Nontender - Extremities General upper extremity: Normal inspection, Nontender, Normal color, Normal ROM , Normal temperature General lower extremity: Normal inspection, Nontender, Normal color, Normal ROM , Normal temperature, Normal weight bearing. No: Panfilo's sign - Neurological Neuro grossly intact: Yes Cognition: Normal Orientation: AAOx4 [place] Coma Scale Eye Opening: Spontaneous S [place] Coma Scale Verbal: Oriented [place] Coma Scale Motor: Obeys Commands [place] Coma Scale Total: 15 Speech: Normal Motor strength normal: LUE, RUE, LLE, RLE Sensory: Normal - Psychological Associated symptoms: Normal affect, Normal mood - Skin Skin Temperature: Warm Skin Moisture: Dry Skin Color: Normal Course - Re-evaluation Re-evalutation: 12/23/16 22:19 Patient was able to urinate a small amount. His respirations were much improved after the bronchodilators and steroids. Patient discharged home with a prescription for prednisone as he states he already has an albuterol inhaler at home. Patient to follow-up with his primary doctor. - Vital Signs Vital signs: Temp Pulse Resp BP Pulse Ox 98.6 F 61 19 178/81 H 100 12/23/16 18:58 12/23/16 18:58 12/23/16 18:58 12/23/16 18:58 12/23/16 18:58 Discharge - Discharge Clinical Impression: Encounter for Cristina catheter removal, SOB (shortness of breath) COPD (chronic obstructive pulmonary disease) Qualifiers: COPD type: COPD with acute exacerbation Qualified Code(s): J44.1 - Chronic obstructive pulmonary disease with (acute) exacerbation Condition: Stable Disposition: HOME, SELF-CARE Instructions: Family Physicians / Practices Additional Instructions: Chronic Obstructive Lung Disease You have chronic obstructive lung disease (COPD). The symptoms come from emphysema (damage to small airways, with trapping of air in large sacks in the lung) and chronic bronchitis (repeated infection and damage to larger airways). The cause is almost always cigarette smoking, although dust exposure, asthma, and infections contribute. You should avoid fumes, dust, and smoke (especially tobacco smoke). Your condition will flare from time to time. There is no cure, but the symptoms can be treated. Bronchodilators (asthma medicine) are often helpful. Antibiotics help when infection is present. When shortness of breath is severe, we may prescribe cortisone medication. If medicine doesn't help enough, we can arrange for you to have an oxygen tank at home. Notify your doctor at once if sputum becomes thick, foul, or bloody, if you develop a fever or chest pain, or if your shortness of breath worsens. STEROID MEDICATION: You have been given an injection of or oral medicine of the cortisone/ steroid class. This medication is used to control inflammation or allergy. George t is usually only given for a short period of time, until the acute process subsides. There are usually no side effects from short-term use of cortisone-like medications. Some persons feel an increased sense of well-being and are not sleepy at bedtime. Long-term use of cortisone medications is best avoided, unless required for a severe condition. If your condition does not remit, or relapses after the course of corticosteroid medication, you should consult your physician. INHALED BRONCHODILATORS: You have received treatment(s) of and/or prescription for an inhaled bronchodilator -- a medication which stimulates the airways in the lung to dilate. This improves the flow of air in asthma, bronchitis, and emphysema. These medicines have some similarity to adrenaline, and can cause similar side effects: shakiness, racing heart, and a sense of nervousness. These side effects decrease with time. Contact your doctor if these side effects are severe. Do not over-use the medicine. Too-frequent use of the inhaler may make it ineffective. Call your doctor if the inhaler is not controlling your symptoms at the prescribed doses. SMOKING: If you smoke, you should stop smoking. The tar and chemicals in cigarette smoke are harmful. Smoking has been shown to cause: emphysema chronic bronchitis lung cancer mouth and throat cancer stomach and pancreas cancer premature aging defects In addition, smoking increases ear and lung infections in children of smokers. USE OF ACETAMINOPHEN (Tylenol): Acetaminophen may be taken for pain relief or fever control. It's much safer than aspirin, offering a wider range of "safe" dosages. It is safe during . Some brand names are Tylenol, Panadol, Datril, Anacin 3, Tempra, and Liquiprin. Acetaminophen can be repeated every four hours. The following are maximum recommended dosages: WEIGHT Dose Drops Elixir Chewable( 80mg) (LBS.) drprs=droppers tsp=teaspoon 6 40 mg 0.4 ml (1/2) 6-11 80 mg 0.8 ml (full) tsp 1 tab 12-16 120 mg 1 1/2 drprs 3/4 tsp 1 1/2 tabs 17-23 160 mg 2 drprs 1 tsp 2 tabs 24-30 240 mg 3 drprs 1 1/2 tsp 3 tabs 30-35 320 mg 2 tsp 4 tabs 36-41 360 mg 2 1/4 tsp 4 1/2 tabs 42-47 400 mg 2 1/2 tsp 5 tabs 48-53 480 mg 3 tsp 6 tabs 54-59 520 mg 3 1/4 tsp 6 1/2 tabs 60-64 560 mg 3 1/2 tsp 7 tabs 65-70 600 mg 3 3/4 tsp 7 1/2 tabs 71-76 640 mg 4 tsp 8 tabs 77-82 720 mg 4 1/2 tsp 9 tabs 83-88 800 mg 5 tsp 10 tabs >89 pounds or adults 650 mg to 900 mg Acetaminophen can be repeated every four hours. Maximum dose not to exceed 4000 mg a day. These maximum recommended dosages are slightly higher than the dosages written on the product container, but these dosages are very safe and below the toxic dosage for acetaminophen. FOLLOW-UP CARE: If you have been referred to a physician for follow-up care, call the physician s office for an appointment as you were instructed or within the next two days. If you experience worsening or a significant change in your symptoms, notify the physician immediately or return to the Emergency Department at any time for re-evaluation. Prescriptions: Prednisone [Sterapred Ds] 1 pkg PO ASDIR PRN 12 Days [email or web address] PRN Reason: Forms: Smoking Cessation Education, Elevated Blood Pressure
[2016-12-23] MEDS: ALBUTEROL SULFATE 0.083% NEB 2.5 MG/3 ML AMPUL NEB SCH ×3 (16:05→16:45)
--- NOTE | 2016-12-23 16:46 | RADIOLOGY REPORT (SQ) ---
EXAM DESCRIPTION: CHEST PA/LAT COMPLETED DATE/TIME: 12/23/2016 4:21 pm REASON FOR STUDY: cough short of breath COMPARISON: 06/30/2016 EXAM PARAMETERS: NUMBER OF VIEWS: two views TECHNIQUE: Digital Frontal and Lateral radiographic views of the chest acquired. RADIATION DOSE: NA LIMITATIONS: none FINDINGS: LUNGS AND PLEURA: there is hyperexpansion of the lungs. There appears to be a chronic ri ght pleural effusion versus pleural thickening in the right base. Mild chronic interstitial changes are present. MEDIASTINUM AND HILAR STRUCTURES: No masses or contour abnormalities. HEART AND VASCULAR STRUCTURES: Cardiomegaly with pulmonary vascular congestion but no zuleima CHF. BONES: No acute findings. HARDWARE: Pacemaker, sternotomy wires, graft markers, heart valve OTHER: No other significant finding. IMPRESSION: 1. Chronic lung changes. 2. Cardiomegaly without CHF. 3. Chronic right pleural effusion versus pleural thickening. TECHNICAL DOCUMENTATION: JOB ID: [id number] [employer]- All Rights Reserved
[2016-12-23 19:04] VITALS: BP 178/81
== END 2016-12-23 18:58 | disposition home or self-care (01) ==
LOC: ER 14:52
DX: J44.1 Chronic obstructive pulmonary disease with (acute) exacerbation (principal); R06.02 Shortness of breath; R39.198 Other difficulties with micturition; R06.2 Wheezing; J44.9 Chronic obstructive pulmonary disease, unspecified; R05 Cough; F17.210 Nicotine dependence, cigarettes, uncomplicated
CPT/HCPCS: 94640 ×2; 99285; 71020; A9270 ×2; J7512

== ENCOUNTER 2017-01-06 17:33 | Inpatient (IN) | payer MEDICARE, MEDICAID ==
[2017-01-06] MEDS ORDERED: ALBUTEROL SULFATE 0.083% NEB 2.5 MG/3 ML AMPUL NEB ONE (17:37)
[2017-01-06] MEDS ORDERED: IPRATROPIUM/ALBUTEROL 0.5-2.5 MG/3 ML AMPUL NEB ONE (17:37)
[2017-01-06] MEDS ORDERED: METHYLPREDNISOLONE INJ 125 MG/2 ML SDV IV ONE (17:43)
--- NOTE | 2017-01-06 17:47 | ER Document Report ---
ED Respiratory Problem - General Mode of Arrival: Stretcher Information source: Patient TRAVEL OUTSIDE OF THE [place] IN LAST 30 DAYS: No - HPI Patient complains to provider of: COPD, Short of breath Onset: This morning Duration: Worse/persistent Context: Hx CHF, Hx COPD, Smoker Short of Breath: Severe Chest pain/discomfort: Tightness Cough: Nonproductive Associated symptoms: Difficulty breathing, Short of breath, Wheezing <SIMRAN ROMAN - Last Filed: 01/06/17 18:22> <JIN ZHENG - Last Filed: 01/06/17 21:18> - General Chief Complaint: Respiratory Distress Stated Complaint: RESPIRATORY DISTRESS Time Seen by Provider: 01/06/17 17:36 - HPI Notes: Patient is a 71-year-old male who presents to the emergency room via EMS in severe respiratory distress, on CPAP, with elevated blood pressure, tachypnea, diffuse rales and rhonchi, history is difficult to obtain from patient given his current state of respiratory distress (SIMRAN ROMAN) - Related Data Allergies/Adverse Reactions: No Known Allergies Allergy (Verified 01/06/17 18:43) Home Medications: Current Home Medications No Home Medications 01/06/17 [History] Past Medical History - General Information source: Patient, Emergency Med Personnel - Social History Smoking Status: Current Every Day Smoker Family History: CAD, COPD, Hypertension - Past Medical History Cardiac Medical History: Reports: Hx Atrial Fibrillation - Reported history of atrial flutter, 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, Hx Coronary Artery Disease, Hx Heart Attack - x1, Hx Hypertension, Hx Heart Murmur Denies: Hx DVT, Hx Hypercholesterolemia, Hx Pulmonary Embolism Pulmonary Medical History: Reports: Hx Asthma, Hx Bronchitis, Hx COPD, Hx Pneumonia Denies: Hx Sleep Apnea, Hx Tuberculosis Neurological Medical History: Denies: Hx Seizures Endocrine Medical History: Denies: Hx Diabetes Mellitus Type 1, Hx Diabetes Mellitus Type 2, Hx Hyperthyroidism, Hx Hypothyroidism Renal/ Medical History: Denies: Hx Peritoneal Dialysis GI Medical History: Denies: Hx Cirrhosis, Hx Gastroesophageal Reflux Disease, Hx Hepatitis Musculoskeltal Medical History: Reports Hx Arthritis Psychiatric Medical History: Reports: Hx Depression Infectious Medical History: Denies: Hx Hepatitis Past Surgical History: Reports: Hx Cardiac Surgery - cabg x2, pacer/AICD, Hx Coronary Artery Bypass Graft, Hx Orthopedic Surgery - neck fusion, right and left hand surgery, Hx Pacemaker - Biventricular pacemaker noted - Immunizations Hx Diphtheria, Pertussis, Tetanus Vaccination: Yes <SIMRAN ROMAN - Last Filed: 01/06/17 18:22> Review of Systems - Review of Systems Constitutional: No symptoms reported EENT: No symptoms reported Cardiovascular: Dyspnea Respiratory: Short of breath, Wheezing Gastrointestinal: No symptoms reported Genitourinary: No symptoms reported Male Genitourinary: No symptoms reported Musculoskeletal: No symptoms reported Skin: No symptoms reported Hematologic/Lymphatic: No symptoms reported Neurological/Psychological: No symptoms reported -: Yes All other systems reviewed and negative <SIMRAN ROMAN - Last Filed: 01/06/17 18:22> Physical Exam - Vital signs Interpretation: Hypertensive, Tachycardic, Hypoxic, Tachypneic - General General appearance: Alert In distress: Severe - HEENT Head: Normocephalic, Atraumatic Eyes: Normal Conjunctiva: Normal Extraocular movements intact: Yes Eyelashes: Normal Pupils: PERRL Pharynx: Normal Neck: Normal - Respiratory Respiratory status: Respiratory distress, Labored, Retractions, Tachypnea Chest status: Nontender Breath sounds: Decreased air movement, Rales, Rhonchi, Wheezing Chest palpation: Normal - Cardiovascular Rhythm: Irregularly irregular, Tachycardia Heart sounds: Normal auscultation Murmur: No - Abdominal Inspection: Normal Distension: No distension Bowel sounds: Normal Tenderness: Nontender Organomegaly: No organomegaly - Back Back: Normal, Nontender - Extremities General lower extremity: Edema - Pitting edema with petechiae to bilateral lower extremities - Neurological Neuro grossly intact: Yes Cognition: Normal Orientation: AAOx4 [place] Coma Scale Eye Opening: Spontaneous [place] Coma Scale Verbal: Oriented [place] Coma Scale Motor: Obeys Commands [place] Coma Scale Total: 15 - Skin Skin Temperature: Cool Skin Moisture: Dry Skin Color: Pale <SIMRAN ROMAN - Last Filed: 01/06/17 18:22> - Vital signs Vitals: Resp 37 H 01/06/17 17:38 Course <SIMRAN ROMAN - Last Filed: 01/06/17 18:22> - Laboratory Result Diagrams: 01/06/17 19:20 01/06/17 19:20 - Diagnostic Test Radiology reviewed: Image reviewed, Reports reviewed - EKG Interpretation by Me Rate: Normal Rhythm: Other - Ventricular-paced rhythm When compared to previous EKG there are: No significant change <JIN ZHENG - Last Filed: 01/06/17 21:18> - Re-evaluation Re-evalutation: 01/06/17 18:22 Care of patient transferred to Dr. Zheng, emergency physician now assuming care ( SIMRAN ROMAN) 01/06/17 18:30: Sign-out from Dr. Roman: 71 yo male, past medical history COPD, CHF, presents in respiratory distress. Placed on BiPAP and duonebs, steroids and nitro drip started with improvement of his respiratory status. Much more comfortable on BiPAP. CXR shows his chronic pleural effusion, but no other acute findings. Patient has no chest pain and his first troponin is lower than his prior values. Labs are remarkable for a leukocytosis, which may be related to his steroid use, but broad spectrum antibiotics started for possible superimposed pneumonia. His lactate is normal and he does not have a fever. Patient provided with IV Lasix and will require admission for further evaluation and treatment of his shortness of breath and monitoring of his respiratory status. He confirms that he is a DNR/DNI. 01/06/17 21:[address] Mooer and he will admit patient as Full Admission to IMCU. (JIN ZHENG) - Vital Signs Vital signs: Temp Pulse Resp BP Pulse Ox 97.6 F 30 H 177/79 H 100 01/06/17 19:57 01/06/17 20:45 01/06/17 19:31 01/06/17 20:45 - Laboratory Laboratory results interpreted by me: 01/06/17 01/06/17 01/06/17 19:20 19:20 19:20 WBC 24.4 H RDW 17.0 H Seg Neuts % (Manual) 90 H Lymphocytes % (Manual) 4 L Abs Neuts (Manual) 22.0 H Carbonic Acid ABG pCO2 ABG pO2 ABG HCO3 ABG Total CO2 ABG O2 Saturation BUN 43 H Glucose 132 H Direct Bilirubin 0.5 H CK-MB (CK-2) 13.40 H NT-Pro-B Natriuret Pep 17438 H Total Protein 6.2 L 01/06/17 19:20 WBC RDW Seg Neuts % (Manual) Lymphocytes % (Manual) Abs Neuts (Manual) Carbonic Acid 1.56 H ABG pCO2 51.9 H ABG pO2 117.0 H ABG HCO3 28.5 H ABG Total CO2 30.1 H ABG O2 Saturation 98.1 H BUN Glucose Direct Bilirubin CK-MB (CK-2) NT-Pro-B Natriuret Pep Total Protein - Diagnostic Test Radiology results interpreted by me: CXR: chronic pleural effusion (JIN ZHENG) Critical Care Note - Critical Care Note Total time excluding time spent on procedures (mins): 40 <JIN ZHENG - Last Filed: 01/06/17 21:18> Discharge <SIMRAN ROMAN - Last Filed: 01/06/17 18:22> - Discharge Admitting Provider: [facility] Unit Admitted: IMCU <JIN ZHENG - Last Filed: 01/06/17 21:18> - Discharge Clinical Impression: COPD with exacerbation Dyspnea Qualifiers: Dyspnea type: shortness of breath Qualified Code(s): R06.02 - Shortness of breath CHF exacerbation Qualifiers: Congestive heart failure type: systolic Qualified Code(s): I50.23 - Acute on chronic systolic (congestive) heart failure Condition: Stable Disposition: ADMITTED INPATIENT
--- NOTE | 2017-01-06 18:04 | RADIOLOGY REPORT (SQ) ---
EXAM DESCRIPTION: CHEST SINGLE VIEW/ portable COMPLETED DATE/TIME: 01/06/2017 5:49 pm REASON FOR STUDY: db COMPARISON: 12/23/2016 EXAM PARAMETERS: NUMBER OF VIEWS: One view. TECHNIQUE: Single frontal radiographic view of the chest acquired. RADIATION DOSE: NA LIMITATIONS: None. FINDINGS: LUNGS AND PLEURA: Stable pleural change right lung base with some interstitial markings. No new developing infiltrates. MEDIASTINUM AND HILAR STRUCTURES: Stable postoperative changes. HEART AND VASCULAR STRUCTURES: Heart is stable. No overt CHF. BONES: No acute findings. HARDWARE: Wire sutures mediastinum. Transvenous pacer. OTHER: No other significant finding. IMPRESSION: Nothing acute since prior study. Pleural and interstitial change right lung base stable. TECHNICAL DOCUMENTATION: JOB ID: [id number]
[2017-01-06] MEDS: NITROGLYCERIN/D5W 50 MG/250 ML RTUINJ IV PRN ×2 (18:13→22:04)
[2017-01-06 19:40] LABS: HEMATOCRIT 42.1 % (37.9-51.0); HEMOGLOBIN 13.7 g/dL (13.5-17.0); MEAN CORPUSCULAR HEMOGLOBIN 28.7 pg (27.0-33.4); MEAN CORPUSCULAR HGB CONC 32.6 g/dL (32.0-36.0); MEAN CORPUSCULAR VOLUME 88 fl (80-97); RED BLOOD COUNT 4.78 10^6/uL (4.35-5.55); WHITE BLOOD COUNT 24.4 10^3/uL (4.0-10.5)
[2017-01-06 19:42] LABS: PARTIAL THROMBOPLASTIN TIME 26.9 SEC (23.5-35.8); PROTHROMBIN TIME 13.7 SEC (11.4-15.4)
[2017-01-06 19:44] LABS: ARTERIAL BLOOD BASE EXCESS 1.9 mmol/L; ARTERIAL BLOOD O2 SATURATION 98.1 % (94-98)
[2017-01-06 19:53] LABS: BASOPHILS % (MANUAL) 0 % (0-2); EOSINOPHILS % (MANUAL) 1 % (0-6); LYMPHOCYTES % (MANUAL) 4 % (13-45); TOTAL CELLS COUNTED 100
[2017-01-06 19:54] LABS: ANISOCYTOSIS 1+; POIKILOCYTOSIS SLIGHT; TOXIC GRANULATION SLIGHT
[2017-01-06] MEDS ORDERED: PIPERACILLIN/TAZOBACTAM 3.375 GM VIAL IV ONE (19:57)
[2017-01-06] MEDS ORDERED: VANCOMYCIN HCL INJ 1000 MG VIAL IV ONE (19:57)
[2017-01-06 19:58] LABS: ALANINE AMINOTRANSFERASE 51 U/L (21-72); ALBUMIN 3.5 g/dL (3.5-5.0); ALKALINE PHOSPHATASE 124 U/L (38-126); ANION GAP 8 (5-19); ASPARTATE AMINO TRANSFERASE 37 U/L (17-59); BILIRUBIN,DIRECT 0.5 mg/dL (0.0-0.4); BILIRUBIN,TOTAL 1.1 mg/dL (0.2-1.3); BLOOD UREA NITROGEN 43 mg/dL (7-20); CALCIUM 9.4 mg/dL (8.4-10.2); CARBON DIOXIDE 30 mmol/L (22-30); CHLORIDE 103 mmol/L (98-107); CREATINE KINASE 118 U/L (55-170); CREATININE RESULT 1.01 mg/dL (0.52-1.25); GLUCOSE 132 mg/dL (75-110); POTASSIUM 3.9 mmol/L (3.6-5.0); SODIUM 140.9 mmol/L (137-145); TOTAL PROTEIN 6.2 g/dL (6.3-8.2)
[2017-01-06 20:08] LABS: CREATINE KINASE MB 13.4 ng/mL (<4.55)
[2017-01-06 20:14] LABS: TROPONIN I 0.085 ng/mL
--- NOTE | 2017-01-06 21:03 | EKG REPORT ---
SEVERITY:- ABNORMAL ECG - AFIB/FLUTTER AND VENTRICULAR-PACED RHYTHM : Confirmed by: Tammy Garay MD 06-Jan-2017 21:02:27
[2017-01-06] MEDS ORDERED: FUROSEMIDE INJ/PF 20 MG/2 ML SDV IV ONE (21:12)
[2017-01-06 21:51] LABS: APPEARANCE,URINE CLOUDY; BILIRUBIN,URINE NEGATIVE (NEGATIVE); CALCIUM OXALATE CRYSTALS,URINE MODERATE /HPF; GLUCOSE, URINE NEGATIVE (NEGATIVE); KETONES,URINE NEGATIVE (NEGATIVE); LEUKOCYTE ESTERASE,URINE LARGE (NEGATIVE); NITRITE,URINE NEGATIVE (NEGATIVE); PROTEIN,URINE >=500 mg/dL (NEGATIVE); URINE SPECIFIC GRAVITY 1.027; UROBILINOGEN,URINE NEGATIVE mg/dL (<2.0)
[2017-01-06] MEDS ORDERED: DEXTROSE 40% GEL 15 GM TUBE PO PRN ×2 (23:13)
[2017-01-06] MEDS ORDERED: DEXTROSE 50%-WATER 25 GM/50 ML DISP.SYRIN IV PRN ×2 (23:13)
[2017-01-06] MEDS ORDERED: GLUCAGON,HUMAN RECOMB 1 MG INJ IM PRN (23:13)
[2017-01-06] MEDS ORDERED: GUAIFENESIN SYRP 200 MG/10 ML UDC PO PRN (23:27)
[2017-01-06] MEDS ORDERED: PHARMACY COMMUNICATION ORDER MC NR (23:30)
[2017-01-06] MEDS ORDERED: PROMETHAZINE HCL 25 MG TABLET PO PRN (23:35)
[2017-01-06] MEDS ORDERED: VANCOMYCIN HCL 0 MG in DEXTROSE 5%-WATER 250 ML IV NR (23:45)
--- NOTE | 2017-01-06 23:52 | PDOC H&P ---
History of Present Illness Admission Date/PCP: 01/06/17 21:29 Brianna Odonnell Patient complains of: Difficulty breathing History of Present Illness: TORSTEN MANZO JR is a 71 year old male with known combined systolic and diastolic congestive heart failure, non-home O2 dependent COPD, chronic anxiety , arthritis, chronic noncompliance with both medications and physician follow-up , and with a history of leaving AGAINST MEDICAL ADVICE from both inpatient and emergency room care, who presents to the emergency room in severe respiratory distress. Patient has been discussed with emergency room physician who accepted the patient and took over care from the original emergency room physician who evaluated the patient. Patient has an underlying fairly prominent speech impediment and also becomes extremely agitated and angry when asked any questions and thus is able to provide no history whatsoever in terms of acute or chronic events, review of systems, personal habits, family history, etc. When left by himself, he is resting quietly, and in no obvious distress. No friends or family are present. Old inpatient records are reviewed. According to my discussion with emergency room physician, along with review of notes, patient was in prominent respiratory distress upon arrival. Has responded nicely to treatment so far, including antibiotics, steroids, breathing treatment, and nitroglycerin drip for suspected congestive heart failure exacerbation. Patient does deny pain. Hospitalized on our service the through 12 December of this year with diagnoses including acute hypoxic respiratory failure, hypertensive emergency, and COPD exacerbation. As has been the case a number of times in the past, patient left AGAINST MEDICAL ADVICE. Discharge summary and history and physical have been reviewed. Dictation via voice recognition software. Laboratory results are listed in [employer] and are reviewed. X-ray summary results are listed below, with full report(s) reviewed. . EKG reviewed and compared to prior tracing from the second of this month. 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 No children. Retired. One half pack of cigarettes per day. No alcohol use for at least 8 years. No illicit drug use. No known drug allergies. Home medications reportedly none. REVIEW OF SYSTEMS: See history and present illness. No further information available this point in time. PHYSICAL EXAMINATION: 5 feet 7 inches tall. 65.8 kg. BMI 22.7 kg/m. Blood pressure 159/82. Pulse 64 and regular. 27 respirations, unlabored. 96% saturation on 40% FiO2, BiPAP 12/6. Thin bearded somewhat disheveled elderly male appearing approximately his stated age. As noted above, when initially observed prior to being asked any questions, he is resting quietly, and in no obvious distress. however, again, when asked any question whatsoever, he becomes instantly agitated and quite angry. His female emergency room nurse Vanda is present and has witnessed these outbursts. Skin is warm and dry. No grossly obvious evidence of rash in areas of skin examined. No subcutaneous nodules palpated. ENT: Hearing grossly normal to normal conversation. Tongue midline on protrusion pink and tacky. Eyes: No scleral icterus. Pupils equal and reactive to light at 4 mm. [place] conjunctivae. Neck is supple and nontender to gentle active range of motion and palpation. Midline trachea. No palpable thyroid nodule mass enlargement or tenderness. Lymphatic: No palpable cervical or clavicular nodes. Neck and lymphatic exams limited by patient body habitus. Psychiatric: Not able to be adequately evaluated due to his current status. Lungs: Auscultation reveals clear and equal breath sounds bilaterally. No use of accessory respiratory muscles. Cardiovascular: Heart regular rate and rhythm, without gallop murmur or rub. No carotid or abdominal aortic bruits. Very mild bilateral symmetric slightly pitting lower calf, ankle, and pedal edema. Faintly palpable dorsalis pedis pulses. Abdomen:soft slightly distended nontender with positive bowel sounds. Unable to adequately evaluate abdomen for masses or organomegaly due to distention. Extremities: Feet are cool and dry. Plantar surfaces of his feet are somewhat violaceous in color, but quite acceptable capillary refill at toes. No calf tenderness to compression. Gentle manipulation of lower extremities fails to reveal any obvious evidence of injury or instability to knees hips or ankles. Neurologic: Moves upper extremities grossly normally. Patellar reflexes absent. Absent Babinski. Light touch cannot be determined due to his current mental status.. Dorsiflexion of feet 5 / 5 and symmetric. Past Medical History Past Medical History: Information from current and old records; patient unable to provide any information himself. Cardiac Medical History: Reports: Atrial Fibrillation - Reported history of atrial flutter, Congestive Heart Failure - Combined systolic and diastolic, Coronary Artery Disease, Myocardial Infarction - x1, Hypertension, Heart Murmur Denies: DVT, Hyperlipidema, Pulmonary Embolism Pulmonary Medical History: Reports: Asthma, Bronchitis, Chronic Obstructive Pulmonary Disease (COPD), Pneumonia Denies: Sleep Apnea, Tuberculosis Neurological Medical History: Denies: Seizures Endocrine Medical History: Denies: Diabetes Mellitus Type 1, Diabetes Mellitus Type 2, Hyperthyroidism, Hypothyroidism GI Medical History: Denies: Cirrhosis, Gastroesophageal Reflux Disease, Hepatitis Musculoskeltal Medical History: Reports: Arthritis Psychiatric Medical History: Reports: Depression Past Surgical History Past Surgical History: Information from current and old records; patient unable to provide any information himself. Past Surgical History: Reports: Coronary Artery Bypass Graft, Orthopedic Surgery - neck fusion, right and left hand surgery, Pacemaker - Biventricular pacemaker noted Social History Information Source: Emergency Med Personnel, [facility] Records Smoking Status: Current Every Day Smoker Frequency of Alcohol Use: None Hx Recreational Drug Use: No Drugs: None Hx Prescription Drug Abuse: No - Advance Directive Resuscitation Status: Do Not Resuscitate Surrogate healthcare decision maker:: Uncertain at this point in time. Family History Family History: CAD, COPD, Hypertension Parental Family History Reviewed: Yes - Per old records, uncertain cause of parents' deaths. Children Family History Reviewed: NA Sibling(s) Family History Reviewed.: Yes - Per old records, brother with history of polio Medication/Allergy Home Medications: RX: No Home Medications 01/06/17 Allergies/Adverse Reactions: No Known Allergies Allergy (Verified 01/06/17 18:43) Physical Exam Vital Signs: Temp Pulse Resp BP Pulse Ox 97.6 F 60 18 174/90 H 93 01/06/17 19:57 01/06/17 22:37 01/06/17 22:37 01/06/17 22:37 01/06/17 22:37 Results Impressions: Chest X-Ray 01/06/17 17:36 IMPRESSION: Nothing acute since prior study. Pleural and interstitial change right lung base stable. Assessment & Plan - Diagnosis (1) Acute on chronic respiratory failure with hypoxia and hypercapnia Is this a current diagnosis for this admission?: Yes Plan: Patient will be admitted under COPD exacerbation protocol. Incentive spirometry twice a day. Scheduled DuoNeb's. As needed albuterol nebs. Prednisone. Antibiotics will consist of cefepime, and intravenous Levaquin and vancomycin. Pharmacy to assist with dosing. I have strongly encouraged patient not to get out of bed without notifying staff , to avoid a fall with injury. Knee high SCDs for DVT prophylaxis, along with subcutaneous Lovenox. Impression and plans were discussed with patient. Time spent in evaluation and management of patient: 65 minutes. (2) COPD exacerbation Is this a current diagnosis for this admission?: Yes (3) Elevated troponin Is this a current diagnosis for this admission?: Yes Plan: Unlikely acute coronary syndrome, but will trend troponins. (4) UTI (urinary tract infection) Qualifiers: Urinary tract infection type: site unspecified Is this a current diagnosis for this admission?: Yes Plan: Blood and urine cultures. Respiratory antibiotic should provide adequate coverage. (5) DNR (do not resuscitate) Is this a current diagnosis for this admission?: Yes Plan: Implications of DO NOT RESUSCITATE/DO NOT INTUBATE status discussed with patient. Discussed in layperson's terms. Implications understood. Patient is the health care decision maker. Patient desires DO NOT RESUSCITATE/DO NOT INTUBATE status, as has been the case in previous admissions. Will honor patient wishes. His emergency room nurse Vanda is present during this discussion. Emergency room physicians also concurred patient desires DNR/DNI status. (6) Medical non-compliance Is this a current diagnosis for this admission?: Yes - Time Time Spent: 50 to 70 Minutes Medications reviewed and adjusted accordingly: Yes Anticipated discharge: Home Within: within 72 hours - Inpatient Certification Based on my medical assessment, after consideration of the patient's comorbidities, presenting symptoms, or acuity I expect that the services needed warrant INPATIENT care.: Yes I certify that my determination is in accordance with my understanding of Medicare's requirements for reasonable and necessary INPATIENT services [42 CFR 412.3e].: Yes Medical Necessity: Significant Comorbidiites Make Outpatient Treatment Too Risky , Need Close Monitoring Due to Risk of Patient Decompensation, Need For Continuous Telemetry Monitoring, Need for Nebulizer Therapy and Monitoring of Response, Need for IV Antibiotics, Risk of Complication if Not Cared For in Hospital Post Hospital Care: D/C or Transfer Summary
[2017-01-07] MEDS ORDERED: LEVOFLOXACIN 750 MG/D5W RTU 750 MG/150 ML RTUPB IV ONE
[2017-01-07 00:01] LABS: ADD ON TESTING BLD IN LAB ACKNOWLEDGE
[2017-01-07 00:12] LABS: MAGNESIUM 2.1 mg/dL (1.6-2.3)
[2017-01-07 02:01] LABS: VENOUS BLOOD BASE EXCESS 3.5 mmol/L; VENOUS BLOOD HCO3 28.4 mmol/L (20-32); VENOUS BLOOD PCO2 43.9 mmHg (35-63); VENOUS BLOOD PH 7.43 (7.30-7.42)
[2017-01-07 06:36] LABS: VENOUS BLOOD BASE EXCESS 5.9 mmol/L; VENOUS BLOOD HCO3 30.9 mmol/L (20-32); VENOUS BLOOD PCO2 46.2 mmHg (35-63); VENOUS BLOOD PH 7.44 (7.30-7.42)
[2017-01-07 06:38] LABS: HEMOGLOBIN 12.5 g/dL (13.5-17.0); HGB HCT DIFFERENCE -0.5; MEAN CORPUSCULAR HEMOGLOBIN 28.8 pg (27.0-33.4); MEAN CORPUSCULAR HGB CONC 32.9 g/dL (32.0-36.0); MEAN CORPUSCULAR VOLUME 88 fl (80-97); RED BLOOD COUNT 4.34 10^6/uL (4.35-5.55); RED CELL DISTRIBUTION WIDTH 17.4 % (11.5-14.0); WHITE BLOOD COUNT 21.2 10^3/uL (4.0-10.5)
[2017-01-07 06:46] LABS: ANION GAP 9 (5-19); BLOOD UREA NITROGEN 46 mg/dL (7-20); CALCIUM 8.8 mg/dL (8.4-10.2); CARBON DIOXIDE 28 mmol/L (22-30); CHLORIDE 101 mmol/L (98-107); GLUCOSE 167 mg/dL (75-110); POTASSIUM 4.4 mmol/L (3.6-5.0); SODIUM 137.9 mmol/L (137-145)
[2017-01-07 07:11] LABS: BAND NEUTROPHILS % (MANUAL) 1 % (3-5); BASOPHILS % (MANUAL) 0 % (0-2); EOSINOPHILS % (MANUAL) 0 % (0-6); LYMPHOCYTES % (MANUAL) 3 % (13-45); TOTAL CELLS COUNTED 100
[2017-01-07 07:14] LABS: ANISOCYTOSIS 1+; OVALOCYTES SLIGHT; POIKILOCYTOSIS SLIGHT; TARGET CELLS SLIGHT; TOXIC GRANULATION SLIGHT
[2017-01-07] MEDS: IPRATROPIUM/ALBUTEROL 0.5-2.5 MG/3 ML AMPUL NEB SCH ×3 (07:55→20:44)
[2017-01-07] MEDS: ENOXAPARIN SODIUM INJ 40 MG/0.4 ML DISP.SYRIN SUBCUT SCH (09:22)
[2017-01-07] MEDS: LOSARTAN POTASSIUM 50 MG TABLET PO SCH (09:22)
[2017-01-07] MEDS: CEFEPIME 2 GM/D5W RTU 2 GM/50 ML RTUPB IV SCH ×2 (09:22→21:11)
[2017-01-07] MEDS ORDERED: PREDNISONE 20 MG TABLET PO SCH (10:00)
[2017-01-07] MEDS ORDERED: HYDRALAZINE HCL INJ/PF 20 MG/1 ML SDV IV PRN (10:22)
[2017-01-07] MEDS: FUROSEMIDE INJ/PF 40 MG/4 ML SDV IV SCH (11:36)
[2017-01-07] MEDS ORDERED: VANCOMYCIN HCL 750 MG in DEXTROSE 5%-WATER 250 ML IV ONE (12:00)
--- NOTE | 2017-01-07 13:27 | RADIOLOGY REPORT (SQ) ---
EXAM DESCRIPTION: CTA CHEST COMPLETED DATE/TIME: 01/07/2017 1:03 pm REASON FOR STUDY: sob, r/o pna or pe vs chf COMPARISON: Chest x-ray dated 01/06/2017. CT chest dated 11/11/2016. TECHNIQUE: CT scan of the chest performed using helical scanning technique with dynamic intravenous contrast injection. Images reviewed with lung, soft tissue and bone windows. Reconstructed coronal and sagittal MPR images reviewed. Additional 3 dimensional post-processing performed to develop Maximal Intensity Projection images (OR P). All images stored on PACS. All CT scanners at this facility use dose modulation, iterative reconstruction, and/or weight based d osing when appropriate to reduce radiation dose to as low as reasonably achievable (ALARA). [facility]: Dose Right [facility]: CareDose [facility]: Dose Right [facility]: Teradose 4D [facility]: [employer] CONTRAST TYPE AND DOSE: contrast/concentration: Isovue 370.00 mg/ml; Total Contrast Delivered: 60.0 ml; Total Saline Delivered: 105.1 ml Contrast bolus optimized for the pulmonary arteries. Not diagnostic for the aorta. RENAL FUNCTION: BUN 46 creatinine 1.0. RADIATION DOSE: Up-to-date CT equipment and radiation dose reduction techniques were employed. CTDIv ol: 7.0 - 15.0 mGy. DLP: 277 mGy-cm. . LIMITATIONS: None. FINDINGS: LUNGS AND PLEURA: Moderate right pleural effusion. Emphysematous changes with scattered a reas of scarring. Irregular pleural-based density in the posterior right upper lobe (series 4, image 10). This measures 1 x 2 cm and similar to the prior CT. Atelectasis versus infiltrate in the righ t lower lobe. Mild scarring and atelectasis in the left lung which is otherwise generally clear. AORTA AND GREAT VESSELS: No aneurysm. Contrast bolus not optimized for the aorta. HEART: No pericardial effusion. No significant coronary artery calcifications. PULMONARY ARTERIES: No emboli visualized in the main pulmonary arteries. There is poor filling of th e distal right and left lower lobe branches. A focal defect is not clearly defined. HILAR AND MEDIASTINAL STRUCTURES: No identified masses or abnormal nodes. HARDWARE: Pacemaker. Coronary bypass hardware. UPPER ABDOMEN: No significant findings. Limited exam. THYROID AND OTHER SOFT TISSUES: No masses. No adenopathy. BONES: No acute or significant finding. 3D MIPS: Confirm above findings. OTHER: No other significant finding. IMPRESSION: 1. POOR CONTRAST FILLING OF THE DISTAL RIGHT AND LEFT LOWER LOBE ARTERIAL BRANCHES. THIS COULD BE AR TIFACT DUE TO MOTION AND CONTRAST TIMING. DISTAL PULMONARY EMBOLI CANNOT BE ENTIRELY EXCLUDED. IF T HERE IS SUSPICION OF THE PRESENCE OF PULMONARY EMBOLI, THEN REPEAT STUDY MAY BE CONSIDERED. ALTERNAT IVELY, BILATERAL VENOUS DOPPLER OF THE LOWER EXTREMITIES MAY ALSO BE HELPFUL TO DETERMINE IF THERE IS ANY EVIDENCE OF PERIPHERAL DVT. 2. EMPHYSEMATOUS CHANGES. PLEURAL-BASED DENSITY IN THE POSTERIOR RIGHT UPPER LOBE SIMILAR TO THE PRE VIOUS STUDY. THIS IS PROBABLY DUE TO SCARRING. MALIGNANT PROCESS IS LESS LIKELY BUT IN THE DIFFEREN TIAL. IF THERE IS STRONG CLINICAL CONCERN, FOLLOW-UP WITH PET SCAN MAY BE CONSIDERED. 3. MODERATE RIGHT PLEURAL EFFUSION, UNCHANGED. RIGHT LOWER LOBE ATELECTASIS VERSUS INFILTRATE, ALSO GENERALLY UNCHANGED. COMMENT: Quality ID # [id number]: Final reports with documentation of one or more dose reduction techniques (e.g., Automated exposure control, adjustment of the mA and/or kV according to patient size, use of iterative reconstruction technique) TECHNICAL DOCUMENTATION: JOB ID: [id number] [employer]- All Rights Reserved
--- NOTE | 2017-01-07 14:17 | PDOC PROGRESS REPORT ---
Subjective Progress Note for:: 01/07/17 Subjective:: The patient states that he is extremely short of breath this morning and he really has not gotten any better since he came into the hospital. It is quite difficult to understand what he is saying to this review of systems is limited. He denies fever or chills. He states that he is having some chest pain especially when he coughs. He states he is extremely short of breath. He states he sometimes gets choked when he is trying to eat. He has had no nausea or vomiting. No abdominal pain. He cannot recall when he had a bowel movement. He has had no dysuria, frequency or hematuria. Physical Exam Vital Signs: Temp Pulse Resp BP Pulse Ox 97.6 F 59 L 32 H 148/70 H 98 01/07/17 11:42 01/07/17 11:42 01/07/17 11:42 01/07/17 11:42 01/07/17 11:42 Intake & Output 01/06/17 01/07/17 01/08/17 06:59 06:59 06:59 Intake Total 170 587 Balance 170 587 General appearance: PRESENT: disheveled, mild distress, thin Head exam: PRESENT: atraumatic, normocephalic Mouth exam: PRESENT: moist, tongue midline Respiratory exam: PRESENT: chest wall tenderness, other - The patient has coarse breath sounds throughout all lung hampton. He has some end expiratory wheezing as well.. ABSENT: accessory muscle use Cardiovascular exam: PRESENT: RRR. ABSENT: diastolic murmur, rubs, systolic murmur GI/Abdominal exam: PRESENT: normal bowel sounds, soft. ABSENT: distended, guarding, mass, organolmegaly, rebound, tenderness Rectal exam: PRESENT: deferred Extremities exam: PRESENT: full ROM. ABSENT: calf tenderness, clubbing, pedal edema Neurological exam: PRESENT: alert, awake, oriented to person, oriented to place , oriented to time, oriented to situation, CN II-XII grossly intact. ABSENT: motor sensory deficit Psychiatric exam: PRESENT: appropriate affect, normal mood. ABSENT: homicidal ideation, suicidal ideation Skin exam: PRESENT: dry, intact, warm. ABSENT: cyanosis, rash Results Laboratory Results: 01/07/17 06:23 01/07/17 06:23 01/07/17 01/07/17 01/07/17 01:50 06:23 06:23 WBC 21.2 H RBC 4.34 L Hgb 12.5 L Hct 38.0 MCV 88 MCH 28.8 MCHC 32.9 RDW 17.4 H Plt Count 211 Seg Neutrophils % Not Reportable Lymphocytes % Not Reportable Monocytes % Not Reportable Eosinophils % Not Reportable Basophils % Not Reportable Absolute Neutrophils Not Reportable Absolute Lymphocytes Not Reportable Absolute Monocytes Not Reportable Absolute Eosinophils Not Reportable Absolute Basophils Not Reportable VBG pH 7.43 H VBG pCO2 43.9 VBG HCO3 28.4 VBG Base Excess 3.5 Sodium 137.9 Potassium 4.4 Chloride 101 Carbon Dioxide 28 Anion Gap 9 BUN 46 H Creatinine 1.00 Est GFR ( Amer) > 60 Est GFR (Non-Af Amer) > 60 Glucose 167 H Calcium 8.8 01/07/17 06:23 WBC RBC Hgb Hct MCV MCH MCHC RDW Plt Count Seg Neutrophils % Lymphocytes % Monocytes % Eosinophils % Basophils % Absolute Neutrophils Absolute Lymphocytes Absolute Monocytes Absolute Eosinophils Absolute Basophils VBG pH 7.44 H VBG pCO2 46.2 VBG HCO3 30.9 VBG Base Excess 5.9 Sodium Potassium Chloride Carbon Dioxide Anion Gap BUN Creatinine Est GFR ( Amer) Est GFR (Non-Af Amer) Glucose Calcium 01/07/17 01/07/17 01/07/17 01:50 06:23 06:23 Troponin I 0.071 0.073 NT-Pro-B Natriuret Pep 25948 H Impressions: Chest X-Ray 01/06/17 17:36 IMPRESSION: Nothing acute since prior study. Pleural and interstitial change right lung base stable. Chest/Abdomen CTA 01/07/17 00:00 IMPRESSION: 1. POOR CONTRAST FILLING OF THE DISTAL RIGHT AND LEFT LOWER LOBE ARTERIAL BRANCHES. THIS COULD BE ARTIFACT DUE TO MOTION AND CONTRAST TIMING. DISTAL PULMONARY EMBOLI CANNOT BE ENTIRELY EXCLUDED. IF THERE IS SUSPICION OF THE PRESENCE OF PULMONARY EMBOLI, THEN REPEAT STUDY MAY BE CONSIDERED. ALTERNATIVELY, BILATERAL VENOUS DOPPLER OF THE LOWER EXTREMITIES MAY ALSO BE HELPFUL TO DETERMINE IF THERE IS ANY EVIDENCE OF PERIPHERAL DVT. 2. EMPHYSEMATOUS CHANGES. PLEURAL-BASED DENSITY IN THE POSTERIOR RIGHT UPPER LOBE SIMILAR TO THE PREVIOUS STUDY. THIS IS PROBABLY DUE TO SCARRING. MALIGNANT PROCESS IS LESS LIKELY BUT IN THE DIFFERENTIAL. IF THERE IS STRONG CLINICAL CONCERN, FOLLOW-UP WITH PET SCAN MAY BE CONSIDERED. 3. MODERATE RIGHT PLEURAL EFFUSION, UNCHANGED. RIGHT LOWER LOBE ATELECTASIS VERSUS INFILTRATE, ALSO GENERALLY UNCHANGED. Assessment & Plan - Diagnosis (1) Acute on chronic respiratory failure with hypoxia and hypercapnia Is this a current diagnosis for this admission?: Yes Plan: At this point the patient remains on 4 L of oxygen. His respiratory failure is multifactorial secondary to probable pneumonia, pleural effusion and COPD exacerbation. There may be an element of volume overload as well. The patient had a CT angiography of the chest today and pulmonary embolism cannot be ruled out as well. I am going to add a d-dimer onto this morning's blood work. If this is positive we will obtain lower extremity Dopplers for further evaluation. In the meantime we will continue oxygen support as needed. (2) Pneumonia Plan: Concerns for gram negatives and MRSA. At the time of admission he was started on broad-spectrum antibiotics with IV vancomycin, cefepime and Levaquin. He was recently hospitalized so we will continue this for now. This is the first full day of treatment. (3) Pleural effusion Plan: CT angiography reveals a moderate pleural effusion. Going to consult pulmonology for further recommendations. (4) COPD exacerbation Is this a current diagnosis for this admission?: Yes Plan: The patient has some mild wheezing. He received 125 mg of IV Solu-Medrol in the emergency room. At the time of admission he was placed on prednisone 60 mg daily. We will continue this for now. (5) Acute on chronic combined systolic and diastolic CHF (congestive heart failure) Plan: I believe the patient had some mild volume overload as well. He received 40 mg of IV Lasix this morning. I will have the nursing staff obtain accurate I's and O's and will make further decisions tomorrow. (6) Hypertensive urgency Plan: This morning the patient was on a nitroglycerin drip. This is since been stopped and he has IV hydralazine available as needed. He has been started on losartan. Currently his blood pressure is stable with a systolic pressure in the 150s. (7) AAA (abdominal aortic aneurysm) without rupture Plan: This really needs to be under surveillance. He is asymptomatic at this point. If we can get the patient to become compliant he would benefit from referral to vascular surgery as an outpatient to watch this as we go along. (8) History of urinary retention Plan: The patient states that sometimes he is incontinent. He states that 1 of the reasons he came to the emergency room was that he wanted to have the Cristina catheter placed. At this point we will have the nursing staff bladder scan him and we will place a Cristina catheter if he is greater than 300 cc postvoid residual. I will start the patient on Flomax. (9) Diabetes Plan: I will get an hemoglobin A1c in the morning. At this point he is being covered with sliding scale coverage. (10) Cerebrovascular disease, arteriosclerotic, post-stroke Plan: The patient has a history of stroke with significant dysarthria. In light of his probable pneumonia I am going to get speech therapy to evaluate the patient. We look forward to their recommendations. - Time Time Spent with patient: 25-34 minutes - Inpatient Certification Based on my medical assessment, after consideration of the patient's comorbidities, presenting symptoms, or acuity I expect that the services needed warrant INPATIENT care.: Yes I certify that my determination is in accordance with my understanding of Medicare's requirements for reasonable and necessary INPATIENT services [42 CFR 412.3e].: Yes Medical Necessity: Need Close Monitoring Due to Risk of Patient Decompensation, Need for IV Antibiotics - Inpatient hospitalization remains necessary. The patient has acute respiratory failure with significant medical noncompliance. He has evidence of pneumonia as well as a pleural effusion. He needs pulmonology evaluation and ongoing parenteral therapies. Timing of disposition will be determined by his clinical course.
[2017-01-07] MEDS: INSULIN LISPRO 100 UNIT/ML 3 ML VIAL SUBCUT PRN (18:42)
[2017-01-07] MEDS: TIOTROPIUM BROMIDE DPI 5 CAP/KIT (18 MCG/CAP) IH SCH (22:07)
[2017-01-07] MEDS: LEVOFLOXACIN 750 MG/D5W RTU 750 MG/150 ML RTUPB IV SCH (22:08)
[2017-01-07] MEDS: FLUTICASONE/SALMETEROL DISKUS 250-50 MCG/DOSE IH SCH (22:09)
[2017-01-07] MEDS: VANCOMYCIN HCL 750 MG in DEXTROSE 5%-WATER 250 ML IV SCH (23:22)
--- NOTE | 2017-01-07 23:22 | CONSULTATION REPORT E ---
Consultation Report NAME: TORSTEN MANZO : 1945 AGE: 71Y DATE: 01/07/2017 329 A TO: ISADORA ESTRELLA M.D. FROM: ADRIA WATTS M.D. Requesting Physician HISTORY OF PRESENT ILLNESS: Patient is a 71-year-old male with a past medical history of COPD and pleural effusion bilateral. The patient claims that he had a pleurocentesis done on his left side when he was at [facility] a few months ago. He did not remember the results. He came in with increased shortness of breath and wheezing and severe dyspnea. Complained about coughing yellow green phlegm, no hemoptysis noted, no chest pain. Admitted yesterday. Currently the patient still feels short of breath. Coughing yellow green phlegm. There was no fever for the last 24 hours. PAST MEDICAL HISTORY: 1. COPD. 2. Hypertension. 3. History of pleural effusion, bilateral. 4. History of atrial fibrillation. 5. Congestive heart failure. 6. Past history of pneumonia. 7. Past history of depression. 8. Arthritis. 9. Denies any history of diabetes or seizures, sleep apnea or tuberculosis. SOCIAL HISTORY: Denies any alcohol abuse or illicit drug use. Currently a heavy smoker. PAST SURGICAL HISTORY: The patient has a history of coronary artery bypass graft, orthopedic surgery, neck fusion, right and left hand surgery, pacemaker biventricular. ALLERGIES: None. HOME MEDICATIONS: None reported. REVIEW OF SYSTEMS: CONSTITUTIONAL: No fever reported, feeling weak, no jaundice. No nasal discharge. RESPIRATORY: Complains about increased shortness of breath, coughing yellow-green phlegm and worsening dyspnea. CARDIOVASCULAR: Has history of atrial fibrillation, congestive heart failure, and bilateral pleural effusion. GASTROINTESTINAL: No nausea, vomiting, or diarrhea. GENITOURINARY: No dysuria, hematuria or passing of stones. Past history of difficulty urinating requiring urinary catheterization. EXTREMITIES: No joint swelling or cellulitis. PHYSICAL EXAMINATION: GENERAL: Patient appeared awake, appeared to be coherent but words are muffled, currently appeared to be in slight respiratory distress. VITAL SIGNS: Afebrile with a temperature of 98.3 with a T-max of 98.3, pulse rate of 59, blood pressure 152/81, respiratory rate 14, saturation 96% on 3 L nasal cannula. EYES: No jaundice or pallor. EARS/NOSE/MOUTH/THROAT: No ear drainage noted. No nasal discharge. HEAD/NECK: No scalp tenderness. Neck is supple. CHEST/LUNGS: No wheezing. No rhonchi. No coarse crackles. CARDIOVASCULAR: S1, S2 distinct. Normal rate and regular rhythm. ABDOMEN: Flabby. Positive bowel sounds. Soft, nondistended, nontender. EXTREMITIES: No joint swelling, no cellulitis. LABORATORY: CBC done today showed a white count of 31.2, down from 34.4 yesterday, hemoglobin is 12.5, hematocrit is 38, platelet count 211, segmenters 91%, bands 1%. Chemistry done today showed sodium 137, potassium 4.4, chloride 101, CO2 28, BUN 46, creatinine 1, glucose is 167, blood sugar is 258. NT-BNP is 13,700. Chest CT scan done today, 01/07/2017, showed some pleural effusions bilaterally, more on the right than on the left side, infiltrate in the right lower lobe suspicious for pneumonic process. ASSESSMENT: 1. COPD IN ACUTE EXACERBATION. Currently appears to be improving. No *------* noted. 2. Bilateral pleural effusion, right more than left. Probably related to congestive heart failure. The patient has a history of bilateral pleural effusion in the past, and this one is slightly lesser. The right-sided pleural effusion was described on CT scan as moderate, but I think this is just mild and this mild pleural effusion, which is high risk for causing pneumothorax if drained through ultrasound-guided thoracentesis. We will start the patient on Spiriva inhaler 1 capsule to be inhaled daily. We will start the patient on Advair 250/50 Diskhaler 1 puff b.i.d. and we will continue the albuterol plus Atrovent nebulizer treatment every 6 hours. We cut down the prednisone to 40 mg daily starting tomorrow. We sent some sputum culture to look for bacterial etiology and for presence of atypical mycobacteria. Will consider possible ultrasound-guided thoracentesis if the pleural effusion worsened or increases on the current therapy. We will request for the recent discharge summary and medical records regarding the pleural fluid removed from the patient's chest at [facility]. DICTATING PHYSICIAN: ISADORA ESTRELLA MD,KAMILA,MPH [id number] PHY#: [id number] ID: [id number] JOB#: [id number] ACCT: [id number] cc:ISADORA ESTRELLA M.D. > DAMIAN
[2017-01-07] MEDS: ACETAMINOPHEN 325 MG TABLET PO PRN (23:25)
[2017-01-08] MEDS: ALBUTEROL SULFATE 0.083% NEB 2.5 MG/3 ML AMPUL NEB PRN (05:29)
[2017-01-08 05:37] LABS: HEMATOCRIT 36.6 % (37.9-51.0); HEMOGLOBIN 12.2 g/dL (13.5-17.0); MEAN CORPUSCULAR HGB CONC 33.3 g/dL (32.0-36.0); MEAN CORPUSCULAR VOLUME 87 fl (80-97); RED BLOOD COUNT 4.19 10^6/uL (4.35-5.55); RED CELL DISTRIBUTION WIDTH 17.1 % (11.5-14.0); WHITE BLOOD COUNT 19.1 10^3/uL (4.0-10.5)
[2017-01-08 05:50] LABS: ALBUMIN 2.9 g/dL (3.5-5.0); ANION GAP 9 (5-19); BLOOD UREA NITROGEN 56 mg/dL (7-20); CARBON DIOXIDE 29 mmol/L (22-30); CHLORIDE 98 mmol/L (98-107); CREATININE RESULT 1.56 mg/dL (0.52-1.25); GLUCOSE 130 mg/dL (75-110); POTASSIUM 3.9 mmol/L (3.6-5.0); SODIUM 135.5 mmol/L (137-145); TOTAL PROTEIN 5.4 g/dL (6.3-8.2)
[2017-01-08 05:51] LABS: ALANINE AMINOTRANSFERASE 40 U/L (21-72); ALKALINE PHOSPHATASE 91 U/L (38-126); ASPARTATE AMINO TRANSFERASE 26 U/L (17-59); BILIRUBIN,DIRECT 0.4 mg/dL (0.0-0.4); BILIRUBIN,TOTAL 0.6 mg/dL (0.2-1.3); CALCIUM 9.1 mg/dL (8.4-10.2); MAGNESIUM 2.1 mg/dL (1.6-2.3)
[2017-01-08 06:23] LABS: BASOPHILS % (MANUAL) 0 % (0-2); EOSINOPHILS % (MANUAL) 0 % (0-6); LYMPHOCYTES % (MANUAL) 3 % (13-45); TOTAL CELLS COUNTED 100
[2017-01-08 06:25] LABS: ANISOCYTOSIS 1+; HYPOCHROMASIA SLIGHT; OVALOCYTES SLIGHT; POLYCHROMASIA SLIGHT
[2017-01-08 06:26] LABS: POIKILOCYTOSIS SLIGHT
[2017-01-08] MEDS: IPRATROPIUM/ALBUTEROL 0.5-2.5 MG/3 ML AMPUL NEB SCH ×3 (07:38→19:50)
[2017-01-08] MEDS: PREDNISONE 20 MG TABLET PO SCH (09:32)
[2017-01-08] MEDS: LOSARTAN POTASSIUM 50 MG TABLET PO SCH (09:33)
[2017-01-08] MEDS: CEFEPIME 2 GM/D5W RTU 2 GM/50 ML RTUPB IV SCH ×2 (09:33→21:06)
[2017-01-08] MEDS: ENOXAPARIN SODIUM INJ 40 MG/0.4 ML DISP.SYRIN SUBCUT SCH (09:35)
[2017-01-08] MEDS: FLUTICASONE/SALMETEROL DISKUS 250-50 MCG/DOSE IH SCH ×2 (09:36→21:06)
[2017-01-08 09:37] LABS: CREATININE RESULT 1.55 mg/dL (0.52-1.25)
[2017-01-08] MEDS: ACETAMINOPHEN 325 MG TABLET PO PRN ×2 (09:56→21:04)
[2017-01-08] MEDS: FUROSEMIDE INJ/PF 40 MG/4 ML SDV IV SCH (10:39)
[2017-01-08] MEDS: VANCOMYCIN HCL 750 MG in DEXTROSE 5%-WATER 250 ML IV SCH ×2 (10:41→22:15)
--- NOTE | 2017-01-08 11:08 | PDOC PROGRESS REPORT ---
Subjective Progress Note for:: 01/08/17 Subjective:: The patient is resting in his bed this morning and seems to be feeling a little bit better. He states he is still quite short of breath with a cough. He was evaluated by speech therapy he did not feel and find any gross abnormalities on his swallowing exam. He denies fever chills overnight. No chest pain or heart palpitations. No nausea, vomiting or diarrhea. No abdominal pain. No bowel movement yet this morning. No dysuria, frequency or hematuria. Again it is quite difficult to understand the patient due to his underlying dysarthria but he does state he is improving. Physical Exam Vital Signs: Temp Pulse Resp BP Pulse Ox 98.1 F 60 26 H 177/77 H 100 01/08/17 07:46 01/08/17 07:46 01/08/17 07:46 01/08/17 07:46 01/08/17 07:46 Intake & Output 01/07/17 01/08/17 01/09/17 06:59 06:59 06:59 Intake Total 170 1704 Balance 170 1704 General appearance: PRESENT: no acute distress, disheveled, well-developed, well -nourished Head exam: PRESENT: atraumatic, normocephalic Mouth exam: PRESENT: moist, tongue midline Teeth exam: PRESENT: poor dentation Respiratory exam: PRESENT: rhonchi, other - The patient has coarse breath sounds throughout all lung hampton. No wheezing this morning. Cardiovascular exam: PRESENT: RRR. ABSENT: diastolic murmur, rubs, systolic murmur GI/Abdominal exam: PRESENT: normal bowel sounds, soft. ABSENT: distended, guarding, mass, organolmegaly, rebound, tenderness Rectal exam: PRESENT: deferred Extremities exam: PRESENT: full ROM. ABSENT: calf tenderness, clubbing, pedal edema Neurological exam: PRESENT: alert, awake, oriented to person, oriented to place , oriented to time, oriented to situation, CN II-XII grossly intact, other - The patient does have dysarthria. ABSENT: motor sensory deficit Psychiatric exam: PRESENT: appropriate affect, normal mood. ABSENT: homicidal ideation, suicidal ideation Skin exam: PRESENT: dry, intact, warm. ABSENT: cyanosis, rash Results Laboratory Results: 01/08/17 05:06 01/08/17 08:50 01/08/17 01/08/17 01/08/17 05:06 05:06 08:50 WBC 19.1 H RBC 4.19 L Hgb 12.2 L Hct 36.6 L MCV 87 MCH 29.0 MCHC 33.3 RDW 17.1 H Plt Count 188 Seg Neutrophils % Not Reportable Lymphocytes % Not Reportable Monocytes % Not Reportable Eosinophils % Not Reportable Basophils % Not Reportable Absolute Neutrophils Not Reportable Absolute Lymphocytes Not Reportable Absolute Monocytes Not Reportable Absolute Eosinophils Not Reportable Absolute Basophils Not Reportable Sodium 135.5 L Potassium 3.9 Chloride 98 Carbon Dioxide 29 Anion Gap 9 BUN 56 H Creatinine 1.56 H 1.55 H Est GFR ( Amer) 53 L 53 L Est GFR (Non-Af Amer) 44 L 44 L Glucose 130 H Calcium 9.1 Magnesium 2.1 Total Bilirubin 0.6 AST 26 ALT 40 Alkaline Phosphatase 91 Total Protein 5.4 L Albumin 2.9 L 01/07/17 01/07/17 01/07/17 01:50 06:23 06:23 Troponin I 0.071 0.073 NT-Pro-B Natriuret Pep 33638 H 01/08/17 05:06 Troponin I NT-Pro-B Natriuret Pep 7140 H Impressions: Chest X-Ray 01/06/17 17:36 IMPRESSION: Nothing acute since prior study. Pleural and interstitial change right lung base stable. Chest/Abdomen CTA 01/07/17 00:00 IMPRESSION: 1. POOR CONTRAST FILLING OF THE DISTAL RIGHT AND LEFT LOWER LOBE ARTERIAL BRANCHES. THIS COULD BE ARTIFACT DUE TO MOTION AND CONTRAST TIMING. DISTAL PULMONARY EMBOLI CANNOT BE ENTIRELY EXCLUDED. IF THERE IS SUSPICION OF THE PRESENCE OF PULMONARY EMBOLI, THEN REPEAT STUDY MAY BE CONSIDERED. ALTERNATIVELY, BILATERAL VENOUS DOPPLER OF THE LOWER EXTREMITIES MAY ALSO BE HELPFUL TO DETERMINE IF THERE IS ANY EVIDENCE OF PERIPHERAL DVT. 2. EMPHYSEMATOUS CHANGES. PLEURAL-BASED DENSITY IN THE POSTERIOR RIGHT UPPER LOBE SIMILAR TO THE PREVIOUS STUDY. THIS IS PROBABLY DUE TO SCARRING. MALIGNANT PROCESS IS LESS LIKELY BUT IN THE DIFFERENTIAL. IF THERE IS STRONG CLINICAL CONCERN, FOLLOW-UP WITH PET SCAN MAY BE CONSIDERED. 3. MODERATE RIGHT PLEURAL EFFUSION, UNCHANGED. RIGHT LOWER LOBE ATELECTASIS VERSUS INFILTRATE, ALSO GENERALLY UNCHANGED. Assessment & Plan - Diagnosis (1) Acute on chronic respiratory failure with hypoxia and hypercapnia Is this a current diagnosis for this admission?: Yes Plan: At this point the patient is still requiring 4 L of oxygen. He was seen by pulmonology yesterday who made some adjustments to his medications. We certainly appreciate their input. We will continue to try to wean him back on oxygen. It appears that the patient likely will need oxygen therapy at home however this is never been set up as he usually checks himself out of the hospital AMA. I have talked at length to the patient about that and he agrees to stay in the hospital so that we can get him set up for oxygen therapy at home as well as try to get him some home health services as well. (2) Pneumonia Plan: Concerns for gram negatives and MRSA. At the time of admission he was started on broad-spectrum antibiotics with IV vancomycin, cefepime and Levaquin. He was recently hospitalized so we will continue this for now. This is day #2 of treatment. He has been evaluated by speech therapy and they do not believe that he is having issues with dysphasia. (3) Pleural effusion Plan: CT angiography reveals a moderate pleural effusion. Pulmonology wants to follow this. I will obtain a chest x-ray in the morning to see if we have made improvement with diuresis or if his pleural effusion is worsening. (4) COPD exacerbation Is this a current diagnosis for this admission?: Yes Plan: The patient has some mild wheezing. He received 125 mg of IV Solu-Medrol in the emergency room. At the time of admission he was placed on prednisone 60 mg daily. This was decreased to 40 mg yesterday. The patient really is not wheezing at this point. This can likely be rapidly tapered and stopped.. (5) Acute on chronic combined systolic and diastolic CHF (congestive heart failure) Plan: The patient had some mild volume overload. BNP is improving. He has been diuresed for the past 2 days with IV Lasix. I am going to change him over to 20 mg of p.o. Lasix starting tomorrow morning. (6) Hypertensive urgency Plan: Initially the patient was on a nitroglycerin drip which has since been stopped. He was started on losartan yesterday. I am going to add p.o. hydralazine to his regimen today. He will continue to have IV hydralazine available as needed. His blood pressure is somewhat improved. (7) AAA (abdominal aortic aneurysm) without rupture Plan: This really needs to be under surveillance. He is asymptomatic at this point. If we can get the patient to become compliant he would benefit from referral to vascular surgery as an outpatient to watch this as we go along. (8) History of urinary retention Plan: The patient states that sometimes he is incontinent. He states that one of the reasons he came to the emergency room was that he wanted to have a Cristina catheter placed. The nursing staff has been bladder scanning him and he is not retaining enough urine to place a Cristina catheter. He was started on Flomax yesterday. (9) Diabetes Plan: I will get an hemoglobin A1c in the morning. At this point he is being covered with sliding scale coverage. (10) Cerebrovascular disease, arteriosclerotic, post-stroke Plan: The patient has a history of stroke with significant dysarthria. He is not on an aspirin at this point. I am not sure why other than may be noncompliance. I am going to start him on a baby aspirin today. He was evaluated by speech therapy he does not feel as if he has any significant issues with dysphasia. - Time Time Spent with patient: 25-34 minutes - Inpatient Certification Medical Necessity: Significant Comorbidiites Make Outpatient Treatment Too Risky - Inpatient hospitalization remains necessary. This patient has acute on chronic renal failure and has a known history of medical noncompliance. He has pneumonia as well as pleural effusion and he is requiring parenteral therapies. Timing of disposition will be determined by his clinical course., Need Close Monitoring Due to Risk of Patient Decompensation, Need for IV Antibiotics
[2017-01-08] MEDS ORDERED: ASPIRIN 81 MG TABLET, CHEWABLE PO ONE (11:30)
[2017-01-08] MEDS: INSULIN LISPRO 100 UNIT/ML 3 ML VIAL SUBCUT PRN ×3 (12:37→22:21)
[2017-01-08 14:49] LABS: APPEARANCE,URINE SLIGHTLY-CLOUDY; BILIRUBIN,URINE NEGATIVE (NEGATIVE); GLUCOSE, URINE NEGATIVE (NEGATIVE); KETONES,URINE NEGATIVE (NEGATIVE); LEUKOCYTE ESTERASE,URINE TRACE (NEGATIVE); NITRITE,URINE NEGATIVE (NEGATIVE); PROTEIN,URINE 100 mg/dL (NEGATIVE); URINE SPECIFIC GRAVITY 1.008; UROBILINOGEN,URINE NEGATIVE mg/dL (<2.0)
[2017-01-08] MEDS: HYDRALAZINE HCL 25 MG TABLET PO SCH ×2 (14:58→21:03)
[2017-01-08] MEDS: TIOTROPIUM BROMIDE DPI 5 CAP/KIT (18 MCG/CAP) IH SCH (21:03)
[2017-01-08] MEDS: LEVOFLOXACIN 750 MG/D5W RTU 750 MG/150 ML RTUPB IV SCH (21:07)
[2017-01-09 05:34] LABS: HEMATOCRIT 39.8 % (37.9-51.0); HEMOGLOBIN 12.7 g/dL (13.5-17.0); HGB HCT DIFFERENCE -1.7; MEAN CORPUSCULAR VOLUME 88 fl (80-97); RED BLOOD COUNT 4.54 10^6/uL (4.35-5.55); RED CELL DISTRIBUTION WIDTH 17.3 % (11.5-14.0); WHITE BLOOD COUNT 15.8 10^3/uL (4.0-10.5)
[2017-01-09] MEDS: HYDRALAZINE HCL 25 MG TABLET PO SCH ×3 (05:38→22:52)
[2017-01-09] MEDS: ALBUTEROL SULFATE 0.083% NEB 2.5 MG/3 ML AMPUL NEB PRN (05:44)
[2017-01-09 05:48] LABS: ALANINE AMINOTRANSFERASE 48 U/L (21-72); ALBUMIN 3.2 g/dL (3.5-5.0); ALKALINE PHOSPHATASE 106 U/L (38-126); ANION GAP 9 (5-19); ASPARTATE AMINO TRANSFERASE 29 U/L (17-59); BILIRUBIN,DIRECT 0.4 mg/dL (0.0-0.4); BILIRUBIN,TOTAL 0.6 mg/dL (0.2-1.3); BLOOD UREA NITROGEN 44 mg/dL (7-20); CALCIUM 9.4 mg/dL (8.4-10.2); CARBON DIOXIDE 32 mmol/L (22-30); CHLORIDE 96 mmol/L (98-107); CREATININE RESULT 1.19 mg/dL (0.52-1.25); GLUCOSE 117 mg/dL (75-110); MAGNESIUM 2.2 mg/dL (1.6-2.3); POTASSIUM 4.3 mmol/L (3.6-5.0); TOTAL PROTEIN 5.6 g/dL (6.3-8.2)
[2017-01-09 05:50] LABS: BASOPHILS % (MANUAL) 0 % (0-2); EOSINOPHILS % (MANUAL) 0 % (0-6); LYMPHOCYTES % (MANUAL) 3 % (13-45); TOTAL CELLS COUNTED 100
[2017-01-09 05:52] LABS: ANISOCYTOSIS 1+; OVALOCYTES SLIGHT; POIKILOCYTOSIS SLIGHT; TOXIC GRANULATION SLIGHT
[2017-01-09] MEDS: IPRATROPIUM/ALBUTEROL 0.5-2.5 MG/3 ML AMPUL NEB SCH ×4 (07:27→19:48)
[2017-01-09] MEDS: PREDNISONE 20 MG TABLET PO SCH (09:02)
[2017-01-09] MEDS: CEFEPIME 2 GM/D5W RTU 2 GM/50 ML RTUPB IV SCH ×2 (09:03→22:53)
[2017-01-09] MEDS: FLUTICASONE/SALMETEROL DISKUS 250-50 MCG/DOSE IH SCH ×2 (09:08→22:54)
[2017-01-09] MEDS: VANCOMYCIN HCL 750 MG in DEXTROSE 5%-WATER 250 ML IV SCH (09:39)
[2017-01-09] MEDS: LOSARTAN POTASSIUM 50 MG TABLET PO SCH (09:40)
[2017-01-09] MEDS: FUROSEMIDE 20 MG TABLET PO SCH (09:40)
[2017-01-09] MEDS ORDERED: ASPIRIN 81 MG TABLET, CHEWABLE PO SCH (10:00)
--- NOTE | 2017-01-09 10:07 | PDOC PROGRESS REPORT ---
Subjective Progress Note for:: 01/09/17 Subjective:: The patient is having an extremely difficult morning. Apparently he became extremely short of breath with respirations of about 36. His oxygen saturations were stable on 3 L of oxygen. He was placed on BiPAP by respiratory therapy. Yesterday afternoon the nursing staff informed me that the patient had developed gross hematuria. His aspirin and prophylactic Lovenox were stopped at that time. According to the nursing staff he is still having hematuria this morning. When I saw the patient he has BiPAP in place. It is very difficult to get a good review of systems. He states that he is having difficulty breathing. In reviewing his records his CT angiography could not rule out pulmonary embolism. A d-dimer obtained was positive. He is having venous Dopplers of his lower extremities as well as a VQ scan performed this morning. I explained to him that we will follow-up with those results. As far as review of systems goes all he can tell me is that he is quite short of breath. Physical Exam Vital Signs: Temp Pulse Resp BP Pulse Ox 97.8 F 74 18 178/57 H 99 01/09/17 07:48 01/09/17 08:00 01/09/17 08:00 01/09/17 07:48 01/09/17 08:00 Intake & Output 01/08/17 01/09/17 01/10/17 06:59 06:59 06:59 Intake Total 1704 1977 Output Total 1050 Balance 1704 927 Weight 60.8 kg General appearance: PRESENT: disheveled, mild distress, thin, other - Currently on BiPAP Head exam: PRESENT: atraumatic, normocephalic Eye exam: PRESENT: conjunctiva pink, EOMI, PERRLA. ABSENT: scleral icterus Mouth exam: PRESENT: other - I could not examine his oral mucosa. Teeth exam: PRESENT: poor dentation Respiratory exam: PRESENT: other - The patient has coarse breath sounds throughout all lung [place] anteriorly Cardiovascular exam: PRESENT: RRR. ABSENT: diastolic murmur, rubs, systolic murmur GI/Abdominal exam: PRESENT: normal bowel sounds, soft. ABSENT: distended, guarding, mass, organolmegaly, rebound, tenderness Rectal exam: PRESENT: deferred Extremities exam: PRESENT: calf tenderness Neurological exam: PRESENT: alert, altered, awake, oriented to person, oriented to place, oriented to time, other - He has dysarthria Psychiatric exam: PRESENT: anxious Skin exam: PRESENT: dry, intact, warm. ABSENT: cyanosis, rash Results Laboratory Results: 01/09/17 05:08 01/09/17 05:08 01/08/17 01/09/17 01/09/17 13:42 05:08 05:08 WBC 15.8 H RBC 4.54 Hgb 12.7 L Hct 39.8 MCV 88 MCH 28.0 MCHC 32.0 RDW 17.3 H Plt Count 183 Seg Neutrophils % Not Reportable Lymphocytes % Not Reportable Monocytes % Not Reportable Eosinophils % Not Reportable Basophils % Not Reportable Absolute Neutrophils Not Reportable Absolute Lymphocytes Not Reportable Absolute Monocytes Not Reportable Absolute Eosinophils Not Reportable Absolute Basophils Not Reportable Sodium 137.0 Potassium 4.3 Chloride 96 L Carbon Dioxide 32 H Anion Gap 9 BUN 44 H Creatinine 1.19 Est GFR ( Amer) > 60 Est GFR (Non-Af Amer) > 60 Glucose 117 H Calcium 9.4 Magnesium 2.2 Total Bilirubin 0.6 AST 29 ALT 48 Alkaline Phosphatase 106 Total Protein 5.6 L Albumin 3.2 L Urine Color RED Urine Appearance SLIGHTLY-CLOUDY Urine pH 6.0 Ur Specific [place] 1.008 Urine Protein 100 H Urine Glucose (UA) NEGATIVE Urine Ketones NEGATIVE Urine Blood LARGE H Urine Nitrite NEGATIVE Ur Leukocyte Esterase TRACE H Urine WBC (Auto) 7 Urine RBC (Auto) >182 01/07/17 01/07/17 01/07/17 01:50 06:23 06:23 Troponin I 0.071 0.073 NT-Pro-B Natriuret Pep 45727 H 01/08/17 01/09/17 05:06 05:08 Troponin I NT-Pro-B Natriuret Pep 7140 H 9070 H Impressions: Chest X-Ray 01/06/17 17:36 IMPRESSION: Nothing acute since prior study. Pleural and interstitial change right lung base stable. Chest/Abdomen CTA 01/07/17 00:00 IMPRESSION: 1. POOR CONTRAST FILLING OF THE DISTAL RIGHT AND LEFT LOWER LOBE ARTERIAL BRANCHES. THIS COULD BE ARTIFACT DUE TO MOTION AND CONTRAST TIMING. DISTAL PULMONARY EMBOLI CANNOT BE ENTIRELY EXCLUDED. IF THERE IS SUSPICION OF THE PRESENCE OF PULMONARY EMBOLI, THEN REPEAT STUDY MAY BE CONSIDERED. ALTERNATIVELY, BILATERAL VENOUS DOPPLER OF THE LOWER EXTREMITIES MAY ALSO BE HELPFUL TO DETERMINE IF THERE IS ANY EVIDENCE OF PERIPHERAL DVT. 2. EMPHYSEMATOUS CHANGES. PLEURAL-BASED DENSITY IN THE POSTERIOR RIGHT UPPER LOBE SIMILAR TO THE PREVIOUS STUDY. THIS IS PROBABLY DUE TO SCARRING. MALIGNANT PROCESS IS LESS LIKELY BUT IN THE DIFFERENTIAL. IF THERE IS STRONG CLINICAL CONCERN, FOLLOW-UP WITH PET SCAN MAY BE CONSIDERED. 3. MODERATE RIGHT PLEURAL EFFUSION, UNCHANGED. RIGHT LOWER LOBE ATELECTASIS VERSUS INFILTRATE, ALSO GENERALLY UNCHANGED. Assessment & Plan - Diagnosis (1) Acute on chronic respiratory failure with hypoxia and hypercapnia Is this a current diagnosis for this admission?: Yes Plan: At this point the patient has been placed on BiPAP. He has been seen by pulmonology but they did not get back to see him yesterday. At this point he has an elevated d-dimer and he is currently awaiting a VQ scan. He has had venous Dopplers performed this morning as well and we are waiting for those results. I am going to get a stat ABG. He does have an elevated BNP however it is improved since the time of admission. I am going to repeat a chest x-ray as well to see if his pleural effusion has worsened. He will continue BiPAP support. We will also initiate scheduled DuoNeb treatments. (2) Pneumonia Plan: Concerns for gram negatives and MRSA. At the time of admission he was started on broad-spectrum antibiotics with IV vancomycin, cefepime and Levaquin. He was recently hospitalized so we will continue this for now. This is day #3 of treatment. He has been evaluated by speech therapy and they do not believe that he is having issues with dysphasia. (3) Pleural effusion Plan: CT angiography reveals a moderate pleural effusion. I am going to repeat a chest x-ray this morning for further evaluation. He may need interventional radiology to perform thoracentesis. (4) COPD exacerbation Is this a current diagnosis for this admission?: Yes Plan: The patient is having worsening respiratory distress. I am going to place him back on IV Solu-Medrol to see if that would help with inflammation. He really is not wheezing at this point. (5) Acute on chronic combined systolic and diastolic CHF (congestive heart failure) Plan: The patient had some mild volume overload at the time of admission. BNP improved. He has been diuresed for the past 2 days with IV Lasix. I am going to change him over to 20 mg of p.o. Lasix starting this morning. I am going to repeat a chest x-ray and if he has worsening vascular congestion will place him back on IV Lasix. (6) Hypertensive urgency Plan: Initially the patient was on a nitroglycerin drip which has since been stopped. He has been started on losartan and p.o. hydralazine with some improvement. His levels are still elevated and I am going to increase his losartan to 100 mg daily today. He will continue hydralazine 25 mg 3 times daily. (7) AAA (abdominal aortic aneurysm) without rupture Plan: This really needs to be under surveillance. He is asymptomatic at this point. If we can get the patient to become compliant he would benefit from referral to vascular surgery as an outpatient to watch this as we go along. (8) History of urinary retention Plan: The patient states that sometimes he is incontinent. He states that one of the reasons he came to the emergency room was that he wanted to have a Cristina catheter placed. The nursing staff has been bladder scanning him and he is not retaining enough urine to place a Cristina catheter. He has been started on Flomax. (9) Gross hematuria Plan: He really needs urology evaluation. His aspirin as well as his Lovenox have been stopped. There are concerns the patient may have a blood clot which would be problematic. At this point I am going to hold off on urology evaluation until we stabilize his respiratory status. So far his hemoglobin has remained stable. (10) Diabetes Plan: Continue sliding scale coverage (11) Cerebrovascular disease, arteriosclerotic, post-stroke Plan: The patient has a history of stroke with significant dysarthria. I started the patient on a baby aspirin yesterday which immediately had to be stopped due to the patient developing hematuria. - Time Time Spent with patient: 35 or more minutes - Inpatient Certification Medical Necessity: Need Close Monitoring Due to Risk of Patient Decompensation, Need for IV Antibiotics, Other - Inpatient hospitalization remains necessary. This patient is not improving. Currently he remains on BiPAP with worsening respiratory status. He is now developed gross hematuria as well. He is requiring parenteral therapies and clearly further hospitalization is necessary.
[2017-01-09] MEDS ORDERED: HYDRALAZINE HCL INJ/PF 20 MG/1 ML SDV IV PRN (10:30)
--- NOTE | 2017-01-09 11:16 | RADIOLOGY REPORT (SQ) ---
EXAM DESCRIPTION: CHEST PA/LAT COMPLETED DATE/TIME: 01/09/2017 11:02 am REASON FOR STUDY: ELEV D-DIMER, HYPOXIA, TACHYCARDIA ALSO FOR NM VQ SCAN COMPARISON: 01/06/2019. NUMBER OF VIEWS: Two view. TECHNIQUE: Frontal and lateral radiographic views of the chest acquired. LIMITATIONS: None. FINDINGS: LUNGS AND PLEURA: Right basilar density with right pleural effusion unchanged. Left lung relatively clear. Probable small left pleural effusion. Attenuated blood vessels and flattened nita -diaphragms. MEDIASTINUM AND HILAR STRUCTURES: No masses. No contour abnormalities. HEART AND VASCULAR STRUCTURES: Heart upper limits of normal in size. No evidence for failure. BONES: No acute findings. HARDWARE: Pacemaker, sternotomy wires, coronary bypass markers. OTHER: No other significant finding. IMPRESSION: COPD. RIGHT BASILAR DENSITY WITH PLEURAL EFFUSION UNCHANGED. PROBABLE SMALL LEFT PLEUR AL EFFUSION. TECHNICAL DOCUMENTATION: JOB ID: [id number] [employer]- All Rights Reserved
--- NOTE | 2017-01-09 11:19 | RADIOLOGY REPORT (SQ) ---
EXAM DESCRIPTION: NM LUNG PERFUSION SCAN COMPLETED DATE/TIME: 01/09/2017 11:04 am REASON FOR STUDY: elevated d dimer, unequivical cta chest COMPARISON: Chest x-ray dated 01/09/2017. RADIONUCLIDE AND DOSE: 5.34 millicuries TC-99m MAA The route of agent administration: Intravenous TECHNIQUE: Eight views of the lungs acquired following injection of MAA. LIMITATIONS: None. FINDINGS: PERFUSION: Heterogenous activity throughout both lungs. Decreased activity in the right b ase secondary to pleural effusion. Artifact secondary to position of the patient's arms.. OTHER: No other significant finding. IMPRESSION: HETEROGENOUS ACTIVITY THROUGHOUT BOTH LUNGS CONSISTENT WITH UNDERLYING LUNG DISEASE. AR EAS OF DECREASED ACTIVITY DUE TO ARTIFACT FROM THE PATIENT'S ARMS WELL RIGHT PLEURAL EFFUSION D EMONSTRATED ON CHEST X-RAY AND CT. OTHERWISE NO SIGNIFICANT DEFECTS. LOW PROBABILITY OF PULMONARY E MBOLISM. TECHNICAL DOCUMENTATION: JOB ID: [id number] [employer]- All Rights Reserved
[2017-01-09] MEDS: INSULIN LISPRO 100 UNIT/ML 3 ML VIAL SUBCUT PRN ×2 (13:11→22:53)
[2017-01-09] MEDS: METHYLPREDNISOLONE INJ 40 MG/1 ML SDV IV SCH ×2 (13:11→22:53)
[2017-01-09 13:30] LABS: ARTERIAL BLOOD BASE EXCESS 5.8 mmol/L; ARTERIAL BLOOD O2 SATURATION 93.8 % (94-98)
--- NOTE | 2017-01-09 14:05 | XCELERA REPORT ---
[address] [address] Lower Extremity Venous Evaluation Name: TORSTEN MANZO JR Age: 71 yrs Gender: Male : 1945 Patient Status: Inpatient Patient Location: [address] [place] [address] Study Date: 01/09/2017 09:15 AM Procedure: Color flow and duplex imaging bilaterally of the veins of the lower extremities as well as the Common Femoral veins. Reason For Study: elevated ddimer Ordering Physician: ALVA KOHLI Performed By: Tara Meza Right Sided Venous Evaluation Non compressible, no flow in Short Saphenous vein. Otherwise normal vessel filling wall to wall, compression and augmentation as well as Colour flow down to the infrageniculate veins. Left Sided Venous Evaluation Normal vessel filling wall to wall, compression and augmentation as well as Colour flow down to the infrageniculate veins. Interpretation Summary No duplex evidence of DVT or obstruction in the bilateral lower extremities. Superficial phlebitis in the Short Saphenous vein, on the right,noted. : ALVA KOHLI > Michael Gustafson
[2017-01-09] MEDS: TIOTROPIUM BROMIDE DPI 5 CAP/KIT (18 MCG/CAP) IH SCH (22:55)
[2017-01-09] MEDS: LEVOFLOXACIN 750 MG/D5W RTU 750 MG/150 ML RTUPB IV SCH (23:42)
[2017-01-10] MEDS: IPRATROPIUM/ALBUTEROL 0.5-2.5 MG/3 ML AMPUL NEB SCH ×7 (00:25→23:56)
[2017-01-10] MEDS: VANCOMYCIN HCL 750 MG in DEXTROSE 5%-WATER 250 ML IV SCH ×2 (01:29→10:43)
[2017-01-10 05:09] LABS: HEMATOCRIT 39.6 % (37.9-51.0); HEMOGLOBIN 13.1 g/dL (13.5-17.0); HGB HCT DIFFERENCE -0.3; MEAN CORPUSCULAR HEMOGLOBIN 29.1 pg (27.0-33.4); MEAN CORPUSCULAR HGB CONC 33.1 g/dL (32.0-36.0); MEAN CORPUSCULAR VOLUME 88 fl (80-97); RED BLOOD COUNT 4.51 10^6/uL (4.35-5.55); RED CELL DISTRIBUTION WIDTH 17.5 % (11.5-14.0); WHITE BLOOD COUNT 12.5 10^3/uL (4.0-10.5)
[2017-01-10 05:17] LABS: ANION GAP 9 (5-19); BLOOD UREA NITROGEN 48 mg/dL (7-20); CALCIUM 9.6 mg/dL (8.4-10.2); CARBON DIOXIDE 29 mmol/L (22-30); CHLORIDE 95 mmol/L (98-107); CREATININE RESULT 1.04 mg/dL (0.52-1.25); GLUCOSE 166 mg/dL (75-110); MAGNESIUM 2.2 mg/dL (1.6-2.3); POTASSIUM 4.8 mmol/L (3.6-5.0); SODIUM 132.7 mmol/L (137-145)
[2017-01-10 06:11] LABS: BAND NEUTROPHILS % (MANUAL) 1 % (3-5); BASOPHILS % (MANUAL) 0 % (0-2); EOSINOPHILS % (MANUAL) 0 % (0-6); LYMPHOCYTES % (MANUAL) 1 % (13-45); TOTAL CELLS COUNTED 100
[2017-01-10 06:12] LABS: ANISOCYTOSIS 1+; TOXIC GRANULATION 1+; TOXIC VACUOLATION PRESENT
[2017-01-10] MEDS: HYDRALAZINE HCL 25 MG TABLET PO SCH ×3 (06:24→22:07)
[2017-01-10] MEDS: METHYLPREDNISOLONE INJ 40 MG/1 ML SDV IV SCH ×2 (06:25→22:03)
[2017-01-10] MEDS: INSULIN LISPRO 100 UNIT/ML 3 ML VIAL SUBCUT PRN ×3 (08:11→22:14)
[2017-01-10 08:26] LABS: PARTIAL THROMBOPLASTIN TIME 28.7 SEC (23.5-35.8); PROTHROMBIN TIME 13.3 SEC (11.4-15.4)
[2017-01-10] MEDS: FLUTICASONE/SALMETEROL DISKUS 250-50 MCG/DOSE IH SCH ×2 (10:43→22:12)
[2017-01-10] MEDS: LOSARTAN POTASSIUM 50 MG TABLET PO SCH (10:43)
[2017-01-10] MEDS: FUROSEMIDE 20 MG TABLET PO SCH (10:43)
--- NOTE | 2017-01-10 11:49 | PDOC PROGRESS REPORT ---
Subjective Progress Note for:: 01/10/17 Subjective:: The patient is an unfortunate 71-year-old male with a past medical history significant for systolic and diastolic congestive heart failure and worsening COPD. He also has a history of a CVA in the past with significant dysarthria making communication quite difficult. The patient has a history of medical noncompliance and has checked himself out of the hospital before AMA. The patient presented to the emergency room with respiratory distress. He had markedly elevated blood pressure and a probable COPD exacerbation. He also was found to have evidence of pneumonia. He was started on broad-spectrum IV antibiotics by the admitting physician. The next day the patient had a CT angiography obtained which did reveal evidence of pneumonia as well as severe COPD. He also had a moderate right-sided pleural effusion noted. A pulmonary embolus could not be ruled out. He subsequently had an elevated d-dimer and had venous Dopplers of his lower extremities as well as a VQ scan both of which were unremarkable. In addition the patient had a markedly elevated BNP and he has been diuresed with IV Lasix. In spite of all of this the patient's respiratory status worsened yesterday and he spent most of the day on BiPAP. He has thoracentesis ordered but has not yet been performed. Today when I saw the patient he has been weaned off of BiPAP. Physical therapy has gotten him up and he is sitting in a chair and he actually looks a lot better than he did yesterday. Again communication is quite difficult but he states that he is breathing easier. He states his cough is improving as well. Review of systems again is quite limited. He is able to tell me that he plans to stay in the hospital until we discharg him as he knows that he will need oxygen at the time of discharge and feels like he has needed it for quite some time. He also states that he would like to get home health services and possible nurses aids set up to help him in the home. He states he has a very difficult time taking a bath. He does have a female friend that he lives with at home but I believe she is in fairly poor health herself. Physical Exam Vital Signs: Temp Pulse Resp BP Pulse Ox 97.9 F 67 19 148/49 H 96 01/10/17 07:28 01/10/17 07:28 01/10/17 07:28 01/10/17 07:28 01/10/17 07:28 Intake & Output 01/09/17 01/10/17 01/11/17 06:59 06:59 06:59 Intake Total 1977 1114 Output Total 1050 1600 Balance 927 -486 Weight 60.8 kg General appearance: PRESENT: cooperative, disheveled, other - He has significant dysarthria making communication quite difficult. ABSENT: no acute distress Head exam: PRESENT: atraumatic, normocephalic Mouth exam: PRESENT: moist, tongue midline Respiratory exam: PRESENT: crackles - He has some fine crackles in the lower bases bilaterally, rhonchi - He has some scattered coarse rhonchi. ABSENT: wheezes Cardiovascular exam: PRESENT: RRR. ABSENT: diastolic murmur, rubs, systolic murmur GI/Abdominal exam: PRESENT: normal bowel sounds, soft. ABSENT: distended, guarding, mass, organolmegaly, rebound, tenderness Rectal exam: PRESENT: deferred Extremities exam: PRESENT: full ROM. ABSENT: calf tenderness, clubbing, pedal edema Neurological exam: PRESENT: alert, awake, oriented to person, oriented to place , oriented to time, oriented to situation, CN II-XII grossly intact, other - He has significant dysarthria. ABSENT: motor sensory deficit Psychiatric exam: PRESENT: appropriate affect, normal mood. ABSENT: homicidal ideation, suicidal ideation Skin exam: PRESENT: dry, intact, warm. ABSENT: cyanosis, rash Results Laboratory Results: 01/10/17 04:26 01/10/17 04:26 01/09/17 01/09/17 01/10/17 11:50 18:10 04:26 WBC 12.5 H RBC 4.51 Hgb 13.1 L Hct 39.6 MCV 88 MCH 29.1 MCHC 33.1 RDW 17.5 H Plt Count 184 Seg Neutrophils % Not Reportable Lymphocytes % Not Reportable Monocytes % Not Reportable Eosinophils % Not Reportable Basophils % Not Reportable Absolute Neutrophils Not Reportable Absolute Lymphocytes Not Reportable Absolute Monocytes Not Reportable Absolute Eosinophils Not Reportable Absolute Basophils Not Reportable Carbonic Acid 1.68 H HCO3/H2CO3 Ratio 19:1 ABG pH 7.38 ABG pCO2 55.9 H ABG pO2 71.5 L ABG HCO3 32.5 H ABG O2 Saturation 93.8 L ABG Base Excess 5.8 FiO2 3L Sodium Potassium 4.8 Chloride Carbon Dioxide Anion Gap BUN Creatinine Est GFR ( Amer) Est GFR (Non-Af Amer) Glucose Calcium Magnesium 01/10/17 04:26 WBC RBC Hgb Hct MCV MCH MCHC RDW Plt Count Seg Neutrophils % Lymphocytes % Monocytes % Eosinophils % Basophils % Absolute Neutrophils Absolute Lymphocytes Absolute Monocytes Absolute Eosinophils Absolute Basophils Carbonic Acid HCO3/H2CO3 Ratio ABG pH ABG pCO2 ABG pO2 ABG HCO3 ABG O2 Saturation ABG Base Excess FiO2 Sodium 132.7 L Potassium 4.8 Chloride 95 L Carbon Dioxide 29 Anion Gap 9 BUN 48 H Creatinine 1.04 Est GFR ( Amer) > 60 Est GFR (Non-Af Amer) > 60 Glucose 166 H Calcium 9.6 Magnesium 2.2 01/09/17 23:00 Sputum Gram Stain - Final 01/09/17 23:00 Sputum Sputum Culture - Final 01/07/17 01/07/17 01/07/17 01:50 06:23 06:23 Troponin I 0.071 0.073 NT-Pro-B Natriuret Pep 18776 H 01/08/17 01/09/17 05:06 05:08 Troponin I NT-Pro-B Natriuret Pep 7140 H 9070 H Impressions: Chest/Abdomen CTA 01/07/17 00:00 IMPRESSION: 1. POOR CONTRAST FILLING OF THE DISTAL RIGHT AND LEFT LOWER LOBE ARTERIAL BRANCHES. THIS COULD BE ARTIFACT DUE TO MOTION AND CONTRAST TIMING. DISTAL PULMONARY EMBOLI CANNOT BE ENTIRELY EXCLUDED. IF THERE IS SUSPICION OF THE PRESENCE OF PULMONARY EMBOLI, THEN REPEAT STUDY MAY BE CONSIDERED. ALTERNATIVELY, BILATERAL VENOUS DOPPLER OF THE LOWER EXTREMITIES MAY ALSO BE HELPFUL TO DETERMINE IF THERE IS ANY EVIDENCE OF PERIPHERAL DVT. 2. EMPHYSEMATOUS CHANGES. PLEURAL-BASED DENSITY IN THE POSTERIOR RIGHT UPPER LOBE SIMILAR TO THE PREVIOUS STUDY. THIS IS PROBABLY DUE TO SCARRING. MALIGNANT PROCESS IS LESS LIKELY BUT IN THE DIFFERENTIAL. IF THERE IS STRONG CLINICAL CONCERN, FOLLOW-UP WITH PET SCAN MAY BE CONSIDERED. 3. MODERATE RIGHT PLEURAL EFFUSION, UNCHANGED. RIGHT LOWER LOBE ATELECTASIS VERSUS INFILTRATE, ALSO GENERALLY UNCHANGED. Chest X-Ray 01/09/17 00:00 IMPRESSION: COPD. RIGHT BASILAR DENSITY WITH PLEURAL EFFUSION UNCHANGED. PROBABLE SMALL LEFT PLEURAL EFFUSION. Lung Scan-VQ NM 01/09/17 00:00 IMPRESSION: HETEROGENOUS ACTIVITY THROUGHOUT BOTH LUNGS CONSISTENT WITH UNDERLYING LUNG DISEASE. AREAS OF DECREASED ACTIVITY DUE TO ARTIFACT FROM THE PATIENT'S ARMS WELL RIGHT PLEURAL EFFUSION DEMONSTRATED ON CHEST X-RAY AND CT. OTHERWISE NO SIGNIFICANT DEFECTS. LOW PROBABILITY OF PULMONARY EMBOLISM. Assessment & Plan - Diagnosis (1) Acute on chronic respiratory failure with hypoxia and hypercapnia Is this a current diagnosis for this admission?: Yes Plan: The patient has likely needed oxygen for quite some time but has checked himself out of the hospital AMA on his past few visits before this could be set up. I have discussed this at length with the patient and he agrees to stay as he knows that he needs oxygen at home. He has been quite cooperative during this hospitalization. His acute respiratory failure is multifactorial in nature secondary to pneumonia, COPD exacerbation, congestive heart failure exacerbation and pleural effusion. His respiratory status is improved today. Therapy will be outlined below. (2) Pneumonia Plan: Concerns for gram negatives and MRSA. At the time of admission he was started on broad-spectrum antibiotics with IV vancomycin, cefepime and Levaquin. He was recently hospitalized so we will continue this for now. This is day #4 of treatment. His antibiotic therapy can likely be narrowed tomorrow. He has been evaluated by speech therapy and they do not believe that he is having issues with dysphagia. (3) Pleural effusion Plan: CT angiography reveals a moderate pleural effusion. The patient will undergo a thoracentesis today. Appropriate lab studies as well as cytology have been ordered on his pleural fluid. (4) COPD exacerbation Is this a current diagnosis for this admission?: Yes Plan: He was started on Solu-Medrol 40 mg every 8 hours. I am going to change this to every 12 hours today as his wheezing is greatly improved. Hopefully he can be changed over to oral prednisone in the near future and a quick taper can be performed. (5) Acute on chronic combined systolic and diastolic CHF (congestive heart failure) Plan: The patient had some mild volume overload at the time of admission. BNP has improved. He has been diuresed with IV Lasix. He has been changed over to 20 mg of p.o. Lasix daily. Currently he does not appear to be acutely volume overloaded. (6) Hypertensive urgency Plan: Initially the patient was on a nitroglycerin drip which has since been stopped. He has been started on losartan and p.o. hydralazine with some improvement. He will continue losartan 100 mg daily. I am going to increase his hydralazine to 50 mg every 8 hours today. (7) AAA (abdominal aortic aneurysm) without rupture Plan: This really needs to be under surveillance. He is asymptomatic at this point. If we can get the patient to become compliant he would benefit from referral to vascular surgery as an outpatient to watch this as we go along. (8) History of urinary retention Plan: The patient states that sometimes he is incontinent. He states that one of the reasons he came to the emergency room was that he wanted to have a Cristina catheter placed. The nursing staff has been bladder scanning him and initially he was not retaining enough urine to place a Cristina catheter. He has been started on Flomax. Yesterday however the patient developed hematuria and had borderline high post void residuals. A Cristina catheter was placed. (9) Gross hematuria Plan: He really needs urology evaluation. His aspirin as well as his Lovenox have been stopped. Unfortunately we have nobody coconut cooker for urology today. This will likely need to be looked into prior to discharge due to his history of noncompliance. I believe it is just that he does not have any resources at home and no way to get to appointments. (10) Diabetes Plan: Continue sliding scale coverage (11) Cerebrovascular disease, arteriosclerotic, post-stroke Plan: The patient has a history of stroke with significant dysarthria. I initially started the patient on a baby aspirin which immediately had to be stopped due to the patient developing hematuria. - Time Time Spent with patient: 25-34 minutes - Inpatient Certification Medical Necessity: Need Close Monitoring Due to Risk of Patient Decompensation, Need for IV Antibiotics, Risk of Complication if Not Cared For in Hospital - Inpatient hospitalization remains necessary. The patient has multiple issues. He is going to have a thoracentesis today. He is requiring IV antibiotics. He has hematuria with a Cristina catheter in place. He is at high risk of decompensation being sent out of the hospital as he has lack of resources and a history of medical noncompliance. Timing of disposition will be determined by his clinical course.
--- NOTE | 2017-01-10 12:21 | RADIOLOGY REPORT (SQ) ---
EXAM DESCRIPTION: CHEST SINGLE VIEW COMPLETED DATE/TIME: 01/10/2017 12:05 pm REASON FOR STUDY: S/P RT THORACENTESIS COMPARISON: CT chest 01/07/2017 Chest film 01/06/2017, 01/09/2017 EXAM PARAMETERS: NUMBER OF VIEWS: One view. TECHNIQUE: Single frontal radiographic view of the chest acquired. RADIATION DOSE: NA LIMITATIONS: None. FINDINGS: LUNGS AND PLEURA: Immediate post right thoracentesis chest film. No right pneumothorax. There is bandlike scarring or atelectasis at the right lung base, and chronic appearing volume loss i n the right lower lobe with elevated right hemidiaphragm. Left lung well inflated and clear. No left pleural effusion or pneumothorax. MEDIASTINUM AND HILAR STRUCTURES: No masses. Contour normal. HEART AND VASCULAR STRUCTURES: Moderate cardiomegaly. Old sternotomy and CABG. BONES: Old healed right lateral 4th rib fracture HARDWARE: Left pacemaker/defibrillator OTHER: No other significant finding. IMPRESSION: No pneumothorax post right thoracentesis TECHNICAL DOCUMENTATION: JOB ID: [id number]
--- NOTE | 2017-01-10 12:23 | RADIOLOGY REPORT (SQ) ---
EXAM DESCRIPTION: U/S THORACENTESIS WITH IMAGING COMPLETED DATE/TIME: 01/10/2017 12:11 pm REASON FOR STUDY: PLEURAL EFFUSION COMPARISON: AP chest 01/09/2017 LIMITATIONS: None. PROCEDURE: Procedure, risks, benefit, and alternative explained to patient who then gave written con sent. The posterior right chest wall was marked using ultrasound guidance. A time-out was called fo r correct marking verification. Chest prepped and draped using sterile technique. Local anesthesia a chieved using 5 ml of 1% lidocaine injection. A 6fr Safe-T- Centesis set was introduced into the rig ht pleural space. Fluid was aspirated. The catheter was removed and the entry site was covered with sterile bandage. No immediate complications noted. Fluid was sent for testing. Images acquired during the procedure were stored on PACS. FINDINGS: ENTRY SITE: Right posterior pleural space. FLUID VOLUME: 250 mL of cloudy pink fluid FLUID ANALYSIS: Yes, sent for testing OTHER: Post procedure chest x-ray dictated separately demonstrates no right pneumothorax IMPRESSION: SUCCESSFUL THORACENTESIS USING ULTRASOUND GUIDANCE. COMMENT: Patient medication list reviewed: Yes- Quality ID# [id number]:Eligible professional attests to doc umenting in the medical record they obtained, updated, or reviewed the patient's current medications. Quality ID #[id number]: Final reports for procedures using fluoroscopy that document radiation exposure cortes aliya, or exposure time and number of fluorographic images (if radiation exposure indices are not avail able) TECHNICAL DOCUMENTATION: JOB ID: [id number] [employer] All Rights Reserved
[2017-01-10] MEDS: CEFEPIME 2 GM/D5W RTU 2 GM/50 ML RTUPB IV SCH ×2 (13:06→22:04)
[2017-01-10 13:23] LABS: FLUID APPEARANCE CLOUDY; FLUID RBC SIDE 1 237; FLUID TYPE PLEURAL
[2017-01-10 13:24] LABS: FLUID RBC AVERAGE 248.5; FLUID RBC DILUENT USED NONE USED; FLUID RBC DILUTION FACTOR 1; FLUID RBC SIDE 2 260; TOTAL RBC SQUARES COUNTED FLD 25
--- NOTE | 2017-01-10 14:41 | RADIOLOGY REPORT (SQ) ---
EXAM DESCRIPTION: CHEST SINGLE VIEW COMPLETED DATE/TIME: 01/10/2017 2:29 pm REASON FOR STUDY: 2 HOURS S/P RT THORACENTESIS COMPARISON: 01/10/2017, 12 noon EXAM PARAMETERS: NUMBER OF VIEWS: One view. TECHNIQUE: Single frontal radiographic view of the chest acquired. RADIATION DOSE: NA LIMITATIONS: None. FINDINGS: LUNGS AND PLEURA: 2 hours post right thoracentesis. No pneumothorax. Chronic volume loss in the right lower lobe with scarring, and elevation right hemidiaphragm. Left lung well inflated and clear. No left pleural effusion or pneumothorax. MEDIASTINUM AND HILAR STRUCTURES: No masses. Contour normal. HEART AND VASCULAR STRUCTURES: Moderate cardiomegaly. Post CABG. BONES: No acute findings. HARDWARE: Left-sided pacemaker/defibrillator OTHER: No other significant finding. IMPRESSION: No pneumothorax 2 hours post right thoracentesis TECHNICAL DOCUMENTATION: JOB ID: [id number]
[2017-01-10] MEDS: TIOTROPIUM BROMIDE DPI 5 CAP/KIT (18 MCG/CAP) IH SCH (22:10)
[2017-01-10] MEDS: DOXYCYCLINE HYCLATE 100 MG in DEXTROSE 5%-WATER 250 ML IV SCH (23:31)
[2017-01-11] MEDS: VANCOMYCIN HCL 750 MG in DEXTROSE 5%-WATER 250 ML IV SCH ×2 (01:50→14:00)
[2017-01-11] MEDS: ACETAMINOPHEN 325 MG TABLET PO PRN ×2 (01:53→23:52)
[2017-01-11] MEDS: IPRATROPIUM/ALBUTEROL 0.5-2.5 MG/3 ML AMPUL NEB SCH ×6 (04:20→23:53)
[2017-01-11 05:05] LABS: ANION GAP 8 (5-19); BLOOD UREA NITROGEN 64 mg/dL (7-20); CALCIUM 9.7 mg/dL (8.4-10.2); CARBON DIOXIDE 32 mmol/L (22-30); CHLORIDE 90 mmol/L (98-107); CREATININE RESULT 1.29 mg/dL (0.52-1.25); GLUCOSE 268 mg/dL (75-110); MAGNESIUM 2.2 mg/dL (1.6-2.3); POTASSIUM 5.9 mmol/L (3.6-5.0); SODIUM 130.3 mmol/L (137-145)
[2017-01-11 05:08] LABS: HEMATOCRIT 39.5 % (37.9-51.0); HGB HCT DIFFERENCE -0.5; MEAN CORPUSCULAR HEMOGLOBIN 28.8 pg (27.0-33.4); MEAN CORPUSCULAR HGB CONC 32.8 g/dL (32.0-36.0); MEAN CORPUSCULAR VOLUME 88 fl (80-97); RED CELL DISTRIBUTION WIDTH 17.3 % (11.5-14.0); WHITE BLOOD COUNT 16.1 10^3/uL (4.0-10.5)
[2017-01-11] MEDS: HYDRALAZINE HCL 25 MG TABLET PO SCH ×3 (05:17→21:18)
[2017-01-11 05:30] LABS: ANISOCYTOSIS 1+; BAND NEUTROPHILS % (MANUAL) 1 % (3-5); BASOPHILS % (MANUAL) 0 % (0-2); EOSINOPHILS % (MANUAL) 0 % (0-6); LYMPHOCYTES % (MANUAL) 1 % (13-45); TOTAL CELLS COUNTED 100; TOXIC VACUOLATION PRESENT
[2017-01-11 05:32] LABS: OVALOCYTES SLIGHT; POIKILOCYTOSIS SLIGHT; TEAR DROP CELLS SLIGHT
[2017-01-11] MEDS: LOSARTAN POTASSIUM 50 MG TABLET PO SCH (10:57)
[2017-01-11] MEDS: FUROSEMIDE 20 MG TABLET PO SCH (10:57)
[2017-01-11] MEDS: CEFEPIME 2 GM/D5W RTU 2 GM/50 ML RTUPB IV SCH ×2 (10:57→21:13)
[2017-01-11] MEDS: METHYLPREDNISOLONE INJ 40 MG/1 ML SDV IV SCH (10:58)
[2017-01-11] MEDS: FLUTICASONE/SALMETEROL DISKUS 250-50 MCG/DOSE IH SCH ×2 (10:58→21:16)
[2017-01-11] MEDS: DOXYCYCLINE HYCLATE 100 MG in DEXTROSE 5%-WATER 250 ML IV SCH ×2 (10:58→22:52)
[2017-01-11] MEDS: INSULIN LISPRO 100 UNIT/ML 3 ML VIAL SUBCUT PRN ×3 (12:13→21:26)
--- NOTE | 2017-01-11 14:07 | PDOC PROGRESS REPORT ---
Subjective Progress Note for:: 01/11/17 Subjective:: Patient is seen on morning rounds. He is resting in bed off of BIPAP on nasal cannula. He denies any dyspnea or chest pain at the present time.The patient is an unfortunate 71-year-old male with a past medical history significant for systolic and diastolic congestive heart failure and worsening COPD. He also has a history of a CVA in the past with significant dysarthria making communication quite difficult. The patient has a history of medical noncompliance and has checked himself out of the hospital before AMA. The patient presented to the emergency room with respiratory distress. He had markedly elevated blood pressure and a probable COPD exacerbation. He also was found to have evidence of pneumonia. He was started on broad-spectrum IV antibiotics by the admitting physician. The next day the patient had a CT angiography obtained which did reveal evidence of pneumonia as well as severe COPD. He also had a moderate right-sided pleural effusion noted. A pulmonary embolus could not be ruled out. He subsequently had an elevated d-dimer and had venous Dopplers of his lower extremities as well as a VQ scan both of which were unremarkable. In addition the patient had a markedly elevated BNP and he has been diuresed with IV Lasix. Physical Exam Vital Signs: Temp Pulse Resp BP Pulse Ox 98.0 F 67 16 160/53 H 97 01/11/17 11:25 01/11/17 12:28 01/11/17 12:28 01/11/17 11:25 01/11/17 11:25 Intake & Output 01/10/17 01/11/17 01/12/17 06:59 06:59 06:59 Intake Total 1114 3382 595 Output Total 1600 1300 300 Balance -486 2082 295 Weight 61.9 kg General appearance: PRESENT: no acute distress, thin Head exam: PRESENT: atraumatic, normocephalic Eye exam: PRESENT: conjunctiva pink, EOMI, PERRLA. ABSENT: scleral icterus Ear exam: PRESENT: normal external ear exam Mouth exam: PRESENT: moist, tongue midline Neck exam: ABSENT: carotid bruit, JVD, lymphadenopathy, thyromegaly Respiratory exam: PRESENT: decreased breath sounds, symmetrical, unlabored. ABSENT: rales, rhonchi, wheezes Cardiovascular exam: PRESENT: irregular rhythm, systolic murmur. ABSENT: diastolic murmur, rubs Pulses: PRESENT: normal dorsalis pedis pul Vascular exam: PRESENT: normal capillary refill GI/Abdominal exam: PRESENT: normal bowel sounds, soft. ABSENT: distended, guarding, mass, organolmegaly, rebound, tenderness Rectal exam: PRESENT: deferred Extremities exam: PRESENT: full ROM. ABSENT: calf tenderness, clubbing, pedal edema Musculoskeletal exam: PRESENT: full ROM, normal inspection, tenderness Neurological exam: PRESENT: alert, awake, oriented to person, CN II-XII grossly intact. ABSENT: motor sensory deficit Psychiatric exam: PRESENT: appropriate affect, normal mood. ABSENT: homicidal ideation, suicidal ideation Skin exam: PRESENT: dry, intact, warm. ABSENT: cyanosis, rash Results Laboratory Results: 01/11/17 04:35 01/11/17 04:35 01/11/17 01/11/17 04:35 04:35 WBC 16.1 H RBC 4.50 Hgb 13.0 L Hct 39.5 MCV 88 MCH 28.8 MCHC 32.8 RDW 17.3 H Plt Count 174 Seg Neutrophils % Not Reportable Lymphocytes % Not Reportable Monocytes % Not Reportable Eosinophils % Not Reportable Basophils % Not Reportable Absolute Neutrophils Not Reportable Absolute Lymphocytes Not Reportable Absolute Monocytes Not Reportable Absolute Eosinophils Not Reportable Absolute Basophils Not Reportable Sodium 130.3 L Potassium 5.9 H Chloride 90 L Carbon Dioxide 32 H Anion Gap 8 BUN 64 H Creatinine 1.29 H Est GFR ( Amer) > 60 Est GFR (Non-Af Amer) 55 L Glucose 268 H Calcium 9.7 Magnesium 2.2 01/07/17 01/07/17 01/07/17 01:50 06:23 06:23 Troponin I 0.071 0.073 NT-Pro-B Natriuret Pep 26502 H 01/08/17 01/09/17 05:06 05:08 Troponin I NT-Pro-B Natriuret Pep 7140 H 9070 H Impressions: Chest/Abdomen CTA 01/07/17 00:00 IMPRESSION: 1. POOR CONTRAST FILLING OF THE DISTAL RIGHT AND LEFT LOWER LOBE ARTERIAL BRANCHES. THIS COULD BE ARTIFACT DUE TO MOTION AND CONTRAST TIMING. DISTAL PULMONARY EMBOLI CANNOT BE ENTIRELY EXCLUDED. IF THERE IS SUSPICION OF THE PRESENCE OF PULMONARY EMBOLI, THEN REPEAT STUDY MAY BE CONSIDERED. ALTERNATIVELY, BILATERAL VENOUS DOPPLER OF THE LOWER EXTREMITIES MAY ALSO BE HELPFUL TO DETERMINE IF THERE IS ANY EVIDENCE OF PERIPHERAL DVT. 2. EMPHYSEMATOUS CHANGES. PLEURAL-BASED DENSITY IN THE POSTERIOR RIGHT UPPER LOBE SIMILAR TO THE PREVIOUS STUDY. THIS IS PROBABLY DUE TO SCARRING. MALIGNANT PROCESS IS LESS LIKELY BUT IN THE DIFFERENTIAL. IF THERE IS STRONG CLINICAL CONCERN, FOLLOW-UP WITH PET SCAN MAY BE CONSIDERED. 3. MODERATE RIGHT PLEURAL EFFUSION, UNCHANGED. RIGHT LOWER LOBE ATELECTASIS VERSUS INFILTRATE, ALSO GENERALLY UNCHANGED. Lung Scan-VQ NM 01/09/17 00:00 IMPRESSION: HETEROGENOUS ACTIVITY THROUGHOUT BOTH LUNGS CONSISTENT WITH UNDERLYING LUNG DISEASE. AREAS OF DECREASED ACTIVITY DUE TO ARTIFACT FROM THE PATIENT'S ARMS WELL RIGHT PLEURAL EFFUSION DEMONSTRATED ON CHEST X-RAY AND CT. OTHERWISE NO SIGNIFICANT DEFECTS. LOW PROBABILITY OF PULMONARY EMBOLISM. Chest X-Ray 01/10/17 00:00 IMPRESSION: No pneumothorax 2 hours post right thoracentesis Thoracentesis Ultrasound 01/10/17 00:00 IMPRESSION: SUCCESSFUL THORACENTESIS USING ULTRASOUND GUIDANCE. Assessment & Plan - Diagnosis (1) Acute on chronic respiratory failure with hypoxia and hypercapnia Is this a current diagnosis for this admission?: Yes Plan: Secondary to exacerbation of COPD and CHF. Improving (3) COPD exacerbation Is this a current diagnosis for this admission?: Yes Plan: Continue inhalers. BIPAP at HS and prn (4) Diabetes Qualifiers: Diabetes mellitus type: type 2 Chronic kidney disease stage: stage 3 ( moderate) Is this a current diagnosis for this admission?: Yes (5) AAA (abdominal aortic aneurysm) without rupture Is this a current diagnosis for this admission?: Yes (6) Accelerated hypertension Is this a current diagnosis for this admission?: Yes Plan: Resolved. Continue current medications (7) Acute kidney injury Is this a current diagnosis for this admission?: Yes Plan: Avoid nephrotoxic medications and dosages (8) Cerebrovascular disease, arteriosclerotic, post-stroke Is this a current diagnosis for this admission?: Yes (9) Tobacco abuse Is this a current diagnosis for this admission?: Yes (10) Hyponatremia Plan: Secondary to heart failure (11) Dysarthria Is this a current diagnosis for this admission?: Yes (13) Medical non-compliance Is this a current diagnosis for this admission?: Yes - Time Time Spent with patient: 25-34 minutes Critical Time spent with patient: 15-24 minutes Medications reviewed and adjusted accordingly: Yes Anticipated discharge: Home with Homehealth
[2017-01-11] MEDS: TIOTROPIUM BROMIDE DPI 5 CAP/KIT (18 MCG/CAP) IH SCH (21:15)
[2017-01-12] MEDS: VANCOMYCIN HCL 750 MG in DEXTROSE 5%-WATER 250 ML IV SCH ×2 (01:45→10:00)
[2017-01-12] MEDS: IPRATROPIUM/ALBUTEROL 0.5-2.5 MG/3 ML AMPUL NEB SCH ×5 (04:04→19:54)
[2017-01-12] MEDS: HYDRALAZINE HCL 25 MG TABLET PO SCH ×3 (05:22→22:14)
[2017-01-12 06:30] LABS: ANION GAP 8 (5-19); BLOOD UREA NITROGEN 79 mg/dL (7-20); CALCIUM 9.5 mg/dL (8.4-10.2); CARBON DIOXIDE 31 mmol/L (22-30); CHLORIDE 88 mmol/L (98-107); CREATININE RESULT 1.38 mg/dL (0.52-1.25); GLUCOSE 242 mg/dL (75-110); MAGNESIUM 2.3 mg/dL (1.6-2.3); POTASSIUM 5.1 mmol/L (3.6-5.0); SODIUM 127.4 mmol/L (137-145)
[2017-01-12] MEDS: INSULIN LISPRO 100 UNIT/ML 3 ML VIAL SUBCUT PRN ×4 (08:10→22:16)
[2017-01-12] MEDS: CEFEPIME 2 GM/D5W RTU 2 GM/50 ML RTUPB IV SCH ×2 (09:15→22:04)
[2017-01-12] MEDS: LOSARTAN POTASSIUM 50 MG TABLET PO SCH (09:17)
[2017-01-12] MEDS: PREDNISONE 20 MG TABLET PO SCH (09:18)
[2017-01-12] MEDS: FUROSEMIDE 20 MG TABLET PO SCH (09:19)
[2017-01-12] MEDS: FLUTICASONE/SALMETEROL DISKUS 250-50 MCG/DOSE IH SCH ×2 (09:20→22:20)
[2017-01-12] MEDS ORDERED: METHYLPREDNISOLONE INJ 40 MG/1 ML SDV IV SCH (10:00)
[2017-01-12] MEDS: DOXYCYCLINE HYCLATE 100 MG in DEXTROSE 5%-WATER 250 ML IV SCH ×2 (11:26→23:50)
--- NOTE | 2017-01-12 14:34 | PDOC PROGRESS REPORT ---
Subjective Progress Note for:: 01/12/17 Subjective:: Patient is seen on morning rounds. He is resting in bed off of BIPAP on nasal cannula. He denies any dyspnea or chest pain at the present time.The patient is an unfortunate 71-year-old male with a past medical history significant for systolic and diastolic congestive heart failure and worsening COPD. He also has a history of a CVA in the past with significant dysarthria making communication quite difficult. The patient has a history of medical noncompliance and has checked himself out of the hospital before AMA on numerous occasions. The patient presented to the emergency room with respiratory distress. He had markedly elevated blood pressure and a probable COPD exacerbation. He also was found to have evidence of pneumonia. He was started on broad-spectrum IV antibiotics by the admitting physician. The next day the patient had a CT angiography obtained which did reveal evidence of pneumonia as well as severe COPD. He also had a moderate right-sided pleural effusion noted. A pulmonary embolus could not be ruled out. He subsequently had an elevated d-dimer and had venous Dopplers of his lower extremities as well as a VQ scan both of which were unremarkable. In addition the patient had a markedly elevated BNP and he has been diuresed with IV Lasix. Physical Exam Vital Signs: Temp Pulse Resp BP Pulse Ox 97.4 F 63 22 H 141/43 H 93 01/12/17 11:42 01/12/17 11:42 01/12/17 11:42 01/12/17 11:42 01/12/17 11:42 Intake & Output 01/11/17 01/12/17 01/13/17 06:59 06:59 06:59 Intake Total 3382 3469 357 Output Total 1300 1900 600 Balance 2082 1569 -243 Weight 61.9 kg 60.8 kg General appearance: PRESENT: no acute distress - chronically ill elderly male, thin Head exam: PRESENT: atraumatic, normocephalic Eye exam: PRESENT: conjunctiva pale Mouth exam: PRESENT: moist, tongue midline Neck exam: ABSENT: carotid bruit, JVD, lymphadenopathy, thyromegaly Respiratory exam: PRESENT: rhonchi, symmetrical, unlabored Cardiovascular exam: PRESENT: RRR, systolic murmur, other - 3/6 mitral area. ABSENT: diastolic murmur, rubs Pulses: PRESENT: normal carotid pulses, normal radial pulses, normal dorsalis pedis pul Vascular exam: PRESENT: normal capillary refill GI/Abdominal exam: PRESENT: normal bowel sounds, soft. ABSENT: distended, guarding, mass, organolmegaly, rebound, tenderness Rectal exam: PRESENT: deferred Extremities exam: PRESENT: full ROM. ABSENT: calf tenderness, clubbing, pedal edema Musculoskeletal exam: PRESENT: ambulatory, full ROM, normal inspection Neurological exam: PRESENT: alert, awake, oriented to person, oriented to place , oriented to time, oriented to situation, CN II-XII grossly intact, other - dysarthria. ABSENT: motor sensory deficit Psychiatric exam: PRESENT: appropriate affect, normal mood. ABSENT: homicidal ideation, suicidal ideation Skin exam: PRESENT: dry, intact, warm. ABSENT: cyanosis, rash Results Laboratory Results: 01/11/17 04:35 01/12/17 06:05 01/10/17 01/10/17 01/10/17 11:47 11:47 11:47 Sodium Potassium Chloride Carbon Dioxide Anion Gap BUN Creatinine Est GFR ( Amer) Est GFR (Non-Af Amer) Glucose Calcium Magnesium Fluid Glucose 240 Fluid Total Protein 1.3 Fluid LDH 136 01/12/17 06:05 Sodium 127.4 L Potassium 5.1 H Chloride 88 L Carbon Dioxide 31 H Anion Gap 8 BUN 79 H Creatinine 1.38 H Est GFR ( Amer) > 60 Est GFR (Non-Af Amer) 51 L Glucose 242 H Calcium 9.5 Magnesium 2.3 Fluid Glucose Fluid Total Protein Fluid LDH 01/10/17 11:47 Thoracic Fluid AFB Smear Concentration - Final 01/10/17 11:47 Thoracic Fluid Acid Fast Bacilli Smear - Final 01/09/17 23:00 Sputum AFB Smear Concentration - Final 01/09/17 23:00 Sputum Acid Fast Bacilli Smear - Final 01/07/17 01/07/17 01/07/17 01:50 06:23 06:23 Troponin I 0.071 0.073 NT-Pro-B Natriuret Pep 05592 H 01/08/17 01/09/17 05:06 05:08 Troponin I NT-Pro-B Natriuret Pep 7140 H 9070 H Impressions: Chest/Abdomen CTA 01/07/17 00:00 IMPRESSION: 1. POOR CONTRAST FILLING OF THE DISTAL RIGHT AND LEFT LOWER LOBE ARTERIAL BRANCHES. THIS COULD BE ARTIFACT DUE TO MOTION AND CONTRAST TIMING. DISTAL PULMONARY EMBOLI CANNOT BE ENTIRELY EXCLUDED. IF THERE IS SUSPICION OF THE PRESENCE OF PULMONARY EMBOLI, THEN REPEAT STUDY MAY BE CONSIDERED. ALTERNATIVELY, BILATERAL VENOUS DOPPLER OF THE LOWER EXTREMITIES MAY ALSO BE HELPFUL TO DETERMINE IF THERE IS ANY EVIDENCE OF PERIPHERAL DVT. 2. EMPHYSEMATOUS CHANGES. PLEURAL-BASED DENSITY IN THE POSTERIOR RIGHT UPPER LOBE SIMILAR TO THE PREVIOUS STUDY. THIS IS PROBABLY DUE TO SCARRING. MALIGNANT PROCESS IS LESS LIKELY BUT IN THE DIFFERENTIAL. IF THERE IS STRONG CLINICAL CONCERN, FOLLOW-UP WITH PET SCAN MAY BE CONSIDERED. 3. MODERATE RIGHT PLEURAL EFFUSION, UNCHANGED. RIGHT LOWER LOBE ATELECTASIS VERSUS INFILTRATE, ALSO GENERALLY UNCHANGED. Lung Scan-VQ NM 01/09/17 00:00 IMPRESSION: HETEROGENOUS ACTIVITY THROUGHOUT BOTH LUNGS CONSISTENT WITH UNDERLYING LUNG DISEASE. AREAS OF DECREASED ACTIVITY DUE TO ARTIFACT FROM THE PATIENT'S ARMS WELL RIGHT PLEURAL EFFUSION DEMONSTRATED ON CHEST X-RAY AND CT. OTHERWISE NO SIGNIFICANT DEFECTS. LOW PROBABILITY OF PULMONARY EMBOLISM. Chest X-Ray 01/10/17 00:00 IMPRESSION: No pneumothorax 2 hours post right thoracentesis Thoracentesis Ultrasound 01/10/17 00:00 IMPRESSION: SUCCESSFUL THORACENTESIS USING ULTRASOUND GUIDANCE. Assessment & Plan - Diagnosis (1) Acute on chronic respiratory failure with hypoxia and hypercapnia Is this a current diagnosis for this admission?: Yes Plan: Secondary to exacerbation of COPD and CHF. Improving (2) COPD exacerbation Is this a current diagnosis for this admission?: Yes Plan: Continue inhalers. BIPAP at HS and prn (3) Acute on chronic combined systolic and diastolic CHF (congestive heart failure) Plan: Presently appears euvolemic (4) Diabetes Qualifiers: Diabetes mellitus type: type 2 Chronic kidney disease stage: stage 3 ( moderate) Is this a current diagnosis for this admission?: Yes (5) AAA (abdominal aortic aneurysm) without rupture Is this a current diagnosis for this admission?: Yes (6) Accelerated hypertension Is this a current diagnosis for this admission?: Yes Plan: Resolved. Continue current medications (7) Acute kidney injury Is this a current diagnosis for this admission?: Yes Plan: Avoid nephrotoxic medications and dosages (8) Cerebrovascular disease, arteriosclerotic, post-stroke Is this a current diagnosis for this admission?: Yes (9) Tobacco abuse Is this a current diagnosis for this admission?: Yes (10) Hyponatremia Plan: Secondary to heart failure (11) Dysarthria Is this a current diagnosis for this admission?: Yes Plan: Old CVA (12) Pleural effusion Is this a current diagnosis for this admission?: Yes Plan: Thoracentesis done 250 cc of pleural fluid removed, pending labs (13) Medical non-compliance Is this a current diagnosis for this admission?: Yes - Time Time Spent with patient: 25-34 minutes Critical Time spent with patient: 15-24 minutes Anticipated discharge: Home with Homehealth
[2017-01-12] MEDS ORDERED: INFLUENZA ADLT QUAD (36MOS+) 2017-18 VAC 0.5 ML SYR IM PRN (15:59)
[2017-01-12] MEDS: ALBUTEROL SULFATE 0.083% NEB 2.5 MG/3 ML AMPUL NEB PRN (16:46)
[2017-01-12] MEDS: ACETAMINOPHEN 325 MG TABLET PO PRN (19:52)
[2017-01-12] MEDS: TIOTROPIUM BROMIDE DPI 5 CAP/KIT (18 MCG/CAP) IH SCH (22:18)
[2017-01-13] MEDS: IPRATROPIUM/ALBUTEROL 0.5-2.5 MG/3 ML AMPUL NEB SCH ×6 (00:05→20:25)
[2017-01-13] MEDS: VANCOMYCIN HCL 750 MG in DEXTROSE 5%-WATER 250 ML IV SCH (02:03)
[2017-01-13] MEDS: HYDRALAZINE HCL 25 MG TABLET PO SCH ×3 (06:15→22:00)
[2017-01-13] MEDS: FLUTICASONE/SALMETEROL DISKUS 250-50 MCG/DOSE IH SCH ×2 (09:40→22:01)
[2017-01-13] MEDS: LOSARTAN POTASSIUM 50 MG TABLET PO SCH (09:40)
[2017-01-13] MEDS: CEFEPIME 2 GM/D5W RTU 2 GM/50 ML RTUPB IV SCH ×2 (09:40→23:46)
[2017-01-13] MEDS: PREDNISONE 20 MG TABLET PO SCH (09:41)
[2017-01-13] MEDS: FUROSEMIDE 20 MG TABLET PO SCH (09:42)
[2017-01-13] MEDS: ACETAMINOPHEN 325 MG TABLET PO PRN (09:44)
[2017-01-13] MEDS: DOXYCYCLINE HYCLATE 100 MG in DEXTROSE 5%-WATER 250 ML IV SCH (10:43)
[2017-01-13 10:46] LABS: CREATININE RESULT 1.33 mg/dL (0.52-1.25)
[2017-01-13] MEDS: INSULIN LISPRO 100 UNIT/ML 3 ML VIAL SUBCUT PRN ×3 (12:13→22:00)
--- NOTE | 2017-01-13 13:41 | PDOC PROGRESS REPORT ---
Subjective Progress Note for:: 01/13/17 Subjective:: The patient is a 71-year-old male admitted for acute on chronic respiratory failure. The patient has underlying diastolic congestive heart failure and COPD. The patient has a history of stroke with residual dysarthria. It is difficult to understand him. In addition, the patient has a history of noncompliance and has left the hospital AMA on previous occasions. The patient came into the hospital he was in respiratory distress. He was treated with noninvasive ventilation. The etiology of his respiratory failure and respiratory distress is felt to be components of diastolic congestive heart failure, COPD with exacerbation, pneumonia and parapneumonic effusion. The patient has been on broad-spectrum antibiotics during this hospitalization with cefepime and vancomycin. Today is day #8 of 10. The patient underwent thoracentesis for a moderate right-sided effusion. The cultures are still outstanding but the numbers appear to be consistent with a parapneumonic effusion. The patient has had venous Dopplers and a VQ scan secondary to an elevated d-dimer. These are unremarkable. In addition to antibiotics, bronchodilators, steroids the patient is being diuresed. Physical Exam Vital Signs: Temp Pulse Resp BP Pulse Ox 97.5 F 67 20 133/61 H 94 01/13/17 11:34 01/13/17 12:16 01/13/17 12:16 01/13/17 11:34 01/13/17 12:16 Intake & Output 01/12/17 01/13/17 01/14/17 06:59 06:59 06:59 Intake Total 3469 2847 813 Output Total 1900 3150 625 Balance 1569 -303 188 Weight 60.8 kg 62.3 kg Additional comments: The patient appears to be much older than his stated age. He appears to be in compromised health. His facial appearance is otherwise normal. His lips and mucous membranes are only slightly dry. He has got very little air movement on lung exam. His lungs are clear anteriorly. There are diminished in the posterior lung hampton starting about one third [address] way up bilaterally. Cardiac exam is distant but regular. I do not appreciate murmurs, gallops or rubs. The abdomen is soft and flat. Bowel sounds are present. The patient does not have guarding or rebound noted and he has no hernias or masses noted. The lower extremities do not demonstrate any pitting edema. Skin it is unremarkable. Results Laboratory Results: 01/11/17 04:35 01/13/17 10:15 01/13/17 10:15 Creatinine 1.33 H Est GFR ( Amer) > 60 Est GFR (Non-Af Amer) 53 L 01/10/17 23:35 Sputum Gram Stain - Final 01/10/17 23:35 Sputum Sputum Culture - Final C.albicans/C.dubliniensis Normal Jeimy Absent 01/07/17 01/07/17 01/07/17 01:50 06:23 06:23 Troponin I 0.071 0.073 NT-Pro-B Natriuret Pep 02323 H 01/08/17 01/09/17 05:06 05:08 Troponin I NT-Pro-B Natriuret Pep 7140 H 9070 H Impressions: Chest/Abdomen CTA 01/07/17 00:00 IMPRESSION: 1. POOR CONTRAST FILLING OF THE DISTAL RIGHT AND LEFT LOWER LOBE ARTERIAL BRANCHES. THIS COULD BE ARTIFACT DUE TO MOTION AND CONTRAST TIMING. DISTAL PULMONARY EMBOLI CANNOT BE ENTIRELY EXCLUDED. IF THERE IS SUSPICION OF THE PRESENCE OF PULMONARY EMBOLI, THEN REPEAT STUDY MAY BE CONSIDERED. ALTERNATIVELY, BILATERAL VENOUS DOPPLER OF THE LOWER EXTREMITIES MAY ALSO BE HELPFUL TO DETERMINE IF THERE IS ANY EVIDENCE OF PERIPHERAL DVT. 2. EMPHYSEMATOUS CHANGES. PLEURAL-BASED DENSITY IN THE POSTERIOR RIGHT UPPER LOBE SIMILAR TO THE PREVIOUS STUDY. THIS IS PROBABLY DUE TO SCARRING. MALIGNANT PROCESS IS LESS LIKELY BUT IN THE DIFFERENTIAL. IF THERE IS STRONG CLINICAL CONCERN, FOLLOW-UP WITH PET SCAN MAY BE CONSIDERED. 3. MODERATE RIGHT PLEURAL EFFUSION, UNCHANGED. RIGHT LOWER LOBE ATELECTASIS VERSUS INFILTRATE, ALSO GENERALLY UNCHANGED. Lung Scan-VQ NM 01/09/17 00:00 IMPRESSION: HETEROGENOUS ACTIVITY THROUGHOUT BOTH LUNGS CONSISTENT WITH UNDERLYING LUNG DISEASE. AREAS OF DECREASED ACTIVITY DUE TO ARTIFACT FROM THE PATIENT'S ARMS WELL RIGHT PLEURAL EFFUSION DEMONSTRATED ON CHEST X-RAY AND CT. OTHERWISE NO SIGNIFICANT DEFECTS. LOW PROBABILITY OF PULMONARY EMBOLISM. Chest X-Ray 01/10/17 00:00 IMPRESSION: No pneumothorax 2 hours post right thoracentesis Thoracentesis Ultrasound 01/10/17 00:00 IMPRESSION: SUCCESSFUL THORACENTESIS USING ULTRASOUND GUIDANCE. Assessment & Plan - Diagnosis (1) Acute on chronic combined systolic and diastolic CHF (congestive heart failure) Is this a current diagnosis for this admission?: Yes (2) Acute on chronic respiratory failure with hypoxia and hypercapnia Is this a current diagnosis for this admission?: Yes (3) COPD exacerbation Is this a current diagnosis for this admission?: Yes (4) Diabetes Qualifiers: Diabetes mellitus type: type 2 Chronic kidney disease stage: stage 3 ( moderate) Is this a current diagnosis for this admission?: Yes (5) Hyponatremia Is this a current diagnosis for this admission?: Yes (6) Pleural effusion Is this a current diagnosis for this admission?: Yes (7) Pneumonia Is this a current diagnosis for this admission?: Yes (8) AAA (abdominal aortic aneurysm) without rupture Is this a current diagnosis for this admission?: Yes (9) Accelerated hypertension Is this a current diagnosis for this admission?: Yes (10) Acute kidney injury Is this a current diagnosis for this admission?: Yes (11) Acute on chronic combined systolic (congestive) and diastolic (congestive) heart failure Is this a current diagnosis for this admission?: Yes (12) Noncompliance Is this a current diagnosis for this admission?: Yes (13) Tobacco dependency Is this a current diagnosis for this admission?: Yes - Time Time Spent with patient: 25-34 minutes - Inpatient Certification Medical Necessity: Need for IV Antibiotics - Plan Summary Plan Summary: Currently, the patient is admitted with the above diagnoses. At this point in time his acute on chronic combined diastolic and congestive heart failure appear to be at baseline. He will continue on the current diuretic regimen. The patient is currently on day #8 of 10 of antibiotics with cefepime, vancomycin and doxycycline. In terms of his COPD he is receiving oral corticosteroids as well as scheduled bronchodilators. The patient has a history of stroke with dysarthria and is difficult to understand. He has a history of leaving AMA what appears to be willing to stay in the hospital longer at this time. I would recommend that labs be ordered every other day. Labs were drawn yesterday and will be repeated tomorrow.
[2017-01-13] MEDS: TIOTROPIUM BROMIDE DPI 5 CAP/KIT (18 MCG/CAP) IH SCH (22:01)
[2017-01-14] MEDS: IPRATROPIUM/ALBUTEROL 0.5-2.5 MG/3 ML AMPUL NEB SCH ×7 (00:15→23:37)
[2017-01-14] MEDS: DOXYCYCLINE HYCLATE 100 MG in DEXTROSE 5%-WATER 250 ML IV SCH (00:36)
[2017-01-14] MEDS: ACETAMINOPHEN 325 MG TABLET PO PRN ×2 (01:03→21:52)
[2017-01-14] MEDS ORDERED: VANCOMYCIN HCL 750 MG in DEXTROSE 5%-WATER 250 ML IV SCH (02:00)
[2017-01-14 05:06] LABS: HEMATOCRIT 37.5 % (37.9-51.0); HEMOGLOBIN 12.8 g/dL (13.5-17.0); HGB HCT DIFFERENCE 0.9; MEAN CORPUSCULAR HEMOGLOBIN 29.2 pg (27.0-33.4); MEAN CORPUSCULAR VOLUME 86 fl (80-97); RED BLOOD COUNT 4.37 10^6/uL (4.35-5.55); RED CELL DISTRIBUTION WIDTH 17.1 % (11.5-14.0); WHITE BLOOD COUNT 15.4 10^3/uL (4.0-10.5)
[2017-01-14 05:27] LABS: ANION GAP 9 (5-19); BLOOD UREA NITROGEN 90 mg/dL (7-20); CALCIUM 9.3 mg/dL (8.4-10.2); CARBON DIOXIDE 30 mmol/L (22-30); CHLORIDE 86 mmol/L (98-107); CREATININE RESULT 1.52 mg/dL (0.52-1.25); GLUCOSE 212 mg/dL (75-110); MAGNESIUM 2.3 mg/dL (1.6-2.3); POTASSIUM 5.9 mmol/L (3.6-5.0); SODIUM 124.8 mmol/L (137-145)
[2017-01-14 05:36] LABS: BAND NEUTROPHILS % (MANUAL) 1 % (3-5); BASOPHILS % (MANUAL) 0 % (0-2); EOSINOPHILS % (MANUAL) 0 % (0-6); LYMPHOCYTES % (MANUAL) 4 % (13-45); TOTAL CELLS COUNTED 100
[2017-01-14 05:44] LABS: ANISOCYTOSIS 1+; PLATELET CLUMPS PRESENT
[2017-01-14 05:46] LABS: OVALOCYTES 1+; POIKILOCYTOSIS 1+; TARGET CELLS SLIGHT; TOXIC GRANULATION SLIGHT
[2017-01-14] MEDS: HYDRALAZINE HCL 25 MG TABLET PO SCH ×3 (06:07→21:52)
[2017-01-14] MEDS: INSULIN LISPRO 100 UNIT/ML 3 ML VIAL SUBCUT PRN ×4 (08:13→21:52)
[2017-01-14] MEDS: PREDNISONE 20 MG TABLET PO SCH (10:26)
[2017-01-14] MEDS: FLUTICASONE/SALMETEROL DISKUS 250-50 MCG/DOSE IH SCH ×2 (10:26→21:52)
[2017-01-14] MEDS: CEFEPIME 2 GM/D5W RTU 2 GM/50 ML RTUPB IV SCH ×2 (10:26→21:52)
--- NOTE | 2017-01-14 11:09 | PDOC PROGRESS REPORT ---
Subjective Progress Note for:: 01/14/17 Subjective:: Patient states that his breathing has improved. Nursing states that patient has not voiced any complaints and has been ambulatory in room. Physical Exam Vital Signs: Temp Pulse Resp BP Pulse Ox 98.5 F 60 16 152/57 H 95 01/14/17 07:28 01/14/17 08:17 01/14/17 08:17 01/14/17 07:28 01/14/17 08:17 Intake & Output 01/13/17 01/14/17 01/15/17 06:59 06:59 06:59 Intake Total 2847 3339 Output Total 3150 2325 Balance -303 1014 Weight 62.3 kg 64.7 kg General appearance: PRESENT: no acute distress, thin, other - Temporal wasting, nasal cannula in place Head exam: PRESENT: atraumatic, normocephalic Eye exam: PRESENT: conjunctiva pink, EOMI, PERRLA. ABSENT: scleral icterus Ear exam: PRESENT: normal external ear exam Mouth exam: PRESENT: moist, tongue midline Neck exam: ABSENT: carotid bruit, JVD, lymphadenopathy, thyromegaly Respiratory exam: PRESENT: other - Wheezing heard, no crackles heard, patient with fair breath sounds heard in all lung [place] Cardiovascular exam: PRESENT: RRR. ABSENT: diastolic murmur, rubs, systolic murmur Pulses: PRESENT: normal dorsalis pedis pul Vascular exam: PRESENT: normal capillary refill GI/Abdominal exam: PRESENT: normal bowel sounds, soft. ABSENT: distended, guarding, mass, organolmegaly, rebound, tenderness Rectal exam: PRESENT: deferred Extremities exam: PRESENT: full ROM. ABSENT: calf tenderness, clubbing, pedal edema Neurological exam: PRESENT: alert, awake, oriented to person, oriented to place , oriented to time, oriented to situation, CN II-XII grossly intact. ABSENT: motor sensory deficit Psychiatric exam: PRESENT: appropriate affect, normal mood. ABSENT: homicidal ideation, suicidal ideation Skin exam: PRESENT: dry, intact, warm. ABSENT: cyanosis, rash Results Laboratory Results: 01/14/17 04:36 01/14/17 04:36 01/13/17 01/14/17 01/14/17 10:15 04:36 04:36 WBC 15.4 H RBC 4.37 Hgb 12.8 L Hct 37.5 L MCV 86 MCH 29.2 MCHC 34.0 RDW 17.1 H Plt Count 178 Seg Neutrophils % Not Reportable Lymphocytes % Not Reportable Monocytes % Not Reportable Eosinophils % Not Reportable Basophils % Not Reportable Absolute Neutrophils Not Reportable Absolute Lymphocytes Not Reportable Absolute Monocytes Not Reportable Absolute Eosinophils Not Reportable Absolute Basophils Not Reportable Sodium 124.8 L Potassium 5.9 H Chloride 86 L Carbon Dioxide 30 Anion Gap 9 BUN 90 H Creatinine 1.33 H 1.52 H Est GFR ( Amer) > 60 55 L Est GFR (Non-Af Amer) 53 L 45 L Glucose 212 H Calcium 9.3 Magnesium 2.3 01/10/17 11:47 Pleural Fluid - Right Pleural Effusion Gram Stain - Final 01/10/17 11:47 Pleural Fluid - Right Pleural Effusion Fungal Smear - Final 01/10/17 11:47 Pleural Fluid - Right Pleural Effusion Fungal Smear - Final 01/07/17 01/07/17 01/07/17 01:50 06:23 06:23 Troponin I 0.071 0.073 NT-Pro-B Natriuret Pep 46804 H 01/08/17 01/09/17 05:06 05:08 Troponin I NT-Pro-B Natriuret Pep 7140 H 9070 H Impressions: Chest/Abdomen CTA 01/07/17 00:00 IMPRESSION: 1. POOR CONTRAST FILLING OF THE DISTAL RIGHT AND LEFT LOWER LOBE ARTERIAL BRANCHES. THIS COULD BE ARTIFACT DUE TO MOTION AND CONTRAST TIMING. DISTAL PULMONARY EMBOLI CANNOT BE ENTIRELY EXCLUDED. IF THERE IS SUSPICION OF THE PRESENCE OF PULMONARY EMBOLI, THEN REPEAT STUDY MAY BE CONSIDERED. ALTERNATIVELY, BILATERAL VENOUS DOPPLER OF THE LOWER EXTREMITIES MAY ALSO BE HELPFUL TO DETERMINE IF THERE IS ANY EVIDENCE OF PERIPHERAL DVT. 2. EMPHYSEMATOUS CHANGES. PLEURAL-BASED DENSITY IN THE POSTERIOR RIGHT UPPER LOBE SIMILAR TO THE PREVIOUS STUDY. THIS IS PROBABLY DUE TO SCARRING. MALIGNANT PROCESS IS LESS LIKELY BUT IN THE DIFFERENTIAL. IF THERE IS STRONG CLINICAL CONCERN, FOLLOW-UP WITH PET SCAN MAY BE CONSIDERED. 3. MODERATE RIGHT PLEURAL EFFUSION, UNCHANGED. RIGHT LOWER LOBE ATELECTASIS VERSUS INFILTRATE, ALSO GENERALLY UNCHANGED. Lung Scan-VQ NM 01/09/17 00:00 IMPRESSION: HETEROGENOUS ACTIVITY THROUGHOUT BOTH LUNGS CONSISTENT WITH UNDERLYING LUNG DISEASE. AREAS OF DECREASED ACTIVITY DUE TO ARTIFACT FROM THE PATIENT'S ARMS WELL RIGHT PLEURAL EFFUSION DEMONSTRATED ON CHEST X-RAY AND CT. OTHERWISE NO SIGNIFICANT DEFECTS. LOW PROBABILITY OF PULMONARY EMBOLISM. Chest X-Ray 01/10/17 00:00 IMPRESSION: No pneumothorax 2 hours post right thoracentesis Thoracentesis Ultrasound 01/10/17 00:00 IMPRESSION: SUCCESSFUL THORACENTESIS USING ULTRASOUND GUIDANCE. Assessment & Plan - Diagnosis (1) Acute on chronic combined systolic and diastolic CHF (congestive heart failure) Is this a current diagnosis for this admission?: Yes Plan: Suspected: Will order 2D echo to evaluate patient's heart function. His last 2D echo found in system was 2010. Will discontinue patient's Lasix due to acute renal failure in setting of chronic kidney disease stage II (2) Acute on chronic respiratory failure with hypoxia and hypercapnia Is this a current diagnosis for this admission?: Yes Plan: Status post thoracentesis: Patient has been on diuretics for the last few days however diuretics discontinued due to acute renal injury in setting of chronic kidney disease stage II. Patient's breathing has greatly improved. (3) Acute hyperkalemia Is this a current diagnosis for this admission?: Yes Plan: We will give Kayexalate and calcium gluconate. Will check EKG. Potassium level has been ordered at 3:00. (4) COPD exacerbation Is this a current diagnosis for this admission?: Yes Plan: We will continue current treatment. (5) Diabetes Qualifiers: Diabetes mellitus type: type 2 Chronic kidney disease stage: stage 3 ( moderate) Is this a current diagnosis for this admission?: Yes Plan: Continue current treatment. (6) Hyponatremia Is this a current diagnosis for this admission?: Yes Plan: Is likely secondary to diuretics. Lasix has been discontinued. We will monitor patient's sodium throughout the next few days. (7) Pleural effusion Is this a current diagnosis for this admission?: Yes Plan: Status/post thoracentesis: Studies currently pending (8) Pneumonia Is this a current diagnosis for this admission?: Yes Plan: We will continue patient on cefepime. Will discontinue doxycycline due to patient's renal function and vancomycin. Patient's cultures have not demonstrated any evidence of multidrug resistant organisms. Will trend WBC (9) AAA (abdominal aortic aneurysm) without rupture Is this a current diagnosis for this admission?: Yes Plan: Supportive (10) Accelerated hypertension Is this a current diagnosis for this admission?: Yes Plan: We will increase scheduled hydralazine to 75 mg p.o. [id number] and continue as needed hydralazine. (11) Acute kidney injury Is this a current diagnosis for this admission?: Yes Plan: Will continue to monitor patient's creatinine. Patient's ARB has been discontinued as well as diuretic. (12) Tobacco abuse Is this a current diagnosis for this admission?: Yes Plan: Encourage discontinue tobacco use (13) Cerebrovascular disease, arteriosclerotic, post-stroke Is this a current diagnosis for this admission?: Yes Plan: History of CVA: Supportive care. (14) Dysarthria Is this a current diagnosis for this admission?: Yes Plan: Secondary to CVA: Supportive Care (15) Noncompliance Is this a current diagnosis for this admission?: Yes Plan: Encourage patient to use medication as directed (16) Tobacco dependency Is this a current diagnosis for this admission?: Yes Plan: Encourage patient to discontinue tobacco use. (17) DVT prophylaxis Is this a current diagnosis for this admission?: Yes Plan: SCDs - Time Time Spent with patient: 25-34 minutes Anticipated discharge: Home with Homehealth
[2017-01-14] MEDS ORDERED: CALCIUM GLUCONATE 1000 MG/10 ML INJ IV ONE (11:30)
[2017-01-14] MEDS ORDERED: SODIUM POLYSTYRENE SULFONATE 15 GM/60 ML PO ONE (11:30)
--- NOTE | 2017-01-14 18:19 | EKG REPORT ---
SEVERITY:- ABNORMAL ECG - AFIB/FLUT AND V-PACED COMPLEXES RIGHT BUNDLE BRANCH BLOCK : Confirmed by: Tammy Garay MD 14-Jan-2017 18:18:46
--- NOTE | 2017-01-14 19:43 | XCELERA REPORT ---
[address] [address] Transthoracic Echocardiogram Report Name: TORSTEN MANZO JR Age: 71 yrs Gender: Male : 1945 Patient Status: Inpatient Patient Location: [address] [place] [address] Study Date: 01/14/2017 02:00 PM Height: 67 in Weight: 142 lb BSA: 1.7 m2 Procedure: A complete two-dimensional transthoracic echocardiogram was performed (2D, M-mode, spectral and color flow Doppler). The study was technically adequate with some images being suboptimal in quality. Reason For Study: CHF Ordering Physician: CHRISTINA GROSS Performed By: Sisi Deshpande Interpretation Summary The left ventricular ejection fraction is normal. Doppler measurements suggest pseudonormalized left ventricular relaxation, which is associated with grade II/IV or mild to moderate diastolic dysfunction There is moderate concentric left ventricular hypertrophy. The left ventricle is grossly normal size. Wall motion cannot be accurately commented on, but no definite regional wall motion abnormalities noted. The right ventricular systolic function is normal. The right atrium is mild to moderately dilated. The left atrium is moderately dilated. There is a mild amount of mitral regurgitation There is no mitral valve stenosis. There is mild aortic stenosis There is a peak gradient of 30-35, mean 14 mm of Hg. There is a trace amount of aortic regurgitation There is a mild amount of tricuspid regurgitation There is moderate to severe pulmonary hypertension by echo Best estimated RVSP is approximately 60-65 mm/Hg. There is no pericardial effusion. MMode/2D Measurements & Calculations RVDd: 3.0 cm LVIDd: 3.9 cm FS: 18.4 % Ao root diam: 3.3 cm IVSd: 1.5 cm LVIDs: 3.2 cm EDV(Teich): 67.1 ml LVPWd: 1.5 cm ESV(Teich): 41.2 ml Ao root area: 8.4 cm2 EF(Teich): 38.6 % LA dimension: 4.4 cm LVOT diam: 2.0 cm LVOT area: 3.3 cm2 Doppler Measurements & Calculations MV E max mikal: MV P1/2t max mikal: Ao V2 max: LV V1 max P.5 cm/sec 117.0 cm/sec 288.5 cm/sec 20.0 mmHg MV A max mikal: MV P1/2t: 90.9 msec Ao max PG: LV V1 mean P.0 cm/sec MVA(P1/2t): 2.4 cm2 33.4 mmHg 8.0 mmHg MV E/A: 2.8 MV dec slope: Ao V2 mean: LV V1 max: 377.0 cm/sec2 165.2 cm/sec 223.5 cm/sec MV dec time: 0.30 secAo mean PG: LV V1 mean: 13.9 mmHg 121.0 cm/sec Ao V2 VTI: LV V1 VTI: 42.3 cm 36.2 cm ANDREW(I,D): 2.8 cm2 ANDREW(V,D): 2.5 cm2 SV(LVOT): 118.0 ml PA V2 max: TR max mikal: 135.7 cm/sec 377.3 cm/sec PA max P.4 mmHg TR max P.0 mmHg Left Ventricle The left ventricle is grossly normal size. There is moderate concentric left ventricular hypertrophy. The left ventricular ejection fraction is normal. Doppler measurements suggest pseudonormalized left ventricular relaxation, which is associated with grade II/IV or mild to moderate diastolic dysfunction. Wall motion cannot be accurately commented on, but no definite regional wall motion abnormalities noted. Right Ventricle The right ventricle is grossly normal size. There is normal right ventricular wall thickness. The right ventricular systolic function is normal. Atria The right atrium is mild to moderately dilated. The left atrium is moderately dilated. Interarterial septum not well visualized and not well dopplered. Cannot comment on ASD/PFO presence. Mitral Valve The mitral valve leaflets are sclerotic and show some degree of functional abnormality. There is no mitral valve stenosis. There is a mild amount of mitral regurgitation. Aortic Valve The aortic valve is moderately calcified. There is mild aortic stenosis. There is a peak gradient of 30-35, mean 14 mm of Hg. There is a trace amount of aortic regurgitation. Tricuspid Valve The tricuspid valve is not well visualized, but is grossly normal. There is no tricuspid stenosis. There is a mild amount of tricuspid regurgitation. There is moderate to severe pulmonary hypertension by echo. Best estimated RVSP is approximately 60-65 mm/Hg. Pulmonic Valve The pulmonic valve is not well visualized. Great Vessels The aortic root is not well visualized. The inferior vena cava appeared normal and decreased > 50% with respiration (RAP 5-10 mmHg). Effusions There is no pericardial effusion. : CHRISTINA GROSS Shyamal
[2017-01-14] MEDS: TIOTROPIUM BROMIDE DPI 5 CAP/KIT (18 MCG/CAP) IH SCH (21:52)
[2017-01-15] MEDS: IPRATROPIUM/ALBUTEROL 0.5-2.5 MG/3 ML AMPUL NEB SCH ×5 (03:54→19:59)
[2017-01-15] MEDS: HYDRALAZINE HCL 25 MG TABLET PO SCH ×3 (05:24→23:18)
[2017-01-15 05:48] LABS: HEMATOCRIT 40.5 % (37.9-51.0); HEMOGLOBIN 13.8 g/dL (13.5-17.0); HGB HCT DIFFERENCE 0.9; MEAN CORPUSCULAR HEMOGLOBIN 29.5 pg (27.0-33.4); MEAN CORPUSCULAR HGB CONC 34.1 g/dL (32.0-36.0); MEAN CORPUSCULAR VOLUME 87 fl (80-97); RED BLOOD COUNT 4.68 10^6/uL (4.35-5.55); RED CELL DISTRIBUTION WIDTH 17.2 % (11.5-14.0); WHITE BLOOD COUNT 14.8 10^3/uL (4.0-10.5)
[2017-01-15 06:03] LABS: ALANINE AMINOTRANSFERASE 51 U/L (21-72); ALBUMIN 3.7 g/dL (3.5-5.0); ALKALINE PHOSPHATASE 100 U/L (38-126); ANION GAP 9 (5-19); ASPARTATE AMINO TRANSFERASE 43 U/L (17-59); BILIRUBIN,DIRECT 0.6 mg/dL (0.0-0.4); BILIRUBIN,TOTAL 0.6 mg/dL (0.2-1.3); BLOOD UREA NITROGEN 105 mg/dL (7-20); CALCIUM 9.9 mg/dL (8.4-10.2); CARBON DIOXIDE 34 mmol/L (22-30); CHLORIDE 85 mmol/L (98-107); CREATININE RESULT 1.69 mg/dL (0.52-1.25); GLUCOSE 256 mg/dL (75-110); SODIUM 128.2 mmol/L (137-145); TOTAL PROTEIN 6.5 g/dL (6.3-8.2)
[2017-01-15 06:06] LABS: POTASSIUM 6.2 mmol/L (3.6-5.0)
[2017-01-15] MEDS ORDERED: NORMAL SALINE 1000 ML 250 ML IV ONE (06:25)
[2017-01-15] MEDS ORDERED: INSULIN REG, HUMAN 100 UNIT/ML 3 ML VIAL (PYX) IV ONE (06:26)
[2017-01-15 06:34] LABS: BAND NEUTROPHILS % (MANUAL) 1 % (3-5); BASOPHILS % (MANUAL) 0 % (0-2); EOSINOPHILS % (MANUAL) 0 % (0-6); LYMPHOCYTES % (MANUAL) 1 % (13-45); TOTAL CELLS COUNTED 100
[2017-01-15 06:36] LABS: ANISOCYTOSIS 1+; OVALOCYTES SLIGHT; POIKILOCYTOSIS SLIGHT; TOXIC VACUOLATION PRESENT
[2017-01-15] MEDS: INSULIN LISPRO 100 UNIT/ML 3 ML VIAL SUBCUT PRN ×4 (08:08→23:32)
[2017-01-15] MEDS ORDERED: SODIUM POLYSTYRENE SULFONATE 15 GM/60 ML PO ONE ×3 (08:30→23:45)
--- NOTE | 2017-01-15 09:00 | EKG REPORT ---
SEVERITY:- ABNORMAL ECG - AFIB/FLUT AND V-PACED COMPLEXES RIGHT BUNDLE BRANCH BLOCK : Confirmed by: Tammy Garay MD 15-Jan-2017 08:59:09
[2017-01-15] MEDS: PREDNISONE 20 MG TABLET PO SCH (09:09)
[2017-01-15] MEDS: CEFEPIME 2 GM/D5W RTU 2 GM/50 ML RTUPB IV SCH ×2 (09:12→23:23)
[2017-01-15] MEDS: FLUTICASONE/SALMETEROL DISKUS 250-50 MCG/DOSE IH SCH ×2 (09:13→23:19)
[2017-01-15] MEDS ORDERED: NORMAL SALINE 1000 ML 1,000 ML IV ONE (15:53)
[2017-01-15] MEDS ORDERED: NORMAL SALINE 1000 ML 500 ML IV ONE (15:53)
--- NOTE | 2017-01-15 15:56 | PDOC PROGRESS REPORT ---
Subjective Progress Note for:: 01/15/17 Subjective:: Pt states that he is doing ok. Nursing states that pt wants to go home. Physical Exam Vital Signs: Temp Pulse Resp BP Pulse Ox 97.6 F 63 20 148/62 H 93 01/15/17 07:53 01/15/17 14:00 01/15/17 12:21 01/15/17 07:53 01/15/17 12:21 Intake & Output 01/14/17 01/15/17 01/16/17 06:59 06:59 06:59 Intake Total 3339 1703 120 Output Total 2325 2175 350 Balance 1014 -322 -230 Weight 64.7 kg 64.7 kg General appearance: PRESENT: no acute distress, thin, other - appears stated age Head exam: PRESENT: atraumatic, normocephalic Eye exam: PRESENT: conjunctiva pink, EOMI. ABSENT: scleral icterus Ear exam: PRESENT: normal external ear exam Mouth exam: PRESENT: moist, tongue midline Neck exam: ABSENT: carotid bruit, JVD, lymphadenopathy, thyromegaly Respiratory exam: PRESENT: accessory muscle use, prolonged expiratory phas, wheezes - Scant Cardiovascular exam: PRESENT: RRR. ABSENT: diastolic murmur, rubs, systolic murmur Pulses: PRESENT: normal dorsalis pedis pul GI/Abdominal exam: PRESENT: normal bowel sounds, soft. ABSENT: distended, guarding, mass, organolmegaly, rebound, tenderness Rectal exam: PRESENT: deferred Extremities exam: PRESENT: full ROM. ABSENT: calf tenderness, clubbing, pedal edema Neurological exam: PRESENT: alert, awake, oriented to person, oriented to place , oriented to time, oriented to situation, CN II-XII grossly intact. ABSENT: motor sensory deficit Psychiatric exam: PRESENT: appropriate affect, normal mood. ABSENT: homicidal ideation, suicidal ideation Skin exam: PRESENT: dry, intact, warm. ABSENT: cyanosis, rash Results Laboratory Results: 01/15/17 05:22 01/15/17 05:22 01/15/17 01/15/17 05:22 05:22 WBC 14.8 H RBC 4.68 Hgb 13.8 Hct 40.5 MCV 87 MCH 29.5 MCHC 34.1 RDW 17.2 H Plt Count 219 Seg Neutrophils % Not Reportable Lymphocytes % Not Reportable Monocytes % Not Reportable Eosinophils % Not Reportable Basophils % Not Reportable Absolute Neutrophils Not Reportable Absolute Lymphocytes Not Reportable Absolute Monocytes Not Reportable Absolute Eosinophils Not Reportable Absolute Basophils Not Reportable Sodium 128.2 L Potassium 6.2 H* Chloride 85 L Carbon Dioxide 34 H Anion Gap 9 BUN 105 H Creatinine 1.69 H Est GFR ( Amer) 48 L Est GFR (Non-Af Amer) 40 L Glucose 256 H Calcium 9.9 Total Bilirubin 0.6 AST 43 ALT 51 Alkaline Phosphatase 100 Total Protein 6.5 Albumin 3.7 01/10/17 11:47 Pleural Fluid - Right Pleural Effusion Gram Stain - Final 01/10/17 11:47 Pleural Fluid - Right Pleural Effusion Body Fluid Culture - Final NO AEROBIC OR ANAEROBIC ORGANISMS RECOVERED 01/07/17 01/07/17 01/07/17 01:50 06:23 06:23 Troponin I 0.071 0.073 NT-Pro-B Natriuret Pep 40403 H 01/08/17 01/09/17 05:06 05:08 Troponin I NT-Pro-B Natriuret Pep 7140 H 9070 H Impressions: Chest/Abdomen CTA 01/07/17 00:00 IMPRESSION: 1. POOR CONTRAST FILLING OF THE DISTAL RIGHT AND LEFT LOWER LOBE ARTERIAL BRANCHES. THIS COULD BE ARTIFACT DUE TO MOTION AND CONTRAST TIMING. DISTAL PULMONARY EMBOLI CANNOT BE ENTIRELY EXCLUDED. IF THERE IS SUSPICION OF THE PRESENCE OF PULMONARY EMBOLI, THEN REPEAT STUDY MAY BE CONSIDERED. ALTERNATIVELY, BILATERAL VENOUS DOPPLER OF THE LOWER EXTREMITIES MAY ALSO BE HELPFUL TO DETERMINE IF THERE IS ANY EVIDENCE OF PERIPHERAL DVT. 2. EMPHYSEMATOUS CHANGES. PLEURAL-BASED DENSITY IN THE POSTERIOR RIGHT UPPER LOBE SIMILAR TO THE PREVIOUS STUDY. THIS IS PROBABLY DUE TO SCARRING. MALIGNANT PROCESS IS LESS LIKELY BUT IN THE DIFFERENTIAL. IF THERE IS STRONG CLINICAL CONCERN, FOLLOW-UP WITH PET SCAN MAY BE CONSIDERED. 3. MODERATE RIGHT PLEURAL EFFUSION, UNCHANGED. RIGHT LOWER LOBE ATELECTASIS VERSUS INFILTRATE, ALSO GENERALLY UNCHANGED. Lung Scan-VQ NM 01/09/17 00:00 IMPRESSION: HETEROGENOUS ACTIVITY THROUGHOUT BOTH LUNGS CONSISTENT WITH UNDERLYING LUNG DISEASE. AREAS OF DECREASED ACTIVITY DUE TO ARTIFACT FROM THE PATIENT'S ARMS WELL RIGHT PLEURAL EFFUSION DEMONSTRATED ON CHEST X-RAY AND CT. OTHERWISE NO SIGNIFICANT DEFECTS. LOW PROBABILITY OF PULMONARY EMBOLISM. Chest X-Ray 01/10/17 00:00 IMPRESSION: No pneumothorax 2 hours post right thoracentesis Thoracentesis Ultrasound 01/10/17 00:00 IMPRESSION: SUCCESSFUL THORACENTESIS USING ULTRASOUND GUIDANCE. Assessment & Plan - Diagnosis (1) Acute diastolic (congestive) heart failure Is this a current diagnosis for this admission?: Yes Plan: Will continue to monitor. (2) Acute on chronic combined systolic and diastolic CHF (congestive heart failure) Is this a current diagnosis for this admission?: Yes Plan: Resolved. (3) Acute on chronic respiratory failure with hypoxia and hypercapnia Is this a current diagnosis for this admission?: Yes Plan: Status post thoracentesis: Patient has been on diuretics for the last few days however diuretics discontinued due to acute renal injury in setting of chronic kidney disease stage II. Patient's breathing has greatly improved. (4) Acute hyperkalemia Is this a current diagnosis for this admission?: Yes Plan: We will give Kayexalate again. Will repeat BMP. Pt was given Calcium Gluconate yesterday. (5) COPD exacerbation Is this a current diagnosis for this admission?: Yes Plan: We will continue current treatment. (6) Diabetes Qualifiers: Diabetes mellitus type: type 2 Chronic kidney disease stage: stage 3 ( moderate) Is this a current diagnosis for this admission?: Yes Plan: Continue current treatment. (7) Hyponatremia Is this a current diagnosis for this admission?: Yes Plan: Is likely secondary to diuretics: Improving. (8) Pleural effusion Is this a current diagnosis for this admission?: Yes Plan: Status/post thoracentesis: Studies currently pending (9) Pneumonia Is this a current diagnosis for this admission?: Yes Plan: We will continue patient on cefepime. (10) AAA (abdominal aortic aneurysm) without rupture Is this a current diagnosis for this admission?: Yes Plan: Supportive (11) Accelerated hypertension Is this a current diagnosis for this admission?: Yes Plan: hydralazine to 75 mg p.o. [id number] and continue as needed hydralazine. (12) Acute kidney injury Is this a current diagnosis for this admission?: Yes Plan: CKD Stage 3: Will continue to monitor patient's creatinine. Will give NS Bolus 500 cc (13) Tobacco abuse Is this a current diagnosis for this admission?: Yes Plan: Encourage discontinue tobacco use (14) Cerebrovascular disease, arteriosclerotic, post-stroke Is this a current diagnosis for this admission?: Yes Plan: History of CVA: Supportive care. (15) Dysarthria Is this a current diagnosis for this admission?: Yes Plan: Secondary to CVA: Supportive Care (16) Noncompliance Is this a current diagnosis for this admission?: Yes Plan: Encourage patient to use medication as directed (17) Tobacco dependency Is this a current diagnosis for this admission?: Yes Plan: Encourage patient to discontinue tobacco use. (18) DVT prophylaxis Is this a current diagnosis for this admission?: Yes Plan: SCDs - Time Time Spent with patient: 25-34 minutes
[2017-01-15 17:02] LABS: ANION GAP 10 (5-19); BLOOD UREA NITROGEN 100 mg/dL (7-20); CALCIUM 9.4 mg/dL (8.4-10.2); CARBON DIOXIDE 32 mmol/L (22-30); CHLORIDE 85 mmol/L (98-107); CREATININE RESULT 1.62 mg/dL (0.52-1.25); GLUCOSE 395 mg/dL (75-110); SODIUM 126.7 mmol/L (137-145)
[2017-01-15 17:07] LABS: POTASSIUM 5.9 mmol/L (3.6-5.0)
[2017-01-15] MEDS ORDERED: NORMAL SALINE 1000 ML 1,000 ML IV PRN (19:19)
[2017-01-15] MEDS: TIOTROPIUM BROMIDE DPI 5 CAP/KIT (18 MCG/CAP) IH SCH (23:20)
[2017-01-15] MEDS: ACETAMINOPHEN 325 MG TABLET PO PRN (23:23)
[2017-01-16] MEDS: IPRATROPIUM/ALBUTEROL 0.5-2.5 MG/3 ML AMPUL NEB SCH ×4 (04:33→12:27)
[2017-01-16] MEDS: HYDRALAZINE HCL 25 MG TABLET PO SCH ×2 (05:59→14:39)
[2017-01-16 06:40] LABS: ANION GAP 10 (5-19); BLOOD UREA NITROGEN 102 mg/dL (7-20); CALCIUM 9.1 mg/dL (8.4-10.2); CARBON DIOXIDE 34 mmol/L (22-30); CHLORIDE 86 mmol/L (98-107); CREATININE RESULT 1.76 mg/dL (0.52-1.25); GLUCOSE 90 mg/dL (75-110); POTASSIUM 5.1 mmol/L (3.6-5.0); SODIUM 129.7 mmol/L (137-145)
[2017-01-16] MEDS: PREDNISONE 20 MG TABLET PO SCH (09:47)
[2017-01-16] MEDS: FLUTICASONE/SALMETEROL DISKUS 250-50 MCG/DOSE IH SCH (09:58)
[2017-01-16] MEDS: INSULIN LISPRO 100 UNIT/ML 3 ML VIAL SUBCUT PRN (12:48)
--- NOTE | 2017-01-16 14:04 | PDOC DISCHARGE SUMMARY ---
General - Admit/Disc Date/PCP Admission Date/Primary Care Provider: 01/06/17 23:27 Discharge Date: 01/16/17 - Discharge Diagnosis (1) Acute diastolic (congestive) heart failure Is this a current diagnosis for this admission?: Yes Summary: Pt's echo that demonstrated diastolic dysfunction. Patient's EF was reported as being within normal range. Pt was placed on diuretics however patient has developed renal injury most likely secondary to ATN. Diuretics held at this time. (2) Acute on chronic combined systolic and diastolic CHF (congestive heart failure) Is this a current diagnosis for this admission?: Yes Summary: No evidence of systolic congestive heart failure (3) Acute on chronic respiratory failure with hypoxia and hypercapnia Is this a current diagnosis for this admission?: Yes Summary: Secondary to right pleural effusion status post thoracentesis: Patient's breathing has improved once thoracentesis has been performed. (4) Acute hyperkalemia Is this a current diagnosis for this admission?: Yes Summary: Resolving (5) COPD exacerbation Is this a current diagnosis for this admission?: Yes Summary: Will write for controller and rescue inhaler. Will place patient on Medrol Dosepak. (6) Diabetes Is this a current diagnosis for this admission?: Yes Summary: Place patient on Lantus 10 units in a.m. with 2 units for meals (7) Hyponatremia Is this a current diagnosis for this admission?: Yes Summary: Secondary to diuretics (8) Pleural effusion Is this a current diagnosis for this admission?: Yes Summary: Status post right thoracentesis: Patient's respiratory function is greatly improved (9) Pneumonia Is this a current diagnosis for this admission?: Yes (10) AAA (abdominal aortic aneurysm) without rupture Is this a current diagnosis for this admission?: Yes Summary: Patient will need a follow-up physician as outpatient (11) Accelerated hypertension Is this a current diagnosis for this admission?: Yes Summary: Continue current treatment plan (12) Acute kidney injury Is this a current diagnosis for this admission?: Yes Summary: In setting of chronic kidney disease most likely ATN: Patient refused any additional workup. Patient demanding to go home. Have arranged for patient to follow-up with urology and nephrology as outpatient (13) Tobacco abuse Is this a current diagnosis for this admission?: Yes Summary: Encourage discontinuation of tobacco abuse (14) Cerebrovascular disease, arteriosclerotic, post-stroke Is this a current diagnosis for this admission?: Yes Summary: Supportive care (15) Dysarthria Is this a current diagnosis for this admission?: Yes Summary: Supportive care (16) Noncompliance Is this a current diagnosis for this admission?: Yes Summary: Instrict patient to use medication as directed - Additional Information Resuscitation Status: Do Not Resuscitate Discharge Diet: Cardiac, Diabetic Discharge Activity: Activity As Tolerated, Balance Activity w/Rest, Weigh Daily Home Medications: Budesonide/Formoterol Fumarate [Symbicort 160-4.5 Mcg Inhaler] 10.2 gm IH BID # 1 hfa.aer.ad 01/16/17 Hydralazine HCl [Apresoline 25 mg Tablet] 75 mg PO Q8 #270 tablet 01/16/17 Insulin Glargine,Hum.rec.anlog [Lantus Solostar] 10 unit SQ QAM #1 insuln.pen Insulin Lispro [Humalog Kwikpen U-200] 2 unit SQ ACHS #1 insuln.pen 01/16/17 Tiotropium [place] [Spiriva] 18 mcg IH DAILY #30 cap.w.dev 01/16/17 History of Present Illness Patient complains of: Difficulty Breathing. History of Present Illness: TORSTEN MANZO JR is a 71 year old male present with difficulty breathing for a few days. Hospital Course Hospital Course: Pt is a 71 year old who was admitted for difficulty breathing. Patient was admitted for presumed COPD. However when patient had additional studies done patient was found to have a right pleural effusion. Patient had thoracentesis performed and patient's breathing improved patient was continued on steroids and breathing treatments. Patient was then started on Lasix due to patient having diastolic dysfunction. Unfortunately patient's renal function continued to worsen and therefore diuretics were discontinued. Patient was told that he needed additional workup on his kidney function however patient refused any additional workup on renal function. Patient stated that he wanted to be discharged home as soon as possible. Patient was noted to have hyperkalemia which was corrected with Kayexalate. Patient's acute renal injury is mostly secondary to ATN due to multiple antibiotics the patient was placed on during this hospital course. At time of discharge patient is being discharged home on no antibiotic treatment due to patient completing treatment here at hospital. Patient was noted to have hyponatremia which is most likely secondary to diuretics. Patient is being discharged home with home health. Patient is also demanding discharge and refusing any additional workup. Due to patient's history of leaving AMA I am trying to make sure that patient has outpatient appointments with urology and nephrology. Patient's caregiver has been contacted to make her aware of the plan. Physical Exam Vital Signs: Temp Pulse Resp BP Pulse Ox 97.8 F 66 18 175/50 H 96 01/16/17 10:56 01/16/17 12:27 01/16/17 12:27 01/16/17 10:56 01/16/17 12:27 Intake & Output 01/15/17 01/16/17 01/17/17 06:59 06:59 06:59 Intake Total 1703 2399 477 Output Total 2175 1425 300 Balance -472 974 177 Weight 64.7 kg 65 kg General appearance: PRESENT: no acute distress, thin Head exam: PRESENT: atraumatic, normocephalic Eye exam: PRESENT: conjunctiva pink, EOMI. ABSENT: scleral icterus Ear exam: PRESENT: normal external ear exam Mouth exam: PRESENT: moist, tongue midline Neck exam: ABSENT: carotid bruit, JVD, lymphadenopathy, thyromegaly Respiratory exam: PRESENT: clear to auscultation mar [place]jo, prolonged expiratory phas - Slight prolonged expiratory phase. ABSENT: rales, rhonchi, wheezes Cardiovascular exam: PRESENT: RRR. ABSENT: diastolic murmur, rubs, systolic murmur Pulses: PRESENT: normal dorsalis pedis pul Vascular exam: PRESENT: normal capillary refill GI/Abdominal exam: PRESENT: normal bowel sounds, soft. ABSENT: distended, guarding, mass, organolmegaly, rebound, tenderness Rectal exam: PRESENT: deferred Neurological exam: PRESENT: alert, awake, oriented to person, oriented to place , oriented to time. ABSENT: motor sensory deficit Psychiatric exam: PRESENT: agitated Skin exam: PRESENT: dry, intact, warm. ABSENT: cyanosis, rash Results Laboratory Results: 01/15/17 05:22 01/16/17 05:55 01/15/17 01/16/17 16:18 05:55 Sodium 126.7 L 129.7 L Potassium 5.9 H 5.1 H Chloride 85 L 86 L Carbon Dioxide 32 H 34 H Anion Gap 10 10 BUN 100 H 102 H Creatinine 1.62 H 1.76 H Est GFR ( Amer) 51 L 46 L Est GFR (Non-Af Amer) 42 L 38 L Glucose 395 H 90 Calcium 9.4 9.1 01/10/17 11:47 Pleural Fluid - Right Pleural Effusion Gram Stain - Final 01/10/17 11:47 Pleural Fluid - Right Pleural Effusion Body Fluid Culture - Final NO AEROBIC OR ANAEROBIC ORGANISMS RECOVERED 01/07/17 01/07/17 01/07/17 01:50 06:23 06:23 Troponin I 0.071 0.073 NT-Pro-B Natriuret Pep 13185 H 01/08/17 01/09/17 05:06 05:08 Troponin I NT-Pro-B Natriuret Pep 7140 H 9070 H Impressions: Chest/Abdomen CTA 01/07/17 00:00 IMPRESSION: 1. POOR CONTRAST FILLING OF THE DISTAL RIGHT AND LEFT LOWER LOBE ARTERIAL BRANCHES. THIS COULD BE ARTIFACT DUE TO MOTION AND CONTRAST TIMING. DISTAL PULMONARY EMBOLI CANNOT BE ENTIRELY EXCLUDED. IF THERE IS SUSPICION OF THE PRESENCE OF PULMONARY EMBOLI, THEN REPEAT STUDY MAY BE CONSIDERED. ALTERNATIVELY, BILATERAL VENOUS DOPPLER OF THE LOWER EXTREMITIES MAY ALSO BE HELPFUL TO DETERMINE IF THERE IS ANY EVIDENCE OF PERIPHERAL DVT. 2. EMPHYSEMATOUS CHANGES. PLEURAL-BASED DENSITY IN THE POSTERIOR RIGHT UPPER LOBE SIMILAR TO THE PREVIOUS STUDY. THIS IS PROBABLY DUE TO SCARRING. MALIGNANT PROCESS IS LESS LIKELY BUT IN THE DIFFERENTIAL. IF THERE IS STRONG CLINICAL CONCERN, FOLLOW-UP WITH PET SCAN MAY BE CONSIDERED. 3. MODERATE RIGHT PLEURAL EFFUSION, UNCHANGED. RIGHT LOWER LOBE ATELECTASIS VERSUS INFILTRATE, ALSO GENERALLY UNCHANGED. Lung Scan-VQ NM 01/09/17 00:00 IMPRESSION: HETEROGENOUS ACTIVITY THROUGHOUT BOTH LUNGS CONSISTENT WITH UNDERLYING LUNG DISEASE. AREAS OF DECREASED ACTIVITY DUE TO ARTIFACT FROM THE PATIENT'S ARMS WELL RIGHT PLEURAL EFFUSION DEMONSTRATED ON CHEST X-RAY AND CT. OTHERWISE NO SIGNIFICANT DEFECTS. LOW PROBABILITY OF PULMONARY EMBOLISM. Chest X-Ray 01/10/17 00:00 IMPRESSION: No pneumothorax 2 hours post right thoracentesis Thoracentesis Ultrasound 01/10/17 00:00 IMPRESSION: SUCCESSFUL THORACENTESIS USING ULTRASOUND GUIDANCE. Plan Time Spent: Greater than 30 Minutes
[2017-01-16 14:35] VITALS: BP 133/58
--- NOTE | 2017-01-16 14:57 | RADIOLOGY REPORT (SQ) ---
EXAM DESCRIPTION: U/S RETROPERITON LTD COMPLETED DATE/TIME: 01/16/2017 2:20 pm REASON FOR STUDY: Renal Injury COMPARISON: CTA chest 01/07/2017 TECHNIQUE: Dynamic and static grayscale images acquired of the kidneys and bladder and recorded on P ACS. Additional selected color Doppler and spectral images recorded. LIMITATIONS: Left upper quadrant bowel gas, very limited patient cooperation FINDINGS: Right kidney is 10.4 cm in length. Normal cortical thickness and grossly normal echogenic ity. No cysts, masses, or hydronephrosis. Left kidney was difficult to visualize due to left upper quadrant bowel gas. No gross hydronephrosis . Cortical thinning is evident. No upper or mid pole cysts or masses. Lower pole not well seen. Cristina catheter drains the bladder. A small right pleural effusion is present in the posterior costophrenic sulcus. IMPRESSION: No hydronephrosis. Cristina catheter drains the bladder Small right pleural effusion TECHNICAL DOCUMENTATION: JOB ID: [id number] [employer]- All Rights Reserved
== END 2017-01-16 16:24 | disposition home health service (06) | DRG 291 ==
LOC: ER 17:33 → EH 21:29 → UNDOADMIN 21:29 → EH 23:00 → 3S 23:00 → EH 23:27 → 3S 23:27
PROVIDERS: ADMIT Family Medicine; ATTEND Family Medicine
PROC: 0W993ZX Drainage of Right Pleural Cavity, Percutaneous Approach, Diagnostic (ICD-10-PCS; 2017-01-10)
PROC: 3E0234Z Introduction of Serum, Toxoid and Vaccine into Muscle, Percutaneous Approach (ICD-10-PCS; principal; 2017-01-16)
DX: I13.0 Hypertensive heart and chronic kidney disease with heart failure and stage 1 through stage 4 chronic kidney disease, or unspecified chronic kidney disease (principal); I50.43 Acute on chronic combined systolic (congestive) and diastolic (congestive) heart failure; J96.21 Acute and chronic respiratory failure with hypoxia; J18.9 Pneumonia, unspecified organism; N17.0 Acute kidney failure with tubular necrosis; J96.22 Acute and chronic respiratory failure with hypercapnia; J44.1 Chronic obstructive pulmonary disease with (acute) exacerbation; N39.0 Urinary tract infection, site not specified; J90 Pleural effusion, not elsewhere classified; E87.1 Hypo-osmolality and hyponatremia; Z66 Do not resuscitate; E11.22 Type 2 diabetes mellitus with diabetic chronic kidney disease; N18.3 Chronic kidney disease, stage 3 (moderate); I48.2 Chronic atrial fibrillation; R31.0 Gross hematuria; E87.5 Hyperkalemia; I69.822 Dysarthria following other cerebrovascular disease; I71.4 Abdominal aortic aneurysm, without rupture; I16.0 Hypertensive urgency; I25.10 Atherosclerotic heart disease of native coronary artery without angina pectoris; F41.9 Anxiety disorder, unspecified; F32.9 Major depressive disorder, single episode, unspecified; F17.210 Nicotine dependence, cigarettes, uncomplicated; I25.2 Old myocardial infarction; Z23 Encounter for immunization; Z95.1 Presence of aortocoronary bypass graft; Z95.0 Presence of cardiac pacemaker; Z91.14 Patient's other noncompliance with medication regimen; Z91.19 Patient's noncompliance with other medical treatment and regimen
CPT/HCPCS: 32555; 36415; 36600; 71010; 71020; 71275; 76775; 78580; 80048; 80053; 80202; 81001; 82550; 82553; 82565; 82803; 82945; 82962; 83036; 83605; 83615; 83735; 83880; 84132; 84157; 84484; 85025; 85379; 85610; 85730; 87015; 87040; 87070; 87075; 87086; 87101; 87116; 87205; 87206; 88305; 89050; 90686; 93005; 93010; 93306; 93970; 94660; 94799; 96365; 96366; 96375; 99291; A9540; G8978-GP; G8979-GP; G8987-GO; G8988-GO; G8996-GN; G8997-GN; G8998-GN; J0360; J0610; J0692; J1650; J1815; J1940; J1956; J2543; J2920; J2930; J3370; J3490; J7030; J7060; J7512; J7620; Q9969

== ENCOUNTER 2017-01-21 05:41 | Inpatient (IN) | payer MEDICARE, MEDICAID ==
[2017-01-21] MEDS ORDERED: FUROSEMIDE INJ/PF 40 MG/4 ML SDV IV ONE (06:47)
--- NOTE | 2017-01-21 06:47 | ER Document Report ---
ED General - General Chief Complaint: Edema Stated Complaint: SWELLING IN FEET Time Seen by Provider: 01/21/17 06:47 Mode of Arrival: Ambulatory Information source: Patient Notes: 71-year-old male history of congestive heart failure presents with bilateral lower extremity edema. Is noted patient was found covered in feces. Patient admits to not being able to take care of himself unable to eat TRAVEL OUTSIDE OF THE [place] IN LAST 30 DAYS: No - HPI Onset: Last week Onset/Duration: Persistent, Worse Quality of pain: No pain Severity: Moderate Pain Level: Denies Associated symptoms: Leg swelling, Shortness of breath Exacerbated by: Denies Relieved by: Denies Similar symptoms previously: Yes Recently seen / treated by doctor: Yes - Related Data Allergies/Adverse Reactions: No Known Allergies Allergy (Verified 01/21/17 05:53) Past Medical History - Social History Smoking Status: Current Every Day Smoker Cigarette use (# per day): Yes Chew tobacco use (# tins/day): No Smoking Education Provided: No Family History: CAD, COPD, Hypertension Patient has suicidal ideation: No Patient has homicidal ideation: No - Past Medical History Cardiac Medical History: Reports: Hx Atrial Fibrillation - Reported history of atrial flutter, 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, Hx Coronary Artery Disease, Hx Heart Attack - x1, Hx Hypertension, Hx Heart Murmur Denies: Hx DVT, Hx Hypercholesterolemia, Hx Pulmonary Embolism Pulmonary Medical History: Reports: Hx Asthma, Hx Bronchitis, Hx COPD, Hx Pneumonia Denies: Hx Sleep Apnea, Hx Tuberculosis Neurological Medical History: Denies: Hx Seizures Endocrine Medical History: Denies: Hx Diabetes Mellitus Type 1, Hx Diabetes Mellitus Type 2, Hx Hyperthyroidism, Hx Hypothyroidism Renal/ Medical History: Denies: Hx Peritoneal Dialysis GI Medical History: Denies: Hx Cirrhosis, Hx Gastroesophageal Reflux Disease, Hx Hepatitis Musculoskeltal Medical History: Reports Hx Arthritis Psychiatric Medical History: Reports: Hx Depression Infectious Medical History: Denies: Hx Hepatitis Past Surgical History: Reports: Hx Cardiac Surgery - cabg x2, pacer/AICD, Hx Coronary Artery Bypass Graft, Hx Orthopedic Surgery - neck fusion, right and left hand surgery, Hx Pacemaker - Biventricular pacemaker noted - Immunizations Hx Diphtheria, Pertussis, Tetanus Vaccination: Yes Review of Systems - Review of Systems Notes: REVIEW OF SYSTEMS: CONSTITUTIONAL : Denies fever, chills, or sweats. Denies recent illness. EENT: Denies eye, ear, throat, or mouth pain or symptoms. Denies nasal or sinus congestion or discharge. Denies throat, tongue, or mouth swelling or difficulty swallowing. CARDIOVASCULAR: Denies chest pain. Denies palpitations or racing or irregular heart beat. admit to peripheral edema RESPIRATORY: admits ot sob GASTROINTESTINAL: Denies abdominal pain or distention. Denies nausea, vomiting , or diarrhea. Denies blood in vomitus, stools, or per rectum. Denies black, tarry stools. Denies constipation. GENITOURINARY: Denies difficulty urinating, painful urination, burning, frequency, blood in urine, or discharge. MUSCULOSKELETAL: Denies back or neck pain or stiffness. Denies joint pain or swelling. SKIN: Denies rash, lesions or sores. HEMATOLOGIC : Denies easy bruising or bleeding. LYMPHATIC: Denies swollen, enlarged glands. NEUROLOGICAL: Denies confusion or altered mental status. Denies passing out or loss of consciousness. Denies dizziness or lightheadedness. Denies headache. Denies weakness or paralysis or loss of use of either side. Denies problems with gait or speech. Denies sensory loss, numbness, or tingling. Denies seizures. PSYCHIATRIC: Denies anxiety or stress. Denies depression, suicidal ideation, or homicidal ideation. ALL OTHER SYSTEMS REVIEWED AND NEGATIVE. Dictation was performed using [employer] voice recognition software PHYSICAL EXAMINATION: GENERAL:ill appearing male cachectic HEAD: Atraumatic, normocephalic. EYES: Pupils equal round and reactive to light, extraocular movements intact, sclera anicteric, conjunctiva are normal. ENT: Nares patent, oropharynx clear without exudates. Moist mucous membranes. NECK: Normal range of motion, supple without lymphadenopathy LUNGS: coarse breath sounds HEART: tahcycardic ABDOMEN: Soft, nontender, nondistended abdomen. No guarding, no rebound. No masses appreciated. Musculoskeletal: +3 pitting edema bilateral NEUROLOGICAL: Cranial nerves grossly intact. Normal speech, normal gait. Normal sensory, motor exams PSYCH: Normal mood, normal affect. SKIN: Warm, Dry, normal turgor, no rashes or lesions noted. Physical Exam - Vital signs Vitals: Temp Pulse Resp BP Pulse Ox 98.7 F 59 L 16 175/64 H 100 01/21/17 06:02 01/21/17 06:02 01/21/17 06:02 01/21/17 06:02 01/21/17 06:02 Course - Re-evaluation Re-evalutation: 01/21/17 10:39 pt noted to be in acute renal failure, extensive edema , pt t obe admitted on nc - Vital Signs Vital signs: Temp Pulse Resp BP Pulse Ox 98.7 F 59 L 19 187/75 H 99 01/21/17 06:02 01/21/17 06:02 01/21/17 09:31 01/21/17 09:31 01/21/17 09:31 - Laboratory Result Diagrams: 01/21/17 09:15 01/21/17 09:15 Laboratory results interpreted by me: 01/21/17 01/21/17 01/21/17 09:15 09:15 09:15 WBC 20.5 H RBC 4.05 L Hgb 11.5 L Hct 35.7 L RDW 17.2 H Seg Neuts % (Manual) 92 H Band Neutrophils % 1 L Lymphocytes % (Manual) 3 L Monocytes % (Manual) 2 L Abs Neuts (Manual) 19.1 H Chloride 95 L Carbon Dioxide 32 H BUN 115 H Creatinine 3.50 H Est GFR ( Amer) 21 L Est GFR (Non-Af Amer) 17 L Direct Bilirubin 0.5 H CK-MB (CK-2) 6.21 H NT-Pro-B Natriuret Pep 29246 H Critical Care Note - Critical Care Note Total time excluding time spent on procedures (mins): 45 Comments: 45 minutes of critical care time spent in direct contact evaluating and reevaluating the patient, treating symptoms, reviewing labs and studies and speaking with family and consultants excluding any procedures Discharge - Discharge Clinical Impression: Acute kidney injury, Acute diastolic (congestive) heart failure Condition: Fair Disposition: ADMITTED INPATIENT Admitting Provider: Hospitalist Unit Admitted: Telemetry
--- NOTE | 2017-01-21 08:52 | RADIOLOGY REPORT (SQ) ---
EXAM DESCRIPTION: CHEST SINGLE VIEW COMPLETED DATE/TIME: 01/21/2017 8:08 am REASON FOR STUDY: WEAKNESS/LEG SWELLING COMPARISON: AP chest 01/10/2017, 12/14/2016 CT angio chest 01/07/2017 EXAM PARAMETERS: NUMBER OF VIEWS: One view. TECHNIQUE: Single frontal radiographic view of the chest acquired. RADIATION DOSE: NA LIMITATIONS: None. FINDINGS: LUNGS AND PLEURA: Persistent blunting right lateral costophrenic sulcus, due to pleural fl uid or pleural thickening. This is similar compared to post thoracentesis film 01/10/2017. There is chronic appearing scarring and volume loss in the right lower lobe. Superimposed acute pneu monia could not entirely be excluded. Left lung well inflated and clear. No left pleural fluid or pleural thickening. No right or left pneumothorax. MEDIASTINUM AND HILAR STRUCTURES: No masses. Contour normal. HEART AND VASCULAR STRUCTURES: Stable cardiomegaly, sternotomy with CABG and aortic valve replacement BONES: No acute findings. HARDWARE: Left-sided dual lead pacemaker. OTHER: No other significant finding. IMPRESSION: Chronic appearing volume loss and consolidation right lower lobe. Stable right lateral costophrenic sulcus pleural thickening or trace residual pleural fluid. TECHNICAL DOCUMENTATION: JOB ID: [id number]
[2017-01-21] MEDS ORDERED: FUROSEMIDE INJ/PF 100 MG/10 ML SDV IV ONE (09:17)
[2017-01-21 09:43] LABS: HEMATOCRIT 35.7 % (37.9-51.0); HEMOGLOBIN 11.5 g/dL (13.5-17.0); HGB HCT DIFFERENCE -1.2; MEAN CORPUSCULAR HEMOGLOBIN 28.3 pg (27.0-33.4); MEAN CORPUSCULAR HGB CONC 32.2 g/dL (32.0-36.0); MEAN CORPUSCULAR VOLUME 88 fl (80-97); RED BLOOD COUNT 4.05 10^6/uL (4.35-5.55); RED CELL DISTRIBUTION WIDTH 17.2 % (11.5-14.0); WHITE BLOOD COUNT 20.5 10^3/uL (4.0-10.5)
[2017-01-21 10:00] LABS: ALANINE AMINOTRANSFERASE 53 U/L (21-72); ALBUMIN 3.6 g/dL (3.5-5.0); ALKALINE PHOSPHATASE 112 U/L (38-126); ANION GAP 17 (5-19); ASPARTATE AMINO TRANSFERASE 37 U/L (17-59); BILIRUBIN,DIRECT 0.5 mg/dL (0.0-0.4); BILIRUBIN,TOTAL 0.7 mg/dL (0.2-1.3); BLOOD UREA NITROGEN 115 mg/dL (7-20); CALCIUM 8.8 mg/dL (8.4-10.2); CARBON DIOXIDE 32 mmol/L (22-30); CHLORIDE 95 mmol/L (98-107); CREATINE KINASE 64 U/L (55-170); GLUCOSE 107 mg/dL (75-110); SODIUM 143.5 mmol/L (137-145); TOTAL PROTEIN 6.4 g/dL (6.3-8.2)
[2017-01-21 10:10] LABS: BAND NEUTROPHILS % (MANUAL) 1 % (3-5); BASOPHILS % (MANUAL) 1 % (0-2); EOSINOPHILS % (MANUAL) 1 % (0-6); LYMPHOCYTES % (MANUAL) 3 % (13-45); TOTAL CELLS COUNTED 100
[2017-01-21 10:11] LABS: ANISOCYTOSIS 1+; OVALOCYTES SLIGHT; POIKILOCYTOSIS SLIGHT
[2017-01-21 10:12] LABS: CREATINE KINASE MB 6.21 ng/mL (<4.55)
[2017-01-21] MEDS ORDERED: CEFTRIAXONE 1 GM/D5W RTU 1 GM/50 ML RTUPB IV ONE (10:16)
[2017-01-21 10:19] LABS: TROPONIN I 0.157 ng/mL
[2017-01-21 10:38] LABS: APPEARANCE,URINE CLOUDY; BILIRUBIN,URINE NEGATIVE (NEGATIVE); GLUCOSE, URINE NEGATIVE (NEGATIVE); KETONES,URINE NEGATIVE (NEGATIVE); LEUKOCYTE ESTERASE,URINE MODERATE (NEGATIVE); NITRITE,URINE NEGATIVE (NEGATIVE); PROTEIN,URINE 100 mg/dL (NEGATIVE); URINE SPECIFIC GRAVITY 1.012; UROBILINOGEN,URINE NEGATIVE mg/dL (<2.0)
[2017-01-21 10:40] LABS: WBC,URINE 20-30 /HPF
[2017-01-21 10:41] LABS: BACTERIA,URINE 2+ /HPF
[2017-01-21] MEDS ORDERED: ONDANSETRON HCL INJ/PF 4 MG/2 ML SDV IV PRN (11:03)
[2017-01-21] MEDS ORDERED: CARVEDILOL 3.125 MG TABLET PO ONE (11:28)
[2017-01-21] MEDS ORDERED: GLUCAGON,HUMAN RECOMB 1 MG INJ IM PRN (11:44)
[2017-01-21] MEDS ORDERED: DEXTROSE 40% GEL 15 GM TUBE PO PRN (11:44)
[2017-01-21] MEDS ORDERED: DEXTROSE 50%-WATER SYRINGE 12.5 GM/25 ML DOSE IV PRN (11:44)
[2017-01-21] MEDS ORDERED: DEXTROSE 50%-WATER SYRINGE 25 GM/50 ML DOSE IV PRN (11:44)
[2017-01-21] MEDS ORDERED: DEXTROSE 40% GEL 15 GM TUBE X 2 PO PRN (11:44)
[2017-01-21] MEDS ORDERED: INSULIN LISPRO 100 UNIT/ML 3 ML VIAL SUBCUT PRN (11:44)
[2017-01-21] MEDS ORDERED: NICOTINE 21 MG/24 HR PATCH.TD24 TD ONE (12:00)
--- NOTE | 2017-01-21 13:24 | EKG REPORT ---
SEVERITY:- ABNORMAL ECG - A-V DUAL-PACED RHYTHM WITH SOME INHIBITION BASELINE A FIB. : Confirmed by: Milton Wang MD 21-Jan-2017 13:23:54
[2017-01-21] MEDS ORDERED: INSULIN LISPRO 100 UNIT/ML 3 ML VIAL SUBCUT SCH (14:00)
[2017-01-21 14:56] LABS: HEMATOCRIT 34.6 % (37.9-51.0); HEMOGLOBIN 11.3 g/dL (13.5-17.0); HGB HCT DIFFERENCE -0.7; MEAN CORPUSCULAR HEMOGLOBIN 28.7 pg (27.0-33.4); MEAN CORPUSCULAR HGB CONC 32.6 g/dL (32.0-36.0); MEAN CORPUSCULAR VOLUME 88 fl (80-97); RED BLOOD COUNT 3.94 10^6/uL (4.35-5.55); RED CELL DISTRIBUTION WIDTH 17.1 % (11.5-14.0); WHITE BLOOD COUNT 16.3 10^3/uL (4.0-10.5)
[2017-01-21 15:32] LABS: ANISOCYTOSIS 2+; BASOPHILS % (MANUAL) 0 % (0-2); EOSINOPHILS % (MANUAL) 2 % (0-6); HYPOCHROMASIA SLIGHT; LYMPHOCYTES % (MANUAL) 2 % (13-45); OVALOCYTES SLIGHT; POIKILOCYTOSIS SLIGHT; ROULEAUX SLIGHT; TOTAL CELLS COUNTED 100
[2017-01-21 15:33] LABS: TOXIC GRANULATION SLIGHT; TOXIC VACUOLATION PRESENT
[2017-01-21] MEDS ORDERED: INFLUENZA ADLT QUAD (36MOS+) 2017-18 VAC 0.5 ML SYR IM PRN (17:03)
[2017-01-21] MEDS: TIOTROPIUM BROMIDE DPI 5 CAP/KIT (18 MCG/CAP) IH SCH (17:24)
[2017-01-21] MEDS: HEPARIN SOD (PORCINE) 5,000 UNIT/ML 1 ML SYRINGE SUBCUT SCH ×2 (17:24→22:11)
[2017-01-21] MEDS: BUDESONIDE/FORMOTEROL 160-4.5 MCG 60 PUFF/6 GM MDI IH SCH (17:46)
--- NOTE | 2017-01-21 20:10 | PDOC H&P ---
History of Present Illness Admission Date/PCP: KAREN LAU PA-C Patient complains of: Patient presents with swelling of the lower extremities History of Present Illness: TORSTEN MANZO JR is a 71 year old male with combined systolic and diastolic heart failure. Patient presented with pedal edema. Patient BNP is much elevated than before. Patient creatinine is also worse than before. Patient is not really interactive at this time. It is noted that patient has a creatinine of 3.50 which was 1.76 on discharge. Patient does not appear to be in any distress. She also found to have leukocytosis but no clear signs of infection. Service was called to admit patient for further evaluation and treatment of his CHF exacerbation. Past Medical History Cardiac Medical History: Reports: Atrial Fibrillation - Reported history of atrial flutter, Congestive Heart Failure - Combined systolic and diastolic, Coronary Artery Disease, Myocardial Infarction - x1, Hypertension, Heart Murmur Denies: DVT, Hyperlipidema, Pulmonary Embolism Pulmonary Medical History: Reports: Asthma, Bronchitis, Chronic Obstructive Pulmonary Disease (COPD), Pneumonia Denies: Sleep Apnea, Tuberculosis Neurological Medical History: Denies: Seizures Endocrine Medical History: Denies: Diabetes Mellitus Type 1, Diabetes Mellitus Type 2, Hyperthyroidism, Hypothyroidism GI Medical History: Denies: Cirrhosis, Gastroesophageal Reflux Disease, Hepatitis Musculoskeltal Medical History: Reports: Arthritis Psychiatric Medical History: Reports: Depression Past Surgical History Past Surgical History: Reports: Coronary Artery Bypass Graft, Orthopedic Surgery - neck fusion, right and left hand surgery, Pacemaker - Biventricular pacemaker noted Social History Information Source: Emergency [facility] Personnel Smoking Status: Current Every Day Smoker Frequency of Alcohol Use: None Hx Recreational Drug Use: No Drugs: None Hx Prescription Drug Abuse: No - Advance Directive Resuscitation Status: Do Not Resuscitate Family History Family History: CAD, COPD, Hypertension Parental Family History Reviewed: No Children Family History Reviewed: No Sibling(s) Family History Reviewed.: No Medication/Allergy Home Medications: Budesonide/Formoterol Fumarate [Symbicort 160-4.5 Mcg Inhaler] 2 inh IH BID 01/28 Hydralazine HCl 75 mg PO Q8 01/21/17 Insulin Glargine,Hum.rec.anlog [Lantus Solostar] 10 units SQ QAM 01/21/17 Insulin Lispro [Humalog Kwikpen U-200] 2 units SQ ACHS 01/21/17 Tiotropium Muir [Spiriva Handihaler 18 mcg/dose (30 Dose)] 1 cap IH DAILY 01/28 Allergies/Adverse Reactions: No Known Allergies Allergy (Verified 01/21/17 05:53) Review of Systems ROS unobtainable: Other - patient refusing to answer any questions. Physical Exam Vital Signs: Temp Pulse Resp BP Pulse Ox 98.7 F 59 L 19 187/75 H 99 01/21/17 06:02 01/21/17 06:02 01/21/17 09:31 01/21/17 09:31 01/21/17 09:31 Intake & Output 01/20/17 01/21/17 01/22/17 06:59 06:59 06:59 Weight 64.5 kg General appearance: PRESENT: no acute distress, thin Head exam: PRESENT: normocephalic Eye exam: PRESENT: EOMI Neck exam: PRESENT: JVD Respiratory exam: PRESENT: clear to auscultation mary jo. ABSENT: unlabored, wheezes Cardiovascular exam: PRESENT: RRR, +S1, +S2 GI/Abdominal exam: PRESENT: normal bowel sounds, soft. ABSENT: tenderness Rectal exam: PRESENT: deferred Extremities exam: PRESENT: pedal edema, +2 edema Neurological exam: PRESENT: alert, awake, other - patient not speaking Skin exam: PRESENT: intact, warm Results Laboratory Results: 01/21/17 09:15 01/21/17 09:15 01/21/17 01/21/17 01/21/17 09:15 09:15 09:15 WBC 20.5 H RBC 4.05 L Hgb 11.5 L Hct 35.7 L MCV 88 MCH 28.3 MCHC 32.2 RDW 17.2 H Plt Count 249 Seg Neutrophils % Not Reportable Lymphocytes % Not Reportable Monocytes % Not Reportable Eosinophils % Not Reportable Basophils % Not Reportable Absolute Neutrophils Not Reportable Absolute Lymphocytes Not Reportable Absolute Monocytes Not Reportable Absolute Eosinophils Not Reportable Absolute Basophils Not Reportable Sodium 143.5 Potassium 4.0 Chloride 95 L Carbon Dioxide 32 H Anion Gap 17 BUN 115 H Creatinine 3.50 H Est GFR ( Amer) 21 L Est GFR (Non-Af Amer) 17 L Glucose 107 Calcium 8.8 Total Bilirubin 0.7 AST 37 ALT 53 Alkaline Phosphatase 112 Total Protein 6.4 Albumin 3.6 Urine Color YELLOW Urine Appearance CLOUDY Urine pH 5.0 Ur Specific [place] 1.012 Urine Protein 100 H Urine Glucose (UA) NEGATIVE Urine Ketones NEGATIVE Urine Blood SMALL H Urine Nitrite NEGATIVE Ur Leukocyte Esterase MODERATE H 01/21/17 01/21/17 09:15 09:15 Creatine Kinase 64 CK-MB (CK-2) 6.21 H Troponin I 0.157 NT-Pro-B Natriuret Pep 29563 H Impressions: Chest X-Ray 01/21/17 00:00 IMPRESSION: Chronic appearing volume loss and consolidation right lower lobe. Stable right lateral costophrenic sulcus pleural thickening or trace residual pleural fluid. Status: Imported from PACS Assessment & Plan - Diagnosis (1) Acute on chronic combined systolic and diastolic CHF (congestive heart failure) Is this a current diagnosis for this admission?: Yes Plan: Patient presenting with pedal edema. Patient has a known history of CHF. Patient started on low-dose beta-helena and Lasix. KASSI OR but this time due to his his acute on chronic renal failure. Will monitor electrolytes. Compression stockings were ordered to help with the pedal edema. (2) COPD (chronic obstructive pulmonary disease) Qualifiers: COPD type: unspecified COPD Qualified Code(s): J44.9 - Chronic obstructive pulmonary disease, unspecified Is this a current diagnosis for this admission?: Yes Plan: Patient has COPD however it does not appear to be an exacerbation at this time. (3) Acute kidney injury Is this a current diagnosis for this admission?: Yes Plan: She appears to have acute on chronic CKD stage 4. Patient may need diuresis at this time and not fluid resuscitation as patient is showing signs of volume overload with the peripheral edema and JVD. Will monitor renal function closely while patient is being diuresed. (4) Do not resuscitate Is this a current diagnosis for this admission?: Yes Plan: Patient is a DNR (5) Diabetes Qualifiers: Diabetes mellitus type: type 2 Chronic kidney disease stage: stage 3 ( moderate) Is this a current diagnosis for this admission?: Yes Plan: Tenuous sliding scale insulin and monitor. (6) Tobacco dependency Is this a current diagnosis for this admission?: Yes Plan: Nicotine patch ordered. Discussed with patient about smoking cessation when patient is more cooperative. (7) DVT prophylaxis Plan: Heparin - Time Time Spent: 30 to 50 Minutes Anticipated discharge: Home with Homehealth - Patient had high risk for recurrent admission. Patient has severe CHF is a DNR. Patient may be a candidate for palliative care. This will have to be discussed with patient's family.
[2017-01-21] MEDS ORDERED: FUROSEMIDE INJ/PF 40 MG/4 ML SDV IV SCH (22:00)
[2017-01-21] MEDS: FUROSEMIDE INJ/PF 100 MG/10 ML SDV IV SCH (22:14)
[2017-01-22] MEDS: HEPARIN SOD (PORCINE) 5,000 UNIT/ML 1 ML SYRINGE SUBCUT SCH ×3 (05:08→21:10)
[2017-01-22] MEDS: NICOTINE 21 MG/24 HR PATCH.TD24 TD SCH (10:32)
[2017-01-22] MEDS: BUDESONIDE/FORMOTEROL 160-4.5 MCG 60 PUFF/6 GM MDI IH SCH ×2 (10:32→16:40)
[2017-01-22 12:20] LABS: HEMATOCRIT 36.4 % (37.9-51.0); HEMOGLOBIN 11.9 g/dL (13.5-17.0); HGB HCT DIFFERENCE -0.7; MEAN CORPUSCULAR HEMOGLOBIN 28.6 pg (27.0-33.4); MEAN CORPUSCULAR HGB CONC 32.6 g/dL (32.0-36.0); MEAN CORPUSCULAR VOLUME 88 fl (80-97); RED BLOOD COUNT 4.15 10^6/uL (4.35-5.55); RED CELL DISTRIBUTION WIDTH 17.2 % (11.5-14.0); WHITE BLOOD COUNT 13.7 10^3/uL (4.0-10.5)
[2017-01-22 12:28] LABS: ANION GAP 16 (5-19); BLOOD UREA NITROGEN 119 mg/dL (7-20); CALCIUM 8.6 mg/dL (8.4-10.2); CARBON DIOXIDE 32 mmol/L (22-30); CHLORIDE 91 mmol/L (98-107); CREATININE RESULT 3.49 mg/dL (0.52-1.25); GLUCOSE 193 mg/dL (75-110); POTASSIUM 4.1 mmol/L (3.6-5.0); SODIUM 138.6 mmol/L (137-145)
[2017-01-22 12:53] LABS: BASOPHILS % (MANUAL) 0 % (0-2); EOSINOPHILS % (MANUAL) 2 % (0-6); LYMPHOCYTES % (MANUAL) 3 % (13-45); TOTAL CELLS COUNTED 100
[2017-01-22 12:56] LABS: ANISOCYTOSIS 1+; OVALOCYTES SLIGHT; POIKILOCYTOSIS SLIGHT
[2017-01-22 12:57] LABS: TARGET CELLS SLIGHT
[2017-01-22] MEDS: TIOTROPIUM BROMIDE DPI 5 CAP/KIT (18 MCG/CAP) IH SCH (15:32)
[2017-01-22] MEDS: FUROSEMIDE INJ/PF 100 MG/10 ML SDV IV SCH ×2 (15:32→21:12)
[2017-01-22] MEDS ORDERED: DEXTROSE 50%-WATER 25 GM/50 ML DISP.SYRIN IV PRN ×2 (19:38)
[2017-01-22] MEDS ORDERED: DEXTROSE 40% GEL 15 GM TUBE PO PRN ×2 (19:38)
[2017-01-22] MEDS ORDERED: GLUCAGON,HUMAN RECOMB 1 MG INJ IM PRN (19:38)
[2017-01-22] MEDS ORDERED: INSULIN REG, HUMAN 100 UNIT/ML 3 ML VIAL (PYX) SUBCUT PRN (19:38)
[2017-01-22] MEDS ORDERED: AMLODIPINE BESYLATE 10 MG TABLET PO SCH (22:00)
[2017-01-23] MEDS: HEPARIN SOD (PORCINE) 5,000 UNIT/ML 1 ML SYRINGE SUBCUT SCH ×3 (05:54→21:55)
[2017-01-23] MEDS: BUDESONIDE/FORMOTEROL 160-4.5 MCG 60 PUFF/6 GM MDI IH SCH ×2 (09:26→22:13)
[2017-01-23] MEDS: NICOTINE 21 MG/24 HR PATCH.TD24 TD SCH (09:26)
[2017-01-23] MEDS: AMLODIPINE BESYLATE 10 MG TABLET PO SCH (09:28)
[2017-01-23] MEDS ORDERED: LEVALBUTEROL HCL NEB 1.25 MG/3 ML AMPUL NEB ONE ×2 (10:02→12:00)
[2017-01-23] MEDS ORDERED: INFLUENZA ADLT QUAD (36MOS+) 2017-18 VAC 0.5 ML SYR IM PRN (10:30)
[2017-01-23] MEDS ORDERED: ONDANSETRON HCL INJ/PF 4 MG/2 ML SDV IV PRN (10:30)
[2017-01-23] MEDS: TIOTROPIUM BROMIDE DPI 5 CAP/KIT (18 MCG/CAP) IH SCH (13:18)
[2017-01-23] MEDS: HYDRALAZINE HCL 25 MG TABLET PO SCH ×2 (13:18→22:13)
[2017-01-23] MEDS: LEVALBUTEROL HCL NEB 1.25 MG/3 ML AMPUL NEB SCH ×2 (14:17→19:50)
--- NOTE | 2017-01-23 15:33 | Physician Advisory Note ---
Physician Advisor ProgressNote .: Pursuant to the plan for Anaya Reynoso, I have reviewed the medical record for this patient. Physician Advisor Statement: Very nice documentation of Ac on chr syst/diast CHF, LUPE, CKD stage 4! Please consider documentin. "Chronic hypoxemic Respiratory Failure, requiring 2L O2 at baseline" (info is in ED nursing assessment) 2. "Chronic Afib" vs "Paroxysmal Afib" Thanks! CK
[2017-01-24] MEDS: LEVALBUTEROL HCL NEB 1.25 MG/3 ML AMPUL NEB SCH ×3 (02:32→13:38)
[2017-01-24] MEDS: HEPARIN SOD (PORCINE) 5,000 UNIT/ML 1 ML SYRINGE SUBCUT SCH ×2 (05:05→13:43)
[2017-01-24] MEDS: HYDRALAZINE HCL 25 MG TABLET PO SCH (05:07)
[2017-01-24] MEDS ORDERED: HYDRALAZINE HCL INJ/PF 20 MG/1 ML SDV IV ONE ×2 (05:45→10:47)
[2017-01-24 06:42] LABS: ANION GAP 15 (5-19); BLOOD UREA NITROGEN 116 mg/dL (7-20); CALCIUM 8.8 mg/dL (8.4-10.2); CARBON DIOXIDE 31 mmol/L (22-30); CHLORIDE 90 mmol/L (98-107); CREATININE RESULT 3.18 mg/dL (0.52-1.25); GLUCOSE 140 mg/dL (75-110); MAGNESIUM 2.2 mg/dL (1.6-2.3); POTASSIUM 4.1 mmol/L (3.6-5.0); SODIUM 135.5 mmol/L (137-145)
[2017-01-24] MEDS ORDERED: FUROSEMIDE 40 MG TABLET PO SCH ×2 (07:15→10:00)
--- NOTE | 2017-01-24 07:25 | PDOC PROGRESS REPORT ---
Subjective Progress Note for:: 01/22/17 Subjective:: Patient presents with pedal edema thought to be due to CHF exacerbation. Patient sitting up in bed. He is congested. He is not speaking much. When asked how he is doing, he motions "so, so". Physical Exam Vital Signs: Temp Pulse Resp BP Pulse Ox 98.0 F 58 L 20 187/79 H 100 01/22/17 19:46 01/22/17 19:46 01/22/17 19:46 01/22/17 19:46 01/22/17 19:46 Intake & Output 01/21/17 01/22/17 01/23/17 06:59 06:59 06:59 Intake Total 803 940 Output Total 1425 1300 Balance -622 -360 Weight 59.3 kg General appearance: PRESENT: no acute distress, disheveled, thin Head exam: PRESENT: normocephalic Eye exam: PRESENT: conjunctiva pink Mouth exam: PRESENT: moist Neck exam: PRESENT: full ROM. ABSENT: JVD Respiratory exam: PRESENT: rhonchi, unlabored. ABSENT: wheezes Cardiovascular exam: PRESENT: RRR, +S1, +S2 GI/Abdominal exam: PRESENT: hypoactive bowel sounds, soft. ABSENT: tenderness Rectal exam: PRESENT: deferred Extremities exam: PRESENT: pedal edema, other - improved swelling Neurological exam: PRESENT: alert Psychiatric exam: PRESENT: depressed, flat affect Results Laboratory Results: 01/22/17 11:57 01/22/17 11:57 01/22/17 01/22/17 01/22/17 11:27 11:27 11:57 WBC 13.7 H RBC 4.15 L Hgb 11.9 L Hct 36.4 L MCV 88 MCH 28.6 MCHC 32.6 RDW 17.2 H Plt Count 241 Seg Neutrophils % Not Reportable Lymphocytes % Not Reportable Monocytes % Not Reportable Eosinophils % Not Reportable Basophils % Not Reportable Absolute Neutrophils Not Reportable Absolute Lymphocytes Not Reportable Absolute Monocytes Not Reportable Absolute Eosinophils Not Reportable Absolute Basophils Not Reportable Sodium Cancelled Potassium Cancelled Chloride Cancelled Carbon Dioxide Cancelled Anion Gap Cancelled BUN Cancelled Creatinine Cancelled Est GFR ( Amer) Cancelled Est GFR (Non-Af Amer) Cancelled Glucose Cancelled Calcium Cancelled Magnesium 2.5 H 01/22/17 11:57 WBC RBC Hgb Hct MCV MCH MCHC RDW Plt Count Seg Neutrophils % Lymphocytes % Monocytes % Eosinophils % Basophils % Absolute Neutrophils Absolute Lymphocytes Absolute Monocytes Absolute Eosinophils Absolute Basophils Sodium 138.6 Potassium 4.1 Chloride 91 L Carbon Dioxide 32 H Anion Gap 16 BUN 119 H Creatinine 3.49 H Est GFR ( Amer) 21 L Est GFR (Non-Af Amer) 17 L Glucose 193 H Calcium 8.6 Magnesium 01/22/17 06:24 Creatine Kinase 38 L Impressions: Chest X-Ray 01/21/17 00:00 IMPRESSION: Chronic appearing volume loss and consolidation right lower lobe. Stable right lateral costophrenic sulcus pleural thickening or trace residual pleural fluid. Assessment & Plan - Diagnosis (1) Acute on chronic combined systolic and diastolic CHF (congestive heart failure) Is this a current diagnosis for this admission?: Yes Plan: Patient not tolerating low dose beta helena. Patient becoming bradycardic. Patient is diuresing well. Pedal edema significantly improved. No ACEI or ARB at this time due to acute on chronic renal failure. (2) COPD (chronic obstructive pulmonary disease) Qualifiers: COPD type: unspecified COPD Qualified Code(s): J44.9 - Chronic obstructive pulmonary disease, unspecified Is this a current diagnosis for this admission?: Yes Plan: Patient has COPD however it does not appear to be an exacerbation at this time. Patient does have rhonchi will continue him home mediations. (3) Acute kidney injury Is this a current diagnosis for this admission?: Yes Plan: Heappears to have acute on chronic CKD stage 4. Creatinine is stable. Will continue with lasix. Monitor strict I/O. (4) Do not resuscitate Is this a current diagnosis for this admission?: Yes Plan: Patient is a DNR (5) Diabetes Qualifiers: Diabetes mellitus type: type 2 Chronic kidney disease stage: stage 3 ( moderate) Is this a current diagnosis for this admission?: Yes Plan: Continue sliding scale insulin and monitor. (6) Tobacco dependency Is this a current diagnosis for this admission?: Yes Plan: Continue nicotine patch. (7) DVT prophylaxis Plan: Heparin (8) Chronic atrial fibrillation Is this a current diagnosis for this admission?: Yes Plan: Patient rate controlled without any medication. Patient is actually bradycardic at times. - Time Time Spent with patient: Less than 15 minutes Anticipated discharge: Home with Homehealth, SNF - Not sure if patient should be home. He may require more assistance. Patient was not agreeable to this in the past.
--- NOTE | 2017-01-24 07:33 | PDOC PROGRESS REPORT ---
Subjective Progress Note for:: 01/23/17 Subjective:: Patient presents with pedal edema thought to be due to CHF exacerbation. Patient sitting up in bed and awake. Patient asked what happened and when will he go home. Patient states he refused labs after being stuck too many times. Physical Exam Vital Signs: Temp Pulse Resp BP Pulse Ox 98.0 F 60 20 173/61 H 100 01/23/17 20:08 01/23/17 20:08 01/23/17 20:08 01/23/17 20:08 01/23/17 20:08 Intake & Output 01/22/17 01/23/17 01/24/17 06:59 06:59 06:59 Intake Total 803 1534 950 Output Total 1425 2300 900 Balance -622 -766 50 Weight 59.3 kg 63.1 kg General appearance: PRESENT: no acute distress, disheveled, thin Head exam: PRESENT: normocephalic Eye exam: PRESENT: EOMI Mouth exam: PRESENT: moist Neck exam: ABSENT: JVD Respiratory exam: PRESENT: decreased breath sounds, rhonchi. ABSENT: unlabored Cardiovascular exam: PRESENT: bradycardia, irregular rhythm GI/Abdominal exam: PRESENT: normal bowel sounds, soft. ABSENT: tenderness Rectal exam: PRESENT: deferred Gentrourinary exam: PRESENT: indwelling catheter Extremities exam: PRESENT: pedal edema - improved Neurological exam: PRESENT: other - dysarthria Psychiatric exam: PRESENT: normal mood Skin exam: PRESENT: intact, warm Results Laboratory Results: 01/22/17 11:57 01/22/17 11:57 01/22/17 06:24 Creatine Kinase 38 L Impressions: Chest X-Ray 01/21/17 00:00 IMPRESSION: Chronic appearing volume loss and consolidation right lower lobe. Stable right lateral costophrenic sulcus pleural thickening or trace residual pleural fluid. Assessment & Plan - Diagnosis (1) Acute on chronic combined systolic and diastolic CHF (congestive heart failure) Is this a current diagnosis for this admission?: Yes Plan: Continue IV lasix but switch to po in the am to see if patient diureses well on oral lasix. Patient is diuresing well. Pedal edema significantly improved. No ACEI or ARB at this time due to acute on chronic renal failure. No beta helena due to bradycardia (2) COPD (chronic obstructive pulmonary disease) Qualifiers: COPD type: unspecified COPD Qualified Code(s): J44.9 - Chronic obstructive pulmonary disease, unspecified Is this a current diagnosis for this admission?: Yes Plan: Patient has COPD however it does not appear to be an exacerbation at this time. More aggressive pulmonary toliet as patient is not clearing his secreations. Will encourage to have patient up in chair. (3) Acute kidney injury Is this a current diagnosis for this admission?: Yes Plan: Appears to have acute on chronic CKD stage 4. Unable to check renal function today as patient refused labs. Will attempt to check in the morning. (4) Do not resuscitate Is this a current diagnosis for this admission?: Yes Plan: Patient is a DNR (5) Diabetes Qualifiers: Diabetes mellitus type: type 2 Chronic kidney disease stage: stage 3 ( moderate) Is this a current diagnosis for this admission?: Yes Plan: Continue sliding scale insulin and monitor. (6) Tobacco dependency Is this a current diagnosis for this admission?: Yes Plan: Continue nicotine patch. (7) DVT prophylaxis Plan: Heparin - Time Time Spent with patient: 15-24 minutes Anticipated discharge: Home with Homehealth, SNF - Patient requiring moderate assistance not sure if patient should be living at home. Will consult care management.
[2017-01-24] MEDS ORDERED: CARVEDILOL 3.125 MG TABLET PO SCH (10:00)
[2017-01-24] MEDS: NICOTINE 21 MG/24 HR PATCH.TD24 TD SCH (11:07)
[2017-01-24 11:37] LABS: ARTERIAL BLOOD O2 SATURATION 90.6 % (94-98)
[2017-01-24] MEDS: BUDESONIDE/FORMOTEROL 160-4.5 MCG 60 PUFF/6 GM MDI IH SCH (12:06)
[2017-01-24] MEDS: AMLODIPINE BESYLATE 10 MG TABLET PO SCH (12:06)
[2017-01-24] MEDS ORDERED: HYDRALAZINE HCL INJ/PF 20 MG/1 ML SDV IV PRN (12:51)
--- NOTE | 2017-01-24 13:20 | RADIOLOGY REPORT (SQ) ---
EXAM DESCRIPTION: CHEST SINGLE VIEW COMPLETED DATE/TIME: 01/24/2017 1:10 pm REASON FOR STUDY: aspiration COMPARISON: CT chest 01/07/2017 Chest films 01/10/2017, 01/21/2017 EXAM PARAMETERS: NUMBER OF VIEWS: One view. TECHNIQUE: Single frontal radiographic view of the chest acquired. RADIATION DOSE: NA LIMITATIONS: None. FINDINGS: LUNGS AND PLEURA: Stable small right pleural effusion. Stable consolidation in the right lateral and posterior lung base. Left lung well inflated and clear. No left pleural effusion. No right or left pneumothorax. MEDIASTINUM AND HILAR STRUCTURES: No masses. Contour normal. HEART AND VASCULAR STRUCTURES: Stable cardiomegaly, old sternotomy with CABG and aortic valve replace ment BONES: No acute findings. HARDWARE: Left-sided dual lead pacemaker OTHER: No other significant finding. IMPRESSION: No acute findings. Stable right pleural effusion and lobe volume loss/ scarring right l sudha base. TECHNICAL DOCUMENTATION: JOB ID: [id number]
--- NOTE | 2017-01-24 15:07 | RADIOLOGY REPORT (SQ) ---
EXAM DESCRIPTION: CT HEAD WITHOUT COMPLETED DATE/TIME: 01/24/2017 2:18 pm REASON FOR STUDY: AMS COMPARISON: CT brain 12/15/2013, 03/27/2015, 07/22/2015, 11/10/2016 TECHNIQUE: Axial images acquired through the brain without intravenous contrast. Images reviewed wi th bone, brain and subdural windows. Images stored on PACS. All CT scanners at this facility use dose modulation, iterative reconstruction, and/or weight based d osing when appropriate to reduce radiation dose to as low as reasonably achievable (ALARA). [facility]: Dose Right [facility]: CareDose [facility]: Dose Right [facility]: Teradose 4D [facility]: [employer] RADIATION DOSE: Up-to-date CT equipment and radiation dose reduction techniques were employed. CTDIv ol: 49.0 mGy. DLP: 881 mGy-cm. mGy. LIMITATIONS: None. FINDINGS: VENTRICLES: Normal size and contour. CEREBRUM: A large acute nonhemorrhagic left hemispheric infarct is present involving the left MCA dis tribution, involving the left temporal lobe, occipital lobe, and frontal perisylvian region. There i s local mass effect, with effacement of the CSF in the sylvian fissure, and partial effacement of the body left lateral ventricle. 2 to 3 mm of [id number] subfalcine shift. Elsewhere, with extensive small vessel ischemic changes present in the bifrontal and biparietal white matter with old lacunar infarcts in the bilateral thalami and basal ganglia. This report was discussed with Dr. Pizano, 1500 hours Eastern standard time 01/24/2017. CEREBELLUM: No masses. No hemorrhage. Old infarcts in the right and left cerebellar hemispheres. N o evidence for acute infarction. EXTRAAXIAL SPACES: No fluid collections. No masses. ORBITS AND GLOBE: No intra- or extraconal masses. Normal contour of globe without masses. CALVARIUM: No fracture. PARANASAL SINUSES: No fluid or mucosal thickening. SOFT TISSUES: No mass or hematoma. OTHER: No other significant finding. IMPRESSION: Large acute nonhemorrhagic infarct throughout the left hemisphere involving a dominant M CA vascular distribution. EVIDENCE OF ACUTE STROKE: NO. COMMENT: Quality ID # [id number]: Final reports with documentation of one or more dose reduction techniques (e.g., Automated exposure control, adjustment of the mA and/or kV according to patient size, use of iterative reconstruction technique) TECHNICAL DOCUMENTATION: JOB ID: [id number] [email or web address]- All Rights Reserved
[2017-01-24] MEDS ORDERED: DEXTROSE 50%-WATER 25 GM/50 ML DISP.SYRIN IV PRN ×2 (16:34)
[2017-01-24] MEDS ORDERED: GLUCAGON,HUMAN RECOMB 1 MG INJ SUBCUT PRN (16:34)
[2017-01-24] MEDS ORDERED: DEXTROSE 40% GEL 15 GM TUBE PO PRN ×2 (16:34)
[2017-01-24] MEDS ORDERED: GLYCOPYRROLATE INJ 0.4 MG/2 ML VIAL IV PRN (16:35)
[2017-01-24] MEDS ORDERED: SCOPOLAMINE HYDROBROMIDE 1.5 MG PATCH.TD72 TD ONE (18:00)
[2017-01-24] MEDS ORDERED: MORPHINE SULFATE 10 MG/ML INJ IV PRN ×2 (18:36→18:38)
[2017-01-24] MEDS ORDERED: LORAZEPAM INJ 2 MG/1 ML VIAL IV PRN (18:37)
[2017-01-24] MEDS ORDERED: BUDESONIDE NEB 0.5 MG/2 ML AMPUL NEB SCH (20:00)
[2017-01-24 21:01] VITALS: BP 199/69
--- NOTE | 2017-01-25 07:27 | PDOC PROGRESS REPORT ---
Subjective Progress Note for:: 01/24/17 Subjective:: Patient presents with pedal edema thought to be due to CHF exacerbation. Patient obtunded and not moving his right side. CT head shows large left MCA. Patient friend and only family member Susan was callled to explain that the patient was not doing well. He is not responsive and having difficulty controlling his oral secretions. He is motteling on his legs. He does not not seem to be in pain. She is asked to come quickly as it is uncertain as to home much longer he will have. Physical Exam Vital Signs: Temp Pulse Resp BP Pulse Ox 97.9 F 60 28 H 199/69 H 100 01/24/17 20:16 01/24/17 20:16 01/24/17 20:16 01/24/17 20:16 01/24/17 20:16 Intake & Output 01/23/17 01/24/17 01/25/17 06:59 06:59 06:59 Intake Total 1534 950 20 Output Total 2300 1600 725 Balance -766 -650 -705 Weight 63.1 kg 64.2 kg General appearance: PRESENT: no acute distress, disheveled, thin Head exam: PRESENT: normocephalic Teeth exam: PRESENT: edentulous Respiratory exam: PRESENT: rales, rhonchi. ABSENT: unlabored Cardiovascular exam: PRESENT: irregular rhythm GI/Abdominal exam: PRESENT: normal bowel sounds, soft Rectal exam: PRESENT: deferred Gentrourinary exam: PRESENT: indwelling catheter Neurological exam: PRESENT: altered, other - unresponsive with spontaneously move his left side only Skin exam: PRESENT: mottled, other - cool to touch Results Laboratory Results: 01/22/17 11:57 01/24/17 05:37 01/24/17 01/24/17 05:37 11:05 Carbonic Acid 1.40 H HCO3/H2CO3 Ratio 24:1 ABG pH 7.49 H ABG pCO2 46.4 H ABG pO2 54.8 L ABG HCO3 34.8 H ABG O2 Saturation 90.6 L ABG Base Excess 10.0 FiO2 3L Sodium 135.5 L Potassium 4.1 Chloride 90 L Carbon Dioxide 31 H Anion Gap 15 BUN 116 H Creatinine 3.18 H Est GFR ( Amer) 23 L Est GFR (Non-Af Amer) 19 L Glucose 140 H Calcium 8.8 Magnesium 2.2 01/22/17 06:24 Creatine Kinase 38 L Impressions: Chest X-Ray 01/24/17 00:00 IMPRESSION: No acute findings. Stable right pleural effusion and lobe volume loss/ scarring right lung base. Head CT 01/24/17 00:00 IMPRESSION: Large acute nonhemorrhagic infarct throughout the left hemisphere involving a dominant MCA vascular distribution. EVIDENCE OF ACUTE STROKE: NO. Assessment & Plan - Diagnosis (1) Acute on chronic combined systolic and diastolic CHF (congestive heart failure) Is this a current diagnosis for this admission?: Yes Plan: Patient had a large left MCA CVA and is unresponsive at this time. He was made comfort measure therefore all cardiac medications were discontinued. (2) COPD (chronic obstructive pulmonary disease) Qualifiers: COPD type: unspecified COPD Qualified Code(s): J44.9 - Chronic obstructive pulmonary disease, unspecified Is this a current diagnosis for this admission?: Yes Plan: Patient unable to control his secretions due to the stroke. He is hypoxic with a venti mask but not in distress. PRN suction ordered. Scopolamine patient and robinul was ordered. Lungs are clear breathing treatments may not help at this time. (3) Acute kidney injury Is this a current diagnosis for this admission?: Yes Plan: Appears to have acute on chronic CKD stage 4. Cristina in place. (4) Do not resuscitate Is this a current diagnosis for this admission?: Yes Plan: Patient has a large left MCA CVA in the last 24 to 48 hours. Patient is a DNR. Family friend and decision make agrees with comfort measures. Patient on PRN morphine for signs of respiratory distress and ativan for agitation. (5) Diabetes Qualifiers: Diabetes mellitus type: type 2 Chronic kidney disease stage: stage 3 ( moderate) Is this a current diagnosis for this admission?: Yes Plan: Patient is NPO due to large CVA. SSI discontinued. (6) Tobacco dependency Is this a current diagnosis for this admission?: Yes Plan: Discontinued patient is comfort measures. (7) DVT prophylaxis Plan: Discontinued as patient is comfort measures. (8) Chronic atrial fibrillation Is this a current diagnosis for this admission?: Yes Plan: Patient has chronic atrial fibrillation with paced rhythm. Patient was not anticoagulated due to problems with bleeding in the past. This may be been the cause of his CVA. (9) CVA (cerebral vascular accident) Qualifiers: CVA mechanism: thrombosis Precerebral and cerebral artery: middle cerebral artery Laterality of affected vessel: left Qualified Code(s): I63.312 - Cerebral infarction due to thrombosis of left middle cerebral artery Is this a current diagnosis for this admission?: Yes Plan: Appears to have happended in the last 24-48 hours. Patient has no movement on the right side. Patient unresponsive and having difficulty controlling his secreations. Patient is comfort measures. - Time Time Spent with patient: 35 or more minutes Medications reviewed and adjusted accordingly: Yes Anticipated discharge: Other Within: within 24 hours - Patient has poor prognosis. Patient significant other was notified. She will be coming this evening. Patient is now comfort measures.
--- NOTE | 2017-01-25 07:59 | Death Summary ---
Summary Date : 01/24/17 Time of :: 23:27 Autopsy: No Resuscitation Status: Comfort Measures Only - Final Diagnosis (1) Respiratory failure Is this a current diagnosis for this admission?: Yes (2) COPD (chronic obstructive pulmonary disease) Is this a current diagnosis for this admission?: Yes (3) CVA (cerebral vascular accident) Is this a current diagnosis for this admission?: Yes (4) Acute on chronic combined systolic and diastolic CHF (congestive heart failure) Is this a current diagnosis for this admission?: Yes (5) Acute kidney injury Is this a current diagnosis for this admission?: Yes (6) Do not resuscitate Is this a current diagnosis for this admission?: Yes (7) Diabetes Is this a current diagnosis for this admission?: Yes (8) Tobacco dependency Is this a current diagnosis for this admission?: Yes (10) Chronic atrial fibrillation Is this a current diagnosis for this admission?: Yes Hospital Course:: Patient is a 71-year-old male with a history of COPD, tobacco abuse, stroke, CHF , atrial fibrillation, diabetes, coronary artery disease and CKD stage IV who was recently discharged from the hospital with diagnosis of COPD exacerbation however was readmitted for pedal edema or CHF exacerbation with acute on chronic renal failure. Patient renal function was improving after Cristina was placed and patient was diuresed. On presentation to the hospital patient was not very interactive the first or second day. On 03/25/2017 patient was up and adamant that he was going home today. Patient was not discharged at that time as his disposition was not clear as he did not appear as if patient could care for himself. Overnight and into the morning of 01/24/2017 patient was found obtunded. CT scan of the head showed large left MCA. He was moved to the [facility]. Patient was having difficulty controlling his secretions and patient was also hypoxic which was most likely chronic in nature now being complicated by his inability to clear secretions. Patient did not want to be intubated. Of course CPAP could not be used due to patient's inability to control his secretions therefore Ventimask was used instead. Attempts were made to suction the patient. Patient quickly began signs of mottling of his lower extremities. Several attempts were made to contact his significant other and finally Susan was contacted. Susan agreed to comfort measures only as she stated that Mr. Diaz is already DNR and did not want anything aggressive done. All medications with the exceptions of oxygen, morphine as needed for respiratory distress and Ativan for agitation, Robinul/scopolamine for his secretions were discontinued. Because patient was unable to control his secretions following the stroke he was at risk for aspiration. Aspiration precautions were in place. Per the nursing notes at approximately 2327 on 01/24/2017 patient was found unresponsive with a without a pulse. The cause of being respiratory failure.
[2017-01-25] MEDS ORDERED: FUROSEMIDE INJ/PF 40 MG/4 ML SDV IV SCH (10:00)
[2017-01-27] MEDS ORDERED: SCOPOLAMINE HYDROBROMIDE 1.5 MG PATCH.TD72 TD SCH (10:00)
== END 2017-01-24 23:30 | DRG 291 ==
LOC: ER 05:41 → EH 11:03 → UNDOADMIN 11:24 → EH 11:24 → 5 13:11 → 3W 01-24 14:25
PROVIDERS: ADMIT Internal Medicine; ATTEND Internal Medicine
PROC: 3E0F73Z Introduction of Anti-inflammatory into Respiratory Tract, Via Natural or Artificial Opening (ICD-10-PCS; principal; 2017-01-23)
DX: I13.2 Hypertensive heart and chronic kidney disease with heart failure and with stage 5 chronic kidney disease, or end stage renal disease (principal); I50.43 Acute on chronic combined systolic (congestive) and diastolic (congestive) heart failure; I63.312 Cerebral infarction due to thrombosis of left middle cerebral artery; N17.9 Acute kidney failure, unspecified; N18.4 Chronic kidney disease, stage 4 (severe); J96.11 Chronic respiratory failure with hypoxia; J44.9 Chronic obstructive pulmonary disease, unspecified; Z66 Do not resuscitate; E11.22 Type 2 diabetes mellitus with diabetic chronic kidney disease; I48.2 Chronic atrial fibrillation; I25.10 Atherosclerotic heart disease of native coronary artery without angina pectoris; M19.90 Unspecified osteoarthritis, unspecified site; F32.9 Major depressive disorder, single episode, unspecified; F17.210 Nicotine dependence, cigarettes, uncomplicated; I25.2 Old myocardial infarction; Z95.1 Presence of aortocoronary bypass graft; Z95.0 Presence of cardiac pacemaker; Z79.4 Long term (current) use of insulin; Z79.899 Other long term (current) drug therapy; Z82.49 Family history of ischemic heart disease and other diseases of the circulatory system; Z83.6 Family history of other diseases of the respiratory system
CPT/HCPCS: 36415; 36600; 70450; 71010; 80048; 80053; 81001; 82550; 82553; 82803; 82962; 83735; 83880; 84484; 85025; 87040; 93005; 93010; 94640; 94667; 96374; 99285; J0360; J0696; J1644; J1815; J1940; J3490